=== PATIENT | female | born 1950 | race Caucasian/White ===

== ENCOUNTER 2017-03-08 10:23 | Emergency (ER) | payer MEDICARE ==
[2017-03-08] MEDS ORDERED: OXYMETAZOLINE 0.05% NASL SPRAY 15 ML ONE (11:29)
--- NOTE | 2017-03-08 11:39 | ED ---
ENT HPI - General Chief complaint: ENT Stated complaint: Epistaxis Time Seen by Provider: 03/08/17 11:10 Source: patient, RN notes reviewed Mode of arrival: wheelchair Limitations: no limitations - History of Present Illness Initial comments: This is a 58-year-old female with a history of multiple medical problems who states she had a scab but he is out of her nose several days ago and she removed it. Since that time she's had intermittent episodes of bleeding from the right naris. She has been to the other hospital in [facility] twice and was given Afrin and a nasal clamp no other procedures were done at the time. The patient is back today because she's had more bleeding intermittently she states she had a large clot that she had to evacuate earlier today. She denies any dizziness blurry vision and headache fevers chills sweats or other symptoms. MD complaint: epistaxis - Related Data Home Medications Medication Instructions Recorded Confirmed Cyanocobalamin [Vitamin B-12] 2,000 mcg PO DAILY 01/26/15 01/31/16 L.acid/L.casei/B.bif/B.parisa/Fos 1 cap PO DAILY 01/26/15 01/31/16 [Probiotic Blend Capsule] LORazepam [Ativan] 2 mg PO HS 01/26/15 01/31/16 Fluticasone Propionate [Flovent 2 puff INHALATION RT-QID PRN 04/12/15 01/31/16 Hfa 44 mcg] Cetirizine HCl [Zyrtec] 20 mg PO DAILY 08/09/15 01/31/16 Levalbuterol Nebulized [Xopenex 1.25 mg INHALATION RT-TID PRN 08/09/15 01/31/16 Nebulized] Ranitidine HCl 150 mg PO BID 08/09/15 01/31/16 Cyanocobalamin [Vitamin B-12 1,000 mcg SQ QMONTH PRN 01/10/16 01/31/16 Injection] Hydrochlorothiazide [Hydrodiuril] 6.25 mg PO HS 01/10/16 01/31/16 Ketorolac [Toradol] 60 mg IM WEEKLY PRN 01/10/16 01/31/16 Olmesartan Medoxomil [Benicar] 20 mg PO HS 01/10/16 01/31/16 amLODIPine [Norvasc] 10 mg PO HS 01/10/16 01/31/16 Previous Rx's Medication Instructions Recorded Levothyroxine Sodium [Synthroid] 125 mcg PO DAILY@0630 #30 tab 02/01/15 Allergies Allergy/AdvReac Type Severity Reaction Status Date / Time Sulfa (Sulfonamide Allergy Severe Unknown Verified 03/08/17 10:38 Antibiotics) NANCY Inhibitors Allergy Anaphylaxis Verified 03/08/17 10:38 adhesive Allergy Rash/Hives Verified 03/08/17 10:38 hylan G-F 20 [From Synvisc] Allergy Unknown Verified 03/08/17 10:38 Iodine and Iodide Containing Allergy Rash/Hives Verified 03/08/17 10:38 Produc Latex, Natural Rubber Allergy Rash/Hives Verified 03/08/17 10:38 meperidine HCl [From Demerol] Allergy Rash/Hives Verified 03/08/17 10:38 morphine Allergy Rash/Hives Verified 03/08/17 10:38 tetanus toxoid, adsorbed Allergy Unknown Verified 03/08/17 10:38 aspartame AdvReac Intermediate Diarrhea Verified 03/08/17 10:38 codeine AdvReac Nausea & Verified 03/08/17 10:38 Vomiting doxycycline AdvReac Nausea & Verified 03/08/17 10:38 Vomiting Penicillins AdvReac Nausea & Verified 03/08/17 10:38 Vomiting mushroom Allergy Diarrhea Uncoded 03/08/17 10:38 narcotics Allergy Rash/Hives Uncoded 03/08/17 10:38 Review of Systems ROS Statement: Those systems with pertinent positive or pertinent negative responses have been documented in the HPI. ROS Other: All systems not noted in ROS Statement are negative. Past Medical History Past Medical History: Atrial Flutter, Asthma, Fibromyalgia, GERD/Reflux, GI Bleed, Hyperlipidemia, Hypertension, Musculoskeletal Disorder, Neurologic Disorder, Osteoarthritis (OA), Sleep Apnea/CPAP/BIPAP, Thyroid Disorder, Vascular Disorder Additional Past Medical History / Comment(s): hx as follows: bronchitis, thoracic spondylosis, lupus, rls,migraines, blood clots, hiatal hernia, ibs, gerd, uti had sepsis 2004, kidney stone , stress incont, tmj.PERIPHERAL NEUROPATHY, endometriosis,adenomyosis, mixed connective tissue disorder, hypothyroidism, peptic ulcer disease, osteoarthritis, osteoporosis, GERD, scoliosis, esophagitis, PE, DVT, hypertension. History of Any Multi-Drug Resistant Organisms: MRSA Date of last positivie culture/infection: 02/03/2015 MDRO Source:: Nose Past Surgical History: Adenoidectomy, Bariatric Surgery, Cardiac Ablation, Cholecystectomy, Heart Catheterization, Hysterectomy, Joint Replacement, Orthopedic Surgery, Tonsillectomy, Tubal Ligation Additional Past Surgical History / Comment(s): cardiac ablation, L knee and R hip replacement. Lap band surgery. tummy tuck. CATARACTS,SINUS SX, SKIN , LAPROSCOPY, HEMORRHOIDECTOMY, CARPAL TUNNEL ADELAIDA,PAST STEROID INJ TO NECK, UVULECTOMY, LUMPSREMOVED ADELAIDA BREAST (CELLS PRECANCEROUS),BX RT TEMPORAL ARTERY- NEG), HAD NERVES IN BACK BURNED, BENIGN GROWTH REMOVED FROM BEHIND RT EAR, bilateral arthroscopic knee surgery, right total hiparthroplasty, bilateral arthroscopic hip surgery, bilateral ankle arthroscopic surgery, bilateral shoulder arthroscopic surgery. Past Anesthesia/Blood Transfusion Reactions: Motion Sickness, Postoperative Nausea & Vomiting (PONV) Past Psychological History: No Psychological Hx Reported Smoking Status: Never smoker Past Alcohol Use History: None Reported Past Drug Use History: None Reported - Past Family History Father Family Medical History: Neurologic Disorder, Pneumonia Additional Family Medical History / Comment(s): ALS- FROM PNE Mother Family Medical History: AFIB, Cancer, Chest Pain / Angina, Congestive Heart Failure (CHF), Diabetes Mellitus, Hyperlipidemia, Hypertension, Myocardial Infarction ([place]) Additional Family Medical History / Comment(s): OBESITY, COLON CA Brother(s) Family Medical History: Coronary Artery Disease (CAD) Sister(s) Family Medical History: Coronary Artery Disease (CAD) Daughter(s) Family Medical History: No Reported History General Exam - General Exam Comments Initial Comments: This is a well-developed well-nourished awake alert oriented 3 female Limitations: no limitations General appearance: alert, in no apparent distress Head exam: Present: atraumatic, normocephalic, normal inspection Eye exam: Present: normal appearance, PERRL, EOMI. Absent: scleral icterus, conjunctival injection, periorbital swelling ENT exam: Present: normal oropharynx, other (Dried blood in both nares especially on the right there is evidence of a clot toward the medial aspect of the naris no active bleeding at this time there does appear to be a area however is consistent with a recent bleed. The mucosa is boggy and swollen.) Neck exam: Present: normal inspection. Absent: tenderness, meningismus, lymphadenopathy Respiratory exam: Present: normal lung sounds bilaterally. Absent: respiratory distress, wheezes, rales, rhonchi, stridor Cardiovascular Exam: Present: regular rate, normal rhythm, normal heart sounds. Absent: systolic murmur, diastolic murmur, rubs, gallop, clicks Extremities exam: Present: normal inspection, full ROM, normal capillary refill. Absent: tenderness, pedal edema, joint swelling, calf tenderness Back exam: Present: normal inspection Neurological exam: Present: alert, oriented X3, CN II-XII intact Psychiatric exam: Present: normal affect, normal mood Skin exam: Present: warm, dry, intact, normal color. Absent: rash Course Vital Signs 03/08/17 03/08/17 10:35 12:28 Temperature 97.5 F L 97.0 F L Pulse Rate 73 65 Respiratory 20 16 Rate Blood Pressure 193/79 208/85 O2 Sat by Pulse 98 99 Oximetry Procedures - Procedures Initial comment: The patient did blow her nose and remove a large clot there was an area of excoriation and recent bleed noted to the medial aspect anteriorly of the right naris. The naris was anesthetized using 1% Xylocaine on a cotton pledget. I then used a silver nitrate sec to cauterize the area. Patient was observed for a long period time 20 minutes without any evidence a rebleed. Medical Decision Making - Medical Decision Making The patient will be discharged was cautioned about nose blowing I did recommend also saline drops or spray to keep the nose moist also I did caution about taking any scabs. Patient will be discharged. Disposition Clinical Impression: Epistaxis, recurrent Disposition: HOME SELF-CARE Condition: Good Instructions: Nosebleed (ED) Referrals: Grey Loaiza DO [Primary Care Provider] - 1-2 days
[2017-03-08] MEDS ORDERED: OXYMETAZOLINE 0.05% NASL SPRAY 15 ML NASAL STA (12:14)
[2017-03-08 12:30] VITALS: PULSE 65; RESP 16
[2017-03-08 13:35] VITALS: BP 184/78; TEMP 98
== END 2017-03-08 13:30 | disposition home or self-care (01) ==
LOC: EC 10:23
DX: R04.0 Epistaxis (principal); K21.9 Gastro-esophageal reflux disease without esophagitis; I10 Essential (primary) hypertension; Z88.2 Allergy status to sulfonamides; Z88.8 Allergy status to other drugs, medicaments and biological substances; Z91.048 Other nonmedicinal substance allergy status; Z91.040 Latex allergy status; Z88.5 Allergy status to narcotic agent; Z88.7 Allergy status to serum and vaccine; Z88.0 Allergy status to penicillin; Z91.018 Allergy to other foods; Z79.899 Other long term (current) drug therapy
CPT/HCPCS: 30901; 99283

== ENCOUNTER → 2017-10-21 | Outpatient (CLI) | payer MEDICARE ==
--- NOTE | 2017-10-21 17:53 | XR ---
EXAMINATION TYPE: XR chest 2V DATE OF EXAM: 10/21/2017 COMPARISON: 01/09/2016 HISTORY: Short of breath TECHNIQUE: Frontal and lateral views of the chest are obtained. FINDINGS: There is no heart failure nor confluent pneumonic infiltrate. Costophrenic angles are deborah r. Thoracic aorta is atheromatous. There is mild thoracic kyphotic curvature. There is slight anterio r wedging of mid thoracic vertebra. IMPRESSION: No active cardiopulmonary disease. No change.
--- NOTE | 2017-10-22 07:53 | ECHOF ---
Referral Reason:R53.83 Fatigue I10 Hypertension MEASUREMENTS -------- HEIGHT: 170.2 cm WEIGHT: 155.1 kg BP: IVSd: 1.2 cm (0.6 - 1.1) LVIDd: 3.3 cm (3.9 - 5.3) LVPWd: 1.3 cm (0.6 - 1.1) IVSs: 1.3 cm LVIDs: 1.9 cm LVPWs: 1.6 cm LAESV Index (A-L): 19.02 ml/m Ao Diam: 3.1 cm (2.0 - 3.7) AV Cusp: 1.6 cm (1.5 - 2.6) LA Diam: 3.3 cm (2.7 - 3.8) MV E Jose: 0.73 m/s MV DecT: 281 ms MV A Jose: 1.03 m/s MV E/A Ratio: 0.71 RAP: 5.00 mmHg RVSP: 24.44 mmHg FINDINGS -------- Sinus rhythm. This was a technically adequate study. The left ventricular size is normal. There is mild concentric left ventricular hypertrophy. Overa ll left ventricular systolic function is normal with, an EF between 55 - 60 %. The right ventricle is normal in size and function. Normal LA size by volume 22+/-6 ml/m2. The right atrium is normal in size. Aortic valve is trileaflet and is mildly thickened. There is no evidence of aortic regurgitation. There is no evidence of aortic stenosis. The mitral valve leaflets are mildly thickened. There is trace to mild mitral regurgitation. Trace tricuspid regurgitation present. Right ventricular systolic pressure is normal at < 35 mmHg. There is no evidence of pulmonary hypertension. Trace/mild (physiologic) pulmonic regurgitation. The aortic root size is normal. IVC Not well visulized. The pericardium is normal. There is no pericardial effusion. CONCLUSIONS -------- 1. Sinus rhythm. 2. This was a technically adequate study. 3. The left ventricular size is normal. 4. There is mild concentric left ventricular hypertrophy. 5. Overall left ventricular systolic function is normal with, an EF between 55 - 60 %. 6. Normal LA size by volume 22+/-6 ml/m2. 7. Aortic valve is trileaflet and is mildly thickened. 8. The mitral valve leaflets are mildly thickened. 9. There is trace to mild mitral regurgitation. 10. Trace tricuspid regurgitation present. 11. Right ventricular systolic pressure is normal at < 35 mmHg. 12. There is no evidence of pulmonary hypertension. 13. Trace/mild (physiologic) pulmonic regurgitation. 14. The aortic root size is normal. 15. IVC Not well visulized. 16. There is no pericardial effusion. CUTTER FIRST: Domingo Valdez RDCS
== END | disposition home or self-care (01) ==
LOC: RADECHMAIN 16:16
PROVIDERS: ATTEND Family Medicine
DX: I08.0 Rheumatic disorders of both mitral and aortic valves (principal); I10 Essential (primary) hypertension; R53.83 Other fatigue
CPT/HCPCS: 71046; 93306

== ENCOUNTER 2017-12-01 15:04 | Inpatient (IN) | payer MEDICARE ==
[2017-12-01] MEDS ORDERED: SODIUM CHLORIDE 0.9% 1,000 ML IV STA (15:30)
[2017-12-01] MEDS ORDERED: NITROGLYCERIN OINT 1 INCH/GM PACKET TOPICAL STA (15:30)
[2017-12-01 15:48] LABS: Basophils # (A) 0.1 k/uL (0-0.2); Basophils % (A) 0 %; Eosinophils # (A) 0.1 k/uL (0-0.7); Eosinophils % (A) 0 %; HCT 42.5 % (34.0-46.0); HGB 13.2 gm/dL (11.4-16.0); Lymphocytes % (A) 5 %; MCH 26.1 pg (25.0-35.0); MCHC 30.9 g/dL (31.0-37.0); MCV 84.5 fL (80.0-100.0); Mean Platelet Volume 6.2; Monocytes # (A) 1.1 k/uL (0-1.0); Monocytes % (A) 6 %; Neutrophils # (A) 16.3 k/uL (1.3-7.7); Neutrophils % (A) 87 %; Platelet Count 336 k/uL (150-450); RBC 5.04 m/uL (3.80-5.40); RDW 14.8 % (11.5-15.5); WBC 18.8 k/uL (3.8-10.6)
[2017-12-01 16:04] LABS: Albumin 3.6 g/dL (3.5-5.0); Calcium 9.4 mg/dL (8.4-10.2); Magnesium 1.8 mg/dL (1.6-2.3); Potassium 3.8 mmol/L (3.5-5.1); Total Bilirubin 0.4 mg/dL (0.2-1.3); Total Protein 6.7 g/dL (6.3-8.2)
--- NOTE | 2017-12-01 16:04 | XR ---
EXAMINATION TYPE: XR chest 2V DATE OF EXAM: 12/01/2017 COMPARISON: Prior chest x-ray 10/21/2017 HISTORY: Chest pain TECHNIQUE: Frontal and lateral views of the chest are obtained. FINDINGS: There is no focal air space opacity, pleural effusion, or pneumothorax seen. The cardiac silhouette size is stable. There are overlying cardiac leads. There is persistent elevation of the ri ght hemidiaphragm. The osseous structures are intact. IMPRESSION: No acute cardiopulmonary process. Stable exam.
[2017-12-01 16:15] LABS: Creatine Kinase 47 U/L (30-135)
--- NOTE | 2017-12-01 16:18 | ED ---
Chest Pain HPI - General Chief Complaint: Chest Pain Stated Complaint: chest pain Time Seen by Provider: 12/01/17 15:15 Source: patient Mode of arrival: wheelchair Limitations: no limitations - History of Present Illness Initial Comments: 67 years old mom lady presented with the chest pain since Friday he gets worse with exertion she denies any abdominal pain today but she had abdominal pain couple days ago she seen her family doctor she denies any history of for coronary artery disease she said she had a cardiac cath done she takes last cardiac cath was in 2010. He denies any headache no neck neck stiffness she does have a chest pain and shortness of breath and chest pain gets worse with the deep breaths no abdominal pain right now no frequency urgency dysuria no symptoms of TIA or CVA - Related Data Home Medications Medication Instructions Recorded Confirmed Cyanocobalamin [Vitamin B-12] 2,000 mcg PO DAILY 01/26/15 12/01/17 L.acid/L.casei/B.bif/B.parisa/Fos 1 cap PO DAILY 01/26/15 12/01/17 [Probiotic Blend Capsule] LORazepam [Ativan] 2 mg PO HS 01/26/15 12/01/17 Cetirizine HCl [Zyrtec] 20 mg PO DAILY 08/09/15 12/01/17 Levalbuterol Nebulized [Xopenex 1.25 mg INHALATION RT-TID PRN 08/09/15 12/01/17 Nebulized] Ranitidine HCl 150 mg PO BID 08/09/15 12/01/17 Acetaminophen Tab [Tylenol Tab] 325 mg PO Q4H PRN 12/01/17 12/01/17 Fludrocortisone [Florinef] 0.05 mg PO DAILY 12/01/17 12/01/17 Hydrocortisone [Cortef] 5 mg PO BID 12/01/17 12/01/17 Hydrocortisone [Cortef] 15 mg PO QAM 12/01/17 12/01/17 Levothyroxine Sodium [Synthroid] 150 mcg PO DAILY 12/01/17 12/01/17 Metoprolol Tartrate [Lopressor] 50 mg PO BID 12/01/17 12/01/17 Allergies Allergy/AdvReac Type Severity Reaction Status Date / Time Sulfa (Sulfonamide Allergy Severe Unknown Verified 12/01/17 15:26 Antibiotics) NANCY Inhibitors Allergy Anaphylaxis Verified 12/01/17 15:26 adhesive Allergy Rash/Hives Verified 12/01/17 15:26 albuterol Allergy Rash/Hives Verified 12/01/17 15:26 aspirin [From Soma Compound] Allergy Unknown Verified 12/01/17 15:26 baclofen Allergy Unknown Verified 12/01/17 15:26 carisoprodol Allergy Unknown Verified 12/01/17 15:26 [From Soma Compound] ciprofloxacin [From Cipro] Allergy Unknown Verified 12/01/17 15:26 gabapentin Allergy Unknown Verified 12/01/17 15:26 hylan G-F 20 [From Synvisc] Allergy Unknown Verified 12/01/17 15:26 Iodine and Iodide Containing Allergy Rash/Hives Verified 12/01/17 15:26 Produc Latex, Natural Rubber Allergy Rash/Hives Verified 12/01/17 15:26 levofloxacin [From Levaquin] Allergy Unknown Verified 12/01/17 15:26 lisinopril Allergy Unknown Verified 12/01/17 15:26 meperidine HCl [From Demerol] Allergy Rash/Hives Verified 12/01/17 15:26 morphine Allergy Rash/Hives Verified 12/01/17 15:26 tetanus toxoid, adsorbed Allergy Unknown Verified 12/01/17 15:26 tizanidine Allergy Rash/Hives Verified 12/01/17 15:26 aspartame AdvReac Intermediate Diarrhea Verified 12/01/17 15:26 codeine AdvReac Nausea & Verified 12/01/17 15:26 Vomiting doxycycline AdvReac Nausea & Verified 12/01/17 15:26 Vomiting Penicillins AdvReac Nausea & Verified 12/01/17 15:26 Vomiting prednisone AdvReac Hallucinati Verified 12/01/17 15:26 ons mushroom Allergy Diarrhea Uncoded 12/01/17 15:18 narcotics Allergy Rash/Hives Uncoded 12/01/17 15:18 Review of Systems ROS Statement: Those systems with pertinent positive or pertinent negative responses have been documented in the HPI. ROS Other: All systems not noted in ROS Statement are negative. EKG Findings - EKG Comments: EKG Findings:: EKG is unusual P axis and short GA interval I did compare that she even with the previous EKG GA interval definitely looks short her today also noticed some T-wave inversion in lead 3 and notice a T-wave inversion and ST depression in V5 and V6 Past Medical History Past Medical History: Atrial Flutter, Asthma, Fibromyalgia, GERD/Reflux, GI Bleed, Hyperlipidemia, Hypertension, Musculoskeletal Disorder, Neurologic Disorder, Osteoarthritis (OA), Sleep Apnea/CPAP/BIPAP, Thyroid Disorder, Vascular Disorder Additional Past Medical History / Comment(s): hx as follows: bronchitis, thoracic spondylosis, lupus, rls,migraines, blood clots, hiatal hernia, ibs, gerd, uti had sepsis 2004, kidney stone , stress incont, tmj.PERIPHERAL NEUROPATHY, endometriosis,adenomyosis, mixed connective tissue disorder, hypothyroidism, peptic ulcer disease, osteoarthritis, osteoporosis, GERD, scoliosis, esophagitis, PE, DVT, hypertension. History of Any Multi-Drug Resistant Organisms: MRSA Date of last positivie culture/infection: 02/03/2015 MDRO Source:: Nose Past Surgical History: Adenoidectomy, Bariatric Surgery, Cardiac Ablation, Cholecystectomy, Heart Catheterization, Hysterectomy, Joint Replacement, Orthopedic Surgery, Tonsillectomy, Tubal Ligation Additional Past Surgical History / Comment(s): cardiac ablation, L knee and R hip replacement. Lap band surgery. tummy tuck. CATARACTS,SINUS SX, SKIN , LAPROSCOPY, HEMORRHOIDECTOMY, CARPAL TUNNEL ADELAIDA,PAST STEROID INJ TO NECK, UVULECTOMY, LUMPSREMOVED ADELAIDA BREAST (CELLS PRECANCEROUS),BX RT TEMPORAL ARTERY- NEG), HAD NERVES IN BACK BURNED, BENIGN GROWTH REMOVED FROM BEHIND RT EAR, bilateral arthroscopic knee surgery, right total hiparthroplasty, bilateral arthroscopic hip surgery, bilateral ankle arthroscopic surgery, bilateral shoulder arthroscopic surgery. Past Anesthesia/Blood Transfusion Reactions: Motion Sickness, Postoperative Nausea & Vomiting (PONV) Past Psychological History: No Psychological Hx Reported Smoking Status: Never smoker Past Alcohol Use History: None Reported Past Drug Use History: None Reported - Past Family History Father Family Medical History: Neurologic Disorder, Pneumonia Additional Family Medical History / Comment(s): ALS- FROM PNE Mother Family Medical History: AFIB, Cancer, Chest Pain / Angina, Congestive Heart Failure (CHF), Diabetes Mellitus, Hyperlipidemia, Hypertension, Myocardial Infarction ([place]) Additional Family Medical History / Comment(s): OBESITY, COLON CA Brother(s) Family Medical History: Coronary Artery Disease (CAD) Sister(s) Family Medical History: Coronary Artery Disease (CAD) Daughter(s) Family Medical History: No Reported History General Exam - General Exam Comments Initial Comments: General: The patient is awake and alert, in no distress, and does not appear acutely ill. Skin: Skin is warm and dry and no rashes or lesions are noted. Eye: Pupils are equal, round and reactive to light, extra-ocular movements are intact; there is normal conjunctiva bilaterally. Ears, nose, mouth and throat: There are moist mucous membranes and no oral lesions. Neck: The neck is supple, there is no tenderness Cardiovascular: There is a regular rate and rhythm. No murmur, rub or gallop is appreciated. Respiratory: To auscultation bilateral, crease breath sounds bilateral Gastrointestinal: Soft, non-distended, non-tender abdomen without masses or organomegaly noted. There is no rebound or guarding present. Bowel sounds are unremarkable. Back: There is no tenderness to palpation in the midline. There is no obvious deformity. Musculoskeletal: Normal ROM, no tenderness, There is no pedal edema. There is no calf tenderness or swelling. No cords were appreciated. Neurological: CN II-XII intact, Cranial nerves III through XII are intact. There are no obvious motor or sensory deficits. Coordination appears grossly intact. Speech is normal. Psychiatric: Cooperative, appropriate mood & affect, normal judgment. Limitations: no limitations Course Vital Signs 12/01/17 12/01/17 12/01/17 15:06 15:37 15:46 Temperature 97.4 F L Pulse Rate 87 78 Pulse Rate [ 78 Baker Second ] Respiratory 18 18 Rate Blood Pressure 142/74 162/57 O2 Sat by Pulse 95 97 Oximetry Critical Care Time Total Critical Care Time: 30 Critical Care Time: With the chest pain chest pain gets worse when she moves and when she takes a deep breath at rest chest pain goes down to 1 or 2 she denies any trauma to the back she does have a quite a bit cold comorbidities and EKG showed some new changes consistent with the TV of T-wave inversion in lead 3 and then V5 and V6 these changes are new compared to her old EKG considering that and we'll heparinize her she be admitted to Dr. Guerra's service cardiology be consulted then noticed the white count is quite elevated though chest x-ray is normal I don't have any urine studies back yet empirically she be treated with the antibiotics we can modify the treatment once the cultures come back right Is quite elevated is a 19 with a left shift Disposition Clinical Impression: Chest pain, Unstable angina, Leukocytosis Disposition: ADMITTED IP TO THIS HOSP Condition: Good Referrals: Grey Loaiza DO [Primary Care Provider] - 1-2 days
[2017-12-01 16:26] LABS: D-Dimer 0.37 mg/L FEU (<0.60); Partial Thromboplastin Time 22.2 sec (22.0-30.0); Prothrombin Time 10.1 sec (9.0-12.0)
[2017-12-01 16:28] LABS: Creatine Kinase MB 0.6 ng/mL (0.0-2.4); Troponin I <0.012 ng/mL (0.000-0.034)
[2017-12-01] MEDS ORDERED: HEPARIN SOD,PORK IN 0.45% NACL 25,000 UNIT in 0.45% NACL 1 500ML.BAG IV SCH (17:00)
[2017-12-01] MEDS ORDERED: HEPARIN SODIUM,PORCINE 5,000 UNIT/ML 1 ML VIAL IV ONE (17:00)
[2017-12-01] MEDS ORDERED: NITROGLYCERIN SL TABS 0.4 MG TAB SUBLINGUAL PRN (17:00)
[2017-12-01] MEDS ORDERED: ACETAMINOPHEN TAB 325 MG TAB PO PRN (17:09)
[2017-12-01] MEDS ORDERED: LEVALBUTEROL INHALATION PRN (17:09)
[2017-12-01 17:16] LABS: Appearance,Urine Cloudy (Clear); Bilirubin,Urine Negative (Negative); Blood,Urine Trace (Negative); Color,Urine Yellow; Glucose,Urine (UA) Negative (Negative); Hyaline Casts,Urine 4 /lpf (0-2); Ketones,Urine Trace (Negative); Leukocyte Esterase,Urine Moderate (Negative); Mucus,Urine Many /hpf; Nitrite,Urine Negative (Negative); Protein,Urine 1+ (Negative); RBC,Urine 3 /hpf (0-5); Specific Gravity,Urine 1.024 (1.001-1.035); Squamous Epithelial Cell,Urine <1 /hpf (0-4); WBC,Urine 35 /hpf (0-5)
--- NOTE | 2017-12-01 18:43 | P.HPIM ---
History of Present Illness H&P Date: 12/01/17 Chief Complaint: chest pain 67 years old female patient of Dr. Middleton with past medical history of atrial flutter status post ablation, asthma, hypertension, hyperlipidemia, fibromyalgia, history of GI bleed from ulcers, history of obstructive sleep apnea status post surgery, history of adrenal insufficiency presents in with increased chest tightness associated with chest pain involving the right side of the chest radiating to the back. Patient also endorses wheezing associated with mild cough. She also endorses shortness of breath on exertion, endorses increased weakness and lethargy for some time that has worsened in the past few months. Patient has shortness of breath going on for the past 6 months which was attributed to COPD. Patient has a last cardiac cath in 2010 which was normal. She denies any previous history of chest pain and shortness of breath. She does document multiple lung infections and history of pleurisy in the past. EKG done in the ER was suggestive of some T- wave inversions in lead [address] depression in V5 and V6. Patient is started on heparin and cardiology were consulted for evaluation. Echo ordered. CBC is positive for leukocytosis 18.8, creatinine baseline at 1.2. Troponin 1 negative. Review of Systems Constitutional: Reports chronic pain, Reports fatigue, Reports lethargy, Reports poor appetite, Reports weight gain, Denies fever Eyes: denies blurred vision, denies decreased vision, denies discharge Ears, nose, mouth and throat: Denies ant. neck pain, Denies dysphagia, Denies epistaxis, Denies headache, Denies hoarseness, Denies nasal discharge, Denies odynophagia, Denies post-nasal drip Cardiovascular: Reports chest pain, Reports decreased exercise tolerance, Reports dyspnea on exertion, Reports edema, Reports high blood pressure, Reports irregular heart beat, Reports shortness of breath, Denies lightheadedness, Denies orthopnea Respiratory: Reports cough, Reports dyspnea, Reports home oxygen, Reports sleep apnea, Reports wheezing, Denies cough with sputum Gastrointestinal: Denies abdominal pain, Denies belching, Denies bloating, Denies BRBPR, Denies change in bowel habits, Denies heartburn, Denies hematemesis, Denies hematochezia Genitourinary: Denies hematuria, Denies urgency, Denies urinary frequency Musculoskeletal: Reports leg numbness/tingling, Reports limitation of motion, Denies arm numbness/tingling, Denies morning stiffness, Denies muscle cramps Musculoskeletal: absent: ankle pain, ankle stiffness, elbow pain, elbow stiffness Integumentary: Denies change in hair/nails, Denies rash, Denies striae, Denies unusual bruising Neurological: Reports gait dysfunction, Reports numbness, Denies loss of vision , Denies memory loss, Denies motor disturbance, Denies seizures, Denies syncope , Denies tingling Psychiatric: Denies anxiety Past Medical History Past Medical History: Atrial Flutter, Asthma, Fibromyalgia, GERD/Reflux, GI Bleed, Hyperlipidemia, Hypertension, Musculoskeletal Disorder, Neurologic Disorder, Osteoarthritis (OA), Sleep Apnea/CPAP/BIPAP, Thyroid Disorder, Vascular Disorder Additional Past Medical History / Comment(s): hx as follows: bronchitis, thoracic spondylosis, lupus, rls,migraines, blood clots, hiatal hernia, ibs, gerd, uti had sepsis 2004, kidney stone , stress incont, tmj.PERIPHERAL NEUROPATHY, endometriosis,adenomyosis, mixed connective tissue disorder, hypothyroidism, peptic ulcer disease, osteoarthritis, osteoporosis, GERD, scoliosis, esophagitis, PE, DVT, hypertension. History of Any Multi-Drug Resistant Organisms: MRSA Date of last positivie culture/infection: 02/03/2015 MDRO Source:: Nose Past Surgical History: Adenoidectomy, Bariatric Surgery, Cardiac Ablation, Cholecystectomy, Heart Catheterization, Hysterectomy, Joint Replacement, Orthopedic Surgery, Tonsillectomy, Tubal Ligation Additional Past Surgical History / Comment(s): cardiac ablation, L knee and R hip replacement. Lap band surgery. tummy tuck. CATARACTS,SINUS SX, SKIN , LAPROSCOPY, HEMORRHOIDECTOMY, CARPAL TUNNEL ADELAIDA,PAST STEROID INJ TO NECK, UVULECTOMY, LUMPSREMOVED ADELAIDA BREAST (CELLS PRECANCEROUS),BX RT TEMPORAL ARTERY- NEG), HAD NERVES IN BACK BURNED, BENIGN GROWTH REMOVED FROM BEHIND RT EAR, bilateral arthroscopic knee surgery, right total hiparthroplasty, bilateral arthroscopic hip surgery, bilateral ankle arthroscopic surgery, bilateral shoulder arthroscopic surgery. Past Anesthesia/Blood Transfusion Reactions: Motion Sickness, Postoperative Nausea & Vomiting (PONV) Past Psychological History: No Psychological Hx Reported Smoking Status: Never smoker Past Alcohol Use History: None Reported Past Drug Use History: None Reported - Past Family History Father Family Medical History: Neurologic Disorder, Pneumonia Additional Family Medical History / Comment(s): ALS- FROM PNE Mother Family Medical History: AFIB, Cancer, Chest Pain / Angina, Congestive Heart Failure (CHF), Diabetes Mellitus, Hyperlipidemia, Hypertension, Myocardial Infarction ([place]) Additional Family Medical History / Comment(s): OBESITY, COLON CA Brother(s) Family Medical History: Coronary Artery Disease (CAD) Sister(s) Family Medical History: Coronary Artery Disease (CAD) Daughter(s) Family Medical History: No Reported History Medications and Allergies Home Medications Medication Instructions Recorded Confirmed Type Cyanocobalamin [Vitamin B-12] 2,000 mcg PO DAILY 01/26/15 12/01/17 History L.acid/L.casei/B.bif/B.parisa/Fos 1 cap PO DAILY 01/26/15 12/01/17 History [Probiotic Blend Capsule] LORazepam [Ativan] 2 mg PO HS 01/26/15 12/01/17 History Cetirizine HCl [Zyrtec] 20 mg PO DAILY 08/09/15 12/01/17 History Levalbuterol Nebulized [Xopenex 1.25 mg INHALATION RT-TID PRN 08/09/15 12/01/17 History Nebulized] Ranitidine HCl 150 mg PO BID 08/09/15 12/01/17 History Acetaminophen Tab [Tylenol Tab] 325 mg PO Q4H PRN 12/01/17 12/01/17 History Fludrocortisone [Florinef] 0.05 mg PO DAILY 12/01/17 12/01/17 History Hydrocortisone [Cortef] 5 mg PO BID 12/01/17 12/01/17 History Hydrocortisone [Cortef] 15 mg PO QAM 12/01/17 12/01/17 History Levothyroxine Sodium [Synthroid] 150 mcg PO DAILY 12/01/17 12/01/17 History Metoprolol Tartrate [Lopressor] 50 mg PO BID 12/01/17 12/01/17 History Allergies Allergy/AdvReac Type Severity Reaction Status Date / Time Sulfa (Sulfonamide Allergy Severe Unknown Verified 12/01/17 15:26 Antibiotics) NANCY Inhibitors Allergy Anaphylaxis Verified 12/01/17 15:26 adhesive Allergy Rash/Hives Verified 12/01/17 15:26 albuterol Allergy Rash/Hives Verified 12/01/17 15:26 aspirin [From Soma Compound] Allergy Unknown Verified 12/01/17 15:26 baclofen Allergy Unknown Verified 12/01/17 15:26 carisoprodol Allergy Unknown Verified 12/01/17 15:26 [From Soma Compound] ciprofloxacin [From Cipro] Allergy Unknown Verified 12/01/17 15:26 gabapentin Allergy Unknown Verified 12/01/17 15:26 hylan G-F 20 [From Synvisc] Allergy Unknown Verified 12/01/17 15:26 Iodine and Iodide Containing Allergy Rash/Hives Verified 12/01/17 15:26 Produc Latex, Natural Rubber Allergy Rash/Hives Verified 12/01/17 15:26 levofloxacin [From Levaquin] Allergy Unknown Verified 12/01/17 15:26 lisinopril Allergy Unknown Verified 12/01/17 15:26 meperidine HCl [From Demerol] Allergy Rash/Hives Verified 12/01/17 15:26 morphine Allergy Rash/Hives Verified 12/01/17 15:26 tetanus toxoid, adsorbed Allergy Unknown Verified 12/01/17 15:26 tizanidine Allergy Rash/Hives Verified 12/01/17 15:26 aspartame AdvReac Intermediate Diarrhea Verified 12/01/17 15:26 codeine AdvReac Nausea & Verified 12/01/17 15:26 Vomiting doxycycline AdvReac Nausea & Verified 12/01/17 15:26 Vomiting Penicillins AdvReac Nausea & Verified 12/01/17 15:26 Vomiting prednisone AdvReac Hallucinati Verified 12/01/17 15:26 ons mushroom Allergy Diarrhea Uncoded 12/01/17 15:18 narcotics Allergy Rash/Hives Uncoded 12/01/17 15:18 Physical Exam Vitals: Vital Signs Temp Pulse Pulse Resp BP Pulse Ox 12/01/17 18:10 97 F L 72 18 154/74 95 12/01/17 17:10 97.3 F L 78 18 160/81 96 12/01/17 15:46 78 18 162/57 97 12/01/17 15:37 78 12/01/17 15:06 97.4 F L 87 18 142/74 95 Intake and Output 12/01/17 12/01/17 12/01/17 06:59 14:59 22:59 Other: Weight 154.221 kg Patient Weight 02/27/18 06:59 Weight 154.221 kg - Constitutional General appearance: average body habitus, mild distress - EENT Eyes: EOMI, PERRLA, no photophobia, no ptosis Ears: bilateral: normal - Neck Neck: no lymphadenopathy, normal ROM Carotids: bilateral: upstroke normal - Respiratory Respiratory: bilateral: CTA, negative: diminished, dullness, rales, rhonchi, wheezing - Cardiovascular Rhythm: regular Heart sounds: normal: S1, S2 Abnormal Heart Sounds: no systolic murmur, no diastolic murmur, no S3 Gallop, no S4 Gallop, no click ankle Peripheral Edema: absent: None dorsalis pedis Peripheral Pulses: bilateral: Normal - Gastrointestinal General gastrointestinal: no distended, normal bowel sounds, soft - Integumentary Integumentary: no calor, no cyanotic - Neurologic Neurologic: CNII-XII intact - Musculoskeletal Musculoskeletal: generalized weakness, strength equal bilaterally - Psychiatric Psychiatric: A&O x's 3, appropriate affect Results CBC & Chem 7: 12/01/17 15:24 12/01/17 15:24 Labs: Abnormal Lab Results - Last 24 Hours (Table) 12/01/17 12/01/17 12/01/17 Range/Units 15:24 15:24 17:08 WBC 18.8 H (3.8-10.6) k/uL MCHC 30.9 L (31.0-37.0) g/dL Neutrophils # 16.3 H (1.3-7.7) k/uL Monocytes # 1.1 H (0-1.0) k/uL BUN 25 H (7-17) mg/dL Creatinine 1.20 H (0.52-1.04) mg/dL Glucose 145 H (74-99) mg/dL Urine Appearance Cloudy H (Clear) Urine Protein 1+ H (Negative) Urine Ketones Trace H (Negative) Urine Blood Trace H (Negative) Ur Leukocyte Esterase Moderate H (Negative) Urine WBC 35 H (0-5) /hpf Hyaline Casts 4 H (0-2) /lpf Urine Mucus Many H (None) /hpf Thrombosis Risk Factor Assmnt - DVT/VTE Prophylaxis DVT/VTE Prophylaxis: Pharmacologic Prophylaxis ordered Assessment and Plan Plan: 1 atypical chest pain: troponin 3 be done consult cardiology and repeat EKG if change in troponin patient will go for heart cath if not stress test and echocardiogram. Continue heparin drip and it cleared by cardiology 2 worsening dyspnea and shortness of breath: We'll continue patient on Xopenex and Symbicort along with O2. 3 a flutter status post atrial fibrillation: Patient is not on any anticoagulation currently, pulse rate is under control. 4 hypertension: Patient is on metoprolol 50 twice a day Will continue the same 5 hypothyroidism: Patient is on Synthroid 125 g daily continue medication. 6 GERD: Patient will be on Pepcid 20 mg twice a day. 7. Renal insufficiency continue Florinef and Cortef at the current dose DVT prophylaxis: Continue heparin drip CODE STATUS: Full code. Expectation from this admission: Patient be in the hospital for 1-2 nights.
[2017-12-01] MEDS ORDERED: cefTRIAXone IN SWFI 1,000 MG/10 ML SYRINGE IVP STA (20:37)
[2017-12-01] MEDS ORDERED: ACETAMINOPHEN TAB 500 MG TAB PO STA (20:38)
[2017-12-01] MEDS ORDERED: LORazepam 1 MG TAB PO SCH (21:00)
[2017-12-01 21:45] VITALS: BMI 53.2
[2017-12-01] MEDS: HYDROCORTISONE 10 MG TAB PO SCH (21:46)
[2017-12-01] MEDS: FAMOTIDINE 20 MG TAB PO SCH (21:50)
[2017-12-01] MEDS: METOPROLOL TARTRATE 50 MG TAB PO SCH (21:50)
[2017-12-01 22:30] LABS: Creatine Kinase 46 U/L (30-135)
[2017-12-01 22:37] LABS: Creatine Kinase MB 0.9 ng/mL (0.0-2.4); Troponin I <0.012 ng/mL (0.000-0.034)
[2017-12-02 03:24] LABS: Basophils # (A) 0.1 k/uL (0-0.2); Basophils % (A) 1 %; Eosinophils # (A) 0.1 k/uL (0-0.7); Eosinophils % (A) 1 %; HCT 42.3 % (34.0-46.0); HGB 12.7 gm/dL (11.4-16.0); Hypochromasia Moderate; Lymphocytes # (A) 1.5 k/uL (1.0-4.8); Lymphocytes % (A) 10 %; MCH 25.9 pg (25.0-35.0); MCHC 29.9 g/dL (31.0-37.0); MCV 86.6 fL (80.0-100.0); Mean Platelet Volume 6.6; Monocytes # (A) 0.9 k/uL (0-1.0); Monocytes % (A) 6 %; Neutrophils # (A) 12.2 k/uL (1.3-7.7); Neutrophils % (A) 81 %; Platelet Count 305 k/uL (150-450); RBC 4.88 m/uL (3.80-5.40); RDW 14.5 % (11.5-15.5); WBC 15.1 k/uL (3.8-10.6)
[2017-12-02 03:28] LABS: Albumin 3.4 g/dL (3.5-5.0); Calcium 9.3 mg/dL (8.4-10.2); Potassium 4.1 mmol/L (3.5-5.1); Total Bilirubin 0.4 mg/dL (0.2-1.3); Total Protein 6.2 g/dL (6.3-8.2)
[2017-12-02 04:05] LABS: Creatine Kinase 37 U/L (30-135)
[2017-12-02 04:18] LABS: Creatine Kinase MB 0.6 ng/mL (0.0-2.4); Troponin I <0.012 ng/mL (0.000-0.034)
[2017-12-02] MEDS ORDERED: LEVOTHYROXINE 75 MCG TAB PO SCH (06:30)
[2017-12-02] MEDS ORDERED: HYDROCORTISONE 10 MG TAB PO SCH (07:30)
[2017-12-02] MEDS: METOPROLOL TARTRATE 50 MG TAB PO SCH (08:07)
[2017-12-02] MEDS: FAMOTIDINE 20 MG TAB PO SCH (08:07)
--- NOTE | 2017-12-02 08:13 | P.CRDCN ---
History of Present Illness Consult date: 12/02/17 Requesting physician: Carlito Macias Consult reason: chest pain Chief complaint: Chest pain History of present illness: This is a 67-year-old female who follows with Dr. Gabino Noland in the office. She has a history of hypertension, hyperlipidemia, asthma, sleep apnea , adrenal insufficiency, atrial flutter with prior ablation, prior PE, hypothyroidism. She presents to the hospital with symptoms of chest discomfort. According to the patient, she has been having chills at home, she' s also been having some discomfort in her upper abdominal region, she states that she's been having discomfort In her scapula area, that comes and goes, she also states that when she exerts herself physically she gets a sharp stabbing chest pain. Patient does have a nonproductive cough, no wheezing. Patient has had a cardiac catheterization in the past, 2010, normal coronary arteries at that time. In January 2016 she underwent a Lexiscan stress test which was negative for any reversible ischemia. EKG on arrival here showed a normal sinus rhythm with nonspecific ST-T wave changes, similar to prior EKGs. Chest x -ray did not reveal any acute cardiopulmonary process. Blood pressure 136/80 with a heart rate in the 60s. Afebrile. White blood cell count 18.8 on admission, 15.1 this morning. Hemoglobin 12.7, platelet count 305. D-dimer is 0.37. Sodium 142, potassium 4.1, BUN 31, creatinine 1.2. Troponins have been negative 3. BNP level 449. Positive UTI. Influenza negative. At the time of my examination this morning, patient is currently chest pain-free, denies any pain at present interscapular area. Past Medical History Past Medical History: Atrial Flutter, Asthma, Fibromyalgia, GERD/Reflux, GI Bleed, Hyperlipidemia, Hypertension, Musculoskeletal Disorder, Neurologic Disorder, Osteoarthritis (OA), Pulmonary Embolus (PE), Sleep Apnea/CPAP/BIPAP, Thyroid Disorder, Vascular Disorder Additional Past Medical History / Comment(s): hx as follows: bronchitis, thoracic spondylosis, lupus, rls,migraines, blood clots, hiatal hernia, ibs, gerd, uti had sepsis 2004, kidney stone , stress incont, tmj.PERIPHERAL NEUROPATHY, endometriosis,adenomyosis, mixed connective tissue disorder, hypothyroidism, peptic ulcer disease, osteoarthritis, osteoporosis, GERD, scoliosis, esophagitis, PE, DVT, hypertension. History of Any Multi-Drug Resistant Organisms: MRSA Date of last positivie culture/infection: 02/03/2015 MDRO Source:: Nose Past Surgical History: Adenoidectomy, Bariatric Surgery, Cardiac Ablation, Cholecystectomy, Heart Catheterization, Hysterectomy, Joint Replacement, Orthopedic Surgery, Tonsillectomy, Tubal Ligation Additional Past Surgical History / Comment(s): cardiac ablation, L knee and R hip replacement. Lap band surgery. tummy tuck. CATARACTS,SINUS SX, SKIN , LAPROSCOPY, HEMORRHOIDECTOMY, CARPAL TUNNEL ADELAIDA,PAST STEROID INJ TO NECK, UVULECTOMY, LUMPS REMOVED ADELAIDA BREAST (CELLS PRECANCEROUS),BX RT TEMPORAL ARTERY- NEG), HAD NERVES IN BACK BURNED, BENIGN GROWTH REMOVED FROM BEHIND RT EAR, bilateral arthroscopic knee surgery, right total hiparthroplasty, bilateral arthroscopic hip surgery, bilateral ankle arthroscopic surgery, bilateral shoulder arthroscopic surgery. Past Anesthesia/Blood Transfusion Reactions: Motion Sickness, Postoperative Nausea & Vomiting (PONV) Past Psychological History: No Psychological Hx Reported Smoking Status: Never smoker Past Alcohol Use History: None Reported Past Drug Use History: None Reported - Past Family History Father Family Medical History: Neurologic Disorder, Pneumonia Additional Family Medical History / Comment(s): ALS, FROM PNEUMONIA Mother Family Medical History: AFIB, Cancer, Chest Pain / Angina, Congestive Heart Failure (CHF), Diabetes Mellitus, Hyperlipidemia, Hypertension, Myocardial Infarction ([place]) Additional Family Medical History / Comment(s): OBESITY, COLON CA Brother(s) Family Medical History: Coronary Artery Disease (CAD) Sister(s) Family Medical History: Coronary Artery Disease (CAD), Deep Vein Thrombosis (DVT ) Daughter(s) Family Medical History: No Reported History Medications and Allergies Home Medications Medication Instructions Recorded Confirmed Type Cyanocobalamin [Vitamin B-12] 2,000 mcg PO DAILY 01/26/15 12/01/17 History L.acid/L.casei/B.bif/B.parisa/Fos 1 cap PO DAILY 01/26/15 12/01/17 History [Probiotic Blend Capsule] LORazepam [Ativan] 2 mg PO HS 01/26/15 12/01/17 History Cetirizine HCl [Zyrtec] 20 mg PO DAILY 08/09/15 12/01/17 History Levalbuterol Nebulized [Xopenex 1.25 mg INHALATION RT-TID PRN 08/09/15 12/01/17 History Nebulized] Ranitidine HCl 150 mg PO BID 08/09/15 12/01/17 History Acetaminophen Tab [Tylenol Tab] 325 mg PO Q4H PRN 12/01/17 12/01/17 History Fludrocortisone [Florinef] 0.05 mg PO DAILY 12/01/17 12/01/17 History Hydrocortisone [Cortef] 5 mg PO BID 12/01/17 12/01/17 History Hydrocortisone [Cortef] 15 mg PO QAM 12/01/17 12/01/17 History Levothyroxine Sodium [Synthroid] 150 mcg PO DAILY 12/01/17 12/01/17 History Metoprolol Tartrate [Lopressor] 50 mg PO BID 12/01/17 12/01/17 History Allergies Allergy/AdvReac Type Severity Reaction Status Date / Time Sulfa (Sulfonamide Allergy Severe Unknown Verified 12/01/17 15:26 Antibiotics) NANCY Inhibitors Allergy Anaphylaxis Verified 12/01/17 15:26 adhesive Allergy Rash/Hives Verified 12/01/17 15:26 albuterol Allergy Rash/Hives Verified 12/01/17 15:26 aspirin [From Soma Compound] Allergy Unknown Verified 12/01/17 15:26 baclofen Allergy Unknown Verified 12/01/17 15:26 carisoprodol Allergy Unknown Verified 12/01/17 15:26 [From Soma Compound] ciprofloxacin [From Cipro] Allergy Unknown Verified 12/01/17 15:26 gabapentin Allergy Unknown Verified 12/01/17 15:26 hylan G-F 20 [From Synvisc] Allergy Unknown Verified 12/01/17 15:26 Iodine and Iodide Containing Allergy Rash/Hives Verified 12/01/17 15:26 Produc Latex, Natural Rubber Allergy Rash/Hives Verified 12/01/17 15:26 levofloxacin [From Levaquin] Allergy Unknown Verified 12/01/17 15:26 lisinopril Allergy Unknown Verified 12/01/17 15:26 meperidine HCl [From Demerol] Allergy Rash/Hives Verified 12/01/17 15:26 morphine Allergy Rash/Hives Verified 12/01/17 15:26 tetanus toxoid, adsorbed Allergy Unknown Verified 12/01/17 15:26 tizanidine Allergy Rash/Hives Verified 12/01/17 15:26 aspartame AdvReac Intermediate Diarrhea Verified 12/01/17 15:26 codeine AdvReac Nausea & Verified 12/01/17 15:26 Vomiting doxycycline AdvReac Nausea & Verified 12/01/17 15:26 Vomiting Penicillins AdvReac Nausea & Verified 12/01/17 15:26 Vomiting prednisone AdvReac Hallucinati Verified 12/01/17 15:26 ons mushroom Allergy Diarrhea Uncoded 12/01/17 15:18 narcotics Allergy Rash/Hives Uncoded 12/01/17 15:18 Physical Exam Vitals: Vital Signs Temp Pulse Pulse Pulse Resp BP BP 12/02/17 04:00 98.1 F 65 18 137/81 12/02/17 00:00 98 F 84 18 136/85 12/01/17 21:15 97.8 F 80 18 138/80 12/01/17 20:30 97.0 F L 80 18 162/83 12/01/17 18:10 97 F L 72 18 154/74 12/01/17 17:10 97.3 F L 78 18 160/81 12/01/17 15:46 78 18 162/57 12/01/17 15:37 78 12/01/17 15:06 97.4 F L 87 18 142/74 Pulse Ox 12/02/17 04:00 95 12/02/17 00:00 95 12/01/17 21:15 96 12/01/17 20:30 97 12/01/17 18:10 95 12/01/17 17:10 96 12/01/17 15:46 97 12/01/17 15:37 12/01/17 15:06 95 Intake and Output 12/01/17 12/02/17 12/02/17 22:59 06:59 14:59 Intake Total 639.333 191.035 Balance 639.333 191.035 Intake: Intake, IV Titration 639.333 191.035 Amount Heparin Sod,Pork in 0.45% 139.333 191.035 NaCl 25,000 unit In 0.45 % NaCl 1 500ml.bag @ 6.5 UNITS/KG/HR 20.04 mls/hr IV .Q24H [facility] Rx#: [id number] Sodium Chloride 0.9% 1, 500 000 ml @ 100 mls/hr IV . Q10H [facility] Rx#:[id number] Other: Voiding Method Toilet # Voids 1 2 Weight 154.221 kg 153.3 kg PHYSICAL EXAMINATION: HEENT: Head is atraumatic, normocephalic. Pupils equal, round. Neck is supple. There is no elevated jugular venous pressure. HEART EXAMINATION: Heart S1, S2 normal. No murmur or gallop heard. CHEST EXAMINATION: Lungs are clear to auscultation and precussion. No chest wall tenderness is noted on palpation or with deep breathing. ABDOMEN: Soft, obese, nontender. Bowel sounds are heard. No organomegaly noted. EXTREMITIES: 2+ peripheral pulses with trace evidence of peripheral edema and no calf tenderness noted. NEUROLOGIC patient is awake, alert and oriented -3. . Results 12/02/17 02:55 12/02/17 02:55 Cardiac Enzymes 12/01/17 12/01/17 12/01/17 Range/Units 15:24 15:24 21:27 AST 16 (14-36) U/L CK-MB (CK-2) 0.6 0.9 (0.0-2.4) ng/mL Troponin I <0.012 <0.012 (0.000-0.034) ng/mL 12/02/17 12/02/17 Range/Units 02:55 02:55 AST 13 L (14-36) U/L CK-MB (CK-2) 0.6 (0.0-2.4) ng/mL Troponin I <0.012 (0.000-0.034) ng/mL Coagulation 12/01/17 12/01/17 12/02/17 Range/Units 15:24 23:59 06:25 PT 10.1 (9.0-12.0) sec APTT 22.2 29.4 36.2 H (22.0-30.0) sec Lipids 12/02/17 Range/Units 02:55 Triglycerides 83 (<150) mg/dL Cholesterol 193 (<200) mg/dL HDL Cholesterol 63 H (40-60) mg/dL CBC 12/01/17 12/02/17 Range/Units 15:24 02:55 WBC 18.8 H 15.1 H (3.8-10.6) k/uL RBC 5.04 4.88 (3.80-5.40) m/uL Hgb 13.2 12.7 (11.4-16.0) gm/dL Hct 42.5 42.3 (34.0-46.0) % Plt Count 336 305 (150-450) k/uL Comprehensive Metabolic Panel 12/01/17 12/02/17 Range/Units 15:24 02:55 Sodium 143 142 (137-145) mmol/L Potassium 3.8 4.1 (3.5-5.1) mmol/L Chloride 103 102 (98-107) mmol/L Carbon Dioxide 29 33 H (22-30) mmol/L BUN 25 H 31 H (7-17) mg/dL Creatinine 1.20 H 1.20 H (0.52-1.04) mg/dL Glucose 145 H 121 H (74-99) mg/dL Calcium 9.4 9.3 (8.4-10.2) mg/dL AST 16 13 L (14-36) U/L ALT 19 18 (9-52) U/L Alkaline Phosphatase 82 76 (38-126) U/L Total Protein 6.7 6.2 L (6.3-8.2) g/dL Albumin 3.6 3.4 L (3.5-5.0) g/dL Current Medications Generic Name Dose Route Start Last Admin Trade Name Freq PRN Reason Stop Dose Admin Acetaminophen 325 mg 12/01/17 17:09 Tylenol Tab PO Q4H PRN Pain Aspirin 325 mg 12/02/17 09:00 Aspirin PO DAILY [facility] Cyanocobalamin 2,000 mcg 12/02/17 12:00 Vitamin B-12 PO 1200 [facility] Famotidine 20 mg 12/01/17 21:00 12/01/17 21:50 Pepcid PO 20 mg BID [facility] Administration Fludrocortisone Acetate 0.05 mg 12/02/17 09:00 Florinef PO DAILY [facility] Hydrocortisone 5 mg 12/01/17 18:00 12/01/17 21:46 Cortef PO Not Given BID@1200,1800 [facility] Hydrocortisone 15 mg 12/02/17 07:30 12/02/17 06:09 Cortef PO 15 mg W/[id number] [facility] Administration Heparin Sodium/Sodium Chloride 500 mls @ 20.04 mls/hr 12/01/17 17:00 07:42 25,000 unit/ Sodium Chloride IV 12.4 units/kg/hr .Q24H [facility] 38.24 mls/hr Protocol Titration 6.5 UNITS/KG/HR Lactobacillus Acidoph/Bulgaricus 1 each 12/02/17 12:00 Lactinex PO 1200 [facility] Levothyroxine Sodium 150 mcg 12/02/17 06:30 12/02/17 06:09 Synthroid PO 150 mcg 0630 [facility] Administration Loratadine 10 mg 12/02/17 09:00 Claritin PO DAILY [facility] Lorazepam 2 mg 12/01/17 21:00 12/01/17 21:50 Ativan PO 2 mg HS [facility] Administration Metoprolol Tartrate 50 mg 12/01/17 21:00 12/01/17 21:50 Lopressor PO 50 mg BID [facility] Administration Nitroglycerin 0.4 mg 12/01/17 17:00 Nitrostat SUBLINGUAL Q5M PRN Chest Pain Patient's Own ( 1.25 mg 12/01/17 17:09 Levalbuterol INHALATION Nebulized 1.25 Mg) RT-TID PRN Shortness Of Breath Intake and Output 12/01/17 12/02/17 12/02/17 22:59 06:59 14:59 Intake Total 639.333 191.035 Balance 639.333 191.035 Intake: Intake, IV Titration 639.333 191.035 Amount Heparin Sod,Pork in 0.45% 139.333 191.035 NaCl 25,000 unit In 0.45 % NaCl 1 500ml.bag @ 6.5 UNITS/KG/HR 20.04 mls/hr IV .Q24H [facility] Rx#: [id number] Sodium Chloride 0.9% 1, 500 000 ml @ 100 mls/hr IV . Q10H [facility] Rx#:[id number] Other: Voiding Method Toilet # Voids 1 2 Weight 154.221 kg 153.3 kg 12/02/17 02:55 12/02/17 02:55 EKG Interpretations (text) EKG shows a normal sinus rhythm with nonspecific ST-T wave changes Assessment and Plan Plan: Assessment and plan #1 atypical chest discomfort, troponins negative 3, EKG shows normal sinus rhythm with no acute changes. #2 history of atrial flutter with prior ablation #3 hypertension #4 hypothyroidism #5 adrenal insufficiency #6 GERD #7 sleep apnea #8 prior PE #9 asthma Plan We will obtain an echocardiogram with Doppler study. Patient did have an echocardiogram with Doppler study performed in January 2016 which revealed a normal left ventricular systolic function. We will discontinue the IV heparin. Decrease aspirin to 81 mg daily. Further recommendations to follow. DNP note has been reviewed, I agree with a documented findings and plan of care. Patient was seen and examined.
[2017-12-02 08:28] VITALS: RESP 20
[2017-12-02] MEDS ORDERED: LORATADINE 10 MG TAB PO SCH (09:00)
[2017-12-02] MEDS ORDERED: ASPIRIN 325 MG TAB PO SCH (09:00)
[2017-12-02] MEDS ORDERED: FLUDROCORTISONE 0.1 MG TAB PO SCH (09:00)
[2017-12-02] MEDS ORDERED: ASPIRIN 81 MG PO SCH (09:00)
[2017-12-02] MEDS: HYDROCORTISONE 10 MG TAB PO SCH (11:03)
[2017-12-02] MEDS ORDERED: amLODIPine 10 MG TAB PO SCH (11:30)
[2017-12-02] MEDS ORDERED: LACTOBACILLUS ACIDOPH & BULGAR 1 EACH PACKET PO SCH (12:00)
[2017-12-02] MEDS ORDERED: CYANOCOBALAMIN 500 MCG TAB PO SCH (12:00)
--- NOTE | 2017-12-02 12:02 | ECHOF ---
Referral Reason:chest pain MEASUREMENTS -------- HEIGHT: 170.2 cm WEIGHT: 152.9 kg BP: 137/81 RVIDd: 4.7 cm (< 3.3) IVSd: 1.1 cm (0.6 - 1.1) LVIDd: 4.1 cm (3.9 - 5.3) LVPWd: 1.3 cm (0.6 - 1.1) IVSs: 1.6 cm LVIDs: 2.5 cm LVPWs: 1.8 cm LAESV Index (A-L): 16.11 ml/m Ao Diam: 3.0 cm (2.0 - 3.7) AV Cusp: 1.6 cm (1.5 - 2.6) LA Diam: 3.6 cm (2.7 - 3.8) MV EXCURSION: 9.371 mm (> 18.000) MV EF SLOPE: 35 mm/s (70 - 150) EPSS: 1.1 cm MV E Jose: 0.72 m/s MV DecT: 264 ms MV A Jose: 0.97 m/s MV E/A Ratio: 0.74 RAP: 5.00 mmHg RVSP: 17.25 mmHg FINDINGS -------- Sinus rhythm. This was a technically difficult study with suboptimal views. The left ventricular size is normal. There is borderline concentric left ventricular hypertrophy. Overall left ventricular systolic function is normal with, an EF between 55 - 60 %. The right ventricle is moderately enlarged. The left atrium is normal in size. RA appears enlarged. Aortic valve is trileaflet and is mildly thickened. The mitral valve leaflets are mildly thickened. Mild mitral annular calcification present. Mild m itral regurgitation is present. Mild tricuspid regurgitation present. The right ventricular systolic pressure, as measured by Doppl er, is 17.25mmHg. Pulmonic valve appears structurally normal. The aortic root size is normal. The pericardium is normal. CONCLUSIONS -------- 1. Sinus rhythm. 2. This was a technically difficult study with suboptimal views. 3. The left ventricular size is normal. 4. There is borderline concentric left ventricular hypertrophy. 5. Overall left ventricular systolic function is normal with, an EF between 55 - 60 %. 6. The right ventricle is moderately enlarged. 7. The left atrium is normal in size. 8. RA appears enlarged. 9. Lumason used 10. Aortic valve is trileaflet and is mildly thickened. 11. The mitral valve leaflets are mildly thickened. 12. Mild mitral annular calcification present. 13. Mild mitral regurgitation is present. 14. Mild tricuspid regurgitation present. 15. The right ventricular systolic pressure, as measured by Doppler, is 17.25mmHg. 16. Pulmonic valve appears structurally normal. 17. The aortic root size is normal. 18. The pericardium is normal. ZIGZAG APPLIQUER: Lindsay Beltran RDCS
[2017-12-02 17:22] VITALS: BP 137/84; PULSE 78; TEMP 97.9
[2017-12-03] MEDS ORDERED: FAMOTIDINE 20 MG TAB PO SCH (09:00)
--- NOTE | 2017-12-03 13:10 | P.DS ---
Providers Date of admission: 12/01/17 17:00 Expected date of discharge: 12/02/17 Attending physician: Carlito Macias MD Consults: 12/01/17 17:00 Consult Physician Urgent Consulting Provider: Hero Martinez Consult Reason/Comments: Chest pain Do you want consulting provider notified?: Yes Primary care physician: [facility] Course: 67 years old female patient of Dr. Middleton with past medical history of atrial flutter status post ablation, asthma, hypertension, hyperlipidemia, fibromyalgia, history of GI bleed from ulcers, history of obstructive sleep apnea status post surgery, history of adrenal insufficiency presents in with increased chest tightness associated with chest pain involving the right side of the chest radiating to the back. Patient also endorses wheezing associated with mild cough. She also endorses shortness of breath on exertion, endorses increased weakness and lethargy for some time that has worsened in the past few months. Patient has shortness of breath going on for the past 6 months which was attributed to COPD. Patient has a last cardiac cath in 2010 which was normal. She denies any previous history of chest pain and shortness of breath. She does document multiple lung infections and history of pleurisy in the past. EKG done in the ER was suggestive of some T- wave inversions in lead [address] depression in V5 and V6. Patient is started on heparin and cardiology were consulted for evaluation. Echo ordered. CBC is positive for leukocytosis 18.8, creatinine baseline at 1.2. Troponin 1 negative. 12/02: Patient has been seen by cardiology. Echocardiogram reveals 55-60% with mild mitral regurgitation, mild tricuspid regurgitation. Patient has been cleared for discharge by cardiology. White count is down to 15.1. BUN 31 and creatinine 1.2. Urine and blood culture in process. She will be given Flagyl for UTI. Urine culture is still pending. Patient is complaining of pain that she has had under her ribs and follows with Dr. Lyons 14 [id number] compression fracture and was recently had ablation done on the lumbar spine. She denies any wheezing. She has occasional cough without any sputum production. Patient will be discharged home today in stable condition. Discharge Diagnoses: 1 atypical chest pain 2 worsening dyspnea and shortness of breath secondary to mild persistent asthma 3 a flutter status post atrial ablation 4 hypertension 5 hypothyroidism 6 GERD 7. Adrenal insufficiency Discharge plan: Home with [facility] Impression and plan of care have been directed as dictated by the signing physician. Marilin Kelly nurse practitioner acting as scribe for signing physician. Patient Condition at Discharge: Good Plan - Discharge Summary Discharge Rx Participant: No New Discharge Prescriptions: New Aspirin 81 mg PO DAILY chew Lidocaine 5% Patch [Lidoderm 5% Patch] 1 patch TOPICAL DAILY #30 patch metroNIDAZOLE [Flagyl] 500 mg PO Q8HR #21 tab Nystatin 100,000Unit/gm Cream [Mycostatin Cream] 1 applic TOPICAL BID #60 gm Omeprazole [PriLOSEC] 40 mg PO DAILY #30 capsule.dr Continue LORazepam [Ativan] 2 mg PO HS L.acid/L.casei/B.bif/B.parisa/Fos [Probiotic Blend Capsule] 1 cap PO DAILY Cyanocobalamin [Vitamin B-12] 2,000 mcg PO DAILY Cetirizine HCl [Zyrtec] 20 mg PO DAILY Levalbuterol Nebulized [Xopenex Nebulized] 1.25 mg INHALATION RT-TID PRN PRN Reason: Shortness Of Breath Fludrocortisone [Florinef] 0.05 mg PO DAILY Metoprolol Tartrate [Lopressor] 50 mg PO DAILY Hydrocortisone [Cortef] 5 mg PO DAILY Hydrocortisone [Cortef] 15 mg PO QAM Levothyroxine Sodium [Synthroid] 150 mcg PO DAILY Acetaminophen Tab [Tylenol] 325 mg PO Q4H PRN PRN Reason: Pain amLODIPine [Norvasc] 10 mg PO DAILY Hydrocortisone [Cortef] 10 mg PO DAILY Cholecalciferol (Vitamin D3) [Vitamin D3] 5,000 unit PO DAILY Discontinued Ranitidine HCl 150 mg PO BID Discharge Medication List Cyanocobalamin [Vitamin B-12] 2,000 mcg PO DAILY 01/26/15 [History] L.acid/L.casei/B.bif/B.parisa/Fos [Probiotic Blend Capsule] 1 cap PO DAILY [History] LORazepam [Ativan] 2 mg PO HS 01/26/15 [History] Cetirizine HCl [Zyrtec] 20 mg PO DAILY 08/09/15 [History] Levalbuterol Nebulized [Xopenex Nebulized] 1.25 mg INHALATION RT-TID PRN [History] Acetaminophen Tab [Tylenol] 325 mg PO Q4H PRN 12/01/17 [History] Fludrocortisone [Florinef] 0.05 mg PO DAILY 12/01/17 [History] Hydrocortisone [Cortef] 5 mg PO DAILY 12/01/17 [History] Hydrocortisone [Cortef] 15 mg PO QAM 12/01/17 [History] Levothyroxine Sodium [Synthroid] 150 mcg PO DAILY 12/01/17 [History] Metoprolol Tartrate [Lopressor] 50 mg PO DAILY 12/01/17 [History] Aspirin 81 mg PO DAILY chew 12/02/17 [Rx] Cholecalciferol (Vitamin D3) [Vitamin D3] 5,000 unit PO DAILY 12/02/17 [History] Hydrocortisone [Cortef] 10 mg PO DAILY 12/02/17 [History] Lidocaine 5% Patch [Lidoderm 5% Patch] 1 patch TOPICAL DAILY #30 patch 12/02/17 [Rx] Nystatin 100,000Unit/gm Cream [Mycostatin Cream] 1 applic TOPICAL BID #60 gm [Rx] Omeprazole [PriLOSEC] 40 mg PO DAILY #30 capsule. 12/02/17 [Rx] amLODIPine [Norvasc] 10 mg PO DAILY 12/02/17 [History] metroNIDAZOLE [Flagyl] 500 mg PO Q8HR #21 tab 12/02/17 [Rx] Follow up Appointment(s)/Referral(s): [facility], [NON-STAFF] - Grey Loaiza DO [Primary Care Provider] - 12/09/17 3:00 pm Patient Instructions/Handouts: Angina (DC), Chest Pain (DC), COPD (Chronic Obstructive Pulmonary Disease) (DC) Discharge Disposition: HOME SELF-CARE
== END 2017-12-02 17:34 | disposition home health service (06) | DRG 313 ==
LOC: EC 15:04 → 6SEL 17:00
PROVIDERS: ADMIT Internal Medicine; ATTEND Internal Medicine
DX: R07.89 Other chest pain (principal); E27.40 Unspecified adrenocortical insufficiency; J44.9 Chronic obstructive pulmonary disease, unspecified; I08.1 Rheumatic disorders of both mitral and tricuspid valves; G62.9 Polyneuropathy, unspecified; M41.9 Scoliosis, unspecified; N39.0 Urinary tract infection, site not specified; E03.9 Hypothyroidism, unspecified; I10 Essential (primary) hypertension; J45.30 Mild persistent asthma, uncomplicated; K21.9 Gastro-esophageal reflux disease without esophagitis; E78.5 Hyperlipidemia, unspecified; G25.81 Restless legs syndrome; G43.909 Migraine, unspecified, not intractable, without status migrainosus; M19.91 Primary osteoarthritis, unspecified site; K44.9 Diaphragmatic hernia without obstruction or gangrene; M79.7 Fibromyalgia; M47.814 Spondylosis without myelopathy or radiculopathy, thoracic region; G47.33 Obstructive sleep apnea (adult) (pediatric); K58.9 Irritable bowel syndrome, unspecified; M81.0 Age-related osteoporosis without current pathological fracture; N28.9 Disorder of kidney and ureter, unspecified; N39.3 Stress incontinence (female) (male); Z79.899 Other long term (current) drug therapy; Z86.79 Personal history of other diseases of the circulatory system; Z87.442 Personal history of urinary calculi; Z86.711 Personal history of pulmonary embolism; Z86.14 Personal history of Methicillin resistant Staphylococcus aureus infection; Z98.84 Bariatric surgery status; Z96.652 Presence of left artificial knee joint; Z96.641 Presence of right artificial hip joint; Z98.42 Cataract extraction status, left eye; Z98.41 Cataract extraction status, right eye; Z90.710 Acquired absence of both cervix and uterus; Z88.6 Allergy status to analgesic agent; Z88.1 Allergy status to other antibiotic agents; Z91.040 Latex allergy status; Z88.5 Allergy status to narcotic agent; Z88.0 Allergy status to penicillin; Z88.2 Allergy status to sulfonamides; Z88.7 Allergy status to serum and vaccine; Z88.8 Allergy status to other drugs, medicaments and biological substances; Z91.018 Allergy to other foods; Z91.048 Other nonmedicinal substance allergy status; Z87.11 Personal history of peptic ulcer disease; Z82.49 Family history of ischemic heart disease and other diseases of the circulatory system
CPT/HCPCS: 36415; 71046; 80053; 80061; 81001; 82550; 82553; 83735; 83880; 84484; 85025; 85379; 85610; 85730; 87040; 87086; 87502; 93005; 93306; 96361; 96365; 96366; 96376; 99291

== ENCOUNTER 2018-05-08 17:04 | Emergency (ER) | payer MEDICARE ==
[2018-05-08 17:40] VITALS: BP 112/69; PULSE 97; RESP 18; TEMP 96.3
--- NOTE | 2018-05-08 17:59 | ED ---
Skin/Abscess/FB HPI - General Chief complaint: Skin/Abscess/Foreign Body Stated complaint: poss tick bite on head Time Seen by Provider: 05/08/18 17:45 Source: patient, RN notes reviewed Mode of arrival: wheelchair Limitations: no limitations - History of Present Illness Initial comments: This is a 67-year-old female presents to the emergency department with chief complaint of scalp lesion. Patient states that on Friday night she was scratching her head. She states that when she woke up she felt a lesion on the back of the head. She states that she had her look at it and he told her it was a blister. She denies any pain or drainage. She states that she became concerned that it might be a tick that had embedded in her scalp. Patient states that she was going to be evaluated yesterday but became ill so presents today for evaluation. Patient denies any recent fevers or chills, chest pain, abdominal pain, nausea or vomiting, headaches or dizziness. - Related Data Home Medications Medication Instructions Recorded Confirmed Cyanocobalamin [Vitamin B-12] 2,000 mcg PO DAILY 01/26/15 12/01/17 L.acid/L.casei/B.bif/B.parisa/Fos 1 cap PO DAILY 01/26/15 12/01/17 [Probiotic Blend Capsule] LORazepam [Ativan] 2 mg PO HS 01/26/15 12/01/17 Cetirizine HCl [Zyrtec] 20 mg PO DAILY 08/09/15 12/01/17 Levalbuterol Nebulized [Xopenex 1.25 mg INHALATION RT-TID PRN 08/09/15 12/01/17 Nebulized] Acetaminophen Tab [Tylenol] 325 mg PO Q4H PRN 12/01/17 12/01/17 Fludrocortisone [Florinef] 0.05 mg PO DAILY 12/01/17 12/01/17 Hydrocortisone [Cortef] 5 mg PO DAILY 12/01/17 12/02/17 Hydrocortisone [Cortef] 15 mg PO QAM 12/01/17 12/01/17 Levothyroxine Sodium [Synthroid] 150 mcg PO DAILY 12/01/17 12/01/17 Metoprolol Tartrate [Lopressor] 50 mg PO DAILY 12/01/17 12/02/17 Cholecalciferol (Vitamin D3) 5,000 unit PO DAILY 12/02/17 12/02/17 [Vitamin D3] Hydrocortisone [Cortef] 10 mg PO DAILY 12/02/17 12/02/17 amLODIPine [Norvasc] 10 mg PO DAILY 12/02/17 12/02/17 Previous Rx's Medication Instructions Recorded Aspirin 81 mg PO DAILY chew 12/02/17 Lidocaine 5% Patch [Lidoderm 5% 1 patch TOPICAL DAILY #30 patch 12/02/17 Patch] Nystatin 100,000Unit/gm Cream 1 applic TOPICAL BID #60 gm 12/02/17 [Mycostatin Cream] Omeprazole [PriLOSEC] 40 mg PO DAILY #30 capsule. 12/02/17 metroNIDAZOLE [Flagyl] 500 mg PO Q8HR #21 tab 12/02/17 Allergies Allergy/AdvReac Type Severity Reaction Status Date / Time Sulfa (Sulfonamide Allergy Severe Unknown Verified 05/08/18 17:34 Antibiotics) NANCY Inhibitors Allergy Anaphylaxis Verified 05/08/18 17:34 adhesive Allergy Rash/Hives Verified 05/08/18 17:34 albuterol Allergy Rash/Hives Verified 05/08/18 17:34 aspirin [From Soma Compound] Allergy Unknown Verified 05/08/18 17:34 baclofen Allergy Unknown Verified 05/08/18 17:34 carisoprodol Allergy Unknown Verified 05/08/18 17:34 [From Soma Compound] ciprofloxacin [From Cipro] Allergy Unknown Verified 05/08/18 17:34 gabapentin Allergy Unknown Verified 05/08/18 17:34 hylan G-F 20 [From Synvisc] Allergy Unknown Verified 05/08/18 17:34 Iodine and Iodide Containing Allergy Rash/Hives Verified 05/08/18 17:34 Produc Latex, Natural Rubber Allergy Rash/Hives Verified 05/08/18 17:34 levofloxacin [From Levaquin] Allergy Unknown Verified 05/08/18 17:34 lisinopril Allergy Unknown Verified 05/08/18 17:34 meperidine HCl [From Demerol] Allergy Rash/Hives Verified 05/08/18 17:34 morphine Allergy Rash/Hives Verified 05/08/18 17:34 nitrofurantoin Allergy Rash/Hives Verified 05/08/18 17:35 [From Macrobid] tetanus toxoid, adsorbed Allergy Unknown Verified 05/08/18 17:34 tizanidine Allergy Rash/Hives Verified 05/08/18 17:34 aspartame AdvReac Intermediate Diarrhea Verified 05/08/18 17:34 codeine AdvReac Nausea & Verified 05/08/18 17:34 Vomiting doxycycline AdvReac Nausea & Verified 05/08/18 17:34 Vomiting Penicillins AdvReac Nausea & Verified 05/08/18 17:34 Vomiting prednisone AdvReac Hallucinati Verified 05/08/18 17:34 ons mushroom Allergy Diarrhea Uncoded 05/08/18 17:34 narcotics Allergy Rash/Hives Uncoded 05/08/18 17:34 Review of Systems ROS Statement: Those systems with pertinent positive or pertinent negative responses have been documented in the HPI. ROS Other: All systems not noted in ROS Statement are negative. Past Medical History Past Medical History: Atrial Flutter, Asthma, Fibromyalgia, GERD/Reflux, GI Bleed, Hyperlipidemia, Hypertension, Musculoskeletal Disorder, Neurologic Disorder, Osteoarthritis (OA), Pulmonary Embolus (PE), Sleep Apnea/CPAP/BIPAP, Thyroid Disorder, Vascular Disorder Additional Past Medical History / Comment(s): hx as follows: bronchitis, thoracic spondylosis, lupus, rls,migraines, blood clots, hiatal hernia, ibs, gerd, uti had sepsis 2004, kidney stone , stress incont, tmj.PERIPHERAL NEUROPATHY, endometriosis,adenomyosis, mixed connective tissue disorder, hypothyroidism, peptic ulcer disease, osteoarthritis, osteoporosis, GERD, scoliosis, esophagitis, PE, DVT, hypertension. History of Any Multi-Drug Resistant Organisms: MRSA Date of last positivie culture/infection: 02/03/2015 MDRO Source:: Nose Past Surgical History: Adenoidectomy, Bariatric Surgery, Cardiac Ablation, Cholecystectomy, Heart Catheterization, Hysterectomy, Joint Replacement, Orthopedic Surgery, Tonsillectomy, Tubal Ligation Additional Past Surgical History / Comment(s): cardiac ablation, L knee and R hip replacement. Lap band surgery. tummy tuck. CATARACTS,SINUS SX, SKIN , LAPROSCOPY, HEMORRHOIDECTOMY, CARPAL TUNNEL ADELAIDA,PAST STEROID INJ TO NECK, UVULECTOMY, LUMPS REMOVED ADELAIDA BREAST (CELLS PRECANCEROUS),BX RT TEMPORAL ARTERY- NEG), HAD NERVES IN BACK BURNED, BENIGN GROWTH REMOVED FROM BEHIND RT EAR, bilateral arthroscopic knee surgery, right total hiparthroplasty, bilateral arthroscopic hip surgery, bilateral ankle arthroscopic surgery, bilateral shoulder arthroscopic surgery. Past Anesthesia/Blood Transfusion Reactions: Motion Sickness, Postoperative Nausea & Vomiting (PONV) Past Psychological History: No Psychological Hx Reported Smoking Status: Never smoker Past Alcohol Use History: None Reported Past Drug Use History: None Reported - Past Family History Father Family Medical History: Neurologic Disorder, Pneumonia Additional Family Medical History / Comment(s): ALS, FROM PNEUMONIA Mother Family Medical History: AFIB, Cancer, Chest Pain / Angina, Congestive Heart Failure (CHF), Diabetes Mellitus, Hyperlipidemia, Hypertension, Myocardial Infarction (NC) Additional Family Medical History / Comment(s): OBESITY, COLON CA Brother(s) Family Medical History: Coronary Artery Disease (CAD) Sister(s) Family Medical History: Coronary Artery Disease (CAD), Deep Vein Thrombosis (DVT ) Daughter(s) Family Medical History: No Reported History General Exam - General Exam Comments Initial Comments: General: Awake and alert, well-developed; in no apparent distress. Pleasant, elderly female sitting comfortably in wheelchair. HEENT: Head atraumatic, normocephalic. There is a small, approximately 0.5 cm in diameter blood blister right parietal scalp. Just inferior to this is a bald area with overlying excoriation. Patient states this has been present since childhood. Pupils are equal, round and reactive to light. Extraocular movements intact. Oropharynx moist without erythema or exudate. Neck: Supple. Normal ROM. Cardiovascular: Regular rate and rhythm. No murmurs, rubs or gallops. Chest symmetrical. Respiratory: Lungs clear to auscultation bilaterally. No wheezes, rales or rhonchi. Normal respiratory effort with no use of accessory muscles. Musculoskeletal: Normal ROM, no tenderness bilateral upper and lower extremities. Skin: [place], warm and dry without rashes. Neurological: Alert and oriented x3. CN II-XII grossly intact. Speech is fluent and answers are appropriate. No focal neuro deficits. Psychiatric: Normal mood and affect. No overt signs of depression or anxiety noted. Limitations: no limitations Course Vital Signs 05/08/18 17:35 Temperature 96.3 F L Pulse Rate 97 Respiratory 18 Rate Blood Pressure 112/69 O2 Sat by Pulse 95 Oximetry Medical Decision Making - Medical Decision Making This is a 67-year-old female who presents to the emergency department with chief complaint of scalp lesion. Patient reports a lesion to the back of her scalp that she noticed on Friday. She was told that her that it was a blister but wanted to have it evaluated. On physical examination, there is what appears to be a small blood blister to the right parietal scalp with a bald area just inferior to this that patient states has been present since childhood. Recommended allowing blister to heal on its own and applying bacitracin if it should break open. Case was discussed with attending physician , Dr. Colby who also evaluated the patient. Recommended following up with dermatology. Patient will be provided with contact information. Patient is in agreement with plan. Patient's vital signs are stable and she is in no acute distress. She will be discharged home at this time. All questions answered. Disposition Clinical Impression: Blood blister, Scalp lesion Disposition: HOME SELF-CARE Condition: Good Instructions: Blister (ED) Additional Instructions: Please apply bacitracin if blister opens. Please follow up with Dr. Harrison, dermatology for further evaluation. Please follow up with primary care provider within 1-2 days. Return to emergency department if symptoms should worsen or any concerns arise. Is patient prescribed a controlled substance at d/c from ED?: No Referrals: Grey Loaiza DO [Primary Care Provider] - 1-2 days Sera Harrison MD [STAFF PHYSICIAN] - 1-2 days Rosio Harrison MD [STAFF PHYSICIAN] - 1-2 days Time of Disposition: 18:17
== END 2018-05-08 18:30 | disposition home or self-care (01) ==
LOC: EC 17:04
DX: S00.02XA Blister (nonthermal) of scalp, initial encounter (principal); I48.92 Unspecified atrial flutter; J45.909 Unspecified asthma, uncomplicated; I10 Essential (primary) hypertension; G47.30 Sleep apnea, unspecified; Z99.89 Dependence on other enabling machines and devices; E03.9 Hypothyroidism, unspecified; Z86.14 Personal history of Methicillin resistant Staphylococcus aureus infection; Z95.818 Presence of other cardiac implants and grafts; Z96.652 Presence of left artificial knee joint; Z96.641 Presence of right artificial hip joint; Z79.52 Long term (current) use of systemic steroids; Z79.899 Other long term (current) drug therapy; Z88.2 Allergy status to sulfonamides; Z88.8 Allergy status to other drugs, medicaments and biological substances; Z91.048 Other nonmedicinal substance allergy status; Z88.6 Allergy status to analgesic agent; Z88.1 Allergy status to other antibiotic agents; Z91.040 Latex allergy status; Z88.5 Allergy status to narcotic agent; Z88.7 Allergy status to serum and vaccine; Z88.0 Allergy status to penicillin; Z91.018 Allergy to other foods; X58.XXXA Exposure to other specified factors, initial encounter
CPT/HCPCS: 99282

== ENCOUNTER → 2018-06-30 | Outpatient (CLI) | payer MEDICARE ==
--- NOTE | 2018-06-30 23:28 | CT ---
EXAMINATION TYPE: CT abdomen pelvis wo/w con DATE OF EXAM: 06/30/2018 COMPARISON: 08/09/2015 HISTORY: 67-year-old female with generalized abdominal and pelvic pain with history of diverticulitis . TECHNIQUE: Contiguous axial scanning of the abdomen and pelvis before and following administration of 100 ml Isovue 300 IV contrast. Delayed images through the kidneys and coronal/sagittal reconstructi ons performed. CT DLP: 3737.2 mGycm Automated exposure control for dose reduction was used. FINDINGS: Heart normal size without pericardial effusion. Any areas of atelectasis or scarring at the lung bases without pleural effusion. No focal liver lesion or biliary ductal dilatation. Portal venous system pain. Some surgical material at the GE junction with removal of the patient's lap band. There may be a tiny residual hiatal hernia. Bilateral renal cortical thinning suggests underlying chronic kidney disease. Subcentimeter hypodensi ty medial upper pole right kidney too small for accurate CT characterization, likely cyst. Adrenal glands, spleen, pancreas appear within normal limits. Moderate vascular calcifications within the abdominal aorta and iliac arteries. No dilated small bowel, free fluid, or free air. No mesenteric or retroperitoneal lymphadenopathy. Mild scattered diverticular changes in the colon. No significant stool burden. Extensive artifact from patient's right hip total arthroplasty limits visualization of the pelvis. Th ere is mid to distal sigmoid diverticulosis. Allowing for the extensive artifact, no definite pericol onic inflammatory stranding is seen. Bladder not distended. Bones: Extensive metal hardware artifact related to the patient's right hip replacement. Left L5 caterina sacralization and a mild dextroconvex curvature. Degenerative changes lower lumbar spine. IMPRESSION: 1. MID TO DISTAL SIGMOID DIVERTICULOSIS. THERE IS EXCESSIVE METAL HARDWARE ARTIFACT RELATING TO THE P ATIENT'S RIGHT HIP REPLACEMENT OBSCURING MOST OF THE PELVIS. FURTHER CLINICAL CORRELATION WILL BE NEE DED TO THE POSSIBILITY OF MILD ACUTE DIVERTICULITIS GIVEN THE PATIENT'S SYMPTOMS. 2. INTERVAL REMOVAL OF LAP BAND DEVICE. SURGICAL CLIPS AT THE GE JUNCTION. POSSIBLE TINY RESIDUAL HIA YARY HERNIA.
== END | disposition home or self-care (01) ==
LOC: RADCTMAIN 15:48
PROVIDERS: ATTEND Family Medicine
DX: K57.30 Diverticulosis of large intestine without perforation or abscess without bleeding (principal); Z96.641 Presence of right artificial hip joint
CPT/HCPCS: 82565; 84520; 74178; 36415; Q9967

== ENCOUNTER 2019-07-14 22:24 | Observation (INO) | payer MEDICARE ==
[2019-07-14] MEDS ORDERED: ASPIRIN 81 MG PO STA (22:41)
[2019-07-14] MEDS ORDERED: NITROGLYCERIN OINT 1 INCH/GM PACKET TOPICAL STA (22:41)
--- NOTE | 2019-07-14 22:45 | ED ---
General Adult HPI - General Chief complaint: Chest Pain Stated complaint: chest pain Time Seen by Provider: 07/14/19 22:35 Source: patient, RN notes reviewed Mode of arrival: EMS Limitations: no limitations - History of Present Illness Initial comments: Patient is a pleasant 68-year-old female presenting to the emergency Department with complaints of chest discomfort. Onset of symptoms was less than an hour ago. Patient felt pressure in her chest. There was some radiation to the back and the abdomen as well. Patient felt nauseated. Symptoms have essentially resolved with aspirin and nitroglycerin. Patient did have similar symptoms previously associated with atrial fibrillation. No associated dyspnea or nausea or diaphoresis. - Related Data Home Medications Medication Instructions Recorded Confirmed L.acid/L.casei/B.bif/B.parisa/Fos 1 cap PO HS 01/26/15 07/14/19 [Probiotic Blend Capsule] LORazepam [Ativan] 2 mg PO TID PRN 01/26/15 07/14/19 Cetirizine HCl [Zyrtec] 20 mg PO HS 08/09/15 07/14/19 Acetaminophen Tab [Tylenol] 325 mg PO Q4H PRN 12/01/17 07/14/19 Fludrocortisone [Florinef] 0.1 mg PO DAILY 12/01/17 07/14/19 Hydrocortisone [Cortef] 10 mg PO AC-SUPPER 12/01/17 07/14/19 Hydrocortisone [Cortef] 15 mg PO AC-BRKFST 12/01/17 07/14/19 Levothyroxine Sodium [Synthroid] 150 mcg PO DAILY 12/01/17 07/14/19 Cholecalciferol (Vitamin D3) 5,000 unit PO DAILY 12/02/17 07/14/19 [Vitamin D3] amLODIPine [Norvasc] 10 mg PO DAILY 12/02/17 07/14/19 Atenolol [Tenormin] 50 mg PO BID 07/14/19 07/14/19 Calcium Carbonate [Calcium] 600 mg PO DAILY 07/14/19 07/14/19 Cyanocobalamin (Vitamin B-12) 2,500 mcg PO DAILY 07/14/19 07/14/19 [Vitamin B-12] Fluticasone/Vilanterol [Breo 1 puff INHALATION RT-DAILY 07/14/19 07/14/19 Ellipta 100-25 Mcg Inhaler] Potassium Chloride ER [K-Dur 20] 20 meq PO BID 07/14/19 07/14/19 Ranitidine HCl [Zantac] 150 mg PO BID 07/14/19 07/14/19 Allergies Allergy/AdvReac Type Severity Reaction Status Date / Time Sulfa (Sulfonamide Allergy Severe Unknown Verified 07/14/19 23:13 Antibiotics) NANCY Inhibitors Allergy Anaphylaxis Verified 07/14/19 23:13 adhesive Allergy Rash/Hives Verified 07/14/19 23:13 albuterol Allergy Rash/Hives Verified 07/14/19 23:13 aspirin [From Soma Compound] Allergy Unknown Verified 07/14/19 23:13 baclofen Allergy Unknown Verified 07/14/19 23:13 carisoprodol Allergy Unknown Verified 07/14/19 23:13 [From Soma Compound] ciprofloxacin [From Cipro] Allergy Unknown Verified 07/14/19 23:13 gabapentin Allergy Unknown Verified 07/14/19 23:13 hylan G-F 20 [From Synvisc] Allergy Unknown Verified 07/14/19 23:13 Iodine and Iodide Containing Allergy Rash/Hives Verified 07/14/19 23:13 Produc Latex, Natural Rubber Allergy Rash/Hives Verified 07/14/19 23:13 levofloxacin [From Levaquin] Allergy Unknown Verified 07/14/19 23:13 lisinopril Allergy Unknown Verified 07/14/19 23:13 meperidine HCl [From Demerol] Allergy Rash/Hives Verified 07/14/19 23:13 morphine Allergy Rash/Hives Verified 07/14/19 23:13 nitrofurantoin Allergy Rash/Hives Verified 07/14/19 23:13 [From Macrobid] tetanus toxoid, adsorbed Allergy Unknown Verified 07/14/19 23:13 tizanidine Allergy Rash/Hives Verified 07/14/19 23:13 aspartame AdvReac Intermediate Diarrhea Verified 07/14/19 23:13 codeine AdvReac Nausea & Verified 07/14/19 23:13 Vomiting doxycycline AdvReac Nausea & Verified 07/14/19 23:13 Vomiting Penicillins AdvReac Nausea & Verified 07/14/19 23:13 Vomiting prednisone AdvReac Hallucinati Verified 07/14/19 23:13 ons mushroom Allergy Diarrhea Uncoded 05/08/18 17:34 narcotics Allergy Rash/Hives Uncoded 05/08/18 17:34 Review of Systems ROS Statement: Those systems with pertinent positive or pertinent negative responses have been documented in the HPI. ROS Other: All systems not noted in ROS Statement are negative. Constitutional: Denies: fever Eyes: Denies: eye pain ENT: Denies: ear pain Respiratory: Denies: cough Cardiovascular: Reports: chest pain Endocrine: Denies: fatigue Gastrointestinal: Denies: abdominal pain Genitourinary: Denies: dysuria Musculoskeletal: Reports: as per HPI Skin: Denies: rash Neurological: Denies: weakness Past Medical History Past Medical History: Atrial Flutter, Asthma, Fibromyalgia, GERD/Reflux, GI Bleed, Hyperlipidemia, Hypertension, Musculoskeletal Disorder, Neurologic Disorder, Osteoarthritis (OA), Pulmonary Embolus (PE), Sleep Apnea/CPAP/BIPAP, Thyroid Disorder, Vascular Disorder Additional Past Medical History / Comment(s): hx as follows: bronchitis, thoracic spondylosis, lupus, rls,migraines, blood clots, hiatal hernia, ibs, gerd, uti had sepsis 2004, kidney stone , stress incont, tmj.PERIPHERAL NEUROPATHY, endometriosis,adenomyosis, mixed connective tissue disorder, hypothyroidism, peptic ulcer disease, osteoarthritis, osteoporosis, GERD, scoliosis, esophagitis, PE, DVT, hypertension. History of Any Multi-Drug Resistant Organisms: MRSA Date of last positivie culture/infection: 02/03/2015 MDRO Source:: Nose Past Surgical History: Adenoidectomy, Bariatric Surgery, Cardiac Ablation, Cholecystectomy, Heart Catheterization, Hysterectomy, Joint Replacement, Orthopedic Surgery, Tonsillectomy, Tubal Ligation Additional Past Surgical History / Comment(s): cardiac ablation, L knee and R hip replacement. Lap band surgery. tummy tuck. CATARACTS,SINUS SX, SKIN , LAPROSCOPY, HEMORRHOIDECTOMY, CARPAL TUNNEL ADELAIDA,PAST STEROID INJ TO NECK, UVULECTOMY, LUMPS REMOVED ADELAIDA BREAST (CELLS PRECANCEROUS),BX RT TEMPORAL ARTERY- NEG), HAD NERVES IN BACK BURNED, BENIGN GROWTH REMOVED FROM BEHIND RT EAR, bilateral arthroscopic knee surgery, right total hiparthroplasty, bilateral arthroscopic hip surgery, bilateral ankle arthroscopic surgery, bilateral shoulder arthroscopic surgery. Past Anesthesia/Blood Transfusion Reactions: Motion Sickness, Postoperative Nausea & Vomiting (PONV) Past Psychological History: No Psychological Hx Reported Smoking Status: Never smoker Past Alcohol Use History: None Reported Past Drug Use History: None Reported - Past Family History Father Family Medical History: Neurologic Disorder, Pneumonia Additional Family Medical History / Comment(s): ALS, FROM PNEUMONIA Mother Family Medical History: AFIB, Cancer, Chest Pain / Angina, Congestive Heart Failure (CHF), Diabetes Mellitus, Hyperlipidemia, Hypertension, Myocardial Infarction ([place]) Additional Family Medical History / Comment(s): OBESITY, COLON CA Brother(s) Family Medical History: Coronary Artery Disease (CAD) Sister(s) Family Medical History: Coronary Artery Disease (CAD), Deep Vein Thrombosis (DVT) Daughter(s) Family Medical History: No Reported History General Exam Limitations: no limitations General appearance: alert, in no apparent distress, obese Head exam: Present: normocephalic Eye exam: Present: normal appearance, PERRL ENT exam: Present: normal oropharynx Neck exam: Present: normal inspection Respiratory exam: Present: normal lung sounds bilaterally. Absent: chest wall tenderness Cardiovascular Exam: Present: normal rhythm, irregular rhythm Expanded Peripheral pulses: 2+: Radial (R), Radial (L), Posterior Tibialis (R), Posterior Tibialis (L), Dorsalis Pedis (R), Dorsalis Pedis (L) GI/Abdominal exam: Present: soft. Absent: distended, tenderness Extremities exam: Present: normal inspection. Absent: pedal edema, calf ten derness Neurological exam: Present: alert Psychiatric exam: Present: normal affect, normal mood Skin exam: Present: normal color Course Vital Signs 07/14/19 22:27 Temperature 98.1 F Pulse Rate 78 Respiratory 20 Rate Blood Pressure 138/85 O2 Sat by Pulse 99 Oximetry EKG Findings - EKG Comments: EKG Findings:: A. fib with rate of 66. QRS 78. QT 396. QTc 4:15. Normal axis. Normal QRS. Nonspecific T waves. Medical Decision Making - Medical Decision Making Patient reevaluated and resting comfortably in bed. Patient and family updated on results and plan. Case was discussed in detail with Dr. Del Real, who will admit covering for Dr. Rojas. - Lab Data Result diagrams: 07/14/19 22:37 07/14/19 22:37 Lab Results 07/14/19 07/14/19 07/14/19 Range/Units 22:37 22:37 22:37 WBC 17.6 H (3.8-10.6) k/uL RBC 4.93 (3.80-5.40) m/uL Hgb 14.6 (11.4-16.0) gm/dL Hct 45.4 (34.0-46.0) % MCV 92.2 (80.0-100.0) fL MCH 29.5 (25.0-35.0) pg MCHC 32.0 (31.0-37.0) g/dL RDW 14.9 (11.5-15.5) % Plt Count 322 (150-450) k/uL Neutrophils % 90 % Lymphocytes % 5 % Monocytes % 3 % Eosinophils % 0 % Basophils % 0 % Neutrophils # 15.8 H (1.3-7.7) k/uL Lymphocytes # 0.9 L (1.0-4.8) k/uL Monocytes # 0.6 (0-1.0) k/uL Eosinophils # 0.0 (0-0.7) k/uL Basophils # 0.1 (0-0.2) k/uL PT 11.3 (9.0-12.0) sec INR 1.1 (<1.2) APTT 28.9 (22.0-30.0) sec D-Dimer 0.22 (<0.60) mg/L FEU Sodium 140 (137-145) mmol/L Potassium 4.7 (3.5-5.1) mmol/L Chloride 103 (98-107) mmol/L Carbon Dioxide 29 (22-30) mmol/L Anion Gap 8 mmol/L BUN 30 H (7-17) mg/dL Creatinine 1.14 H (0.52-1.04) mg/dL Est GFR (CKD-EPI)AfAm 57 (>60 ml/min/1.73 sqM) Est GFR (CKD-EPI)NonAf 49 (>60 ml/min/1.73 sqM) Glucose 170 H (74-99) mg/dL Calcium 9.7 (8.4-10.2) mg/dL Magnesium 1.8 (1.6-2.3) mg/dL Total Bilirubin 0.4 (0.2-1.3) mg/dL AST 26 (14-36) U/L ALT 26 (9-52) U/L Alkaline Phosphatase 77 (38-126) U/L Creatine Kinase 46 (30-135) U/L Troponin I (0.000-0.034) ng/mL Total Protein 7.0 (6.3-8.2) g/dL Albumin 3.9 (3.5-5.0) g/dL Amylase 53 (30-110) U/L Lipase 166 (23-300) U/L 07/14/19 Range/Units 22:37 WBC (3.8-10.6) k/uL RBC (3.80-5.40) m/uL Hgb (11.4-16.0) gm/dL Hct (34.0-46.0) % MCV (80.0-100.0) fL MCH (25.0-35.0) pg MCHC (31.0-37.0) g/dL RDW (11.5-15.5) % Plt Count (150-450) k/uL Neutrophils % % Lymphocytes % % Monocytes % % Eosinophils % % Basophils % % Neutrophils # (1.3-7.7) k/uL Lymphocytes # (1.0-4.8) k/uL Monocytes # (0-1.0) k/uL Eosinophils # (0-0.7) k/uL Basophils # (0-0.2) k/uL PT (9.0-12.0) sec INR (<1.2) APTT (22.0-30.0) sec D-Dimer (<0.60) mg/L FEU Sodium (137-145) mmol/L Potassium (3.5-5.1) mmol/L Chloride (98-107) mmol/L Carbon Dioxide (22-30) mmol/L Anion Gap mmol/L BUN (7-17) mg/dL Creatinine (0.52-1.04) mg/dL Est GFR (CKD-EPI)AfAm (>60 ml/min/1.73 sqM) Est GFR (CKD-EPI)NonAf (>60 ml/min/1.73 sqM) Glucose (74-99) mg/dL Calcium (8.4-10.2) mg/dL Magnesium (1.6-2.3) mg/dL Total Bilirubin (0.2-1.3) mg/dL AST (14-36) U/L ALT (9-52) U/L Alkaline Phosphatase (38-126) U/L Creatine Kinase (30-135) U/L Troponin I <0.012 (0.000-0.034) ng/mL Total Protein (6.3-8.2) g/dL Albumin (3.5-5.0) g/dL Amylase (30-110) U/L Lipase (23-300) U/L - Radiology Data Radiology results: image reviewed (Chest x-ray shows no acute process) Disposition Clinical Impression: Chest pain Disposition: ADMITTED IP TO THIS HOSP Is patient prescribed a controlled substance at d/c from ED?: No Referrals: Grey Loaiza DO [Primary Care Provider] - 1-2 days Decision Time: 23:56
[2019-07-14 23:01] LABS: Basophils # (A) 0.1 k/uL (0-0.2); Basophils % (A) 0 %; Eosinophils % (A) 0 %; HCT 45.4 % (34.0-46.0); HGB 14.6 gm/dL (11.4-16.0); Lymphocytes # (A) 0.9 k/uL (1.0-4.8); Lymphocytes % (A) 5 %; MCH 29.5 pg (25.0-35.0); MCV 92.2 fL (80.0-100.0); Mean Platelet Volume 5.8; Monocytes # (A) 0.6 k/uL (0-1.0); Monocytes % (A) 3 %; Neutrophils # (A) 15.8 k/uL (1.3-7.7); Neutrophils % (A) 90 %; Platelet Count 322 k/uL (150-450); RBC 4.93 m/uL (3.80-5.40); RDW 14.9 % (11.5-15.5); WBC 17.6 k/uL (3.8-10.6)
[2019-07-14 23:10] LABS: Albumin 3.9 g/dL (3.5-5.0); Calcium 9.7 mg/dL (8.4-10.2); Magnesium 1.8 mg/dL (1.6-2.3); Potassium 4.7 mmol/L (3.5-5.1); Total Bilirubin 0.4 mg/dL (0.2-1.3)
[2019-07-14 23:15] LABS: D-Dimer 0.22 mg/L FEU (<0.60); INR 1.1 (<1.2); Partial Thromboplastin Time 28.9 sec (22.0-30.0); Prothrombin Time 11.3 sec (9.0-12.0)
--- NOTE | 2019-07-14 23:31 | XR ---
EXAMINATION TYPE: XR chest 2V DATE OF EXAM: 07/14/2019 COMPARISON: 12/01/2017 HISTORY: Chest pain TECHNIQUE: Frontal and lateral views of the chest are obtained. FINDINGS: There is no heart failure nor confluent pneumonic infiltrate. Costophrenic angles are deborah r. There are no hilar masses. Bony thorax is intact. IMPRESSION: No active cardiopulmonary disease. Normal heart. No change.
[2019-07-14] MEDS ORDERED: NITROGLYCERIN SL TABS 0.4 MG TAB SUBLINGUAL PRN (23:56)
[2019-07-14] MEDS ORDERED: LORazepam 0.5 MG TAB PO PRN (23:58)
[2019-07-14] MEDS ORDERED: ACETAMINOPHEN TAB 325 MG TAB PO PRN (23:58)
[2019-07-15] MEDS: NITROGLYCERIN OINT 1 INCH/GM PACKET TOPICAL SCH ×2 (01:24→05:04)
[2019-07-15 04:54] VITALS: RESP 18
[2019-07-15 06:23] LABS: Basophils # (A) 0.1 k/uL (0-0.2); Basophils % (A) 0 %; Eosinophils % (A) 0 %; HCT 45.7 % (34.0-46.0); Hypochromasia Slight; Lymphocytes % (A) 7 %; MCH 28.7 pg (25.0-35.0); MCHC 30.6 g/dL (31.0-37.0); MCV 93.9 fL (80.0-100.0); Mean Platelet Volume 6.3; Monocytes # (A) 0.6 k/uL (0-1.0); Monocytes % (A) 4 %; Neutrophils # (A) 12.6 k/uL (1.3-7.7); Neutrophils % (A) 86 %; Platelet Count 269 k/uL (150-450); RBC 4.87 m/uL (3.80-5.40); RDW 15.3 % (11.5-15.5); WBC 14.6 k/uL (3.8-10.6)
[2019-07-15 06:28] LABS: Cholesterol 207 mg/dL (<200); HDL Cholesterol 63 mg/dL (40-60); LDL Cholesterol,Calculated 129 mg/dL (0-99); Triglycerides 76 mg/dL (<150)
[2019-07-15] MEDS ORDERED: LEVOTHYROXINE 50 MCG TAB PO SCH (06:30)
[2019-07-15] MEDS ORDERED: HYDROCORTISONE 10 MG TAB PO SCH ×2 (07:30→17:30)
[2019-07-15 07:35] VITALS: TEMP 97.4
[2019-07-15] MEDS ORDERED: SYMBICORT 80-4.5 MCG INHALER INHALATION SCH (08:00)
[2019-07-15] MEDS ORDERED: ASPIRIN 325 MG TAB PO SCH (09:00)
[2019-07-15] MEDS ORDERED: amLODIPine 10 MG TAB PO SCH (09:00)
[2019-07-15] MEDS ORDERED: CYANOCOBALAMIN 500 MCG TAB PO SCH (09:00)
[2019-07-15] MEDS ORDERED: FLUDROCORTISONE 0.1 MG TAB PO SCH (09:00)
[2019-07-15] MEDS ORDERED: POTASSIUM CHLORIDE ER 20 MEQ TAB.ER PO SCH (09:00)
[2019-07-15] MEDS ORDERED: CHOLECALCIFEROL 1,000 UNIT TAB PO SCH (09:00)
[2019-07-15] MEDS ORDERED: ATENOLOL 50 MG TAB PO SCH (09:00)
[2019-07-15] MEDS ORDERED: FAMOTIDINE 20 MG TAB PO SCH (09:00)
[2019-07-15] MEDS ORDERED: CALCIUM CARBONATE 500 MG CHEWABLE PO SCH (09:00)
--- NOTE | 2019-07-15 09:29 | P.HPIM ---
History of Present Illness H&P Date: 07/15/19 Chief Complaint: Chest pain, shortness of breath, A. fib with RVR, adrenal i nsufficiency 68-year-old female one of Dr. Loaiza patient was seen previously few times was known to have multiple medical problem with A. fib with RVR, COPD O2 dependent, debility, hypertension, hyperlipidemia and chronic lower back pain who developed to have a chest pain after laying in bed in the evening yesterday ended up calling cardiology went instructed to call 911 and come to the emergency room by EMS. Patient found to be in A. fib with pulse rate is well- controlled, troponin was negative, no other abnormality was found at the time except mildly elevated white blood cell which sound like the trend from before most likely from the hydrocortisone she is on for her adrenal gland. Patient was hospitalized will be seen cardiology and possibly be going for stress test. Review of Systems CONSTITUTIONAL: Well-developed no acute respiratory distress. BP obese EYES: No icterus sclerae, no conjunctivitis. EARS, NOSE, MOUTH, THROAT, and FACE: No sore throat, lymphadenopathy, carotid bruits or deformity. RESPIRATORY: Positive shortness of breath and no cough or wheezes CARDIOVASCULAR: No CP, Palpitation, PND, Orthopnea, positive angina. GASTROINTESTINAL: No Abd pain, Nausea or vomiting, no Diarrhea or constipation, No GI Bleed, no distention or masses. GENITOURINARY: Negative for Hematuria or UTI, no kidney stones. INTEGUMENT/BREAST: Negative for any muscular injury with mild osteoarthritis.. HEMATOLOGIC/LYMPHATIC: Negative for bleed or purpura. MUSCULOSKELTAL: Multiple joint and muscle pain NEURLOGICAL: No LOC, Sz or syncope, blurred vision dizziness or abnormality.. BEHAVIORAL/PSYCH: Negative. ENDOCRINE: Negative. Past Medical History Past Medical History: Atrial Fibrillation, Atrial Flutter, Asthma, Fibromyalgia, GERD/Reflux, GI Bleed, Hyperlipidemia, Hypertension, Musculoskeletal Disorder, Neurologic Disorder, Osteoarthritis (OA), Pulmonary Embolus (PE), Sleep Apnea/CPAP/BIPAP, Thyroid Disorder, Vascular Disorder Additional Past Medical History / Comment(s): hx as follows: bronchitis, thoracic spondylosis, lupus, rls,migraines, blood clots, hiatal hernia, ibs, gerd, uti had sepsis 2004, kidney stone , stress incont, tmj.PERIPHERAL NEUROPATHY, endometriosis,adenomyosis, mixed connective tissue disorder, hypothyroidism, peptic ulcer disease, osteoarthritis, osteoporosis, GERD, scoliosis, esophagitis, PE, DVT, hypertension. History of Any Multi-Drug Resistant Organisms: MRSA Date of last positivie culture/infection: 02/03/2015 MDRO Source:: Nose Past Surgical History: Adenoidectomy, Bariatric Surgery, Cardiac Ablation, Cholecystectomy, Heart Catheterization, Hysterectomy, Joint Replacement, Orthopedic Surgery, Tonsillectomy, Tubal Ligation Additional Past Surgical History / Comment(s): cardiac ablation, L knee and R hip replacement. Lap band surgery. tummy tuck. CATARACTS,SINUS SX, SKIN , LAPROSCOPY, HEMORRHOIDECTOMY, CARPAL TUNNEL ADELAIDA,PAST STEROID INJ TO NECK, UVULECTOMY, LUMPS REMOVED ADELAIDA BREAST (CELLS PRECANCEROUS),BX RT TEMPORAL ARTERY- NEG), HAD NERVES IN BACK BURNED, BENIGN GROWTH REMOVED FROM BEHIND RT EAR, bilateral arthroscopic knee surgery, right total hiparthroplasty, bilateral arthroscopic hip surgery, bilateral ankle arthroscopic surgery, bilateral shoulder arthroscopic surgery. Past Anesthesia/Blood Transfusion Reactions: Motion Sickness, Postoperative Nausea & Vomiting (PONV) Past Psychological History: No Psychological Hx Reported Smoking Status: Never smoker Past Alcohol Use History: None Reported Past Drug Use History: None Reported - Past Family History Father Family Medical History: Neurologic Disorder, Pneumonia Additional Family Medical History / Comment(s): ALS, FROM PNEUMONIA Mother Family Medical History: AFIB, Cancer, Chest Pain / Angina, Congestive Heart Failure (CHF), Diabetes Mellitus, Hyperlipidemia, Hypertension, Myocardial Infarction ([place]) Additional Family Medical History / Comment(s): OBESITY, COLON CA Brother(s) Family Medical History: Coronary Artery Disease (CAD) Sister(s) Family Medical History: Coronary Artery Disease (CAD), Deep Vein Thrombosis (DVT) Daughter(s) Family Medical History: No Reported History Medications and Allergies Home Medications Medication Instructions Recorded Confirmed Type L.acid/L.casei/B.bif/B.parisa/Fos 1 cap PO HS 01/26/15 07/14/19 History [Probiotic Blend Capsule] LORazepam [Ativan] 2 mg PO TID PRN 01/26/15 07/14/19 History Cetirizine HCl [Zyrtec] 20 mg PO HS 08/09/15 07/14/19 History Acetaminophen Tab [Tylenol] 325 mg PO Q4H PRN 12/01/17 07/14/19 History Fludrocortisone [Florinef] 0.1 mg PO DAILY 12/01/17 07/14/19 History Hydrocortisone [Cortef] 10 mg PO AC-SUPPER 12/01/17 07/14/19 History Hydrocortisone [Cortef] 15 mg PO AC-BRKFST 12/01/17 07/14/19 History Levothyroxine Sodium [Synthroid] 150 mcg PO DAILY 12/01/17 07/14/19 History Cholecalciferol (Vitamin D3) 5,000 unit PO DAILY 12/02/17 07/14/19 History [Vitamin D3] amLODIPine [Norvasc] 10 mg PO DAILY 12/02/17 07/14/19 History Atenolol [Tenormin] 50 mg PO BID 07/14/19 07/14/19 History Calcium Carbonate [Calcium] 600 mg PO DAILY 07/14/19 07/14/19 History Cyanocobalamin (Vitamin B-12) 2,500 mcg PO DAILY 07/14/19 07/14/19 History [Vitamin B-12] Fluticasone/Vilanterol [Breo 1 puff INHALATION RT-DAILY 07/14/19 07/14/19 History Ellipta 100-25 Mcg Inhaler] Potassium Chloride ER [K-Dur 20] 20 meq PO BID 07/14/19 07/14/19 History Ranitidine HCl [Zantac] 150 mg PO BID 07/14/19 07/14/19 History Allergies Allergy/AdvReac Type Severity Reaction Status Date / Time Sulfa (Sulfonamide Allergy Severe Unknown Verified 07/14/19 23:13 Antibiotics) NANCY Inhibitors Allergy Anaphylaxis Verified 07/14/19 23:13 adhesive Allergy Rash/Hives Verified 07/14/19 23:13 albuterol Allergy Rash/Hives Verified 07/14/19 23:13 aspirin [From Soma Compound] Allergy Unknown Verified 07/14/19 23:13 baclofen Allergy Unknown Verified 07/14/19 23:13 carisoprodol Allergy Unknown Verified 07/14/19 23:13 [From Soma Compound] ciprofloxacin [From Cipro] Allergy Unknown Verified 07/14/19 23:13 gabapentin Allergy Unknown Verified 07/14/19 23:13 hylan G-F 20 [From Synvisc] Allergy Unknown Verified 07/14/19 23:13 Iodine and Iodide Containing Allergy Rash/Hives Verified 07/14/19 23:13 Produc Latex, Natural Rubber Allergy Rash/Hives Verified 07/14/19 23:13 levofloxacin [From Levaquin] Allergy Unknown Verified 07/14/19 23:13 lisinopril Allergy Unknown Verified 07/14/19 23:13 meperidine HCl [From Demerol] Allergy Rash/Hives Verified 07/14/19 23:13 morphine Allergy Rash/Hives Verified 07/14/19 23:13 nitrofurantoin Allergy Rash/Hives Verified 07/14/19 23:13 [From Macrobid] tetanus toxoid, adsorbed Allergy Unknown Verified 07/14/19 23:13 tizanidine Allergy Rash/Hives Verified 07/14/19 23:13 aspartame AdvReac Intermediate Diarrhea Verified 07/14/19 23:13 codeine AdvReac Nausea & Verified 07/14/19 23:13 Vomiting doxycycline AdvReac Nausea & Verified 07/14/19 23:13 Vomiting Penicillins AdvReac Nausea & Verified 07/14/19 23:13 Vomiting prednisone AdvReac Hallucinati Verified 07/14/19 23:13 ons mushroom Allergy Diarrhea Uncoded 05/08/18 17:34 narcotics Allergy Rash/Hives Uncoded 05/08/18 17:34 Physical Exam Vitals: Vital Signs Temp Pulse Pulse Resp BP BP Pulse Ox 07/15/19 04:00 97.6 F 59 L 18 126/74 95 07/15/19 01:08 97.4 F L 57 L 20 174/97 97 07/15/19 01:00 57 L 20 07/15/19 00:50 97.5 F L 65 16 145/94 97 07/14/19 22:41 22 07/14/19 22:27 98.1 F 78 20 138/85 99 Intake and Output 07/14/19 07/14/19 07/15/19 14:59 22:59 06:59 Intake Total 20 Balance 20 Intake: Amount of Fluid Infused ( 20 ml) Other: Weight 164.654 kg General Appearance: Alert, cooperative, no distress, appears stated age. Neck HEENT: Supple, no lymphadenopathy, no thyroid enlargement, no carotid bruits. Lungs: Decreased breath sound bilaterally without crackles no rhonchi, no deformity. Positive fine wheezes in the bases. Chest Wall: Decrease expansion with deep inspiration no tenderness and no deformity was found on exam, no costochondral pain or discomfort. Heart: Irregular rate and rhythm, S1, S2 positive S3, positive ejection murmur, no rub or gallop. Back: Symmetric, no curvature, ROM normal, no CVA tenderness. Abdomen: Soft, non-tender, bowel sounds active all four quadrants, no masses, no organomegaly. Extremities: 1+ edema, multiple joint surgery with scar tissue with no cellulitis or any major abnormality. Pulses: 1+ and symmetric. Skin: Skin color, texture, tugor normal, no rashes or lesions. Neurologic: Alert oriented x3 cranial nerves II through XII intact, no motor deficit, no abnormal balance or gait. Results CBC & Chem 7: 07/15/19 06:00 07/14/19 22:37 Labs: Abnormal Lab Results - Last 24 Hours (Table) 07/14/19 07/14/19 Range/Units 22:37 22:37 WBC 17.6 H (3.8-10.6) k/uL Neutrophils # 15.8 H (1.3-7.7) k/uL Lymphocytes # 0.9 L (1.0-4.8) k/uL BUN 30 H (7-17) mg/dL Creatinine 1.14 H (0.52-1.04) mg/dL Glucose 170 H (74-99) mg/dL Thrombosis Risk Factor Assmnt - DVT/VTE Prophylaxis DVT/VTE Prophylaxis: Mechanical Prophylaxis ordered - Choose All That Apply Any of the Below Risk Factors Present?: Yes Each Factor Represents 1 point: Acute [place], Obesity (BMI >25) Other Risk Factors: Yes Each Risk Factor Represents 2 Points: Age 61-74 years Each Risk Factor Represents 3 Points: History of DVT/PE Other congenital or acquired thrombophilia - If yes, enter type in comment: No Thrombosis Risk Factor Assessment Total Risk Factor Score: 7 Thrombosis Risk Factor Assessment Level: High Risk Assessment and Plan Plan: 1 chest pain: Atypical with multiple risk factor and previous history, patient seen Dr. CLAIRE stark she was hospitalized with see cardiology plan for stress test and possible echocardiogram continue to watch the trend of her troponin over the next 24 hours if any elevation might require further intervention if not will be going for wrap chemical stress test. 2 atherosclerotic heart disease: Patient was on medical management depend on the finding with echo and stress test this time will continue further management. 3 adrenal insufficiency: More likely Odell disease, patient remain on Cortef and Florinef continue both medication if she is hospitalized for extended time will increase her Cortef 10 mg total. 4 A. fib with RVR: Patient had ablation therapy in the past her pulse rates under control today remain on Tenormin with no anticoagulation. 5 COPD/asthma: On O2 continue updraft treatment if needed. 6 hypothyroidism: Continue patient on levothyroxine 150 g daily. 7 hypertension: Remain on atenolol 50 mg twice a day. 8 hyperlipidemia: Patient supposed to be on statin. 9 GERD/GI prophylaxis: Start patient on Pepcid and DC Zantac at this point. 10 renal insufficiency with stage II chronic kidney disease: Slightly elevated troponin continue hydration repeat BUN/creatinine next 24 hours. 11 mild leukocytosis: Most likely from hydrocortisone will let him run UA there is no sign of infection otherwise. CODE STATUS: Full code. Admit patient to observation for 1-2 nights.
[2019-07-15 10:54] LABS: Appearance,Urine Clear (Clear); Bilirubin,Urine Negative (Negative); Blood,Urine Small (Negative); Color,Urine Yellow; Glucose,Urine (UA) Negative (Negative); Ketones,Urine Negative (Negative); Leukocyte Esterase,Urine Moderate (Negative); Mucus,Urine Rare /hpf; Nitrite,Urine Negative (Negative); PH, Urine 5.5 (5.0-8.0); Protein,Urine Trace (Negative); RBC,Urine 2 /hpf (0-5); Specific Gravity,Urine 1.026 (1.001-1.035); Squamous Epithelial Cell,Urine 2 /hpf (0-4); Urobilinogen,Urine <2.0 mg/dL (<2.0); WBC,Urine 22 /hpf (0-5)
[2019-07-15] MEDS ORDERED: DOBUTamine DRIP for NUC MED 500 MG in DEXTROSE/WATER 1 250ML.BAG IV ONE (11:40)
--- NOTE | 2019-07-15 11:44 | P.CRDCN ---
History of Present Illness History of present illness: This is a pleasant 68-year-old female past medical history significant for atrial flutter s/p ablation with Dr. Walters 2007, chronic persistent atrial fibrillation on fci anti-coagulation, hypertension, dyslipidemia, adrenal insufficiency, obstructive sleep apnea, asthma, history of PE in the past, connective tissue disease and morbid obesity. She follows in the office with Dr. Noland. We have been asked to see her in consultation for chest pain. She states yesterday while laying in bed she started feeling a pressure in the left precordial region that radiated through to her back and was associated with shortness of breath, nausea and diarrhea. Per the patient she could not specifically feel palpitations but her was feeling her pulse and told her her heart was racing fast and irregular. She took 2 SL nitro without much change in her symptoms. Upon EMS arrival she was still having discomfort and was in a-fib with controlled rate. Heart rates have been controlled since arrival. She denies any further symptoms of chest pain, shortness of breath, nausea or diarrhea. She is seen and examined laying flat in bed in no acute distress. EKG reveals atrial fibrillation heart rate of 66. Chest x-ray is negative for an acute cardiopulmonary process. Laboratory data reviewed, WBC 17.6 on admission repeat today 14.6, hemoglobin 14, platelets 269, d-dimer 0.22, sodium 140, potassium 4.7, creatinine 1.14 with a GFR 49, magnesium 1.8, cardiac enzymes negative 3, LDL 129. Current daily cardiac medications include atenolol 50 mg twice a day, Xarelto 20 mg daily, Florinef 0.1 mg daily and amlodipine 10 mg daily. Most recent echocardiogram obtained in the office November 2018 revealed preserved LV systolic function. At the time of my exam: CONSTITUTIONAL: Denies fever. Denies chills. EYES: Denies blurred vision. Denies vision changes. Denies eye pain. EARS, NOSE, MOUTH & THROAT: Denies headache. Denies sore throat. Denies ear pain. CARDIOVASCULAR: Denies chest pain. Denies shortness of breath. Denies orthopnea. Denies PND. Denies palpitations. RESPIRATORY: Denies cough. GASTROINTESTINAL: Denies abdominal pain. Denies diarrhea. Denies constipation. Denies nausea. Denies vomiting. MUSCULOSKELETAL: Denies myalgias. INTEGUMENTARY: Denies pruitis. Denies rash. NEUROLOGIC: Denies numbness. Denies tingling. Denies weakness. PSYCHIATRIC: Denies anxiety. Denies depression. ENDOCRINE: Denies fatigue. Denies weight change. Denies polydipsia. Denies po lyurina. GENITOURINARY: Denies burning, hematuria or urgency with micturation. HEMATOLOGIC: Denies history of anemia. Denies bleeding. Blood pressure 116/70 heart rate 52 afebrile maintaining oxygen saturation on nasal cannula GENERAL: This is a 68-year-old female in no apparent distress at the time of my examination. Morbidly obese. HEENT: Head is atraumatic, normocephalic. Pupils are equal, round. Sclerae anicteric. Conjunctivae are clear. Mucous membranes of the mouth are moist. Neck is supple. There is no jugular venous distention. No carotid bruit is heard. LUNGS: Clear to auscultation no wheezes, rales or rhonchi. No chest wall tenderness is noted on palpation or with deep breathing. Diminished bilaterally secondary to body habitus. HEART: Regular rate and rhythm without murmurs, rubs or gallops. S1 and S2 heard. ABDOMEN: Soft, nontender. Bowel sounds are heard. No organomegaly noted. EXTREMITIES: No evidence of peripheral edema and no calf tenderness noted. VASCULAR: Radial and dorsalis pedis pulses palpated, no evidence of clubbing. NEUROLOGIC: Patient is awake, alert and oriented x3. ASSESSMENT Chest pain, atypical for angina. An acute coronary event has been ruled out. Possibly related to rapid heart rates. Chronic persistent atrial fibrillation on rodent exterminator anti-coagulation History of atrial flutter s/p ablation Hypertension Dyslipidemia Adrenal insufficiency Obstructive sleep apnea Morbid obesity Dyslipidemia PLAN An acute event has been ruled out. Heart rates have been controlled with no evidence of RVR with EMS or on admission. Perform dobutamine stress echo to assess for stress induced ishchemia. Discussed initiation of atorvastatin and she is quite adament that she will not take a statin medication. Lifestyle modifications recommended. Thank you kindly for this consultation. Nurse Practitioner note has been reviewed, I agree with a documented findings and plan of care. Patient was seen and examined. Past Medical History Past Medical History: Atrial Fibrillation, Atrial Flutter, Asthma, Fibromyalgia, GERD/Reflux, GI Bleed, Hyperlipidemia, Hypertension, Musculoskeletal Disorder, Neurologic Disorder, Osteoarthritis (OA), Pulmonary Embolus (PE), Sleep Apnea/CPAP/BIPAP, Thyroid Disorder, Vascular Disorder Additional Past Medical History / Comment(s): hx as follows: bronchitis, thoracic spondylosis, lupus, rls,migraines, blood clots, hiatal hernia, ibs, gerd, uti had sepsis 2004, kidney stone , stress incont, tmj.PERIPHERAL NEUROPATHY, endometriosis,adenomyosis, mixed connective tissue disorder, hypothyroidism, peptic ulcer disease, osteoarthritis, osteoporosis, GERD, scoliosis, esophagitis, PE, DVT, hypertension. History of Any Multi-Drug Resistant Organisms: MRSA Date of last positivie culture/infection: 02/03/2015 MDRO Source:: Nose Past Surgical History: Adenoidectomy, Bariatric Surgery, Cardiac Ablation, Cholecystectomy, Heart Catheterization, Hysterectomy, Joint Replacement, Orthopedic Surgery, Tonsillectomy, Tubal Ligation Additional Past Surgical History / Comment(s): cardiac ablation, L knee and R hip replacement. Lap band surgery. tummy tuck. CATARACTS,SINUS SX, SKIN , LAPROSCOPY, HEMORRHOIDECTOMY, CARPAL TUNNEL ADELAIDA,PAST STEROID INJ TO NECK, UVULECTOMY, LUMPS REMOVED ADELAIDA BREAST (CELLS PRECANCEROUS),BX RT TEMPORAL ARTERY- NEG), HAD NERVES IN BACK BURNED, BENIGN GROWTH REMOVED FROM BEHIND RT EAR, bi lateral arthroscopic knee surgery, right total hiparthroplasty, bilateral arthroscopic hip surgery, bilateral ankle arthroscopic surgery, bilateral shoulder arthroscopic surgery. Past Anesthesia/Blood Transfusion Reactions: Motion Sickness, Postoperative Nausea & Vomiting (PONV) Past Psychological History: No Psychological Hx Reported Smoking Status: Never smoker Past Alcohol Use History: None Reported Past Drug Use History: None Reported - Past Family History Father Family Medical History: Neurologic Disorder, Pneumonia Additional Family Medical History / Comment(s): ALS, FROM PNEUMONIA Mother Family Medical History: AFIB, Cancer, Chest Pain / Angina, Congestive Heart Failure (CHF), Diabetes Mellitus, Hyperlipidemia, Hypertension, Myocardial Infar ction (ME) Additional Family Medical History / Comment(s): OBESITY, COLON CA Brother(s) Family Medical History: Coronary Artery Disease (CAD) Sister(s) Family Medical History: Coronary Artery Disease (CAD), Deep Vein Thrombosis (DVT) Daughter(s) Family Medical History: No Reported History Medications and Allergies Home Medications Medication Instructions Recorded Confirmed Type L.acid/L.casei/B.bif/B.parisa/Fos 1 cap PO HS 01/26/15 07/14/19 History [Probiotic Blend Capsule] LORazepam [Ativan] 2 mg PO TID PRN 01/26/15 07/14/19 History Cetirizine HCl [Zyrtec] 20 mg PO HS 08/09/15 07/14/19 History Acetaminophen Tab [Tylenol] 325 mg PO Q4H PRN 12/01/17 07/14/19 History Fludrocortisone [Florinef] 0.1 mg PO DAILY 12/01/17 07/14/19 History Hydrocortisone [Cortef] 10 mg PO AC-SUPPER 12/01/17 07/14/19 History Hydrocortisone [Cortef] 15 mg PO AC-BRKFST 12/01/17 07/14/19 History Levothyroxine Sodium [Synthroid] 150 mcg PO DAILY 12/01/17 07/14/19 History Cholecalciferol (Vitamin D3) 5,000 unit PO DAILY 12/02/17 07/14/19 History [Vitamin D3] amLODIPine [Norvasc] 10 mg PO DAILY 12/02/17 07/14/19 History Atenolol [Tenormin] 50 mg PO BID 07/14/19 07/14/19 History Calcium Carbonate [Calcium] 600 mg PO DAILY 07/14/19 07/14/19 History Cyanocobalamin (Vitamin B-12) 2,500 mcg PO DAILY 07/14/19 07/14/19 History [Vitamin B-12] Fluticasone/Vilanterol [Breo 1 puff INHALATION RT-DAILY 07/14/19 07/14/19 History Ellipta 100-25 Mcg Inhaler] Potassium Chloride ER [K-Dur 20] 20 meq PO BID 07/14/19 07/14/19 History Ranitidine HCl [Zantac] 150 mg PO BID 07/14/19 07/14/19 History Allergies Allergy/AdvReac Type Severity Reaction Status Date / Time Sulfa (Sulfonamide Allergy Severe Unknown Verified 07/14/19 23:13 Antibiotics) NANCY Inhibitors Allergy Anaphylaxis Verified 07/14/19 23:13 adhesive Allergy Rash/Hives Verified 07/14/19 23:13 albuterol Allergy Rash/Hives Verified 07/14/19 23:13 aspirin [From Soma Compound] Allergy Unknown Verified 07/14/19 23:13 baclofen Allergy Unknown Verified 07/14/19 23:13 carisoprodol Allergy Unknown Verified 07/14/19 23:13 [From Soma Compound] ciprofloxacin [From Cipro] Allergy Unknown Verified 07/14/19 23:13 gabapentin Allergy Unknown Verified 07/14/19 23:13 hylan G-F 20 [From Synvisc] Allergy Unknown Verified 07/14/19 23:13 Iodine and Iodide Containing Allergy Rash/Hives Verified 07/14/19 23:13 Produc Latex, Natural Rubber Allergy Rash/Hives Verified 07/14/19 23:13 levofloxacin [From Levaquin] Allergy Unknown Verified 07/14/19 23:13 lisinopril Allergy Unknown Verified 07/14/19 23:13 meperidine HCl [From Demerol] Allergy Rash/Hives Verified 07/14/19 23:13 morphine Allergy Rash/Hives Verified 07/14/19 23:13 nitrofurantoin Allergy Rash/Hives Verified 07/14/19 23:13 [From Macrobid] tetanus toxoid, adsorbed Allergy Unknown Verified 07/14/19 23:13 tizanidine Allergy Rash/Hives Verified 07/14/19 23:13 aspartame AdvReac Intermediate Diarrhea Verified 07/14/19 23:13 codeine AdvReac Nausea & Verified 07/14/19 23:13 Vomiting doxycycline AdvReac Nausea & Verified 07/14/19 23:13 Vomiting Penicillins AdvReac Nausea & Verified 07/14/19 23:13 Vomiting prednisone AdvReac Hallucinati Verified 07/14/19 23:13 ons mushroom Allergy Diarrhea Uncoded 05/08/18 17:34 narcotics Allergy Rash/Hives Uncoded 05/08/18 17:34 Physical Exam Vitals: Vital Signs Temp Pulse Pulse Resp BP BP Pulse Ox 07/15/19 07:10 97.4 F L 52 L 18 116/70 99 07/15/19 04:00 97.6 F 59 L 18 126/74 95 07/15/19 01:08 97.4 F L 57 L 20 174/97 97 07/15/19 01:00 57 L 20 07/15/19 00:50 97.5 F L 65 16 145/94 97 07/14/19 22:41 22 07/14/19 22:27 98.1 F 78 20 138/85 99 Intake and Output 07/14/19 07/15/19 07/15/19 22:59 06:59 14:59 Intake Total 20 Balance 20 Intake: Amount of Fluid Infused ( 20 ml) Other: Weight 164.654 kg Results 07/15/19 06:00 07/14/19 22:37 Cardiac Enzymes 07/14/19 07/14/19 07/15/19 Range/Units 22:37 22:37 05:47 AST 26 (14-36) U/L Troponin I <0.012 <0.012 (0.000-0.034) ng/mL Coagulation 07/14/19 Range/Units 22:37 PT 11.3 (9.0-12.0) sec APTT 28.9 (22.0-30.0) sec Lipids 07/15/19 Range/Units 05:47 Triglycerides 76 (<150) mg/dL Cholesterol 207 H (<200) mg/dL HDL Cholesterol 63 H (40-60) mg/dL CBC 07/14/19 07/15/19 Range/Units 22:37 06:00 WBC 17.6 H 14.6 H (3.8-10.6) k/uL RBC 4.93 4.87 (3.80-5.40) m/uL Hgb 14.6 14.0 (11.4-16.0) gm/dL Hct 45.4 45.7 (34.0-46.0) % Plt Count 322 269 (150-450) k/uL Comprehensive Metabolic Panel 07/14/19 Range/Units 22:37 Sodium 140 (137-145) mmol/L Potassium 4.7 (3.5-5.1) mmol/L Chloride 103 (98-107) mmol/L Carbon Dioxide 29 (22-30) mmol/L BUN 30 H (7-17) mg/dL Creatinine 1.14 H (0.52-1.04) mg/dL Glucose 170 H (74-99) mg/dL Calcium 9.7 (8.4-10.2) mg/dL AST 26 (14-36) U/L ALT 26 (9-52) U/L Alkaline Phosphatase 77 (38-126) U/L Total Protein 7.0 (6.3-8.2) g/dL Albumin 3.9 (3.5-5.0) g/dL Current Medications Generic Name Dose Route Start Last Admin Trade Name Freq PRN Reason Stop Dose Admin Acetaminophen 325 mg 07/14/19 23:58 Tylenol Tab PO Q4H PRN Pain Amlodipine Besylate 10 mg 07/15/19 09:00 Norvasc PO DAILY [facility] Atenolol 50 mg 07/15/19 09:00 Tenormin PO BID [facility] Budesonide/Formoterol Fumarate 2 puff 07/15/19 08:00 07/15/19 08:25 Symbicort 80-4.5 Mcg Inhaler INHALATION 2 puff RT-BID [facility] Administration Calcium Carbonate/Glycine 500 mg 07/15/19 09:00 Tums PO DAILY [facility] Cholecalciferol 5,000 unit 07/15/19 09:00 Vitamin D3 (25 Mcg = 1000 Iu) PO DAILY [facility] Cyanocobalamin 2,500 mcg 07/15/19 09:00 Vitamin B-12 PO DAILY [facility] Famotidine 20 mg 07/15/19 09:00 Pepcid PO DAILY [facility] Fludrocortisone Acetate 0.1 mg 07/15/19 09:00 Florinef PO DAILY [facility] Hydrocortisone 10 mg 07/15/19 17:30 Cortef PO AC-SUPPER [facility] Hydrocortisone 15 mg 07/15/19 07:30 Cortef PO AC-BRKFST [facility] Levothyroxine Sodium 150 mcg 07/15/19 06:30 07/15/19 06:24 Synthroid PO 150 mcg DAILY@0630 [facility] Administration Loratadine 10 mg 07/15/19 21:00 Claritin PO HS [facility] Lorazepam 0.5 mg 07/14/19 23:58 Ativan PO TID PRN Anxiety Nitroglycerin 0.4 mg 07/14/19 23:56 Nitrostat SUBLINGUAL Q5M PRN Chest Pain Potassium Chloride 20 meq 07/15/19 09:00 K-Dur 20 PO BID [facility] Rivaroxaban 20 mg 07/15/19 17:30 Xarelto PO W/SUPPER [facility] Intake and Output 07/14/19 07/15/19 07/15/19 22:59 06:59 14:59 Intake Total 20 Balance 20 Intake: Amount of Fluid Infused ( 20 ml) Other: Weight 164.654 kg 07/15/19 06:00 07/14/19 22:37
[2019-07-15 11:52] VITALS: BP 146/77; PULSE 57
--- NOTE | 2019-07-15 14:02 | ECHOS ---
STRESS ECHOCARDIOGRAM INDICATIONS: Chest pain/shortness of breath BASELINE HEART RATE: 61 BASELINE BLOOD PRESSURE: 167/97 MAXIMUM HEART RATE: 131 MAXIMUM BLOOD PRESSURE: 174/67 85% MPHR: 128 100% MPHR: 150 MAXIMUM STAGE REACHED: 4 TOTAL EXERCISE TIME: 10:16 CLINICAL INFORMATION: Patient was given dobutamine infusion according to the standard protocol. Peak heart rate of 131 was achieved. Maximum blood pressure of 174/67 mmHg was noted. Patient did not complain of any chest pain during the test. Resting EKG shows evidence of atrial fibrillation with a controlled rate at the peak dose of dobutamine infusion, nonspecific ST changes are noted. The baseline echocardiographic images reveals normal left ventricular chamber size with normal left ventricular systolic function. At the peak dose of dobutamine infusion, normal increase in the wall thickness and contractility is noted. FINAL IMPRESSION: This dobutamine echocardiographic study is negative for stress-induced ischemia. EKG portion of the stress test is not suggestive of ischemia. MMODL / IJN: [id number] /
[2019-07-15] MEDS ORDERED: RIVAROXABAN 20 MG TAB PO SCH (17:30)
[2019-07-15] MEDS ORDERED: FOS PO SCH (21:00)
[2019-07-15] MEDS ORDERED: CASEI PO SCH (21:00)
[2019-07-15] MEDS ORDERED: B BIF PO SCH (21:00)
[2019-07-15] MEDS ORDERED: B LON PO SCH (21:00)
[2019-07-15] MEDS ORDERED: ACID PO SCH (21:00)
[2019-07-15] MEDS ORDERED: LORATADINE 10 MG TAB PO SCH (21:00)
== END 2019-07-15 15:59 | disposition home or self-care (01) ==
LOC: EC 22:24 → 1SOBS 23:56
PROVIDERS: ADMIT Internal Medicine Geriatric Medicine; ATTEND Internal Medicine Geriatric Medicine
DX: R07.89 Other chest pain (principal); I48.19 Other persistent atrial fibrillation; I25.10 Atherosclerotic heart disease of native coronary artery without angina pectoris; I12.9 Hypertensive chronic kidney disease with stage 1 through stage 4 chronic kidney disease, or unspecified chronic kidney disease; N18.2 Chronic kidney disease, stage 2 (mild); E27.40 Unspecified adrenocortical insufficiency; M79.7 Fibromyalgia; K21.9 Gastro-esophageal reflux disease without esophagitis; E78.5 Hyperlipidemia, unspecified; I48.92 Unspecified atrial flutter; J44.9 Chronic obstructive pulmonary disease, unspecified; Z99.81 Dependence on supplemental oxygen; E03.9 Hypothyroidism, unspecified; D72.829 Elevated white blood cell count, unspecified; G47.33 Obstructive sleep apnea (adult) (pediatric); E66.01 Morbid (severe) obesity due to excess calories; Z68.43 Body mass index [BMI] 50.0-59.9, adult; K58.9 Irritable bowel syndrome, unspecified; G25.81 Restless legs syndrome; M47.814 Spondylosis without myelopathy or radiculopathy, thoracic region; G43.909 Migraine, unspecified, not intractable, without status migrainosus; M26.609 Unspecified temporomandibular joint disorder, unspecified side; N39.3 Stress incontinence (female) (male); G62.9 Polyneuropathy, unspecified; M32.9 Systemic lupus erythematosus, unspecified; M81.0 Age-related osteoporosis without current pathological fracture; M41.9 Scoliosis, unspecified; K21.0 Gastro-esophageal reflux disease with esophagitis; Z79.890 Hormone replacement therapy; Z79.899 Other long term (current) drug therapy; Z79.51 Long term (current) use of inhaled steroids; Z79.52 Long term (current) use of systemic steroids; Z88.6 Allergy status to analgesic agent; Z88.1 Allergy status to other antibiotic agents; Z91.041 Radiographic dye allergy status; Z91.040 Latex allergy status; Z88.5 Allergy status to narcotic agent; Z88.0 Allergy status to penicillin; Z88.2 Allergy status to sulfonamides; Z88.7 Allergy status to serum and vaccine; Z88.8 Allergy status to other drugs, medicaments and biological substances; Z91.018 Allergy to other foods; Z91.048 Other nonmedicinal substance allergy status; Z91.02 Food additives allergy status; Z86.711 Personal history of pulmonary embolism; Z86.14 Personal history of Methicillin resistant Staphylococcus aureus infection; Z79.01 Long term (current) use of anticoagulants; Z87.442 Personal history of urinary calculi; Z87.19 Personal history of other diseases of the digestive system; Z87.440 Personal history of urinary (tract) infections; Z86.19 Personal history of other infectious and parasitic diseases; Z86.718 Personal history of other venous thrombosis and embolism; Z87.11 Personal history of peptic ulcer disease; Z98.84 Bariatric surgery status; Z90.710 Acquired absence of both cervix and uterus; Z96.652 Presence of left artificial knee joint; Z96.641 Presence of right artificial hip joint; Z83.3 Family history of diabetes mellitus; Z82.49 Family history of ischemic heart disease and other diseases of the circulatory system; Z80.0 Family history of malignant neoplasm of digestive organs; Z83.49 Family history of other endocrine, nutritional and metabolic diseases; Z83.2 Family history of diseases of the blood and blood-forming organs and certain disorders involving the immune mechanism; Z82.0 Family history of epilepsy and other diseases of the nervous system
CPT/HCPCS: 93005 ×2; 99285; 36415; 94640; 85379; 80061; 80053; 82150; 82550; 83690; 83735; 84484 ×2; 85025 ×2; 85610; 85730; 81001; 87086; 71046; G0378; C8930; J1250; 93351

== ENCOUNTER → 2020-02-24 | Outpatient (CLI) | payer MEDICARE | END | disposition home or self-care (01) | LOC: LABWHC1 10:00 | PROVIDERS: ATTEND Family Medicine | DX: R05 Cough (principal); R06.02 Shortness of breath | CPT/HCPCS: 87635 ==

== ENCOUNTER → 2021-03-16 | Outpatient (CLI) | payer MEDICARE ==
--- NOTE | 2021-03-16 13:10 | CT ---
EXAMINATION TYPE: CT neck chest without con DATE OF EXAM: 03/16/2021 COMPARISON: None HISTORY: Neck pain, SOB CT DLP: 1424.7 mGycm CONTRAST: Patient injected with 0 mL of Isovue 300. TECHNIQUE: Axial images at 3 mm thick sections. Reconstructed images in the coronal plane and sagitt al plane are reviewed. FINDINGS: Limited CT sections are obtained the lung apices. The lung apices appear clear. CT neck: The torus tubarius and fossa of Rosenmuller are normal. Mold Filler And Drainer spaces are normal. Muco rachel thickening is through the right mid and posterior ethmoid air cells and the right maxillary sinus . Parotid glands appear normal and symmetrical. Submandibular glands, are normal. Parapharyngeal spac es are normal. No suspicious adenopathy is evident. Vocal cord level appear symmetrical. Thyroid appears small. Osseous structures are normal. IMPRESSIONS: 1. Mucosal thickening within the mid and posterior right ethmoid air cells and right maxillary sinus. EXAMINATION TYPE: CT neck chest without con DATE OF EXAM: 03/16/2021 COMPARISON: 01/29/2015 HISTORY: Neck pain, SOB CT DLP: 1424.7 mGycm, Automated exposure control for dose reduction was used. CONTRAST: Performed injected with 0 mL of Isovue 300. TECHNIQUE: Axial images were obtained at 5 mm thick sections. Reconstructed images are reviewed on [employer] computer in the coronal plane. FINDINGS: Thyroid is poorly visualized No suspicious lung nodules or focal infiltrates are present. No enlarged mediastinal or hilar adenopathy is evident. The ascending aorta diameter at the level o f the main pulmonary artery is 3.7 cm. The main pulmonary artery diameter at the bifurcation is 3.[address] sections are obtained through the upper abdomen. Abdomen is essentially unremarkable. IMPRESSIONS: 1. No acute changes CT chest
== END | disposition home or self-care (01) ==
LOC: RADCTMAIN 12:01
PROVIDERS: ATTEND Family Medicine
DX: M54.2 Cervicalgia (principal); R06.02 Shortness of breath; J34.89 Other specified disorders of nose and nasal sinuses
CPT/HCPCS: 70490; 71250

== ENCOUNTER 2021-03-24 08:01 | Emergency (ER) | payer MEDICARE ==
[2021-03-24 08:06] VITALS: RESP 20; TEMP 97.5
[2021-03-24] MEDS ORDERED: OXYMETAZOLINE 0.05% NASL SPRAY 1 SPRAY BOTTLE NASAL STA (08:17)
[2021-03-24] MEDS ORDERED: LIDOCAINE/EPINEPHR/TETRACAINE 5 ML BOTTLE TOPICAL STA (08:19)
--- NOTE | 2021-03-24 08:19 | ED ---
General Adult HPI - General Chief complaint: ENT Stated complaint: Bloody nose Time Seen by Provider: 03/24/21 08:10 Source: patient Mode of arrival: wheelchair Limitations: no limitations - History of Present Illness Initial comments: 70-year-old female presents to the emergency room for a chief complaint of bloody nose. Patient reports that she had a bloody nose starting about an hour ago. Patient does take Xarelto for a fib. She reports she chronically has clots and bleeding from her nose. She reports that today however she could not get it to stop. She reports has been ongoing for 4 years. She has not seen ENT.Patient has no other complaints at this time including shortness of breath, chest pain, abdominal pain, nausea or vomiting, headache, or visual changes. - Related Data Home Medications Medication Instructions Recorded Confirmed L.acid/L.casei/B.bif/B.parisa/Fos 1 cap PO HS 01/26/15 07/14/19 [Probiotic Blend Capsule] LORazepam [Ativan] 2 mg PO TID PRN 01/26/15 07/14/19 Cetirizine HCl [Zyrtec] 20 mg PO HS 08/09/15 07/14/19 Acetaminophen Tab [Tylenol] 325 mg PO Q4H PRN 12/01/17 07/14/19 Fludrocortisone [Florinef] 0.1 mg PO DAILY 12/01/17 07/14/19 Hydrocortisone [Cortef] 10 mg PO AC-SUPPER 12/01/17 07/14/19 Hydrocortisone [Cortef] 15 mg PO AC-BRKFST 12/01/17 07/14/19 Levothyroxine Sodium [Synthroid] 150 mcg PO DAILY 12/01/17 07/14/19 Cholecalciferol (Vitamin D3) 5,000 unit PO DAILY 12/02/17 07/14/19 [Vitamin D3] amLODIPine [Norvasc] 10 mg PO DAILY 12/02/17 07/14/19 Calcium Carbonate [Calcium] 600 mg PO DAILY 07/14/19 07/14/19 Cyanocobalamin (Vitamin B-12) 2,500 mcg PO DAILY 07/14/19 07/14/19 [Vitamin B-12] Fluticasone/Vilanterol [Breo 1 puff INHALATION RT-DAILY 07/14/19 07/14/19 Ellipta 100-25 Mcg Inhaler] Potassium Chloride ER [K-Dur 20] 20 meq PO BID 07/14/19 07/14/19 atenoloL [Tenormin] 50 mg PO BID 07/14/19 07/14/19 Previous Rx's Medication Instructions Recorded Famotidine [Pepcid] 20 mg PO DAILY tab 07/15/19 Nitroglycerin Sl Tabs [Nitrostat] 0.4 mg SUBLINGUAL Q5M PRN tab 07/15/19 Rivaroxaban [Xarelto] 20 mg PO W/SUPPER tab 07/15/19 Allergies Allergy/AdvReac Type Severity Reaction Status Date / Time Sulfa (Sulfonamide Allergy Severe Unknown Verified 03/24/21 08:06 Antibiotics) NANCY Inhibitors Allergy Anaphylaxis Verified 03/24/21 08:06 adhesive Allergy Rash/Hives Verified 03/24/21 08:06 albuterol Allergy Rash/Hives Verified 03/24/21 08:06 aspirin [From Soma Compound] Allergy Unknown Verified 03/24/21 08:06 baclofen Allergy Unknown Verified 03/24/21 08:06 carisoprodol Allergy Unknown Verified 03/24/21 08:06 [From Soma Compound] ciprofloxacin [From Cipro] Allergy Unknown Verified 03/24/21 08:06 gabapentin Allergy Unknown Verified 03/24/21 08:06 hylan G-F 20 [From Synvisc] Allergy Unknown Verified 03/24/21 08:06 Iodine and Iodide Containing Allergy Rash/Hives Verified 03/24/21 08:06 Produc Latex, Natural Rubber Allergy Rash/Hives Verified 03/24/21 08:06 levofloxacin [From Levaquin] Allergy Unknown Verified 03/24/21 08:06 lisinopril Allergy Unknown Verified 03/24/21 08:06 meperidine HCl [From Demerol] Allergy Rash/Hives Verified 03/24/21 08:06 morphine Allergy Rash/Hives Verified 03/24/21 08:06 nitrofurantoin Allergy Rash/Hives Verified 03/24/21 08:06 [From Macrobid] tetanus toxoid, adsorbed Allergy Unknown Verified 03/24/21 08:06 tizanidine Allergy Rash/Hives Verified 03/24/21 08:06 aspartame AdvReac Intermediate Diarrhea Verified 03/24/21 08:06 codeine AdvReac Nausea & Verified 03/24/21 08:06 Vomiting doxycycline AdvReac Nausea & Verified 03/24/21 08:06 Vomiting Penicillins AdvReac Nausea & Verified 03/24/21 08:06 Vomiting prednisone AdvReac Hallucinati Verified 03/24/21 08:06 ons mushroom Allergy Diarrhea Uncoded 03/24/21 08:06 narcotics Allergy Rash/Hives Uncoded 03/24/21 08:06 Review of Systems ROS Statement: Those systems with pertinent positive or pertinent negative responses have been documented in the HPI. ROS Other: All systems not noted in ROS Statement are negative. Past Medical History Past Medical History: Atrial Fibrillation, Atrial Flutter, Asthma, Fibromyalgia, GERD/Reflux, GI Bleed, Hyperlipidemia, Hypertension, Musculoskeletal Disorder, Neurologic Disorder, Osteoarthritis (OA), Pulmonary Embolus (PE), Sleep Apnea/CPAP/BIPAP, Thyroid Disorder, Vascular Disorder Additional Past Medical History / Comment(s): hx as follows: bronchitis, t horacic spondylosis, lupus, rls,migraines, blood clots, hiatal hernia, ibs, gerd, uti had sepsis 2004, kidney stone , stress incont, tmj.PERIPHERAL NEUROPATHY, endometriosis,adenomyosis, mixed connective tissue disorder, hypothyroidism, peptic ulcer disease, osteoarthritis, osteoporosis, GERD, scoliosis, esophagitis, PE, DVT, hypertension. History of Any Multi-Drug Resistant Organisms: MRSA Date of last positivie culture/infection: 02/03/2015 MDRO Source:: Nose Past Surgical History: Adenoidectomy, Bariatric Surgery, Cardiac Ablation, Cholecystectomy, Heart Catheterization, Hysterectomy, Joint Replacement, Orthopedic Surgery, Tonsillectomy, Tubal Ligation Additional Past Surgical History / Comment(s): cardiac ablation, L knee and R hip replacement. Lap band surgery. tummy tuck. CATARACTS,SINUS SX, SKIN , LAPROSCOPY, HEMORRHOIDECTOMY, CARPAL TUNNEL ADELAIDA,PAST STEROID INJ TO NECK, UVULECTOMY, LUMPS REMOVED ADELAIDA BREAST (CELLS PRECANCEROUS),BX RT TEMPORAL ARTERY- NEG), HAD NERVES IN BACK BURNED, BENIGN GROWTH REMOVED FROM BEHIND RT EAR, bilateral arthroscopic knee surgery, right total hiparthroplasty, bilateral arthroscopic hip surgery, bilateral ankle arthroscopic surgery, bilateral shoulder arthroscopic surgery. Past Anesthesia/Blood Transfusion Reactions: Motion Sickness, Postoperative Nausea & Vomiting (PONV) Past Psychological History: No Psychological Hx Reported Smoking Status: Never smoker Past Alcohol Use History: None Reported Past Drug Use History: None Reported - Past Family History Father Family Medical History: Neurologic Disorder, Pneumonia Additional Family Medical History / Comment(s): ALS, FROM PNEUMONIA Mother Family Medical History: AFIB, Cancer, Chest Pain / Angina, Congestive Heart Failure (CHF), Diabetes Mellitus, Hyperlipidemia, Hypertension, Myocardial Infarction ([place]) Additional Family Medical History / Comment(s): OBESITY, COLON CA Brother(s) Family Medical History: Coronary Artery Disease (CAD) Sister(s) Family Medical History: Coronary Artery Disease (CAD), Deep Vein Thrombosis (DVT) Daughter(s) Family Medical History: No Reported History General Exam Limitations: no limitations General appearance: alert, in no apparent distress Head exam: Present: atraumatic, normocephalic, normal inspection Eye exam: Present: normal appearance, PERRL, EOMI. Absent: scleral icterus, conjunctival injection, periorbital swelling ENT exam: Present: normal exam, normal oropharynx, mucous membranes moist, other (No active bleeding at this time from the right nare) Neck exam: Present: normal inspection, full ROM. Absent: tenderness, meningismus, lymphadenopathy Respiratory exam: Present: normal lung sounds bilaterally. Absent: respiratory distress, wheezes, rales, rhonchi, stridor Cardiovascular Exam: Present: regular rate, normal rhythm, normal heart sounds. Absent: systolic murmur, diastolic murmur, rubs, gallop, clicks GI/Abdominal exam: Present: soft, normal bowel sounds. Absent: distended, tenderness, guarding, rebound, rigid Course Vital Signs 03/24/21 08:02 Temperature 97.5 F L Pulse Rate 76 Respiratory 20 Rate Blood Pressure 149/82 O2 Sat by Pulse 95 Oximetry Procedures - Procedures Initial comment: Nasal packng: murocel applied to right nares. epistasis achieved. Medical Decision Making - Medical Decision Making Did attempt Afrin spray and nasal clamp. Patient's nosebleed had initially subsided however did start again. Therefore she was packed with Murocel. Patient will follow up with ENT. She'll return for any worsening symptoms. Disposition Clinical Impression: Epistaxis Disposition: HOME SELF-CARE Condition: Good Instructions (If sedation given, give patient instructions): Nosebleed (ED) Additional Instructions: Please follow-up with ENT (Dr Pichardo) on Friday to have packing removed. Return to the emergency room for any worsening symptoms. Is patient prescribed a controlled substance at d/c from ED?: No Referrals: Grey Loaiza DO [Primary Care Provider] - 1-2 days Prateek Pichardo MD [STAFF PHYSICIAN] - 1-2 days Time of Disposition: 09:35
[2021-03-24 09:54] VITALS: BP 124/64; PULSE 75
== END 2021-03-24 09:53 | disposition home or self-care (01) ==
LOC: EC 08:01
DX: R04.0 Epistaxis (principal); E78.5 Hyperlipidemia, unspecified; E03.9 Hypothyroidism, unspecified; I10 Essential (primary) hypertension; I48.91 Unspecified atrial fibrillation; J45.909 Unspecified asthma, uncomplicated; K21.9 Gastro-esophageal reflux disease without esophagitis; K58.9 Irritable bowel syndrome, unspecified; M19.90 Unspecified osteoarthritis, unspecified site; M79.7 Fibromyalgia; G47.30 Sleep apnea, unspecified; G43.909 Migraine, unspecified, not intractable, without status migrainosus; M81.0 Age-related osteoporosis without current pathological fracture; Z86.711 Personal history of pulmonary embolism; Z86.718 Personal history of other venous thrombosis and embolism; Z87.11 Personal history of peptic ulcer disease; Z87.440 Personal history of urinary (tract) infections; Z87.442 Personal history of urinary calculi; Z79.51 Long term (current) use of inhaled steroids; Z79.890 Hormone replacement therapy; Z79.899 Other long term (current) drug therapy; Z88.0 Allergy status to penicillin; Z88.1 Allergy status to other antibiotic agents; Z88.2 Allergy status to sulfonamides; Z88.5 Allergy status to narcotic agent; Z88.6 Allergy status to analgesic agent; Z88.8 Allergy status to other drugs, medicaments and biological substances; Z91.040 Latex allergy status; Z96.641 Presence of right artificial hip joint
CPT/HCPCS: 30901; 99283

== ENCOUNTER → 2021-07-28 | Outpatient (CLI) | payer MEDICARE ==
--- NOTE | 2021-07-29 11:41 | CT ---
EXAMINATION TYPE: CT sinus wo con DATE OF EXAM: 07/28/2021 COMPARISON: None HISTORY: Chronic sinusits CT DLP: 606.[address] of the paranasal sinuses was performed in the axial and coronal planes. Bone and soft tissue settings are submitted. The paranasal sinuses demonstrate normal aeration and development. There appears to be in ectopic too th that the base of the right maxillary sinus. Mild mucosal thickening right maxillary sinus and obst ruction right ostiomeatal unit. Moderate opacification of the right-sided ethmoid air cells. Opacific ation right-sided frontal sinuses. Sphenoid sinuses well aerated. Left maxillary sinus is within norm al limits. The nasal septum is midline. No bony destructive changes are seen within the field of view. IMPRESSION: Changes of chronic sinusitis noted. Obstruction right ostiomeatal unit.
== END | disposition home or self-care (01) ==
LOC: RADCTMAIN 13:49
PROVIDERS: ATTEND Otolaryngology
DX: J32.0 Chronic maxillary sinusitis (principal)
CPT/HCPCS: 70486

== ENCOUNTER 2022-05-21 21:32 | Emergency (ER) | payer MEDICARE ==
[2022-05-21 21:38] VITALS: TEMP 98.1
[2022-05-22] MEDS ORDERED: SODIUM CHLORIDE 0.9% 1,000 ML IV STA (00:51)
--- NOTE | 2022-05-22 01:16 | ED ---
Abdominal Pain HPI - General Chief Complaint: Abdominal Pain Stated Complaint: Abd Pain Time Seen by Provider: 05/22/22 00:50 Source: patient, RN notes reviewed Mode of arrival: wheelchair - History of Present Illness Initial Comments: This is a pleasant 71-year-old female with a history of multiple medical issues as listed in the chart. Patient presents stating that she hasn't had a normal bowel movement about 3 weeks. Patient states she started having diarrhea about 3 weeks ago then for the last 6 days or so has had constipation. Patient states she is getting generalized abdominal discomfort as well. No vomiting. No known fever. No headache, no fever or chills, no changes in vision or hearing, no sore throat or difficulty with speech, no neck pain, no chest pain or shortness of breath, ABDOMINAL pain, CONSTIPATION, no changes in urination or bowel movements, no numbness or tingling, no extremity pain, no skin rashes or lesions. Past medical, surgical, social, and family history reviewed. Patient has been trying hwkb-esy-xwuaoei Pepto-Bismol with no relief and also tried an wovi-qzy-fmosybk enema on her own. MD Complaint: abdominal pain - Related Data Home Medications Medication Instructions Recorded Confirmed L.acid/L.casei/B.bif/B.parisa/Fos 1 cap PO HS 01/26/15 07/14/19 [Probiotic Blend Capsule] LORazepam [Ativan] 2 mg PO TID PRN 01/26/15 07/14/19 Cetirizine HCl [Zyrtec] 20 mg PO HS 08/09/15 07/14/19 Acetaminophen Tab [Tylenol] 325 mg PO Q4H PRN 12/01/17 07/14/19 Fludrocortisone [Florinef] 0.1 mg PO DAILY 12/01/17 07/14/19 Hydrocortisone [Cortef] 10 mg PO AC-SUPPER 12/01/17 07/14/19 Hydrocortisone [Cortef] 15 mg PO AC-BRKFST 12/01/17 07/14/19 Levothyroxine Sodium [Synthroid] 150 mcg PO DAILY 12/01/17 07/14/19 Cholecalciferol (Vitamin D3) 5,000 unit PO DAILY 12/02/17 07/14/19 [Vitamin D3] amLODIPine [Norvasc] 10 mg PO DAILY 12/02/17 07/14/19 Calcium Carbonate [Calcium] 600 mg PO DAILY 07/14/19 07/14/19 Cyanocobalamin (Vitamin B-12) 2,500 mcg PO DAILY 07/14/19 07/14/19 [Vitamin B-12] Fluticasone/Vilanterol [Breo 1 puff INHALATION RT-DAILY 07/14/19 07/14/19 Ellipta 100-25 Mcg Inhaler] Potassium Chloride ER [K-Dur 20] 20 meq PO BID 07/14/19 07/14/19 atenoloL [Tenormin] 50 mg PO BID 07/14/19 07/14/19 Previous Rx's Medication Instructions Recorded Famotidine [Pepcid] 20 mg PO DAILY tab 07/15/19 Nitroglycerin Sl Tabs [Nitrostat] 0.4 mg SUBLINGUAL Q5M PRN tab 07/15/19 Rivaroxaban [Xarelto] 20 mg PO W/SUPPER tab 07/15/19 Amoxic-Pot Clav 875-125Mg 1 tab PO Q8H 1 Days #21 tab 05/22/22 [Augmentin 875-125] Ondansetron Odt [Zofran Odt] 4 mg PO Q6HR PRN #20 tab 05/22/22 Allergies Allergy/AdvReac Type Severity Reaction Status Date / Time Sulfa (Sulfonamide Allergy Severe Unknown Verified 05/21/22 21:39 Antibiotics) NANCY Inhibitors Allergy Anaphylaxis Verified 05/21/22 21:39 adhesive Allergy Rash/Hives Verified 05/21/22 21:39 albuterol Allergy Rash/Hives Verified 05/21/22 21:39 aspirin [From Soma Compound] Allergy Unknown Verified 05/21/22 21:39 baclofen Allergy Unknown Verified 05/21/22 21:39 carisoprodol Allergy Unknown Verified 05/21/22 21:39 [From Soma Compound] ciprofloxacin [From Cipro] Allergy Unknown Verified 05/21/22 21:39 gabapentin Allergy Unknown Verified 05/21/22 21:39 hylan G-F 20 [From Synvisc] Allergy Unknown Verified 05/21/22 21:39 Iodine and Iodide Containing Allergy Rash/Hives Verified 05/21/22 21:39 Produc Latex, Natural Rubber Allergy Rash/Hives Verified 05/21/22 21:39 levofloxacin [From Levaquin] Allergy Unknown Verified 05/21/22 21:39 lidocaine Allergy Rash/Hives Verified 05/21/22 21:39 lisinopril Allergy Unknown Verified 05/21/22 21:39 meperidine HCl [From Demerol] Allergy Rash/Hives Verified 05/21/22 21:39 morphine Allergy Rash/Hives Verified 05/21/22 21:39 nitrofurantoin Allergy Rash/Hives Verified 05/21/22 21:39 [From Macrobid] tetanus toxoid, adsorbed Allergy Unknown Verified 05/21/22 21:39 tizanidine Allergy Rash/Hives Verified 05/21/22 21:39 aspartame AdvReac Intermediate Diarrhea Verified 05/21/22 21:39 codeine AdvReac Nausea & Verified 05/21/22 21:39 Vomiting doxycycline AdvReac Nausea & Verified 05/21/22 21:39 Vomiting Penicillins AdvReac Nausea & Verified 05/21/22 21:39 Vomiting prednisone AdvReac Hallucinati Verified 05/21/22 21:39 ons mushroom Allergy Diarrhea Uncoded 03/24/21 08:06 narcotics Allergy Rash/Hives Uncoded 03/24/21 08:06 Review of Systems ROS Statement: Those systems with pertinent positive or pertinent negative responses have been documented in the HPI. ROS Other: All systems not noted in ROS Statement are negative. Past Medical History Past Medical History: Atrial Fibrillation, Atrial Flutter, Asthma, Fibromyalgia, GERD/Reflux, GI Bleed, Hyperlipidemia, Hypertension, Musculoskeletal Disorder, Neurologic Disorder, Osteoarthritis (OA), Pulmonary Embolus (PE), Sleep Apnea/CPAP/BIPAP, Thyroid Disorder, Vascular Disorder Additional Past Medical History / Comment(s): hx as follows: bronchitis, thoracic spondylosis, lupus, rls,migraines, blood clots, hiatal hernia, ibs, gerd, uti had sepsis 2004, kidney stone , stress incont, tmj.PERIPHERAL NEUROPATHY, endometriosis,adenomyosis, mixed connective tissue disorder, hypothyroidism, peptic ulcer disease, osteoarthritis, osteoporosis, GERD, scoliosis, esophagitis, PE, DVT, hypertension. History of Any Multi-Drug Resistant Organisms: MRSA Date of last positivie culture/infection: 02/03/2015 MDRO Source:: Nose Past Surgical History: Adenoidectomy, Bariatric Surgery, Cardiac Ablation, Cholecystectomy, Heart Catheterization, Hysterectomy, Joint Replacement, Orthopedic Surgery, Tonsillectomy, Tubal Ligation Additional Past Surgical History / Comment(s): cardiac ablation, L knee and R hip replacement. Lap band surgery. tummy tuck. CATARACTS,SINUS SX, SKIN , LAPROSCOPY, HEMORRHOIDECTOMY, CARPAL TUNNEL ADELAIDA,PAST STEROID INJ TO NECK, UVULECTOMY, LUMPS REMOVED ADELAIDA BREAST (CELLS PRECANCEROUS),BX RT TEMPORAL ARTERY- NEG), HAD NERVES IN BACK BURNED, BENIGN GROWTH REMOVED FROM BEHIND RT EAR, bilateral arthroscopic knee surgery, right total hiparthroplasty, bilateral arthroscopic hip surgery, bilateral ankle arthroscopic surgery, bilateral shoulder arthroscopic surgery. Past Anesthesia/Blood Transfusion Reactions: Motion Sickness, Postoperative Nausea & Vomiting (PONV) Past Psychological History: No Psychological Hx Reported Smoking Status: Never smoker Past Alcohol Use History: None Reported Past Drug Use History: None Reported - Past Family History Father Family Medical History: Neurologic Disorder, Pneumonia Additional Family Medical History / Comment(s): ALS, FROM PNEUMONIA Mother Family Medical History: AFIB, Cancer, Chest Pain / Angina, Congestive Heart Failure (CHF), Diabetes Mellitus, Hyperlipidemia, Hypertension, Myocardial Infarction ([place]) Additional Family Medical History / Comment(s): OBESITY, COLON CA Brother(s) Family Medical History: Coronary Artery Disease (CAD) Sister(s) Family Medical History: Coronary Artery Disease (CAD), Deep Vein Thrombosis (DVT) Daughter(s) Family Medical History: No Reported History General Exam - General Exam Comments Initial Comments: Vital signs reviewed, patient minimally hypertensive. Does not appear to be ill or toxic. Appears very adequately perfused. General appearance: alert, obese Head exam: Present: atraumatic, normocephalic, normal inspection Eye exam: Present: normal appearance, PERRL, EOMI. Absent: scleral icterus, con junctival injection, periorbital swelling ENT exam: Present: normal exam, normal oropharynx, mucous membranes moist, TM's normal bilaterally, normal external ear exam. Absent: mucous membranes dry Neck exam: Present: normal inspection, full ROM. Absent: tenderness, meningismus, lymphadenopathy Respiratory exam: Present: normal lung sounds bilaterally. Absent: respiratory distress, wheezes, rales, rhonchi, stridor, chest wall tenderness, accessory muscle use Cardiovascular Exam: Present: regular rate, normal rhythm, normal heart sounds. Absent: systolic murmur, diastolic murmur, rubs, gallop, clicks GI/Abdominal exam: Present: soft, tenderness (Generalized tenderness to palpation.), normal bowel sounds. Absent: distended, guarding, rebound, rigid Rectal exam: Present: normal inspection, normal rectal tone, other (No gross blood). Absent: black stool, bloody stool, fecal impaction, hemorrhoids, mass, tenderness Extremities exam: Present: normal inspection, full ROM, normal capillary refill. Absent: tenderness, pedal edema, joint swelling, calf tenderness Back exam: Present: normal inspection Neurological exam: Present: alert, oriented X3, CN II-XII intact Psychiatric exam: Present: normal affect, normal mood Skin exam: Present: warm, dry, intact, normal color. Absent: rash Course Vital Signs 05/21/22 21:35 Temperature 98.1 F Pulse Rate 94 Respiratory 18 Rate Blood Pressure 161/93 O2 Sat by Pulse 95 Oximetry - Reevaluation(s) Reevaluation #1: 05/22/22 04:20 No headache, no fever or chills, no changes in vision or hearing, no sore throat or difficulty with speech, no neck pain, no chest pain or shortness of breath, no abdominal pain, no nausea or vomiting, no changes in urination or bowel movements, no numbness or tingling, no extremity pain, no skin rashes or lesions. Past medical, surgical, social, and family history reviewed. Medical Decision Making - Medical Decision Making Patient has uncomplicated sigmoid diverticulitis. Patient able to hold down fluids. No nausea or vomiting. No fever. No distress. There was no evidence of bowel obstruction. No evidence of fecal impaction on rectal examination. Patient did have mild elevations her hepatic enzymes which may need to be monit ored by the regular physician. We'll have her follow-up with Dr. Loaiza on Friday. I did tell the patient to take the Zofran 15 or 20 minutes prior to the Augmentin. She is also eating bland diet with plenty of fluids. Patient was told to return to the ER for any signs or symptoms worsen. Told to return immediately if any other problems arise. All questions answered. Treatment plan discussed. Patient in agreement Every effort has been made to ensure accuracy of this dictation. However, due to the limitations of electronic medical records and dictation devices, errors i n charting still occur. The case was discussed in detail with ED attending physician. Presentation, findings, treatment plan discussed in detail. Stuffer Dr. Steiner - Lab Data Result diagrams: 05/22/22 02:35 05/22/22 02:35 Lab Results 05/22/22 05/22/22 05/22/22 Range/Units 02:35 02:35 02:35 WBC 15.5 H (3.8-10.6) k/uL RBC 4.68 (3.80-5.40) m/uL Hgb 14.3 (11.4-16.0) gm/dL Hct 46.1 H (34.0-46.0) % MCV 98.5 (80.0-100.0) fL MCH 30.5 (25.0-35.0) pg MCHC 31.0 (31.0-37.0) g/dL RDW 13.5 (11.5-15.5) % Plt Count 270 (150-450) k/uL MPV 7.4 Neutrophils % 82 % Lymphocytes % 9 % Monocytes % 6 % Eosinophils % 1 % Basophils % 0 % Neutrophils # 12.7 H (1.3-7.7) k/uL Lymphocytes # 1.4 (1.0-4.8) k/uL Monocytes # 0.9 (0-1.0) k/uL Eosinophils # 0.1 (0-0.7) k/uL Basophils # 0.1 (0-0.2) k/uL Sodium 139 (137-145) mmol/L Potassium 3.9 (3.5-5.1) mmol/L Chloride 98 (98-107) mmol/L Carbon Dioxide 29 (22-30) mmol/L Anion Gap 12 mmol/L BUN 17 (7-17) mg/dL Creatinine 1.06 H (0.52-1.04) mg/dL Est GFR (CKD-EPI)AfAm 60 (>60 ml/min/1.73 sqM) Est GFR (CKD-EPI)NonAf 52 (>60 ml/min/1.73 sqM) Glucose 140 H (74-99) mg/dL Calcium 9.1 (8.4-10.2) mg/dL Total Bilirubin 0.8 (0.2-1.3) mg/dL AST 78 H (14-36) U/L ALT 60 H (4-34) U/L Alkaline Phosphatase 159 H (38-126) U/L Total Protein 6.8 (6.3-8.2) g/dL Albumin 3.7 (3.5-5.0) g/dL Lipase 81 (23-300) U/L Disposition Clinical Impression: Sigmoid diverticulitis Narrative: Uncomplicated sigmoid diverticulitis Disposition: HOME SELF-CARE Condition: Stable Instructions (If sedation given, give patient instructions): Diverticulitis (ED) Additional Instructions: Take antibiotics as directed. Follow-up with your regular physician as directed. Return to the ER immediately if any symptoms worsen, new symptoms arise, or any other problems develop. Is patient prescribed a controlled substance at d/c from ED?: No Referrals: Grey Loaiza DO [Primary Care Provider] - 05/24/22 Time of Disposition: 04:42
[2022-05-22 03:08] LABS: Basophils # (A) 0.1 k/uL (0-0.2); Basophils % (A) 0 %; Eosinophils # (A) 0.1 k/uL (0-0.7); Eosinophils % (A) 1 %; HCT 46.1 % (34.0-46.0); HGB 14.3 gm/dL (11.4-16.0); Lymphocytes # (A) 1.4 k/uL (1.0-4.8); Lymphocytes % (A) 9 %; MCH 30.5 pg (25.0-35.0); MCV 98.5 fL (80.0-100.0); Mean Platelet Volume 7.4; Monocytes # (A) 0.9 k/uL (0-1.0); Monocytes % (A) 6 %; Neutrophils # (A) 12.7 k/uL (1.3-7.7); Neutrophils % (A) 82 %; Platelet Count 270 k/uL (150-450); RBC 4.68 m/uL (3.80-5.40); RDW 13.5 % (11.5-15.5); WBC 15.5 k/uL (3.8-10.6)
[2022-05-22 04:16] LABS: Albumin 3.7 g/dL (3.5-5.0); Calcium 9.1 mg/dL (8.4-10.2); Potassium 3.9 mmol/L (3.5-5.1); Total Bilirubin 0.8 mg/dL (0.2-1.3); Total Protein 6.8 g/dL (6.3-8.2)
--- NOTE | 2022-05-22 04:18 | CT ---
EXAMINATION TYPE: CT abdomen pelvis wo con DATE OF EXAM: 05/22/2022 COMPARISON: 06/30/2018 HISTORY: abd pain CT DLP: 2064.8 mGycm Automated exposure control for dose reduction was used. Images obtained from the diaphragm to the floor the pelvis with no contrast. There is mild subsegmental atelectasis at the lung bases. Heart appears borderline enlarged. No pleur al effusion. No pericardial effusion. Liver and spleen are intact. Stomach is intact. There is no pancreatic mass. The bile ducts are not d ilated. There are clips from cholecystectomy. There is no adrenal mass. Kidneys show no hydronephrosis. No evidence of a renal mass. No retroperito rajeev adenopathy. Ureters are not dilated. The bladder distends smoothly. There is metal artifact from right hip prosthesis. No inguinal hernia. No free fluid in the pelvis. There is some fat stranding around the mid sigmoid colon. There are multiple sigmoid diverticula. Alexx endix not clearly seen. No sign thickened appendix. There is no ascites or free air. No bowel obstruc tion. The lumbar vertebrae have normal alignment. No compression fracture. There is narrowing at L4-5 disc. There is spurring of the endplates. Abdominal aorta is atheromatous. IMPRESSION: There is sigmoid diverticulitis which is a change compared to old exam. There is sigmoid diverticulos is. Mild subsegmental atelectasis at the lung bases. This appears increased compared to old exam
[2022-05-22] MEDS ORDERED: AMOXIC-POT CLAV 875-125MG 1 EACH TAB PO STA (04:27)
[2022-05-22] MEDS ORDERED: ONDANSETRON ODT 4 MG TAB PO STA (04:29)
[2022-05-22 06:28] VITALS: BP 167/82; PULSE 72; RESP 20
== END 2022-05-22 05:55 | disposition home or self-care (01) ==
LOC: EC 21:32
DX: K57.92 Diverticulitis of intestine, part unspecified, without perforation or abscess without bleeding (principal); I48.91 Unspecified atrial fibrillation; J45.909 Unspecified asthma, uncomplicated; K21.9 Gastro-esophageal reflux disease without esophagitis; E78.5 Hyperlipidemia, unspecified; I10 Essential (primary) hypertension; M19.90 Unspecified osteoarthritis, unspecified site; Z88.2 Allergy status to sulfonamides; Z88.8 Allergy status to other drugs, medicaments and biological substances; Z88.6 Allergy status to analgesic agent; Z91.041 Radiographic dye allergy status; Z88.0 Allergy status to penicillin; Z91.018 Allergy to other foods; Z88.5 Allergy status to narcotic agent; Z79.51 Long term (current) use of inhaled steroids; Z79.899 Other long term (current) drug therapy
CPT/HCPCS: 36415; 74176; 80053; 82272; 83690; 85025; 99284

== ENCOUNTER 2022-08-11 08:52 | Inpatient (IN) | payer MEDICARE ==
[2022-08-11] MEDS ORDERED: ONDANSETRON 4 MG/2 ML VIAL IVP STA (09:16)
[2022-08-11] MEDS ORDERED: SODIUM CHLORIDE 0.9% 500 ML 500 ML IV ONE (09:18)
[2022-08-11 09:48] LABS: HCT 38.9 % (34.0-46.0); HGB 13.1 gm/dL (11.4-16.0); MCH 31.4 pg (25.0-35.0); MCHC 33.6 g/dL (31.0-37.0); MCV 93.3 fL (80.0-100.0); Mean Platelet Volume 7.9; Platelet Count 249 k/uL (150-450); RBC 4.17 m/uL (3.80-5.40); RDW 13.5 % (11.5-15.5); WBC 19.6 k/uL (3.8-10.6)
[2022-08-11 09:59] LABS: Albumin 3.4 g/dL (3.5-5.0); Calcium 8.1 mg/dL (8.4-10.2); Potassium 3.5 mmol/L (3.5-5.1); Total Protein 6.1 g/dL (6.3-8.2)
[2022-08-11 10:01] LABS: Lymphocytes # (M) 1.37 k/uL (1.0-4.8); Monocytes # (M) 2.16 k/uL (0-1.0); Neutrophils # (M) 16.07 k/uL (1.3-7.7); Neutrophils % (M) 82 %; Nucleated Red Blood Cells 0 /100 WBC (0-0); Polychromasia Present; Total Cells Counted 100
--- NOTE | 2022-08-11 10:26 | ED ---
General Adult HPI - General Chief complaint: Nausea/Vomiting/Diarrhea Stated complaint: Nausea vomiting Time Seen by Provider: 08/11/22 08:58 Source: patient, EMS, RN notes reviewed Mode of arrival: EMS Limitations: no limitations - History of Present Illness Initial comments: patient is a 72 year old female presenting to the ER via EMS with a chief comp laint of nausea/diarrhea/vomiting. She reports she presented to the ER in May 2022 with similar symptoms and was diagnosed with diverticulitis. She was discharged on Augmentin. Today she states she has not been able to keep anything down since Friday. She tried eating jello yesterday but states she threw it up. Denies bright red blood or coffee ground emesis. She states she has started to wear Depends due to the diarrhea. Denies blood or black tarry stool. Her PCP put her on Augmentin last week to help with her symptoms but she has not been able to keep anything down so she has not been taking it. Pt admits to diffuse abdominal pain and nausea. She also reports gettingher right hand stuck in her hospital bed at home on . She states it has been tender to touch and movement since. She has been wearing a brace to help support her wrist for comfort. Denies parasthesias in right hand. - Related Data Home Medications Medication Instructions Recorded Confirmed L.acid/L.casei/B.bif/B.parisa/Fos 1 cap PO HS 01/26/15 07/14/19 [Probiotic Blend Capsule] LORazepam [Ativan] 2 mg PO TID PRN 01/26/15 07/14/19 Cetirizine HCl [Zyrtec] 20 mg PO HS 08/09/15 07/14/19 Acetaminophen Tab [Tylenol] 325 mg PO Q4H PRN 12/01/17 07/14/19 Fludrocortisone [Florinef] 0.1 mg PO DAILY 12/01/17 07/14/19 Hydrocortisone [Cortef] 10 mg PO AC-SUPPER 12/01/17 07/14/19 Hydrocortisone [Cortef] 15 mg PO AC-BRKFST 12/01/17 07/14/19 Levothyroxine Sodium [Synthroid] 150 mcg PO DAILY 12/01/17 07/14/19 Cholecalciferol (Vitamin D3) 5,000 unit PO DAILY 12/02/17 07/14/19 [Vitamin D3] amLODIPine [Norvasc] 10 mg PO DAILY 12/02/17 07/14/19 Calcium Carbonate [Calcium] 600 mg PO DAILY 07/14/19 07/14/19 Cyanocobalamin (Vitamin B-12) 2,500 mcg PO DAILY 07/14/19 07/14/19 [Vitamin B-12] Fluticasone/Vilanterol [Breo 1 puff INHALATION RT-DAILY 07/14/19 07/14/19 Ellipta 100-25 Mcg Inhaler] Potassium Chloride ER [K-Dur 20] 20 meq PO BID 07/14/19 07/14/19 atenoloL [Tenormin] 50 mg PO BID 07/14/19 07/14/19 Previous Rx's Medication Instructions Recorded Famotidine [Pepcid] 20 mg PO DAILY tab 07/15/19 Nitroglycerin Sl Tabs [Nitrostat] 0.4 mg SUBLINGUAL Q5M PRN tab 07/15/19 Rivaroxaban [Xarelto] 20 mg PO W/SUPPER tab 07/15/19 Amoxic-Pot Clav 875-125Mg 1 tab PO Q8H 1 Days #21 tab 05/22/22 [Augmentin 875-125] Ondansetron Odt [Zofran Odt] 4 mg PO Q6HR PRN #20 tab 05/22/22 Allergies Allergy/AdvReac Type Severity Reaction Status Date / Time Sulfa (Sulfonamide Allergy Severe Unknown Verified 05/21/22 21:39 Antibiotics) NANCY Inhibitors Allergy Anaphylaxis Verified 05/21/22 21:39 adhesive Allergy Rash/Hives Verified 05/21/22 21:39 albuterol Allergy Rash/Hives Verified 05/21/22 21:39 aspirin [From Soma Compound] Allergy Unknown Verified 05/21/22 21:39 baclofen Allergy Unknown Verified 05/21/22 21:39 carisoprodol Allergy Unknown Verified 05/21/22 21:39 [From Soma Compound] ciprofloxacin [From Cipro] Allergy Unknown Verified 05/21/22 21:39 gabapentin Allergy Unknown Verified 05/21/22 21:39 hylan G-F 20 [From Synvisc] Allergy Unknown Verified 05/21/22 21:39 Iodine and Iodide Containing Allergy Rash/Hives Verified 05/21/22 21:39 Produc Latex, Natural Rubber Allergy Rash/Hives Verified 05/21/22 21:39 levofloxacin [From Levaquin] Allergy Unknown Verified 05/21/22 21:39 lidocaine Allergy Rash/Hives Verified 05/21/22 21:39 lisinopril Allergy Unknown Verified 05/21/22 21:39 meperidine HCl [From Demerol] Allergy Rash/Hives Verified 05/21/22 21:39 morphine Allergy Rash/Hives Verified 05/21/22 21:39 nitrofurantoin Allergy Rash/Hives Verified 05/21/22 21:39 [From Macrobid] tetanus toxoid, adsorbed Allergy Unknown Verified 05/21/22 21:39 tizanidine Allergy Rash/Hives Verified 05/21/22 21:39 aspartame AdvReac Intermediate Diarrhea Verified 05/21/22 21:39 codeine AdvReac Nausea & Verified 05/21/22 21:39 Vomiting doxycycline AdvReac Nausea & Verified 05/21/22 21:39 Vomiting Penicillins AdvReac Nausea & Verified 05/21/22 21:39 Vomiting prednisone AdvReac Hallucinati Verified 05/21/22 21:39 ons mushroom Allergy Diarrhea Uncoded 03/24/21 08:06 narcotics Allergy Rash/Hives Uncoded 03/24/21 08:06 Review of Systems ROS Statement: Those systems with pertinent positive or pertinent negative responses have been documented in the HPI. ROS Other: All systems not noted in ROS Statement are negative. Past Medical History Past Medical History: Atrial Fibrillation, Atrial Flutter, Asthma, Fibromyalgia, GERD/Reflux, GI Bleed, Hyperlipidemia, Hypertension, Musculoskeletal Disorder, Neurologic Disorder, Osteoarthritis (OA), Pulmonary Embolus (PE), Sleep Apnea/CPAP/BIPAP, Thyroid Disorder, Vascular Disorder Additional Past Medical History / Comment(s): hx as follows: bronchitis, thoracic spondylosis, lupus, rls,migraines, blood clots, hiatal hernia, ibs, gerd, uti had sepsis 2004, kidney stone , stress incont, tmj.PERIPHERAL NEUROPATHY, endometriosis,adenomyosis, mixed connective tissue disorder, hypothyroidism, peptic ulcer disease, osteoarthritis, osteoporosis, GERD, scolio sis, esophagitis, PE, DVT, hypertension. History of Any Multi-Drug Resistant Organisms: MRSA Date of last positivie culture/infection: 02/03/2015 MDRO Source:: Nose Past Surgical History: Adenoidectomy, Bariatric Surgery, Cardiac Ablation, Cholecystectomy, Heart Catheterization, Hysterectomy, Joint Replacement, Orthopedic Surgery, Tonsillectomy, Tubal Ligation Additional Past Surgical History / Comment(s): cardiac ablation, L knee and R hip replacement. Lap band surgery. tummy tuck. CATARACTS,SINUS SX, SKIN , LAPROSCOPY, HEMORRHOIDECTOMY, CARPAL TUNNEL ADELAIDA,PAST STEROID INJ TO NECK, UVULECTOMY, LUMPS REMOVED ADELAIDA BREAST (CELLS PRECANCEROUS),BX RT TEMPORAL ARTERY- NEG), HAD NERVES IN BACK BURNED, BENIGN GROWTH REMOVED FROM BEHIND RT EAR, bilateral arthroscopic knee surgery, right total hiparthroplasty, bilateral arthroscopic hip surgery, bilateral ankle arthroscopic surgery, bilateral shoulder arthroscopic surgery. Past Anesthesia/Blood Transfusion Reactions: Motion Sickness, Postoperative Nausea & Vomiting (PONV) Past Psychological History: No Psychological Hx Reported Smoking Status: Never smoker Past Alcohol Use History: None Reported Past Drug Use History: None Reported - Past Family History Father Family Medical History: Neurologic Disorder, Pneumonia Additional Family Medical History / Comment(s): ALS, FROM PNEUMONIA Mother Family Medical History: AFIB, Cancer, Chest Pain / Angina, Congestive Heart Failure (CHF), Diabetes Mellitus, Hyperlipidemia, Hypertension, Myocardial Infarction (MT) Additional Family Medical History / Comment(s): OBESITY, COLON CA Brother(s) Family Medical History: Coronary Artery Disease (CAD) Sister(s) Family Medical History: Coronary Artery Disease (CAD), Deep Vein Thrombosis (DVT) Daughter(s) Family Medical History: No Reported History General Exam Limitations: no limitations General appearance: alert, in no apparent distress Head exam: Present: atraumatic, normocephalic, normal inspection Eye exam: Present: normal appearance, PERRL, EOMI. Absent: scleral icterus, conjunctival injection, periorbital swelling ENT exam: Present: normal exam, mucous membranes moist Neck exam: Present: normal inspection. Absent: tenderness, meningismus, lymphadenopathy Respiratory exam: Present: normal lung sounds bilaterally. Absent: respiratory distress, wheezes, rales, rhonchi, stridor Cardiovascular Exam: Present: regular rate, normal rhythm, irregular rhythm, normal heart sounds. Absent: systolic murmur, diastolic murmur, rubs, gallop, clicks GI/Abdominal exam: Present: soft, tenderness (diffuse ), normal bowel sounds Extremities exam: Present: full ROM (pain with motion right hand ), tenderness (right hand ), joint swelling Neurological exam: Present: alert, oriented X3, CN II-XII intact Psychiatric exam: Present: normal affect, normal mood Skin exam: Present: warm, dry, intact, normal color. Absent: rash Course Vital Signs 08/11/22 08/11/22 08:54 10:10 Temperature 98.6 F Pulse Rate 91 95 Respiratory 20 20 Rate Blood Pressure 129/65 140/75 O2 Sat by Pulse 98 100 Oximetry Medical Decision Making - Medical Decision Making 72-year-old presented for abdominal pain, nausea vomiting patient has concerning symptoms for diverticulitis current treatment. CT did not reveal any specific f indings [place] patient continues to have abdominal pain, leukocytosis and vomiting patient be admitted for IV hydration, antiemetics, antibiotics - Lab Data Result diagrams: 08/11/22 09:25 08/11/22 09:25 Lab Results 08/11/22 08/11/22 08/11/22 Range/Units 09:25 09:25 09:25 WBC 19.6 H (3.8-10.6) k/uL RBC 4.17 (3.80-5.40) m/uL Hgb 13.1 (11.4-16.0) gm/dL Hct 38.9 (34.0-46.0) % MCV 93.3 (80.0-100.0) fL MCH 31.4 (25.0-35.0) pg MCHC 33.6 (31.0-37.0) g/dL RDW 13.5 (11.5-15.5) % Plt Count 249 (150-450) k/uL MPV 7.9 Neutrophils % (Manual) 82 % Lymphocytes % (Manual) 7 % Monocytes % (Manual) 11 % Neutrophils # (Manual) 16.07 H (1.3-7.7) k/uL Lymphocytes # (Manual) 1.37 (1.0-4.8) k/uL Monocytes # (Manual) 2.16 H (0-1.0) k/uL Nucleated RBCs 0 (0-0) /100 WBC Polychromasia Present Sodium 132 L (137-145) mmol/L Potassium 3.5 (3.5-5.1) mmol/L Chloride 99 (98-107) mmol/L Carbon Dioxide 23 (22-30) mmol/L Anion Gap 10 mmol/L BUN 11 (7-17) mg/dL Creatinine 0.84 (0.52-1.04) mg/dL Est GFR (CKD-EPI)AfAm 79 (>60 ml/min/1.73 sqM) Est GFR (CKD-EPI)NonAf 69 (>60 ml/min/1.73 sqM) Glucose 136 H (74-99) mg/dL Plasma Lactic Acid Mickey 1.4 (0.7-2.0) mmol/L Calcium 8.1 L (8.4-10.2) mg/dL Total Bilirubin 2.0 H (0.2-1.3) mg/dL AST 84 H (14-36) U/L ALT 44 H (4-34) U/L Alkaline Phosphatase 124 (38-126) U/L Total Protein 6.1 L (6.3-8.2) g/dL Albumin 3.4 L (3.5-5.0) g/dL Lipase 31 (23-300) U/L Disposition Clinical Impression: Diverticulitis, Dehydration, Nausea & vomiting Disposition: ADMITTED IP TO THIS [facility] Condition: Good Referrals: Grey Loaiza DO [Primary Care Provider] - 1-2 days Time of Disposition: 10:55
--- NOTE | 2022-08-11 10:44 | CT ---
EXAMINATION TYPE: CT abdomen pelvis wo con CT DLP: 2030.9 mGycm, Automated exposure control for dose reduction was used. DATE OF EXAM: 08/11/2022 9:58 AM COMPARISON: CT abdomen pelvis most recent from 05/22/2022. CLINICAL INDICATION:Female, 72 years old with history of abd pain; Abdominal pain, nausea and vomitin g TECHNIQUE: Axial CT of the abdomen and pelvis. Sagittal and coronal reformats were created on a [employer] workstation. Contrast used: None Oral contrast used: without Oral Contrast FINDINGS: LOWER CHEST: The heart is mildly enlarged for size. ABDOMEN LIVER: Unremarkable GALLBLADDER AND BILE DUCTS: The gallbladder is surgically absent. PANCREAS: Unremarkable. SPLEEN: Unremarkable. ADRENAL GLANDS: Unremarkable. KIDNEYS AND URETERS: No evidence of hydronephrosis or renal calculus. The ureters are unremarkable. PELVIS BLADDER: Unremarkable REPRODUCTIVE: Unremarkable. ABDOMEN & PELVIS STOMACH AND BOWEL: No evidence of bowel obstruction. Moderate hiatal hernia. Scattered clonic diverti cula present. Appendix is normal. PERITONEUM: No evidence of pneumoperitoneum or free fluid. VASCULATURE: No evidence of aortic aneurysm. Atherosclerosis of the arterial vasculature MUSCULOSKELETAL: No acute osseous abnormalities, multilevel disc degeneration changes right hip arthr oplasty. Arthroplasty appears in appropriate position and intact.1 grade 1 anterolisthesis of L3 on L 4. Multilevel disc bulging throughout the lumbar spine. LYMPH NODES: No gross evidence for lymphadenopathy. SOFT TISSUE/ABDOMINAL WALL: Left posterior subcutaneous calcified lesions likely sequela prior trauma . IMPRESSION: 1. Motion limited exam without evidence for acute abdominal process. 2. Moderate hiatal hernia
--- NOTE | 2022-08-11 10:50 | XR ---
EXAMINATION TYPE: XR wrist complete RT DATE OF EXAM: 08/11/2022 10:33 AM INDICATION: Patient age:Female; 72 years old; Reason for study: pain; COMPARISON: None TECHNIQUE: 4 views of the right wrist. Frontal, navicular, lateral, and oblique. FINDINGS: No acute osseous pathology, joint dislocation, or joint effusion. No evidence of any soft tissue swelling is seen. Osseous demineralization. IMPRESSION: No acute osseous pathology.
[2022-08-11] MEDS ORDERED: HYDROcodone/APAP 5-325MG 1 EACH TAB PO PRN (11:16)
[2022-08-11] MEDS ORDERED: ONDANSETRON 4 MG/2 ML VIAL IVP PRN (11:16)
[2022-08-11] MEDS ORDERED: HYDROmorphone 0.5 MG/0.5 ML SYRINGE IVP PRN (11:16)
[2022-08-11] MEDS ORDERED: NALOXONE 0.4 MG/ML 1 ML VIAL IV PRN (11:16)
[2022-08-11 11:58] LABS: Appearance,Urine Clear (Clear); Bilirubin,Urine 1+ (Negative); Blood,Urine Trace (Negative); Color,Urine Yellow; Glucose,Urine (UA) Negative (Negative); Hyaline Casts,Urine 3 /lpf (0-2); Ketones,Urine 2+ (Negative); Leukocyte Esterase,Urine Negative (Negative); Mucus,Urine Occasional /hpf; Nitrite,Urine Negative (Negative); PH, Urine 5.5 (5.0-8.0); Protein,Urine 1+ (Negative); RBC,Urine 3 /hpf (0-5); Specific Gravity,Urine 1.023 (1.001-1.035); WBC,Urine 1 /hpf (0-5)
[2022-08-11] MEDS ORDERED: PIPERACILLIN-TAZOBACTAM 3.375 GM in SODIUM CHLORIDE 0.9% 100 ML IVPB SCH (12:00)
[2022-08-11] MEDS: SODIUM CHLORIDE 0.9% 1,000 ML IV SCH (13:42)
[2022-08-11] MEDS ORDERED: FLUDROCORTISONE 0.1 MG TAB PO ONE (15:15)
--- NOTE | 2022-08-11 18:02 | XR ---
EXAMINATION TYPE: XR chest 1V portable DATE OF EXAM: 08/11/2022 COMPARISON: 07/14/2019 HISTORY: CHF TECHNIQUE: Single frontal view of the chest is obtained. FINDINGS: There is no focal air space opacity, pleural effusion, or pneumothorax seen. The cardiac silhouette size is within normal limits. The osseous structures are intact. IMPRESSION: No acute process.
[2022-08-11] MEDS: PANTOPRAZOLE 40 MG/10 ML VIAL IV SCH (22:05)
[2022-08-11] MEDS: LORATADINE 10 MG TAB PO SCH (22:06)
[2022-08-11] MEDS: atenoloL 50 MG TAB PO SCH (22:06)
--- NOTE | 2022-08-12 01:02 | HP ---
HISTORY AND PHYSICAL CHIEF COMPLAINT: Nausea, vomiting, diarrhea, abdominal discomfort. HISTORY OF PRESENT ILLNESS: This 72-year-old woman with a past medical history of multiple medical problems including atrial flutter fibrillation, GERD, hypertension, hyperlipidemia, being followed by Dr. Loaiza in the outpatient setting, previous episode of diverticulitis, patient in the hospital. Currently, the patient also has abdominal pain, patient is on outpatient antibiotics. Currently, the patient is complaining of nausea, vomiting, diarrhea. Patient came to [facility]. CT scan showed acute diverticulitis, patient came for evaluation and treatment. There is no history of any fever, rigors, or chills. PAST MEDICAL HISTORY: Reviewed, include asthma, atrial flutter fibrillation, the rest of the history and chart also reviewed. HOME MEDICATIONS: Again reviewed include atenolol doses and rest of medications reviewed. ALLERGIES: Multiple allergies reviewed include gabapentin, rest of the allergies reviewed. FAMILY HISTORY: History of pneumonia. SOCIAL HISTORY: No history of smoking or alcohol. REVIEW OF SYSTEMS: A 14-point review is negative except as mentioned earlier. PHYSICAL EXAMINATION: VITAL SIGNS: Pulse 90, blood pressure 130/60, and respirations 20. HEENT: Conjunctivae normal. NECK: No jugular venous distention. CARDIOVASCULAR: S1, S2 muffled. RESPIRATIONS: Clear to auscultation. ABDOMEN: Soft, obese, minimal diffuse discomfort on palpation. No guarding, no rigidity. Bowel sounds diminished. LEGS: No edema. NERVOUS SYSTEM: Diffusely weak. SKIN: No ulcer. JOINTS: The right wrist is swollen after being caught in the hospital bed. X-rays are normal with movements are painful, tender, swelling present. Skin as mentioned earlier, joints as mentioned earlier. LABS: Reviewed include WBC 19.6, rest of the labs noted. ASSESSMENT: 1. Abdominal pain, nausea, vomiting, diarrhea, rule out acute C. difficile colitis. 2. Rule out acute COVID-19. 3. History of diverticulitis. 4. Right wrist swelling and pain, rule out fracture. 5. History of atrial fibrillation. 6. Fibromyalgia. 7. Hypertension. 8. Hyperlipidemia. 9. Obesity. 10.Bariatric surgery. 11.Multiple medical issues. RECOMMENDATIONS: This 72-year-old woman presented with multiple complex medical issues, we will monitor the patient closely. Will initiate pain management. Otherwise, the patient is alert, slightly elevated, we will monitor CMP closely and check C difficile, infectious disease evaluation. Prognosis guarded because of multiple complex medical issues. Further recommendations to follow. Add Questran to the current regimen. The C diff is negative, Imodium may be used and I would also recommend COVID-19 testing also. SUSAN / PIERREN: [id number] /
[2022-08-12] MEDS: LEVOTHYROXINE 125 MCG TAB PO SCH (06:32)
[2022-08-12 08:46] LABS: HCT 37.7 % (37.2-46.3); HGB 12.1 g/dL (12.0-15.0); MCH 30.2 pg (27.0-32.0); MCHC 32.1 g/dL (32.0-37.0); Mean Platelet Volume 10.1 fL (9.5-12.2); NRBC Per 100 WBC 0 /100 WBCS (0.0-0.0); Platelet Count 276 X 10*3/uL (140-440); RBC 4.01 X 10*6/uL (4.10-5.20); RDW 13.2 % (11.5-14.5); WBC 16.18 X 10*3/uL (4.50-10.00)
[2022-08-12] MEDS ORDERED: PANTOPRAZOLE 40 MG/10 ML VIAL IV SCH (09:00)
[2022-08-12 09:03] LABS: Albumin 3.3 g/dL (3.8-4.9); Albumin/Globulin Ratio 1.38 (1.60-3.17); Anion Gap 12.4 mmol/L (10.00-18.00); BUN/Creat Ratio 10.44 Ratio (12.00-20.00); Blood Urea Nitrogen 9.4 mg/dL (9.0-27.0); Calcium 8.4 mg/dL (8.7-10.3); Carbon Dioxide 22.6 mmol/L (20.0-27.5); Globulin 2.4 g/dL (1.6-3.3); Potassium 3.5 mmol/L (3.5-5.5); Total Bilirubin 1.3 mg/dL (0.30-1.20); Total Protein 5.7 g/dL (6.2-8.2)
[2022-08-12] MEDS: PANTOPRAZOLE 40 MG/10 ML VIAL IV SCH ×3 (09:11→22:37)
[2022-08-12] MEDS: FUROSEMIDE 20 MG TAB PO SCH (09:45)
[2022-08-12] MEDS: allopurinoL 100 MG TAB PO SCH (09:45)
[2022-08-12] MEDS: predniSONE 5 MG TAB PO SCH (09:45)
[2022-08-12] MEDS: atenoloL 50 MG TAB PO SCH ×2 (09:45→20:32)
[2022-08-12] MEDS: CALCIUM CARB-VIT D 500 MG-5 MCG TAB PO SCH (09:47)
[2022-08-12] MEDS: CYANOCOBALAMIN 500 MCG TAB PO SCH (09:47)
[2022-08-12] MEDS: CHOLECALCIFEROL 125 MCG (5000 IU) TABLET PO SCH (09:47)
[2022-08-12 09:57] LABS: Basophils # (A) 0.05 X 10*3/uL (0.00-0.10); Basophils % (A) 0.3 %; Eosinophils # (A) 0.09 X 10*3/uL (0.04-0.35); Eosinophils % (A) 0.6 %; Immature Grans, Automated 0.6 %; Lymphocytes # (A) 1.08 X 10*3/uL (0.90-5.00); Lymphocytes % (A) 6.7 %; Monocytes # (A) 1.78 X 10*3/uL (0.20-1.00); Neutrophils # (A) 13.09 X 10*3/uL (1.80-7.70); Neutrophils % (A) 80.8 %; RBC Morphology NORMAL
--- NOTE | 2022-08-12 10:18 | P.CNOR ---
History of Present Illness - HPI Consult date: 08/12/22 Consult reason: other (Right hand swelling and erythema) History of present illness: patient is a pleasant 72-year-old female who was admitted yesterday in regards to muscle medical issues including diverticulitis atrial fibrillation and atrial flutter, hypertension and hyperlipidemia and abdominal pain. She also was having nausea vomiting and diarrhea. She is admitted regards to acute diverticulitis and she noted pain at her right hand as well. She says that her hand got caught between her mattress and the bed frame and she has been having swelling and redness at her right hand over the past 2 days. She denies any other specific trauma. She denies any falls. Denies any problems the right hand in the past. She's been having significant swelling at the area. She denies any fevers or chills. She denies a pain at her elbow and she has pain when she tries to mobilize her fingers and wrist. Review of Systems as per HPI. She is currently admitted regards to her diverticulitis and nausea vomiting and abdominal pain. She denies any chest pain or shortness of breath. She has a history of morbid obesity but denies any problems with her right wrist and hand in the past. Past Medical History Past Medical History: Atrial Fibrillation, Atrial Flutter, Asthma, Fibromyalgia, GERD/Reflux, GI Bleed, Hyperlipidemia, Hypertension, Musculoskeletal Disorder, Neurologic Disorder, Osteoarthritis (OA), Pulmonary Embolus (PE), Sleep Ap sophie/CPAP/BIPAP, Thyroid Disorder, Vascular Disorder Additional Past Medical History / Comment(s): hx as follows: bronchitis, thoracic spondylosis, lupus, rls,migraines, blood clots, hiatal hernia, ibs, gerd, uti had sepsis 2004, kidney stone , stress incont, tmj.PERIPHERAL NEUROPATHY, endometriosis,adenomyosis, mixed connective tissue disorder, hypothyroidism, peptic ulcer disease, osteoarthritis, osteoporosis, GERD, scoliosis, esophagitis, PE, DVT, hypertension. History of Any Multi-Drug Resistant Organisms: MRSA Year Discovered:: 02/03/2015 MDRO Source:: Nose Past Surgical History: Adenoidectomy, Bariatric Surgery, Cardiac Ablation, Cholecystectomy, Heart Catheterization, Hysterectomy, Joint Replacement, Orthopedic Surgery, Tonsillectomy, Tubal Ligation Additional Past Surgical History / Comment(s): cardiac ablation, L knee and R h ip replacement. Lap band surgery. tummy tuck. CATARACTS,SINUS SX, SKIN , LAPROSCOPY, HEMORRHOIDECTOMY, CARPAL TUNNEL ADELAIDA,PAST STEROID INJ TO NECK, UVULECTOMY, LUMPS REMOVED ADELAIDA BREAST (CELLS PRECANCEROUS),BX RT TEMPORAL ARTERY- NEG), HAD NERVES IN BACK BURNED, BENIGN GROWTH REMOVED FROM BEHIND RT EAR, bilateral arthroscopic knee surgery, right total hiparthroplasty, bilateral arthroscopic hip surgery, bilateral ankle arthroscopic surgery, bilateral shoulder arthroscopic surgery.renal cell carcinoma. 4 lesions on pancreas Past Anesthesia/Blood Transfusion Reactions: Motion Sickness, Postoperative Nausea & Vomiting (PONV) Past Psychological History: No Psychological Hx Reported Smoking Status: Never smoker Past Alcohol Use History: None Reported Past Drug Use History: None Reported - Past Family History Father Family Medical History: Neurologic Disorder, Pneumonia Additional Family Medical History / Comment(s): ALS, FROM PNEUMONIA,lupus Mother Family Medical History: AFIB, Cancer, Chest Pain / Angina, Congestive Heart Failure (CHF), Diabetes Mellitus, Hyperlipidemia, Hypertension, Myocardial Infarction ([place]) Additional Family Medical History / Comment(s): OBESITY, COLON CA Brother(s) Family Medical History: Coronary Artery Disease (CAD) Sister(s) Family Medical History: Coronary Artery Disease (CAD), Deep Vein Thrombosis (DVT) Daughter(s) Family Medical History: No Reported History Medications and Allergies Home Medications Medication Instructions Recorded Confirmed Type LORazepam [Ativan] 2 mg PO BID PRN 01/26/15 08/11/22 History Cetirizine HCl [Zyrtec] 10 mg PO HS 08/09/15 08/11/22 History Acetaminophen Tab [Tylenol] 325 mg PO Q4H PRN 12/01/17 08/11/22 History Fludrocortisone [Florinef] 0.1 mg PO Q48H 12/01/17 08/11/22 History Calcium Carbonate [Calcium] 600 mg PO DAILY 07/14/19 08/11/22 History Cyanocobalamin (Vitamin B-12) 2,500 mcg PO DAILY 07/14/19 08/11/22 History [Vitamin B-12] atenoloL [Tenormin] 50 mg PO BID 07/14/19 08/11/22 History Rivaroxaban [Xarelto] 20 mg PO W/SUPPER tab 07/15/19 08/11/22 Rx Cholecalciferol [Vitamin D3 (125 125 mcg PO DAILY 08/11/22 08/11/22 History Mcg = 5000 Iu)] Furosemide [Lasix] 20 mg PO DAILY 08/11/22 08/11/22 History Levothyroxine Sodium [Synthroid] 125 mcg PO DAILY 08/11/22 08/11/22 History Potassium Chloride ER [K-Dur 20] 20 meq PO DAILY 08/11/22 08/11/22 History allopurinoL 100 mg PO DAILY 08/11/22 08/11/22 History predniSONE 5 mg PO DAILY 08/11/22 08/11/22 History Allergies Allergy/AdvReac Type Severity Reaction Status Date / Time Sulfa (Sulfonamide Allergy Severe Unknown Verified 08/11/22 11:58 Antibiotics) NANCY Inhibitors Allergy Anaphylaxis Verified 08/11/22 11:58 adhesive Allergy Rash/Hives Verified 08/11/22 11:58 albuterol Allergy Rash/Hives Verified 08/11/22 11:58 aspirin [From Soma Compound] Allergy Unknown Verified 08/11/22 11:58 baclofen Allergy Unknown Verified 08/11/22 11:58 carisoprodol Allergy Unknown Verified 08/11/22 11:58 [From Soma Compound] ciprofloxacin [From Cipro] Allergy Unknown Verified 08/11/22 11:58 gabapentin Allergy Unknown Verified 08/11/22 11:58 hylan G-F 20 [From Synvisc] Allergy Unknown Verified 08/11/22 11:58 Iodine and Iodide Containing Allergy Rash/Hives Verified 08/11/22 11:58 Produc Latex, Natural Rubber Allergy Rash/Hives Verified 08/11/22 11:58 levofloxacin [From Levaquin] Allergy Unknown Verified 08/11/22 11:58 lidocaine Allergy Rash/Hives Verified 08/11/22 11:58 lisinopril Allergy Unknown Verified 08/11/22 11:58 meperidine HCl [From Demerol] Allergy Rash/Hives Verified 08/11/22 11:58 morphine Allergy Rash/Hives Verified 08/11/22 11:58 nitrofurantoin Allergy Rash/Hives Verified 08/11/22 11:58 [From Macrobid] tetanus toxoid, adsorbed Allergy Unknown Verified 08/11/22 11:58 tizanidine Allergy Rash/Hives Verified 08/11/22 11:58 aspartame AdvReac Intermediate Diarrhea Verified 08/11/22 11:58 codeine AdvReac Nausea & Verified 08/11/22 11:58 Vomiting doxycycline AdvReac Nausea & Verified 08/11/22 11:58 Vomiting Penicillins AdvReac Nausea & Verified 08/11/22 11:58 Vomiting prednisone AdvReac Hallucinati Verified 08/11/22 11:58 ons mushroom Allergy Diarrhea Uncoded 08/11/22 11:58 narcotics Allergy Rash/Hives Uncoded 08/11/22 11:58 Physical Examination Osteopathic Statement: *. No significant issues noted on an osteopathic structural exam other than those noted in the History and Physical/Consult. - Wrist & Hand right Location of pain: dorsal hand (at her right hand there are some diffuse erythema around the dorsum and volar aspects of her hand from her thumb to her ring finger. It is somewhat light. His diffuse swelling over her wrist and hand grossly. There is no streaking and there is no evidence of specific fluid collection or abscess. ), volar hand (no evidence of any specific injury. She has some motion in her fingers at her MCP PIP and DIP joints but she is unable to make a fist. She has diffuse tenderness globally around her hand. She is nontender over her forearm or elbow. There is no streaking. There is no specific tenderness over her) Wrist pain modifiers: other (no specific tenderness over her tendon sheath. Components are soft throughout. There is good capillary refill.) Results - Labs Labs: Abnormal Lab Results - Last 24 Hours (Table) 08/11/22 08/11/22 08/11/22 Range/Units 09:25 18:57 18:57 WBC (4.50-10.00) X 10*3/uL RBC (4.10-5.20) X 10*6/uL Immature Gran # (0.00-0.04) X 10*3/uL Neutrophils # (1.80-7.70) X 10*3/uL Monocytes # (0.20-1.00) X 10*3/uL ESR (0-30) mm/Hr Sodium (135-145) mmol/L BUN/Creatinine Ratio (12.00-20.00) Ratio Calcium (8.7-10.3) mg/dL Total Bilirubin (0.30-1.20) mg/dL AST (13-35) U/L C-Reactive Protein 17.50 H (0.00-0.80) mg/dL Total Protein (6.2-8.2) g/dL Albumin (3.8-4.9) g/dL Albumin/Globulin Ratio (1.60-3.17) g/dL Procalcitonin 0.18 H (0.02-0.09) ng/mL Urine Protein 1+ H (Negative) Urine Ketones 2+ H (Negative) Urine Blood Trace H (Negative) Urine Bilirubin 1+ H (Negative) Hyaline Casts 3 H (0-2) /lpf Urine Mucus Occasional H (None) /hpf 08/11/22 08/12/22 08/12/22 Range/Units 18:57 04:28 04:28 WBC 16.18 H (4.50-10.00) X 10*3/uL RBC 4.01 L (4.10-5.20) X 10*6/uL Immature Gran # 0.09 H (0.00-0.04) X 10*3/uL Neutrophils # 13.09 H (1.80-7.70) X 10*3/uL Monocytes # 1.78 H (0.20-1.00) X 10*3/uL ESR 82 H (0-30) mm/Hr Sodium 133 L (135-145) mmol/L BUN/Creatinine Ratio 10.44 L (12.00-20.00) Ratio Calcium 8.4 L (8.7-10.3) mg/dL Total Bilirubin 1.30 H (0.30-1.20) mg/dL AST 55 H (13-35) U/L C-Reactive Protein (0.00-0.80) mg/dL Total Protein 5.7 L (6.2-8.2) g/dL Albumin 3.3 L (3.8-4.9) g/dL Albumin/Globulin Ratio 1.38 L (1.60-3.17) g/dL Procalcitonin (0.02-0.09) ng/mL Urine Protein (Negative) Urine Ketones (Negative) Urine Blood (Negative) Urine Bilirubin (Negative) Hyaline Casts (0-2) /lpf Urine Mucus (None) /hpf Microbiology - Last 24 Hours (Table) 08/11/22 18:00 Stool Culture - Preliminary Stool H & H 08/11/22 08/12/22 Range/Units 09:25 04:28 Hgb 13.1 12.1 (11.4-16.0) gm/dL Hct 38.9 37.7 (34.0-46.0) % Result Diagrams: 08/12/22 04:28 08/12/22 04:28 - Diagnostic results Wrist/Hand x-ray: report reviewed, image reviewed (x-rays at her right wrist and hand do not show any obvious fracture or dislocation. There is no obvious bony pathology.) Assessment and Plan Assessment: right wrist and hand cellulitis Right wrist swelling Right hand pain Recent right hand trauma without evidence of fracture or dislocation or instability Multiple medical issues with current admission due to diverticulitis Plan: right wrist and hand cellulitis Right wrist swelling Right hand pain Recent right hand trauma without evidence of fracture or dislocation or instability Multiple medical issues with current admission due to diverticulitis in regards to the patient's right hand there is some diffuse swelling and erythema but there does not appear to be any specific fluid collection or abscess. There is no obvious bony pathology or instability. She has tenderness diffusely over her hand and could have some benefit using her wrist brace which she has at bedside. She may wear this somewhat loosely to give some support but should have it somewhat loose to prevent swelling distally. I think that she has some cellulitis over her right hand and may have some benefit with using a warm compress regularly through the day. We do not have any plans for surgical intervention or further imaging at her right hand or wrist at this point. I think she can have good benefit with continued inserted management for her r ight wrist and hand the patient is continuing her medical management terms of her diverticulitis and multiple medical issues. I'm in agreement with this.
[2022-08-12] MEDS ORDERED: POTASSIUM CHLORIDE ER 20 MEQ TAB.ER PO STA (11:44)
[2022-08-12] MEDS ORDERED: ONDANSETRON 4 MG/2 ML VIAL IVP PRN (11:45)
--- NOTE | 2022-08-12 11:46 | P.GSCN ---
History of Present Illness Consult date: 08/12/22 History of present illness: CHIEF COMPLAINT: Nausea, vomiting and diarrhea HISTORY OF PRESENT ILLNESS: This is a 72-year-old female who presented to the hospital with complaints of nausea, vomiting and diarrhea that started on Friday. Patient also reports left-sided mid abdominal pain. She also felt feverish at home. Initially there were concerns of possible diverticulitis. Patient has had prior history of diverticulitis with similar symptoms. She was started on antibiotics by her PCP with no improvement. Patient had a computed tomography scan abdomen and pelvis without contrast showing a moderate hiatal hernia. Motion limited exam without evidence for acute abdominal process. There is evidence of scattered colonic diverticula. Patient reports her last colonoscopy was about 7-10 years ago revealing diverticulosis. Last EGD was in 2014, showing esophagitis. Patient reports around then she had her lap band port removed. Other surgical history includes hysterectomy, cholecystectomy and panniculectomy. Patient has history of renal cell carcinoma status post cryoablation to the kidney lesion last year. Patient also reports history of pancreatic lesions that are just being monitored. Patient reports she did have a small amount of emesis this morning after eating a Popsicle. She reports that her diarrhea is slowing down. PAST MEDICAL HISTORY: see below. History of atrial fibrillation anticoagulated with Xarelto, hiatal hernia, diverticulitis PAST SURGICAL HISTORY: See below MEDICATIONS: See below ALLERGIES: See below SOCIAL HISTORY: No illicit drug use. REVIEW OF SYSTEMS: CONSTITUTIONAL: Denies fever or chills. HEENT: Denies blurred vision, vision changes, or eye pain. Denies hemoptysis CARDIOVASCULAR: Denies chest pain or pressure. RESPIRATORY: No shortness of breath. GASTROINTESTINAL: See HPI for pertinent findings HEMATOLOGIC: Denies bleeding disorders. GENITOURINARY: Denies any blood in urine or increased urinary frequency. SKIN: Denies pruitis. Denies rash. PHYSICAL EXAM: VITAL SIGNS: Reviewed GENERAL: Well-developed in no acute distress. HEENT: No sclera icterus. Extraocular movements grossly intact. Moist buccal mucosa. Head is atraumatic, normocephalic. No nasal drainage. ABDOMEN: Soft. Nondistended. Tenderness to palpation of the left mid abdomen NEUROLOGIC: Alert and oriented. Cranial nerves II through XII grossly intact. LABORATORY DATA: WBC 19.6 down to 16.18 Hgb 12.1 platelets 276 Sodium is 133 potassium is 3.5 creatinine 0.9 Lactic acid 1.4 Total bilirubin 2.0 down to 1.3 AST 84 down to 55 ALT 44 down to 38 Elevated sed rate and CRP levels Urinalysis negative for infection COVID-19 detected IMAGING: Computed tomography scan moderate hiatal hernia. Motion limited exam without evidence of acute abdominal process ASSESSMENT: 1. Nausea, vomiting and diarrhea 2. History of multiple abdominal surgeries 3. Leukocytosis 4. Hypokalemia 5. Moderate hiatal hernia PLAN: -Further recommendations forthcoming per surgeon -Continue supportive care -Continue clear liquid diet -Continue IV fluids -Replace potassium Physician Safety Attendant note has been reviewed by physician. Signing provider agrees with the documented findings, assessment, and plan of care. I have personally seen and examined the patient, reviewed the [employer] /PAs history, exam and MDM and agree with the assessment and plan as written. Based on total visit time, I have performed more than 50% of the visit. As above: New consult for left-sided abdominal pain. Patient with history of diverticulitis. Patient states she has had this left lower to mid abdominal discomfort for the last few years. The degree of discomfort fluctuates. Patient also has had diarrhea for the last 20 years and is the reason she went on disability in the early 1999. The patient's CAT scan shows no significant in flammatory change although scan is somewhat limited because of motion. Her exam is fairly benign. We'll follow Past Medical History Past Medical History: Atrial Fibrillation, Atrial Flutter, Asthma, Fibromyalgia, GERD/Reflux, GI Bleed, Hyperlipidemia, Hypertension, Musculoskeletal Disorder, Neurologic Disorder, Osteoarthritis (OA), Pulmonary Embolus (PE), Sleep Apnea/CPAP/BIPAP, Thyroid Disorder, Vascular Disorder Additional Past Medical History / Comment(s): hx as follows: bronchitis, thoracic spondylosis, lupus, rls,migraines, blood clots, hiatal hernia, ibs, gerd, uti had sepsis 2004, kidney stone , stress incont, tmj.PERIPHERAL NEUROPATHY, endometriosis,adenomyosis, mixed connective tissue disorder, hypothyroidism, peptic ulcer disease, osteoarthritis, osteoporosis, GERD, scoliosis, esophagitis, PE, DVT, hypertension. History of Any Multi-Drug Resistant Organisms: MRSA Year Discovered:: 02/03/2015 MDRO Source:: Nose Past Surgical History: Adenoidectomy, Bariatric Surgery, Cardiac Ablation, Cholecystectomy, Heart Catheterization, Hysterectomy, Joint Replacement, Orthopedic Surgery, Tonsillectomy, Tubal Ligation Additional Past Surgical History / Comment(s): cardiac ablation, L knee and R hip replacement. Lap band surgery. tummy tuck. CATARACTS,SINUS SX, SKIN , LAPROSCOPY, HEMORRHOIDECTOMY, CARPAL TUNNEL ADELAIDA,PAST STEROID INJ TO NECK, UVULECTOMY, LUMPS REMOVED ADELAIDA BREAST (CELLS PRECANCEROUS),BX RT TEMPORAL ARTERY- NEG), HAD NERVES IN BACK BURNED, BENIGN GROWTH REMOVED FROM BEHIND RT EAR, bilateral arthroscopic knee surgery, right total hiparthroplasty, bilateral arthroscopic hip surgery, bilateral ankle arthroscopic surgery, bilateral shoulder arthroscopic surgery.renal cell carcinoma. 4 lesions on pancreas Past Anesthesia/Blood Transfusion Reactions: Motion Sickness, Postoperative Nausea & Vomiting (PONV) Past Psychological History: No Psychological Hx Reported Smoking Status: Never smoker Past Alcohol Use History: None Reported Past Drug Use History: None Reported - Past Family History Father Family Medical History: Neurologic Disorder, Pneumonia Additional Family Medical History / Comment(s): ALS, FROM PNEUMONIA,lupus Mother Family Medical History: AFIB, Cancer, Chest Pain / Angina, Congestive Heart Failure (CHF), Diabetes Mellitus, Hyperlipidemia, Hypertension, Myocardial Infarction (HI) Additional Family Medical History / Comment(s): OBESITY, COLON CA Brother(s) Family Medical History: Coronary Artery Disease (CAD) Sister(s) Family Medical History: Coronary Artery Disease (CAD), Deep Vein Thrombosis (DVT) Daughter(s) Family Medical History: No Reported History Medications and Allergies Home Medications Medication Instructions Recorded Confirmed Type LORazepam [Ativan] 2 mg PO BID PRN 01/26/15 08/11/22 History Cetirizine HCl [Zyrtec] 10 mg PO HS 08/09/15 08/11/22 History Acetaminophen Tab [Tylenol] 325 mg PO Q4H PRN 12/01/17 08/11/22 History Fludrocortisone [Florinef] 0.1 mg PO Q48H 12/01/17 08/11/22 History Calcium Carbonate [Calcium] 600 mg PO DAILY 07/14/19 08/11/22 History Cyanocobalamin (Vitamin B-12) 2,500 mcg PO DAILY 07/14/19 08/11/22 History [Vitamin B-12] atenoloL [Tenormin] 50 mg PO BID 07/14/19 08/11/22 History Rivaroxaban [Xarelto] 20 mg PO W/SUPPER tab 07/15/19 08/11/22 Rx Cholecalciferol [Vitamin D3 (125 125 mcg PO DAILY 08/11/22 08/11/22 History Mcg = 5000 Iu)] Furosemide [Lasix] 20 mg PO DAILY 08/11/22 08/11/22 History Levothyroxine Sodium [Synthroid] 125 mcg PO DAILY 08/11/22 08/11/22 History Potassium Chloride ER [K-Dur 20] 20 meq PO DAILY 08/11/22 08/11/22 History allopurinoL 100 mg PO DAILY 08/11/22 08/11/22 History predniSONE 5 mg PO DAILY 08/11/22 08/11/22 History Allergies Allergy/AdvReac Type Severity Reaction Status Date / Time Sulfa (Sulfonamide Allergy Severe Unknown Verified 08/11/22 11:58 Antibiotics) NANCY Inhibitors Allergy Anaphylaxis Verified 08/11/22 11:58 adhesive Allergy Rash/Hives Verified 08/11/22 11:58 albuterol Allergy Rash/Hives Verified 08/11/22 11:58 aspirin [From Soma Compound] Allergy Unknown Verified 08/11/22 11:58 baclofen Allergy Unknown Verified 08/11/22 11:58 carisoprodol Allergy Unknown Verified 08/11/22 11:58 [From Soma Compound] ciprofloxacin [From Cipro] Allergy Unknown Verified 08/11/22 11:58 gabapentin Allergy Unknown Verified 08/11/22 11:58 hylan G-F 20 [From Synvisc] Allergy Unknown Verified 08/11/22 11:58 Iodine and Iodide Containing Allergy Rash/Hives Verified 08/11/22 11:58 Produc Latex, Natural Rubber Allergy Rash/Hives Verified 08/11/22 11:58 levofloxacin [From Levaquin] Allergy Unknown Verified 08/11/22 11:58 lidocaine Allergy Rash/Hives Verified 08/11/22 11:58 lisinopril Allergy Unknown Verified 08/11/22 11:58 meperidine HCl [From Demerol] Allergy Rash/Hives Verified 08/11/22 11:58 morphine Allergy Rash/Hives Verified 08/11/22 11:58 nitrofurantoin Allergy Rash/Hives Verified 08/11/22 11:58 [From Macrobid] tetanus toxoid, adsorbed Allergy Unknown Verified 08/11/22 11:58 tizanidine Allergy Rash/Hives Verified 08/11/22 11:58 aspartame AdvReac Intermediate Diarrhea Verified 08/11/22 11:58 codeine AdvReac Nausea & Verified 08/11/22 11:58 Vomiting doxycycline AdvReac Nausea & Verified 08/11/22 11:58 Vomiting Penicillins AdvReac Nausea & Verified 08/11/22 11:58 Vomiting prednisone AdvReac Hallucinati Verified 08/11/22 11:58 ons mushroom Allergy Diarrhea Uncoded 08/11/22 11:58 narcotics Allergy Rash/Hives Uncoded 08/11/22 11:58 Surgical - Exam Vital Signs Temp Pulse Resp BP Pulse Ox 98.6 F 91 20 129/65 98 08/11/22 08:54 08/11/22 08:54 08/11/22 08:54 08/11/22 08:54 08/11/22 08:54 Results - Labs 08/12/22 04:28 08/12/22 04:28 Abnormal Lab Results - Last 24 Hours (Table) 08/11/22 08/11/22 08/11/22 Range/Units 09:25 09:25 09:25 WBC 19.6 H (3.8-10.6) k/uL RBC (4.10-5.20) X 10*6/uL Neutrophils # (Manual) 16.07 H (1.3-7.7) k/uL Monocytes # (Manual) 2.16 H (0-1.0) k/uL ESR (0-30) mm/Hr Sodium 132 L (137-145) mmol/L BUN/Creatinine Ratio (12.00-20.00) Ratio Glucose 136 H (74-99) mg/dL Calcium 8.1 L (8.4-10.2) mg/dL Total Bilirubin 2.0 H (0.2-1.3) mg/dL AST 84 H (14-36) U/L ALT 44 H (4-34) U/L C-Reactive Protein (0.00-0.80) mg/dL Total Protein 6.1 L (6.3-8.2) g/dL Albumin 3.4 L (3.5-5.0) g/dL Albumin/Globulin Ratio (1.60-3.17) g/dL Procalcitonin (0.02-0.09) ng/mL Urine Protein 1+ H (Negative) Urine Ketones 2+ H (Negative) Urine Blood Trace H (Negative) Urine Bilirubin 1+ H (Negative) Hyaline Casts 3 H (0-2) /lpf Urine Mucus Occasional H (None) /hpf 08/11/22 08/11/22 08/11/22 Range/Units 18:57 18:57 18:57 WBC (3.8-10.6) k/uL RBC (4.10-5.20) X 10*6/uL Neutrophils # (Manual) (1.3-7.7) k/uL Monocytes # (Manual) (0-1.0) k/uL ESR 82 H (0-30) mm/Hr Sodium (137-145) mmol/L BUN/Creatinine Ratio (12.00-20.00) Ratio Glucose (74-99) mg/dL Calcium (8.4-10.2) mg/dL Total Bilirubin (0.2-1.3) mg/dL AST (14-36) U/L ALT (4-34) U/L C-Reactive Protein 17.50 H (0.00-0.80) mg/dL Total Protein (6.3-8.2) g/dL Albumin (3.5-5.0) g/dL Albumin/Globulin Ratio (1.60-3.17) g/dL Procalcitonin 0.18 H (0.02-0.09) ng/mL Urine Protein (Negative) Urine Ketones (Negative) Urine Blood (Negative) Urine Bilirubin (Negative) Hyaline Casts (0-2) /lpf Urine Mucus (None) /hpf 08/12/22 08/12/22 Range/Units 04:28 04:28 WBC 16.18 H (3.8-10.6) k/uL RBC 4.01 L (4.10-5.20) X 10*6/uL Neutrophils # (Manual) (1.3-7.7) k/uL Monocytes # (Manual) (0-1.0) k/uL ESR (0-30) mm/Hr Sodium 133 L (137-145) mmol/L BUN/Creatinine Ratio 10.44 L (12.00-20.00) Ratio Glucose (74-99) mg/dL Calcium 8.4 L (8.4-10.2) mg/dL Total Bilirubin 1.30 H (0.2-1.3) mg/dL AST 55 H (14-36) U/L ALT (4-34) U/L C-Reactive Protein (0.00-0.80) mg/dL Total Protein 5.7 L (6.3-8.2) g/dL Albumin 3.3 L (3.5-5.0) g/dL Albumin/Globulin Ratio 1.38 L (1.60-3.17) g/dL Procalcitonin (0.02-0.09) ng/mL Urine Protein (Negative) Urine Ketones (Negative) Urine Blood (Negative) Urine Bilirubin (Negative) Hyaline Casts (0-2) /lpf Urine Mucus (None) /hpf Microbiology - Last 24 Hours (Table) 08/11/22 18:00 Stool Culture - Preliminary Stool Diabetes panel 08/11/22 08/12/22 Range/Units 09:25 04:28 Sodium 132 L 133 L (137-145) mmol/L Potassium 3.5 3.5 (3.5-5.1) mmol/L Chloride 99 98 (98-107) mmol/L Carbon Dioxide 23 22.6 (22-30) mmol/L BUN 11 9.4 (7-17) mg/dL Creatinine 0.84 0.9 (0.52-1.04) mg/dL Glucose 136 H 110 (74-99) mg/dL Calcium 8.1 L 8.4 L (8.4-10.2) mg/dL AST 84 H 55 H (14-36) U/L ALT 44 H 38 (4-34) U/L Alkaline Phosphatase 124 120 (38-126) U/L Total Protein 6.1 L 5.7 L (6.3-8.2) g/dL Albumin 3.4 L 3.3 L (3.5-5.0) g/dL Calcium panel 08/11/22 08/12/22 Range/Units 09:25 04:28 Calcium 8.1 L 8.4 L (8.4-10.2) mg/dL Albumin 3.4 L 3.3 L (3.5-5.0) g/dL Pituitary panel 08/11/22 08/12/22 Range/Units 09:25 04:28 Sodium 132 L 133 L (137-145) mmol/L Potassium 3.5 3.5 (3.5-5.1) mmol/L Chloride 99 98 (98-107) mmol/L Carbon Dioxide 23 22.6 (22-30) mmol/L BUN 11 9.4 (7-17) mg/dL Creatinine 0.84 0.9 (0.52-1.04) mg/dL Glucose 136 H 110 (74-99) mg/dL Calcium 8.1 L 8.4 L (8.4-10.2) mg/dL Adrenal panel 08/11/22 08/12/22 Range/Units 09:25 04:28 Sodium 132 L 133 L (137-145) mmol/L Potassium 3.5 3.5 (3.5-5.1) mmol/L Chloride 99 98 (98-107) mmol/L Carbon Dioxide 23 22.6 (22-30) mmol/L BUN 11 9.4 (7-17) mg/dL Creatinine 0.84 0.9 (0.52-1.04) mg/dL Glucose 136 H 110 (74-99) mg/dL Calcium 8.1 L 8.4 L (8.4-10.2) mg/dL Total Bilirubin 2.0 H 1.30 H (0.2-1.3) mg/dL AST 84 H 55 H (14-36) U/L ALT 44 H 38 (4-34) U/L Alkaline Phosphatase 124 120 (38-126) U/L Total Protein 6.1 L 5.7 L (6.3-8.2) g/dL Albumin 3.4 L 3.3 L (3.5-5.0) g/dL
--- NOTE | 2022-08-12 13:22 | PN ---
PROGRESS NOTE DATE OF SERVICE: 08/12/2022 SUBJECTIVE: This 72-year-old woman was admitted with nausea, vomiting, diarrhea. Still has some nausea. The patient has abdominal discomfort also. The patient was also seen by Infectious Disease, thought there is significant cellulitis process going on the right upper hand with some swelling and severe pain, tenderness, and limitation of activities. Surgery has also seen the patient. Orthopedic Surgery has evaluated as well. No fracture visualized at this time. PAST MEDICAL HISTORY: Reviewed. REVIEW OF SYSTEMS: A 14-point review is negative except as mentioned earlier. CURRENT MEDICATIONS: Reviewed include Moneta and rest of medications also reviewed. Doses are reviewed. Chart reviewed. PHYSICAL EXAMINATION: VITAL SIGNS: Pulse is 81, blood pressure 143/80, respirations 14. HEENT: Conjunctivae normal. NECK: No jugular venous distention. CARDIOVASCULAR: S1, S2 muffled RESPIRATIONS: ntd ABDOMEN: Soft, obese, mild diffuse tenderness present. No guarding, no rigidity. LEGS: Left had painful tender swelling present. LABS: WBC 16.18, otherwise the sedimentation rate is 82. CT scan reviewed. The cultures are pending. ASSESSMENT: 1. Abdominal pain, nausea, vomiting, diarrhea, possible colitis, rule out acute C. difficile colitis. 2. History of diverticulitis. 3. Number right hand cellulitis with failure of outpatient treatment. 4. History of atrial fibrillation. 5. Fibromyalgia. 6. Hypertension. 8. Obesity. 9. Bariatric surgery. 10.Multiple medical issues. RECOMMENDATIONS: This is a 72-year-old woman who presented with multiple complex medical issues. I would also recommend broad-spectrum IV antibiotics for hand cellulitis, however, the patient is also evaluated for C diff colitis also. I would recommend an infectious disease evaluation and continue to follow. The patient continues to be symptomatic and I will not be able to discharge the patient today. This patient definitely will need inpatient hospitalization including further monitoring and evaluation of the multitude of symptoms as described earlier. The patient also failed and right hand is extremely swollen as well. ESR is also elevated at 82 and CRP is elevated to 17.50. Acute infection is a consideration. Please call me with any questions regarding the admission status. MMODL / IJN: [id number] / MTDD
[2022-08-12] MEDS: RIVAROXABAN 20 MG TAB PO SCH (17:15)
[2022-08-12] MEDS: SODIUM CHLORIDE 0.9% 1,000 ML IV SCH (17:16)
[2022-08-12 18:35] LABS: Hepatitis A Antibody IgM Nonreactive (Nonreactive); Hepatitis B Core IgM Nonreactive (Nonreactive); Hepatitis B Surface Antigen Nonreactive (Nonreactive); Hepatitis C IgG Antibody Nonreactive (Nonreactive)
[2022-08-12] MEDS: LORATADINE 10 MG TAB PO SCH (20:32)
[2022-08-12] MEDS: ACETAMINOPHEN TAB 325 MG TAB PO PRN (22:38)
--- NOTE | 2022-08-12 22:55 | P.CONS ---
History of Present Illness - Reason for Consult Consult date: 08/12/22 - History of Present Illness Patient is a 72-year female recently evaluated in the ER with abdominal pain has been diagnosed with a diverticulitis for the patient was treated with oral Augmentin patient mention she did have some improvement in her symptoms has been subsequently evaluated by her primary care physician and was given another course of oral Augmentin patient now presenting to the ER yesterday morning for evaluation of nausea vomiting and diarrhea in this patient complaining of not able to keep anything down since Friday also complaining of diarrhea with multiple loose stools denies any blood or mucus in the stools or abdominal pain still has slightly improved patient is also developed right hand dorsum swelling and redness mentioned her hand got stuck in her hospital bed patient did have a significant swelling and redness to the dorsum aspect of the right hand with the pain describing to be throbbing 6-7 out of 10 no radiation patient currently do not have any open wound or any drainage on arrival to the ER the patient was afebrile subsequently did have low-grade fever of 99.6 F patient did have white of 19.6 with a left shift kidney function was normal he did have elevated liver enzymes urine has been negative patient did have a negative COVID testing hepatitis panel was negative patient did have a CT of abdominal pelvis motion limited exam no evidence of diverticulitis gal lbladder surgically absent infectious he was consulted because of her elevated white count patient also have a wrist x-ray no acute bony abnormality chest x- ray was negative for any acute infiltrate Past Medical History Past Medical History: Atrial Fibrillation, Atrial Flutter, Asthma, Fibromyalgia, GERD/Reflux, GI Bleed, Hyperlipidemia, Hypertension, Musculoskeletal Disorder, Neurologic Disorder, Osteoarthritis (OA), Pulmonary Embolus (PE), Sleep Apnea/C PAP/BIPAP, Thyroid Disorder, Vascular Disorder Additional Past Medical History / Comment(s): hx as follows: bronchitis, thoracic spondylosis, lupus, rls,migraines, blood clots, hiatal hernia, ibs, gerd, uti had sepsis 2004, kidney stone , stress incont, tmj.PERIPHERAL NEUROPATHY, endometriosis,adenomyosis, mixed connective tissue disorder, hypothyroidism, peptic ulcer disease, osteoarthritis, osteoporosis, GERD, scoliosis, esophagitis, PE, DVT, hypertension. History of Any Multi-Drug Resistant Organisms: MRSA Year Discovered:: 02/03/2015 MDRO Source:: Nose Past Surgical History: Adenoidectomy, Bariatric Surgery, Cardiac Ablation, Cholecystectomy, Heart Catheterization, Hysterectomy, Joint Replacement, Orthopedic Surgery, Tonsillectomy, Tubal Ligation Additional Past Surgical History / Comment(s): cardiac ablation, L knee and R hip replacement. Lap band surgery. tummy tuck. CATARACTS,SINUS SX, SKIN , LAPROSCOPY, HEMORRHOIDECTOMY, CARPAL TUNNEL ADELAIDA,PAST STEROID INJ TO NECK, UVULECTOMY, LUMPS REMOVED ADELAIDA BREAST (CELLS PRECANCEROUS),BX RT TEMPORAL ARTERY- NEG), HAD NERVES IN BACK BURNED, BENIGN GROWTH REMOVED FROM BEHIND RT EAR, adelaida ateral arthroscopic knee surgery, right total hiparthroplasty, bilateral arthroscopic hip surgery, bilateral ankle arthroscopic surgery, bilateral shoulder arthroscopic surgery.renal cell carcinoma. 4 lesions on pancreas Past Anesthesia/Blood Transfusion Reactions: Motion Sickness, Postoperative Nausea & Vomiting (PONV) Past Psychological History: No Psychological Hx Reported Smoking Status: Never smoker Past Alcohol Use History: None Reported Past Drug Use History: None Reported - Past Family History Father Family Medical History: Neurologic Disorder, Pneumonia Additional Family Medical History / Comment(s): ALS, FROM PNEUMONIA,lupus Mother Family Medical History: AFIB, Cancer, Chest Pain / Angina, Congestive Heart Failure (CHF), Diabetes Mellitus, Hyperlipidemia, Hypertension, Myocardial Infarction (IN) Additional Family Medical History / Comment(s): OBESITY, COLON CA Brother(s) Family Medical History: Coronary Artery Disease (CAD) Sister(s) Family Medical History: Coronary Artery Disease (CAD), Deep Vein Thrombosis (DVT) Daughter(s) Family Medical History: No Reported History Medications and Allergies Home Medications Medication Instructions Recorded Confirmed Type LORazepam [Ativan] 2 mg PO BID PRN 01/26/15 08/11/22 History Cetirizine HCl [Zyrtec] 10 mg PO HS 08/09/15 08/11/22 History Acetaminophen Tab [Tylenol] 325 mg PO Q4H PRN 12/01/17 08/11/22 History Fludrocortisone [Florinef] 0.1 mg PO Q48H 12/01/17 08/11/22 History Calcium Carbonate [Calcium] 600 mg PO DAILY 07/14/19 08/11/22 History Cyanocobalamin (Vitamin B-12) 2,500 mcg PO DAILY 07/14/19 08/11/22 History [Vitamin B-12] atenoloL [Tenormin] 50 mg PO BID 07/14/19 08/11/22 History Rivaroxaban [Xarelto] 20 mg PO W/SUPPER tab 07/15/19 08/11/22 Rx Cholecalciferol [Vitamin D3 (125 125 mcg PO DAILY 08/11/22 08/11/22 History Mcg = 5000 Iu)] Furosemide [Lasix] 20 mg PO DAILY 08/11/22 08/11/22 History Levothyroxine Sodium [Synthroid] 125 mcg PO DAILY 08/11/22 08/11/22 History Potassium Chloride ER [K-Dur 20] 20 meq PO DAILY 08/11/22 08/11/22 History allopurinoL 100 mg PO DAILY 08/11/22 08/11/22 History predniSONE 5 mg PO DAILY 08/11/22 08/11/22 History Allergies Allergy/AdvReac Type Severity Reaction Status Date / Time Sulfa (Sulfonamide Allergy Severe Unknown Verified 08/11/22 11:58 Antibiotics) NANCY Inhibitors Allergy Anaphylaxis Verified 08/11/22 11:58 adhesive Allergy Rash/Hives Verified 08/11/22 11:58 albuterol Allergy Rash/Hives Verified 08/11/22 11:58 aspirin [From Soma Compound] Allergy Unknown Verified 08/11/22 11:58 baclofen Allergy Unknown Verified 08/11/22 11:58 carisoprodol Allergy Unknown Verified 08/11/22 11:58 [From Soma Compound] ciprofloxacin [From Cipro] Allergy Unknown Verified 08/11/22 11:58 gabapentin Allergy Unknown Verified 08/11/22 11:58 hylan G-F 20 [From Synvisc] Allergy Unknown Verified 08/11/22 11:58 Iodine and Iodide Containing Allergy Rash/Hives Verified 08/11/22 11:58 Produc Latex, Natural Rubber Allergy Rash/Hives Verified 08/11/22 11:58 levofloxacin [From Levaquin] Allergy Unknown Verified 08/11/22 11:58 lidocaine Allergy Rash/Hives Verified 08/11/22 11:58 lisinopril Allergy Unknown Verified 08/11/22 11:58 meperidine HCl [From Demerol] Allergy Rash/Hives Verified 08/11/22 11:58 morphine Allergy Rash/Hives Verified 08/11/22 11:58 nitrofurantoin Allergy Rash/Hives Verified 08/11/22 11:58 [From Macrobid] tetanus toxoid, adsorbed Allergy Unknown Verified 08/11/22 11:58 tizanidine Allergy Rash/Hives Verified 08/11/22 11:58 aspartame AdvReac Intermediate Diarrhea Verified 08/11/22 11:58 codeine AdvReac Nausea & Verified 08/11/22 11:58 Vomiting doxycycline AdvReac Nausea & Verified 08/11/22 11:58 Vomiting Penicillins AdvReac Nausea & Verified 08/11/22 11:58 Vomiting prednisone AdvReac Hallucinati Verified 08/11/22 11:58 ons mushroom Allergy Diarrhea Uncoded 08/11/22 11:58 narcotics Allergy Rash/Hives Uncoded 08/11/22 11:58 Physical Exam Vitals: Vital Signs Temp Pulse Pulse Resp BP BP Pulse Ox 08/12/22 08:00 97.8 F 81 14 143/83 96 08/12/22 02:00 98.9 F 78 18 137/74 94 L 08/11/22 20:00 98.7 F 67 17 130/80 92 L 08/11/22 13:34 99.6 F 90 20 130/62 97 08/11/22 12:50 65 16 148/89 98 Intake and Output 08/11/22 08/12/22 08/12/22 22:59 06:59 14:59 Intake Total 160 Balance 160 Intake: IV 160 Sodium Chloride 0.9% 1, 160 000 ml @ 40 mls/hr IV . Q24H [facility] Rx#:[id number] Other: # Voids 3 # Bowel Movements 3 1 Weight 155 kg Results CBC & Chem 7: 08/12/22 04:28 08/12/22 04:28 Labs: Abnormal Lab Results - Last 24 Hours (Table) 08/11/22 08/11/22 08/11/22 Range/Units 09:25 18:57 18:57 WBC (4.50-10.00) X 10*3/uL RBC (4.10-5.20) X 10*6/uL Immature Gran # (0.00-0.04) X 10*3/uL Neutrophils # (1.80-7.70) X 10*3/uL Monocytes # (0.20-1.00) X 10*3/uL ESR (0-30) mm/Hr Sodium (135-145) mmol/L BUN/Creatinine Ratio (12.00-20.00) Ratio Calcium (8.7-10.3) mg/dL Total Bilirubin (0.30-1.20) mg/dL AST (13-35) U/L C-Reactive Protein 17.50 H (0.00-0.80) mg/dL Total Protein (6.2-8.2) g/dL Albumin (3.8-4.9) g/dL Albumin/Globulin Ratio (1.60-3.17) g/dL Procalcitonin 0.18 H (0.02-0.09) ng/mL Urine Protein 1+ H (Negative) Urine Ketones 2+ H (Negative) Urine Blood Trace H (Negative) Urine Bilirubin 1+ H (Negative) Hyaline Casts 3 H (0-2) /lpf Urine Mucus Occasional H (None) /hpf 08/11/22 08/12/22 08/12/22 Range/Units 18:57 04:28 04:28 WBC 16.18 H (4.50-10.00) X 10*3/uL RBC 4.01 L (4.10-5.20) X 10*6/uL Immature Gran # 0.09 H (0.00-0.04) X 10*3/uL Neutrophils # 13.09 H (1.80-7.70) X 10*3/uL Monocytes # 1.78 H (0.20-1.00) X 10*3/uL ESR 82 H (0-30) mm/Hr Sodium 133 L (135-145) mmol/L BUN/Creatinine Ratio 10.44 L (12.00-20.00) Ratio Calcium 8.4 L (8.7-10.3) mg/dL Total Bilirubin 1.30 H (0.30-1.20) mg/dL AST 55 H (13-35) U/L C-Reactive Protein (0.00-0.80) mg/dL Total Protein 5.7 L (6.2-8.2) g/dL Albumin 3.3 L (3.8-4.9) g/dL Albumin/Globulin Ratio 1.38 L (1.60-3.17) g/dL Procalcitonin (0.02-0.09) ng/mL Urine Protein (Negative) Urine Ketones (Negative) Urine Blood (Negative) Urine Bilirubin (Negative) Hyaline Casts (0-2) /lpf Urine Mucus (None) /hpf Microbiology - Last 24 Hours (Table) 08/11/22 18:00 Stool Culture - Preliminary Stool Assessment and Plan Plan: 1patient with elevated white count source is multifactorial in this patient to the hospital with acute nausea vomiting and diarrhea CT abdominal pelvis did not show acute abnormality she has been exposed to antibiotics with the C. difficile to be on the top of the list however the patient also have significant swelling or redness to the dorsum aspect of the right hand concerning for possible cellulitis. 2patient with multiple antibiotic allergies that would limit the number of antibiotics safe to use. 3we will check stool for C. difficile and treat if positive. 4Marked area of the redness on the right hand wrist area. 5we will empirically add cefazolin 2 g every 8 hour to cover for the celluliti s. We will follow on clinical condition and cultures to further adjust medication if needed Thank you for this consultation will follow this patient along with you Time with Patient: Greater than 30
[2022-08-13] MEDS: SODIUM CHLORIDE 0.9% 1,000 ML IV SCH (05:43)
[2022-08-13] MEDS: LEVOTHYROXINE 125 MCG TAB PO SCH (05:43)
[2022-08-13] MEDS: ACETAMINOPHEN TAB 325 MG TAB PO PRN ×2 (05:51→09:49)
[2022-08-13] MEDS ORDERED: FLUDROCORTISONE 0.1 MG TAB PO SCH (09:00)
--- NOTE | 2022-08-13 09:10 | P.PN ---
Progress Note - Text Progress Note Date: 08/13/22 Orthopedics: History of present illness: Patient is a very pleasant 72-year-old female who is seen and examined for follow evaluation in regards to her right upper extremity. She initially got her hand stuck in her hospital bed home last , 08/08/2022. Since being seen examined him yesterday, she continues to have erythema, warmth, swelling over her right wrist, hand, and fingers. She does have better range of motion of the fingers of her right hand today. She has been utilizing warm compresses. She also has a brace at the bedside. X-ray imaging of the right wrist did not show evidence of fracture or dislocation. She is currently on antibiotic medication per infectious disease. Currently her WBC is 16.18. Patient is not experiencing fever or chills. Patient is currently being treated and evaluated for multiple other medical diagnoses including diverticulitis, atrial fibrillation, atrial flutter, hypertension, hyperlipidemia, and abdominal pain. Patient is known to have multiple antibiotic ALLERGIES. Physical Exam: Patient is awake, alert, and oriented 3 Vital signs stable Adequate chest excursion with deep inspiration and expiration Patient does continue to have swelling most significant at the right wrist, hand, and fingers of the right hand Erythema and warmth with palpation over the right wrist, hand, and fingers of the right hand over the volar and dorsal aspects Patient is able to wiggle her fingers of the right hand better today as compared to yesterday Patient is better able to make a fist today as compared to yesterday Continued pain with palpation most significant over the dorsum of the right hand and proximal fingers No palpable fluid collection at the right hand, wrist, or fingers No evidence of streaking No obvious injury to the right hand, wrist, or fingers Patient is able to perform some active range of motion with the DIP and PIP joints and MCP joints of all fingers of her right hand Assessment: Right upper extremity cellulitis most significant at the hand and fingers Right upper extremity hand, wrist, and finger swelling Right hand and finger pain Reason right hand trauma without evidence of fracture or dislocation Diverticulitis Atrial fibrillation Atrial flutter Hypertension Hyperlipidemia Abdominal pain Plan: 1. We will currently plan continue conservative treatment regards to her right wrist, hand, and fingers of the right hand. We do not see any specific fluid collection or abscess. She has had some slight improvement as compared to yesterday. She is currently on Kefzol per infectious disease. We discussed we would continue with warm compresses regularly throughout the day. She may also continue to utilize the brace at her right hand and wrist which she has at the bedside. We are currently planning for any surgical intervention as we do not feel there are good indication which surgical intervention would provide any significant improvement of her symptoms. We do feel she could continue to improve with continued conservative treatment. 2. Patient will continue to be seen and examined by multiple other medical providers including medicine and infectious disease.
[2022-08-13] MEDS: atenoloL 50 MG TAB PO SCH ×2 (09:53→21:10)
[2022-08-13] MEDS: CALCIUM CARB-VIT D 500 MG-5 MCG TAB PO SCH (09:53)
[2022-08-13] MEDS: allopurinoL 100 MG TAB PO SCH (09:53)
[2022-08-13] MEDS: predniSONE 5 MG TAB PO SCH (09:54)
[2022-08-13] MEDS: PANTOPRAZOLE 40 MG/10 ML VIAL IV SCH ×2 (09:55→21:10)
[2022-08-13] MEDS: CHOLECALCIFEROL 125 MCG (5000 IU) TABLET PO SCH (10:25)
[2022-08-13] MEDS: FUROSEMIDE 20 MG TAB PO SCH (10:26)
[2022-08-13] MEDS: CYANOCOBALAMIN 500 MCG TAB PO SCH (10:27)
[2022-08-13 11:47] LABS: Albumin 3.2 g/dL (3.8-4.9); Albumin/Globulin Ratio 1.14 (1.60-3.17); Anion Gap 16.3 mmol/L (10.00-18.00); BUN/Creat Ratio 10.78 Ratio (12.00-20.00); Blood Urea Nitrogen 9.7 mg/dL (9.0-27.0); Calcium 8.4 mg/dL (8.7-10.3); Carbon Dioxide 20.7 mmol/L (20.0-27.5); Globulin 2.8 g/dL (1.6-3.3); Potassium 3.7 mmol/L (3.5-5.5); Total Bilirubin 0.9 mg/dL (0.30-1.20)
[2022-08-13 13:00] LABS: Basophils # (A) 0.05 X 10*3/uL (0.00-0.10); Basophils % (A) 0.4 %; Eosinophils # (A) 0.25 X 10*3/uL (0.04-0.35); Eosinophils % (A) 1.9 %; HCT 39.1 % (37.2-46.3); HGB 12.5 g/dL (12.0-15.0); Immature Grans, Automated 0.5 %; Lymphocytes # (A) 0.87 X 10*3/uL (0.90-5.00); Lymphocytes % (A) 6.7 %; MCH 29.9 pg (27.0-32.0); MCV 93.5 fL (80.0-97.0); Mean Platelet Volume 10.5 fL (9.5-12.2); Monocytes # (A) 1.26 X 10*3/uL (0.20-1.00); Monocytes % (A) 9.8 %; NRBC Per 100 WBC 0 /100 WBCS (0.0-0.0); Neutrophils # (A) 10.43 X 10*3/uL (1.80-7.70); Neutrophils % (A) 80.7 %; Platelet Count 244 X 10*3/uL (140-440); RBC 4.18 X 10*6/uL (4.10-5.20); RDW 13.2 % (11.5-14.5); WBC 12.92 X 10*3/uL (4.50-10.00)
[2022-08-13] MEDS ORDERED: DEXTROSE 50% SYRINGE 50 ML IVP PRN ×2 (13:14)
--- NOTE | 2022-08-13 14:22 | P.PN ---
Subjective Progress Note Date: 08/13/22 CHIEF COMPLAINT: Nausea, vomiting and diarrhea HISTORY OF PRESENT ILLNESS: Patient reports no nausea or vomiting. She tolerated the clear liquids. She did have one episode diarrhea this morning. She continues to have her left-sided abdominal pain that has been chronic after eating. She denies any pain currently. Afebrile. WBC is down from 16.1 12.92 hemoglobin is 12.5 platelets 244 sodium is 133 potassium 3.7 creatinine 0.9 stool for C. diff not collected PHYSICAL EXAM: VITAL SIGNS: Reviewed. GENERAL: Well-developed in no acute distress. HEENT: No sclera icterus. Extraocular movements grossly intact. Moist buccal mucosa. Head is atraumatic, normocephalic. ABDOMEN: Soft. obese. Nondistended. Nontender. NEUROLOGIC: Alert and oriented. Cranial nerves II through XII grossly intact. ASSESSMENT: 1. Nausea, vomiting and diarrhea 2. History of multiple abdominal surgeries 3. Leukocytosis 4. Hypokalemia resolved 5. Moderate hiatal hernia 6. History of diverticulitis 7. History of chronic abdominal pain and diarrhea PLAN: -No surgical intervention planned -Continue supportive care -Continue clear liquids Physician Yard Goods Salesperson note has been reviewed by physician. Signing provider agrees with the documented findings, assessment, and plan of care. I have personally seen and examined the patient, reviewed the HOUSING OFFICER /PAs history, exam and MDM and agree with the assessment and plan as written. Based on total visit time, I have performed more than 50% of the visit. As above: Patient doing better today. Says her pain resolved after a large episode of voiding. She is tolerating her diet. Some loose stools which is chronic. Will sign off. Recommend outpatient GI evaluation. Objective - Vital Signs Vital signs: Vital Signs Temp 98.0 F 08/13/22 08:00 Pulse 85 08/13/22 08:00 Resp 17 08/13/22 08:00 BP 150/85 08/13/22 08:00 Pulse Ox 96 08/13/22 08:00 FiO2 Intake & Output 08/12/22 08/13/22 08/13/22 18:59 06:59 18:59 Weight 157 kg Other: Voiding Method Diaper Incontinent # Voids 1 1 # Bowel Movements 1 - Labs CBC & Chem 7: 08/13/22 07:19 08/13/22 07:19 Labs: Abnormal Lab Results - Last 24 Hours (Table) 08/13/22 08/13/22 Range/Units 07:19 07:19 WBC 12.92 H (4.50-10.00) X 10*3/uL Immature Gran # 0.06 H (0.00-0.04) X 10*3/uL Neutrophils # 10.43 H (1.80-7.70) X 10*3/uL Lymphocytes # 0.87 L (0.90-5.00) X 10*3/uL Monocytes # 1.26 H (0.20-1.00) X 10*3/uL Sodium 133 L (135-145) mmol/L BUN/Creatinine Ratio 10.78 L (12.00-20.00) Ratio Calcium 8.4 L (8.7-10.3) mg/dL Total Protein 6.0 L (6.2-8.2) g/dL Albumin 3.2 L (3.8-4.9) g/dL Albumin/Globulin Ratio 1.14 L (1.60-3.17) g/dL Microbiology - Last 24 Hours (Table) 08/12/22 16:06 Urine Culture - Preliminary Urine,Clean Catch 08/11/22 19:00 Blood Culture - Preliminary Blood No Growth after 24 hours
[2022-08-13] MEDS: methylPREDNISolone SOD SUCCI 40 MG/ML 1 ML VIAL IV SCH ×3 (14:29→23:16)
[2022-08-13 17:48] LABS: Glucose,Whole Blood 176 mg/dL (70-110)
[2022-08-13] MEDS: INSULIN ASPART (NovoLOG) 100 UNIT/ML VIAL SQ SCH ×2 (17:55→20:59)
[2022-08-13] MEDS: RIVAROXABAN 20 MG TAB PO SCH (18:31)
[2022-08-13 20:23] LABS: Glucose,Whole Blood 176 mg/dL (70-110)
[2022-08-13] MEDS: LORATADINE 10 MG TAB PO SCH (21:10)
--- NOTE | 2022-08-13 23:36 | P.PN ---
Subjective Progress Note Date: 08/13/22 Principal diagnosis: Right wrist and hand cellulitis Patient is a 72-year-old female with multiple comorbidities presenting to the hospital with nausea vomiting diarrhea in this patient recently treated for diverticulitis with Augmentin. Abdominal as well as this admission did not show any diverticulitis patient also have a right hand and wrist area cellulitis with elevated white count. On today's evaluation that is 08/13/2022, the patient denies having any fever or any chills. Denies further nausea or vomiting and diarrhea has slowed on patient right hand dorsum swelling redness slightly decreased and no chest pain shortness of breath or cough Objective - Vital Signs Vital signs: Vital Signs Temp 98.0 F 08/13/22 08:00 Pulse 85 08/13/22 08:00 Resp 17 08/13/22 08:00 BP 150/85 08/13/22 08:00 Pulse Ox 96 08/13/22 08:00 FiO2 Intake & Output 08/12/22 08/13/22 08/13/22 18:59 06:59 18:59 Weight 157 kg Other: Voiding Method Diaper Incontinent # Voids 1 1 # Bowel Movements 1 - Exam GENERAL DESCRIPTION: An elderly female lying in bed in no distress RESPIRATORY SYSTEM: Unlabored breathing , decreased breath sounds at bases HEART: S1 S2 regular rate and rhythm , ABDOMEN: Soft , no tenderness EXTREMITIES: Right wrist and dorsum area swelling redness slightly decreased - Labs CBC & Chem 7: 08/13/22 07:19 08/13/22 07:19 Labs: Microbiology - Last 24 Hours (Table) 08/12/22 16:06 Urine Culture - Preliminary Urine,Clean Catch 08/11/22 19:00 Blood Culture - Preliminary Blood No Growth after 24 hours Assessment and Plan (1) Cellulitis of right hand Current Visit: Yes Status: Acute Code(s): L03.113 - CELLULITIS OF RIGHT UPPER LIMB SNOMED Code(s): 12370107 (2) Leukocytosis Current Visit: No Status: Acute Code(s): D72.829 - ELEVATED WHITE BLOOD CELL COUNT, UNSPECIFIED SNOMED Code(s): 355937097 Plan: 1patient with elevated white count source is multifactorial in this patient to the hospital with acute nausea vomiting and diarrhea CT abdominal pelvis did not show acute abnormality she has been exposed to antibiotics with the C. difficile to be on the top of the list however the patient also have significant swelling or redness to the dorsum aspect of the right hand concerning for possible cellulitis. 2patient with multiple antibiotic allergies that would limit the number of antibiotics safe to use. 3 stool for C. difficile came back negative. 4patient seemed to showing some clinical improvement and will continue cefazolin 2 g every 8 hour Time with Patient: Less than 30
--- NOTE | 2022-08-14 05:11 | PN ---
PROGRESS NOTE DATE OF SERVICE: 08/13/2022 SUBJECTIVE: This 72-year-old woman was admitted with multiple medical issues including abdominal symptoms of diarrhea, abdominal pain, nausea. The patient had significant cellulitis of right hand also. The patient also had history of gout also. No fever. No cough. PAST MEDICAL HISTORY: Reviewed. REVIEW OF SYSTEMS: A 14-point review of systems is negative except as mentioned earlier. MEDICATIONS: Home medications and current medications also reviewed, Tenormin, dose and rest of medications noted. PHYSICAL EXAMINATION: VITAL SIGNS: Pulse is 85, blood pressure 120/80, respirations 17. HEENT: Conjunctivae normal. NECK: No JVD. CARDIOVASCULAR: S1, S2 muffled. RESPIRATIONS: Breath sounds diminished at the bases. A few scattered rhonchi and crackles. ABDOMEN: Soft, obese. Mild diffuse discomfort. LEGS: No edema. NERVOUS SYSTEM: No focal deficits. LABS: WBC 12.92. Other labs are noted. Cultures are negative so far. The rest of the labs are reviewed. ASSESSMENT: 1. Abdominal pain, nausea, vomiting, diarrhea, possible colitis, rule out C. difficile colitis. 2. History of diverticulitis. 3. Right hand cellulitis with failure of outpatient treatment, possibly acute gouty attack. 4. History of atrial fibrillation. 5. Fibromyalgia. 6. Hypertension. 7. Obesity. 8. History of bariatric surgery. 9. Multiple medical issues. DISCUSSION AND RECOMMENDATIONS: In this 72-year-old woman presented with multiple complex medical issues. At this time, I recommend short course of IV steroids as a trial. Continue the empiric antibiotics initiated by Dr. Nicole. The possibility of gout is also considered, but however, the patient may not be a candidate for colchicine because of the GI symptoms including diarrhea at this time. Once again, the prognosis is extremely guarded because of multiple complex medical issues as mentioned earlier. The patient continues to be sick, requiring hospitalization and inpatient hospitalization. See orders for further details. MMODL / IJN: [id number] /
[2022-08-14] MEDS: SODIUM CHLORIDE 0.9% 1,000 ML IV SCH (05:14)
[2022-08-14 06:16] LABS: Glucose,Whole Blood 191 mg/dL (70-110)
[2022-08-14] MEDS: INSULIN ASPART (NovoLOG) 100 UNIT/ML VIAL SQ SCH ×4 (06:26→21:01)
[2022-08-14] MEDS: LEVOTHYROXINE 125 MCG TAB PO SCH (06:26)
[2022-08-14] MEDS: methylPREDNISolone SOD SUCCI 40 MG/ML 1 ML VIAL IV SCH ×2 (06:27→18:14)
[2022-08-14] MEDS: PANTOPRAZOLE 40 MG/10 ML VIAL IV SCH ×2 (08:48→20:57)
[2022-08-14] MEDS: LORazepam 1 MG TAB PO PRN (08:50)
[2022-08-14] MEDS: allopurinoL 100 MG TAB PO SCH (08:50)
[2022-08-14] MEDS: predniSONE 5 MG TAB PO SCH (08:50)
[2022-08-14] MEDS: FUROSEMIDE 20 MG TAB PO SCH (08:51)
[2022-08-14] MEDS: atenoloL 50 MG TAB PO SCH ×2 (08:51→20:55)
[2022-08-14 11:31] LABS: Albumin 3.3 g/dL (3.8-4.9); Albumin/Globulin Ratio 1.22 (1.60-3.17); Anion Gap 15.7 mmol/L (10.00-18.00); BUN/Creat Ratio 12.89 Ratio (12.00-20.00); Basophils # (A) 0.02 X 10*3/uL (0.00-0.10); Basophils % (A) 0.2 %; Blood Urea Nitrogen 11.6 mg/dL (9.0-27.0); Calcium 8.4 mg/dL (8.7-10.3); Carbon Dioxide 20.3 mmol/L (20.0-27.5); Eosinophils # (A) 0 X 10*3/uL (0.04-0.35); Eosinophils % (A) 0 %; Globulin 2.7 g/dL (1.6-3.3); HCT 40.1 % (37.2-46.3); HGB 13.2 g/dL (12.0-15.0); Immature Grans, Automated 0.5 %; Lymphocytes # (A) 0.41 X 10*3/uL (0.90-5.00); Lymphocytes % (A) 4.2 %; MCH 30.1 pg (27.0-32.0); MCHC 32.9 g/dL (32.0-37.0); MCV 91.3 fL (80.0-97.0); Mean Platelet Volume 10.5 fL (9.5-12.2); Monocytes # (A) 0.15 X 10*3/uL (0.20-1.00); Monocytes % (A) 1.5 %; NRBC Per 100 WBC 0 /100 WBCS (0.0-0.0); Neutrophils # (A) 9.09 X 10*3/uL (1.80-7.70); Neutrophils % (A) 93.6 %; Platelet Count 310 X 10*3/uL (140-440); Potassium 3.9 mmol/L (3.5-5.5); RBC 4.39 X 10*6/uL (4.10-5.20); Total Bilirubin 0.4 mg/dL (0.30-1.20); WBC 9.72 X 10*3/uL (4.50-10.00)
--- NOTE | 2022-08-14 12:01 | XR ---
EXAMINATION TYPE: XR chest 1V portable DATE OF EXAM: 08/14/2022 HISTORY: Shortness of breath. COMPARISON: 08/11/22 TECHNIQUE: Single view of the chest is submitted. FINDINGS: Demonstrated are scattered senescent parenchymal change. There is no evidence for focal infiltrate. The heart is stable. Hilar and mediastinal structures are within normal limits. Degenerative changes are seen of the dorsal spine. IMPRESSION: 1. Chronic changes without evidence for acute pulmonary disease.
--- NOTE | 2022-08-14 12:10 | P.PN ---
Progress Note - Text Progress Note Date: 08/14/22 Orthopedics: History of present illness: Patient is a very pleasant 72-year-old female who is seen and examined for follow evaluation in regards to her right upper extremity. She initially got her hand stuck in her hospital bed home last , 08/08/2022. Since being seen examined him yesterday, the erythema, warmth, swelling over her right wrist, hand, and fingers significantly improved. She does have better range of motion of the fingers of her right hand today. She is not having significant pain with palpation over the right hand or the fingers of the right hand. She states the swelling was even less earlier this morning but has had a little bit more swelling with a warm compress. Her pain is better controlled. She also has a brace at the bedside. X-ray imaging of the right wrist did not show evidence of fracture or dislocation. She is currently on antibiotic medication per infectious disease. Patient is not experiencing fever or chills. Patient is currently being treated and evaluated for multiple other medical diagnoses including diverticulitis, atrial fibrillation, atrial flutter, hypertension, hyperlipidemia, and abdominal pain. Patient is known to have multiple antibiotic ALLERGIES. Physical Exam: Patient is awake, alert, and oriented 3 Vital signs stable Adequate chest excursion with deep inspiration and expiration Patient does continue to have swelling most significant at the right wrist, hand, and fingers of the right hand Significant improvement of the erythema and warmth with palpation over the right wrist, hand, and fingers of the right hand over the volar and dorsal aspects Patient has better range of motion of her fingers of the right hand better today as compared to yesterday Patient is better able to make a fist today as compared to yesterday Less pain with palpation most significant over the dorsum of the right hand and proximal fingers No palpable fluid collection at the right hand, wrist, or fingers No evidence of streaking No obvious injury to the right hand, wrist, or fingers Patient is able to perform some active range of motion with the DIP and PIP joints and MCP joints of all fingers of her right hand Assessment: Right upper extremity cellulitis most significant at the hand and fingers Right upper extremity hand, wrist, and finger swelling Right hand and finger pain Reason right hand trauma without evidence of fracture or dislocation Diverticulitis Atrial fibrillation Atrial flutter Hypertension Hyperlipidemia Abdominal pain Plan: 1. Patient has had significant improvement of her symptoms as compared to yesterday. There is significantly less erythema, swelling, and warmth to palpation over the right wrist, hand, and fingers of the right hand. We will currently plan continue conservative treatment regards to her right wrist, hand, and fingers of the right hand. We do not see any specific fluid collection or abscess. She is currently on Kefzol per infectious disease. We discussed he could continue with warm compresses regularly throughout the day but is not required. She may also continue to utilize the brace at her right hand and wrist which she has at the bedside. We are currently planning for any surgical intervention as we do not feel there are good indication which surgical intervention would provide any significant improvement of her symptoms. We do feel she could continue to improve with continued conservative treatment. Given her significant improvement, patient is clear for discharge from an orthopedic standpoint. We'll plan to have her follow-up in the outpatient setting on an as-needed basis. If she has exacerbation of her symptoms she may follow-up with Noé Salazar PA-C or Dr. Jamar Reid at [facility] following discharge. She may perform regular activities of daily living with the right upper extremity to her tolerance. 2. Patient will continue to be seen and examined by multiple other medical providers including medicine and infectious disease.
[2022-08-14 12:21] LABS: Glucose,Whole Blood 208 mg/dL (70-110)
[2022-08-14] MEDS ORDERED: IPRATROPIUM-ALBUTEROL 3 ML NEB INHALATION PRN (13:37)
--- NOTE | 2022-08-14 13:37 | P.PN ---
Subjective Progress Note Date: 08/14/22 This is a 72-year-old female who was recently admitted with multiple medical issues including abdominal pain with associated nausea and diarrhea with multiple medical consultations following. General surgery has followed the patient recommending no surgical interventions at this time and will follow as needed. Patient also being followed by infectious disease along with orthopedics. Patient is maintained on IV steroids and will decrease the dose as patient reports she has been having some hallucinations. Patient was also continued on Solu-Cortef along with oral prednisone and those will be on hold for now. Patient with some right hand swelling and significant cellulitis with anxiety following patient is maintained on cefazolin to continue for now. Patient with history of gout and will obtain uric acid sample which is pending. Patient is afebrile denies chest pain or palpitations. Patient asking for advance in diet with no reports of nausea or vomiting. Will advance diet and monitor for tolerance. Chest x-ray ordered as patient is somewhat dyspneic on exam and recommend continue DuoNeb treatments. PT/OT following. Review of systems: Constitutional: No reports of fatigue, fever, or chills, patient reports some hallucinations Cardiovascular: No reports of chest pain or palpitations Respiratory: reports of mild shortness of breath GI: No reports of nausea, no reports of of vomiting, no diarrhea : No reports of dysuria or retention Neurovascular: reports of generalized weakness All medications have been reviewed Active Medications Acetaminophen (Acetaminophen Tab 325 Mg Tab) 650 mg PO Q4HR PRN PRN Reason: Fever and/ or MILD Pain Last Admin: 08/13/22 09:49 Dose: 650 mg Hydrocodone Bitart/Acetaminophen (Hydrocodone/Apap 5-325mg 1 Each Tab) 1 each PO Q4HR PRN PRN Reason: Moderate Pain (Scale 4 to 6) Allopurinol (Allopurinol 100 Mg Tab) 100 mg PO DAILY [facility] Last Admin: 08/14/22 08:50 Dose: 100 mg Atenolol (Atenolol 50 Mg Tab) 50 mg PO BID [facility] Last Admin: 08/14/22 08:51 Dose: 50 mg Calcium Carbonate (Calcium Carb-Vit D 500 Mg-5 Mcg Tab) 1 each PO DAILY@1600 [facility] Cholecalciferol (Cholecalciferol 125 Mcg (5000 Iu) Tablet) 125 mcg PO DAILY@1600 [facility] Cyanocobalamin (Cyanocobalamin 500 Mcg Tab) 2,500 mcg PO DAILY@1600 [facility] Dextrose/Water (Dextrose 50% Syringe 50 Ml) 25 ml IVP PER PROTOCOL PRN; Protocol PRN Reason: Hypoglycemia Dextrose/Water (Dextrose 50% Syringe 50 Ml) 50 ml IVP PER PROTOCOL PRN; Protocol PRN Reason: Hypoglycemia Furosemide (Furosemide 20 Mg Tab) 20 mg PO DAILY [facility] Last Admin: 08/14/22 08:51 Dose: 20 mg Hydromorphone HCl (Hydromorphone 0.5 Mg/0.5 Ml Syringe) 0.5 mg IVP Q3HR PRN PRN Reason: Moderate Pain (Scale 4 to 6) Sodium Chloride (Saline 0.9%) 1,000 mls @ 40 mls/hr IV .Q24H [facility] Last Admin: 08/14/22 05:14 Dose: 40 mls/hr Cefazolin Sodium 2 gm/ Sodium (Chloride) 50 mls @ 100 mls/hr IVPB Q8HR [facility]; Protocol Last Admin: 08/14/22 08:50 Dose: 100 mls/hr Insulin Aspart (Insulin Aspart (Novolog) 100 Unit/Ml Vial) 0 unit SQ ACHS [facility]; Protocol Last Admin: 08/14/22 13:06 Dose: Not Given Levothyroxine Sodium (Levothyroxine 125 Mcg Tab) 125 mcg PO 0630 [facility] Last Admin: 08/14/22 06:26 Dose: 125 mcg Loratadine (Loratadine 10 Mg Tab) 10 mg PO HS [facility] Last Admin: 08/13/22 21:10 Dose: 10 mg Lorazepam (Lorazepam 1 Mg Tab) 2 mg PO BID PRN PRN Reason: Anxiety Last Admin: 08/14/22 08:50 Dose: 2 mg Methylprednisolone Sodium Succinate (Methylprednisolone Sod Succi 40 Mg/Ml 1 Ml Vial) 40 mg IV Q12H [facility] Naloxone HCl (Naloxone 0.4 Mg/Ml 1 Ml Vial) 0.2 mg IV Q2M PRN PRN Reason: Opioid Reversal Ondansetron HCl (Ondansetron 4 Mg/2 Ml Vial) 4 mg IVP Q6HR PRN PRN Reason: Nausea And Vomiting Last Admin: 08/12/22 12:04 Dose: 4 mg Pantoprazole Sodium (Pantoprazole 40 Mg/10 Ml Vial) 40 mg IV BID [facility] Last Admin: 08/14/22 08:48 Dose: 40 mg Rivaroxaban (Rivaroxaban 20 Mg Tab) 20 mg PO W/SUPPER NAVEEN; Protocol Last Admin: 08/13/22 18:31 Dose: 20 mg PHYSICAL EXAMINATION: GENERAL: The patient is alert and oriented x4, Well developed, well nourished. Morbidly obese HEENT: Pupils are round and equally reacting to light. EOMI. no scleral icterus. No conjunctival pallor. Normocephalic, atraumatic. No pharyngeal erythema. No thyromegaly. CARDIOVASCULAR: S1 and S2 muffled PULMONARY: diminished breath sounds bilaterally with some mild expiratory wheezing and some scattered rhonchi noted. ABDOMEN: soft. Nontender on exam. obese. non-distended, normoactive bowel sounds. No palpable organomegaly. MUSCULOSKELETAL: No joint swelling or deformity. EXTREMITIES: No cyanosis, clubbing, or generalized edema of bilateral extremities noted. NEUROLOGICAL: Gross neurological examination did not reveal any focal deficits. Diffuse weakness SKIN: No rashes. Assessment: Abdominal pain, nausea, vomiting, diarrhea, possible colitis, ruled out C. diff colitis History of diverticulitis Right hand cellulitis with failure of outpatient treatment, possibly acute gout attack History of atrial fibrillation fibromyalgia Hypertension Morbid obesity with body mass index of 53.3 previous history of bariatric surgery History of pulmonary embolism Sleep apnea GI prophylaxis DVT prophylaxis Full code Plan: Recommend to continue with current medications and management of multiple medical consultations following. She is maintained on IV cefazolin and continues with some right hand swelling although improved from yesterday patient tolerating IV steroids although will hold oral Solu-Cortef and oral prednisone as patient was also having some hallucinations. Patient is continued on IV cefazolin with anxiety following and will also obtain a uric acid sample as patient does have history of gout. Patient working with physical therapy daily continues with weakness and will follow-up with social work/case management about possible ECF versus home and Homecare. Patient denies any further nausea or vomiting and diarrhea asking for an advance in diet. Surgery was following with no plans for surgical intervention recommending to follow as needed. Patient will need outpatient GI follow-up. Will advance diet and monitor for tolerance and encouraged increased activity as tolerated. Will also obtain chest x-ray as patient was dyspneic with some rhonchi and wheezing noted on exam. Recommend DuoNeb treatments and will add. Recommend repeat labs and follow-up on chest x-ray once available. Due to multiple complex medical issues, prognosis is guarded. The impression and plan of care has been dictated by Stephania Hernandez, nurse practitioner as directed. Dr. Jesus MD I have performed a history and examination and MDM of this patient, discussed the same with the dictator, and agree with the dictator's assessment and plan as written ,documented as a scribe. Based on total visit time, I have performed more than 50% of the visit. Any additional findings or plans will be noted. Objective - Vital Signs Vital signs: Vital Signs Temp 98.0 F 08/14/22 07:23 Pulse 79 08/14/22 07:23 Resp 17 08/14/22 07:23 BP 143/83 08/14/22 07:23 Pulse Ox 95 08/14/22 07:23 FiO2 Intake & Output 08/13/22 08/14/22 08/14/22 18:59 06:59 18:59 Intake Total 1080 Balance 1080 Weight 154.5 kg Intake: Oral 1080 Other: Voiding Method Diaper Diaper Diaper Incontinent Incontinent Incontinent # Voids 3 1 # Bowel Movements 3 1 - Labs CBC & Chem 7: 08/14/22 05:46 08/14/22 05:46 Labs: Abnormal Lab Results - Last 24 Hours (Table) 08/11/22 08/13/22 08/13/22 Range/Units 16:29 07:19 07:19 WBC 12.92 H (4.50-10.00) X 10*3/uL Immature Gran # 0.06 H (0.00-0.04) X 10*3/uL Neutrophils # 10.43 H (1.80-7.70) X 10*3/uL Lymphocytes # 0.87 L (0.90-5.00) X 10*3/uL Monocytes # 1.26 H (0.20-1.00) X 10*3/uL Sodium 133 L (135-145) mmol/L BUN/Creatinine Ratio 10.78 L (12.00-20.00) Ratio POC Glucose (mg/dL) (70-110) mg/dL Hemoglobin A1c (0.0-6.0) % Calcium 8.4 L (8.7-10.3) mg/dL Total Protein 6.0 L (6.2-8.2) g/dL Albumin 3.2 L (3.8-4.9) g/dL Albumin/Globulin Ratio 1.14 L (1.60-3.17) g/dL Stool Lactoferrin POSITIVE A (NEGATIVE) 08/13/22 08/13/22 08/13/22 Range/Units 07:19 17:46 20:20 WBC (4.50-10.00) X 10*3/uL Immature Gran # (0.00-0.04) X 10*3/uL Neutrophils # (1.80-7.70) X 10*3/uL Lymphocytes # (0.90-5.00) X 10*3/uL Monocytes # (0.20-1.00) X 10*3/uL Sodium (135-145) mmol/L BUN/Creatinine Ratio (12.00-20.00) Ratio POC Glucose (mg/dL) 176 H 176 H (70-110) mg/dL Hemoglobin A1c 6.4 H (0.0-6.0) % Calcium (8.7-10.3) mg/dL Total Protein (6.2-8.2) g/dL Albumin (3.8-4.9) g/dL Albumin/Globulin Ratio (1.60-3.17) g/dL Stool Lactoferrin (NEGATIVE) 08/14/22 Range/Units 06:08 WBC (4.50-10.00) X 10*3/uL Immature Gran # (0.00-0.04) X 10*3/uL Neutrophils # (1.80-7.70) X 10*3/uL Lymphocytes # (0.90-5.00) X 10*3/uL Monocytes # (0.20-1.00) X 10*3/uL Sodium (135-145) mmol/L BUN/Creatinine Ratio (12.00-20.00) Ratio POC Glucose (mg/dL) 191 H (70-110) mg/dL Hemoglobin A1c (0.0-6.0) % Calcium (8.7-10.3) mg/dL Total Protein (6.2-8.2) g/dL Albumin (3.8-4.9) g/dL Albumin/Globulin Ratio (1.60-3.17) g/dL Stool Lactoferrin (NEGATIVE) Microbiology - Last 24 Hours (Table) 08/11/22 18:00 Stool Culture - Preliminary Stool 08/11/22 19:00 Blood Culture - Preliminary Blood No Growth after 48 hours 08/12/22 12:43 Blood Culture - Preliminary Blood No Growth after 24 hours
[2022-08-14] MEDS: CYANOCOBALAMIN 500 MCG TAB PO SCH (16:04)
[2022-08-14] MEDS: CALCIUM CARB-VIT D 500 MG-5 MCG TAB PO SCH (16:05)
[2022-08-14] MEDS: CHOLECALCIFEROL 125 MCG (5000 IU) TABLET PO SCH (16:05)
[2022-08-14] MEDS: RIVAROXABAN 20 MG TAB PO SCH (16:12)
[2022-08-14 16:36] LABS: Glucose,Whole Blood 180 mg/dL (70-110)
--- NOTE | 2022-08-14 18:54 | CA ---
Transthoracic Echo Report Name: Gail Pérez Age: 72 Gender: F : 1950 Exam Date: 08/13/2022 14:10 Exam Location: [facility] Ht (in): 67 Wt (lb): 346 Ordering Physician: Shree Lee MD Attending/Referring Phys: Gyroscopic Instrument Tester Alecia Burton RDCS Procedure CPT: Indications: check for no vegetations Cardiac Hx: Technical Quality: Technically difficult study Contrast 1: Lumason Total Dose (mL): 4 Contrast 2: Total Dose (mL): MEASUREMENTS (Male / Female) Normal Values 2D ECHO LV Diastolic Diameter PLAX 4.3 cm 4.2 - 5.9 / 3.9 - 5.3 cm LV Systolic Diameter PLAX 2.8 cm IVS Diastolic Thickness 1.2 cm 0.6 - 1.0 / 0.6 - 0.9 cm LVPW Diastolic Thickness 1.0 cm 0.6 - 1.0 / 0.6 - 0.9 cm LV Relative Wall Thickness 0.5 RV Internal Dim ED PLAX 4.3 cm LA Volume 105.8 cm??? 18 - 58 / 22 - 52 cm??? M-MODE Aortic Root Diameter MM 2.6 cm LA Systolic Diameter MM 6.2 cm LA Ao Ratio MM 2.4 AV Cusp Separation MM 1.9 cm DOPPLER AV Peak Velocity 161.2 cm/s AV Peak Gradient 10.4 mmHg AV Mean Velocity 108.0 cm/s AV Mean Gradient 5.3 mmHg AV Velocity Time Integral 28.8 cm LVOT Peak Velocity 103.0 cm/s LVOT Peak Gradient 4.2 mmHg LVOT Velocity Time Integral 20.6 cm MV Peak Velocity 153.5 cm/s MV Peak Gradient 9.4 mmHg MV Mean Velocity 83.3 cm/s MV Mean Gradient 3.4 mmHg MV Velocity Time Integral 33.0 cm MV E' Velocity 5.1 cm/s TR Peak Velocity 253.5 cm/s TR Peak Gradient 25.7 mmHg Right Ventricular Systolic Press 29.3 mmHg FINDINGS Left Ventricle Mildly increased left ventricular wall thickness. Normal left ventricular systolic function with no obvious regional wall motion abnormalities. Left ventricular ejection fraction is estimated at 55-60 %. Right Ventricle Severe right ventricular dilatation. Right ventricular systolic pressure within normal limits. Right Atrium Normal right atrial size. Left Atrium Severely increased left atrial volume. Mitral Valve Mitral valve not well visualized. No mitral stenosis. [id number] mitral regurgitation. Aortic Valve Aortic valve not well visualized. No aortic stenosis. No aortic regurgitation. Tricuspid Valve Tricuspid valve not well visualized. No tricuspid stenosis. Mild tricuspid regurgitation. Pulmonic Valve Trace pulmonic regurgitation. Pericardium No pericardial effusion. Aorta Normal size aortic root and proximal ascending aorta. CONCLUSIONS Technically difficult study for interpretation Normal left ventricular dimension and systolic function Dilated right ventricle with a normal function Previewed by: Dr. Wojciech Ernst MD (Electronically Signed) Final Date: 14 August 2022 18:53
[2022-08-14] MEDS: IPRATROPIUM-ALBUTEROL 3 ML NEB INHALATION SCH (20:20)
[2022-08-14] MEDS: LORATADINE 10 MG TAB PO SCH (20:55)
[2022-08-14 21:02] LABS: Glucose,Whole Blood 202 mg/dL (70-110)
[2022-08-15] MEDS: ACETAMINOPHEN TAB 325 MG TAB PO PRN (00:09)
[2022-08-15] MEDS: LORazepam 1 MG TAB PO PRN ×2 (00:09→23:16)
[2022-08-15] MEDS: methylPREDNISolone SOD SUCCI 40 MG/ML 1 ML VIAL IV SCH ×2 (05:52→16:59)
[2022-08-15] MEDS: LEVOTHYROXINE 125 MCG TAB PO SCH (05:52)
[2022-08-15] MEDS: SODIUM CHLORIDE 0.9% 1,000 ML IV SCH (05:57)
[2022-08-15 06:15] LABS: Glucose,Whole Blood 163 mg/dL (70-110)
[2022-08-15] MEDS: INSULIN ASPART (NovoLOG) 100 UNIT/ML VIAL SQ SCH ×4 (06:20→21:20)
[2022-08-15] MEDS: IPRATROPIUM-ALBUTEROL 3 ML NEB INHALATION SCH ×3 (07:12→20:35)
[2022-08-15] MEDS: PANTOPRAZOLE 40 MG/10 ML VIAL IV SCH ×2 (10:33→20:20)
[2022-08-15] MEDS: FUROSEMIDE 20 MG TAB PO SCH (10:34)
[2022-08-15] MEDS: atenoloL 50 MG TAB PO SCH ×2 (10:34→20:20)
[2022-08-15] MEDS: allopurinoL 100 MG TAB PO SCH (10:35)
[2022-08-15 11:39] LABS: Glucose,Whole Blood 193 mg/dL (70-110)
--- NOTE | 2022-08-15 14:35 | P.PN ---
Subjective Progress Note Date: 08/15/22 This is a 72-year-old female who was recently admitted with multiple medical issues including abdominal pain with associated nausea and diarrhea with multiple medical consultations following. General surgery has followed the patient recommending no surgical interventions at this time and will follow as needed. Patient also being followed by infectious disease along with orthopedics. Patient is maintained on IV steroids and will decrease the dose as patient reports she has been having some hallucinations. Patient was also continued on Solu-Cortef along with oral prednisone and those will be on hold for now. Patient with some right hand swelling and significant cellulitis with anxiety following patient is maintained on cefazolin to continue for now. Patient with history of gout and will obtain uric acid sample which is pending. Patient is afebrile denies chest pain or palpitations. Patient asking for advance in diet with no reports of nausea or vomiting. Will advance diet and monitor for tolerance. Chest x-ray ordered as patient is somewhat dyspneic on exam. PT/OT following. 08/15/2022 Patient is seen and evaluated in follow-up this morning currently sitting up in the bed reporting feeling somewhat improved. Right hand swelling is significantly improved and will continue cefazolin with anxiety following and also continue with IV steroids that have been titrated down. Patient is maintained on allopurinol and will continue and have added colchicine daily to monitor for improvement. PT OT following and plan is to return home once stabilized and discharged. Discharge planning in process and working on possible discharge in 24 hours. Patient will need outpatient GI follow-up for possible colonoscopy. Patient is afebrile denies chest pain or worsening shortness of breath. Patient tolerating diet with no reports of nausea or vomiting noted. Review of systems: Constitutional: No reports of fatigue, fever, or chills Cardiovascular: No reports of chest pain or palpitations Respiratory: reports of mild shortness of breath GI: No reports of nausea, no reports of of vomiting, no diarrhea : No reports of dysuria or retention Neurovascular: reports of generalized weakness All medications have been reviewed PHYSICAL EXAMINATION: GENERAL: The patient is alert and oriented x4, Well developed, well nourished. Morbidly obese HEENT: Pupils are round and equally reacting to light. EOMI. no scleral icterus. No conjunctival pallor. Normocephalic, atraumatic. No pharyngeal erythema. No thyromegaly. CARDIOVASCULAR: S1 and S2 muffled PULMONARY: diminished breath sounds bilaterally with some mild expiratory wheezing and some scattered rhonchi noted. ABDOMEN: soft. Nontender on exam. obese. non-distended, normoactive bowel sounds. No palpable organomegaly. MUSCULOSKELETAL: No joint swelling or deformity. EXTREMITIES: No cyanosis, clubbing, or generalized edema of bilateral extremities noted. Right hand swelling is significantly improved NEUROLOGICAL: Gross neurological examination did not reveal any focal deficits. Diffuse weakness SKIN: No rashes. Assessment: Abdominal pain, nausea, vomiting, diarrhea, possible colitis, ruled out C. diff colitis History of diverticulitis Right hand cellulitis with failure of outpatient treatment, possibly acute gout attack History of atrial fibrillation fibromyalgia Hypertension Morbid obesity with body mass index of 53.3 previous history of bariatric surgery History of pulmonary embolism Sleep apnea GI prophylaxis DVT prophylaxis Full code Plan: Recommend to continue with current medications and management of multiple medical consultations following. She is maintained on IV cefazolin and continues with some right hand swelling although significantly improved from yesterday and will discuss with ID about discharge planning and if requiring continued antibiotics. Patient to continue on IV steroids for now and will resume home medications on discharge. uric acid was elevated and patient was started on colchicine daily and will continue. Patient working with physical therapy daily continues with weakness and will be going home on discharge with family. Patient denies any further nausea or vomiting and is tolerating diet. Patient continues to report stress and anxiety about her chronic diarrhea and patient will need outpatient follow-up with GI for possible colonoscopy. Will advance diet and monitor for tolerance and encouraged increased activity as tolerated. Due to multiple complex medical issues, prognosis is guarded. Possible discharge in 24 hours. The impression and plan of care has been dictated by Stephania Hernandez, nurse practitioner as directed. Dr. Jesus MD I have performed a history and examination and MDM of this patient, discussed the same with the dictator, and agree with the dictator's assessment and plan as written ,documented as a scribe. Based on total visit time, I have performed more than 50% of the visit. Any additional findings or plans will be noted. Objective - Vital Signs Vital signs: Vital Signs Temp 98.0 F 08/15/22 07:44 Pulse 61 08/15/22 07:44 Resp 18 08/15/22 07:44 BP 142/72 08/15/22 07:44 Pulse Ox 99 08/15/22 07:44 FiO2 Intake & Output 08/14/22 08/15/22 08/15/22 18:59 06:59 18:59 Weight 154.5 kg Other: Voiding Method Diaper Diaper Incontinent Incontinent # Voids 2 1 # Bowel Movements 0 - Labs CBC & Chem 7: 08/14/22 05:46 08/14/22 05:46 Labs: Abnormal Lab Results - Last 24 Hours (Table) 08/14/22 08/14/22 08/14/22 Range/Units 05:46 05:46 05:46 Immature Gran # 0.05 H (0.00-0.04) X 10*3/uL Neutrophils # 9.09 H (1.80-7.70) X 10*3/uL Lymphocytes # 0.41 L (0.90-5.00) X 10*3/uL Monocytes # 0.15 L (0.20-1.00) X 10*3/uL Eosinophils # 0 L (0.04-0.35) X 10*3/uL Sodium 133 L (135-145) mmol/L Glucose 207 H (70-110) mg/dL POC Glucose (mg/dL) (70-110) mg/dL Uric Acid 9.1 H (2.9-7.7) mg/dL Calcium 8.4 L (8.7-10.3) mg/dL Total Protein 6.0 L (6.2-8.2) g/dL Albumin 3.3 L (3.8-4.9) g/dL Albumin/Globulin Ratio 1.22 L (1.60-3.17) g/dL 08/14/22 08/14/22 08/14/22 Range/Units 12:20 16:35 21:00 Immature Gran # (0.00-0.04) X 10*3/uL Neutrophils # (1.80-7.70) X 10*3/uL Lymphocytes # (0.90-5.00) X 10*3/uL Monocytes # (0.20-1.00) X 10*3/uL Eosinophils # (0.04-0.35) X 10*3/uL Sodium (135-145) mmol/L Glucose (70-110) mg/dL POC Glucose (mg/dL) 208 H 180 H 202 H (70-110) mg/dL Uric Acid (2.9-7.7) mg/dL Calcium (8.7-10.3) mg/dL Total Protein (6.2-8.2) g/dL Albumin (3.8-4.9) g/dL Albumin/Globulin Ratio (1.60-3.17) g/dL 08/15/22 Range/Units 06:13 Immature Gran # (0.00-0.04) X 10*3/uL Neutrophils # (1.80-7.70) X 10*3/uL Lymphocytes # (0.90-5.00) X 10*3/uL Monocytes # (0.20-1.00) X 10*3/uL Eosinophils # (0.04-0.35) X 10*3/uL Sodium (135-145) mmol/L Glucose (70-110) mg/dL POC Glucose (mg/dL) 163 H (70-110) mg/dL Uric Acid (2.9-7.7) mg/dL Calcium (8.7-10.3) mg/dL Total Protein (6.2-8.2) g/dL Albumin (3.8-4.9) g/dL Albumin/Globulin Ratio (1.60-3.17) g/dL Microbiology - Last 24 Hours (Table) 08/11/22 19:00 Blood Culture - Preliminary Blood No Growth after 72 hours 08/11/22 18:00 Stool Culture - Final Stool 08/12/22 12:43 Blood Culture - Preliminary Blood No Growth after 48 hours 08/12/22 16:06 Urine Culture - Final Urine,Clean Catch
[2022-08-15 16:40] LABS: Glucose,Whole Blood 175 mg/dL (70-110)
[2022-08-15] MEDS: CYANOCOBALAMIN 500 MCG TAB PO SCH (16:56)
[2022-08-15] MEDS: CALCIUM CARB-VIT D 500 MG-5 MCG TAB PO SCH (16:57)
[2022-08-15] MEDS: CHOLECALCIFEROL 125 MCG (5000 IU) TABLET PO SCH (16:57)
[2022-08-15] MEDS: RIVAROXABAN 20 MG TAB PO SCH (16:57)
[2022-08-15] MEDS: COLCHICINE 0.6 MG EACH PO SCH (16:57)
--- NOTE | 2022-08-15 18:02 | P.PN ---
Subjective Progress Note Date: 08/14/22 Principal diagnosis: Right wrist and hand cellulitis Patient is a 72-year-old female with multiple comorbidities presenting to the hospital with nausea vomiting diarrhea in this patient recently treated for diverticulitis with Augmentin. Abdominal as well as this admission did not show any diverticulitis patient also have a right hand and wrist area cellulitis with elevated white count. On today's evaluation that is 08/14/2022, the patient remains to be afebrile, t he patient denies nausea or vomiting and diarrhea has slowed , the patient patient right hand dorsum swelling redness has decreased in intensity, the patient denies chest pain shortness of breath or cough Objective - Vital Signs Vital signs: Vital Signs Temp 96.9 F L 08/14/22 11:58 Pulse 79 08/14/22 11:58 Resp 20 08/14/22 11:58 BP 165/89 08/14/22 11:58 Pulse Ox 99 08/14/22 11:58 FiO2 Intake & Output 08/13/22 08/14/22 08/14/22 18:59 06:59 18:59 Intake Total 1080 Balance 1080 Weight 154.5 kg Intake: Oral 1080 Other: Voiding Method Diaper Diaper Diaper Incontinent Incontinent Incontinent # Voids 3 1 # Bowel Movements 3 1 - Exam GENERAL DESCRIPTION: An elderly female lying in bed in no distress RESPIRATORY SYSTEM: Unlabored breathing , decreased breath sounds at bases HEART: S1 S2 regular rate and rhythm , ABDOMEN: Soft , no tenderness EXTREMITIES: Right wrist and dorsum area swelling redness slightly decreased - Labs CBC & Chem 7: 08/14/22 05:46 08/14/22 05:46 Labs: Abnormal Lab Results - Last 24 Hours (Table) 08/11/22 08/13/22 08/13/22 Range/Units 16:29 07:19 17:46 Immature Gran # (0.00-0.04) X 10*3/uL Neutrophils # (1.80-7.70) X 10*3/uL Lymphocytes # (0.90-5.00) X 10*3/uL Monocytes # (0.20-1.00) X 10*3/uL Eosinophils # (0.04-0.35) X 10*3/uL Sodium (135-145) mmol/L Glucose (70-110) mg/dL POC Glucose (mg/dL) 176 H (70-110) mg/dL Hemoglobin A1c 6.4 H (0.0-6.0) % Calcium (8.7-10.3) mg/dL Total Protein (6.2-8.2) g/dL Albumin (3.8-4.9) g/dL Albumin/Globulin Ratio (1.60-3.17) g/dL Stool Lactoferrin POSITIVE A (NEGATIVE) 08/13/22 08/14/22 08/14/22 Range/Units 20:20 05:46 05:46 Immature Gran # 0.05 H (0.00-0.04) X 10*3/uL Neutrophils # 9.09 H (1.80-7.70) X 10*3/uL Lymphocytes # 0.41 L (0.90-5.00) X 10*3/uL Monocytes # 0.15 L (0.20-1.00) X 10*3/uL Eosinophils # 0 L (0.04-0.35) X 10*3/uL Sodium 133 L (135-145) mmol/L Glucose 207 H (70-110) mg/dL POC Glucose (mg/dL) 176 H (70-110) mg/dL Hemoglobin A1c (0.0-6.0) % Calcium 8.4 L (8.7-10.3) mg/dL Total Protein 6.0 L (6.2-8.2) g/dL Albumin 3.3 L (3.8-4.9) g/dL Albumin/Globulin Ratio 1.22 L (1.60-3.17) g/dL Stool Lactoferrin (NEGATIVE) 08/14/22 08/14/22 Range/Units 06:08 12:20 Immature Gran # (0.00-0.04) X 10*3/uL Neutrophils # (1.80-7.70) X 10*3/uL Lymphocytes # (0.90-5.00) X 10*3/uL Monocytes # (0.20-1.00) X 10*3/uL Eosinophils # (0.04-0.35) X 10*3/uL Sodium (135-145) mmol/L Glucose (70-110) mg/dL POC Glucose (mg/dL) 191 H 208 H (70-110) mg/dL Hemoglobin A1c (0.0-6.0) % Calcium (8.7-10.3) mg/dL Total Protein (6.2-8.2) g/dL Albumin (3.8-4.9) g/dL Albumin/Globulin Ratio (1.60-3.17) g/dL Stool Lactoferrin (NEGATIVE) Microbiology - Last 24 Hours (Table) 08/11/22 18:00 Stool Culture - Preliminary Stool 08/11/22 19:00 Blood Culture - Preliminary Blood No Growth after 48 hours 08/12/22 12:43 Blood Culture - Preliminary Blood No Growth after 24 hours Assessment and Plan (1) Cellulitis of right hand Current Visit: Yes Status: Acute Code(s): L03.113 - CELLULITIS OF RIGHT UPPER LIMB SNOMED Code(s): 65618826 (2) Leukocytosis Current Visit: No Status: Acute Code(s): D72.829 - ELEVATED WHITE BLOOD CELL COUNT, UNSPECIFIED SNOMED Code(s): 220326418 Plan: 1patient with elevated white count source is multifactorial in this patient to the hospital with acute nausea vomiting and diarrhea CT abdominal pelvis did not show acute abnormality she has been exposed to antibiotics with the C. difficile to be on the top of the list however the patient also have significant swelling or redness to the dorsum aspect of the right hand concerning for possible cellulitis. 2patient with multiple antibiotic allergies that would limit the number of antibiotics safe to use. 3 stool for C. difficile came back negative. 4patient has shown clinical improvement and will continue cefazolin 2 g every 8 hour and monitor clinical course closely Time with Patient: Less than 30
--- NOTE | 2022-08-15 18:03 | P.PN ---
Subjective Progress Note Date: 08/15/22 Principal diagnosis: Right wrist and hand cellulitis Patient is a 72-year-old female with multiple comorbidities presenting to the hospital with nausea vomiting diarrhea in this patient recently treated for diverticulitis with Augmentin. Abdominal as well as this admission did not show any diverticulitis patient also have a right hand and wrist area cellulitis with elevated white count. On today's evaluation that is 08/15/2022, the patient continues to be afebrile, the patient denies chest pain shortness of breath or cough no nausea no vomiting no abdominal pain. Patient denies any swelling to the right wrist and hand has decreased intensity Objective - Vital Signs Vital signs: Vital Signs Temp 98.0 F 08/15/22 07:44 Pulse 61 08/15/22 12:13 Resp 18 08/15/22 12:13 BP 142/72 08/15/22 07:44 Pulse Ox 99 08/15/22 07:44 FiO2 Intake & Output 08/14/22 08/15/22 08/15/22 18:59 06:59 18:59 Weight 154.5 kg Other: Voiding Method Diaper Diaper Toilet Incontinent Incontinent # Voids 2 1 # Bowel Movements 0 - Exam GENERAL DESCRIPTION: An elderly female lying in bed in no distress RESPIRATORY SYSTEM: Unlabored breathing , decreased breath sounds at bases HEART: S1 S2 regular rate and rhythm , ABDOMEN: Soft , no tenderness EXTREMITIES: Right wrist and dorsum area swelling redness has significantly decreased in intensity - Labs CBC & Chem 7: 08/14/22 05:46 08/14/22 05:46 Labs: Abnormal Lab Results - Last 24 Hours (Table) 08/14/22 08/14/22 08/14/22 Range/Units 05:46 16:35 21:00 POC Glucose (mg/dL) 180 H 202 H (70-110) mg/dL Uric Acid 9.1 H (2.9-7.7) mg/dL 08/15/22 08/15/22 Range/Units 06:13 11:38 POC Glucose (mg/dL) 163 H 193 H (70-110) mg/dL Uric Acid (2.9-7.7) mg/dL Microbiology - Last 24 Hours (Table) 08/11/22 19:00 Blood Culture - Preliminary Blood No Growth after 72 hours 08/11/22 18:00 Stool Culture - Final Stool 08/12/22 12:43 Blood Culture - Preliminary Blood No Growth after 48 hours 08/12/22 16:06 Urine Culture - Final Urine,Clean Catch Assessment and Plan (1) Cellulitis of right hand Current Visit: Yes Status: Acute Code(s): L03.113 - CELLULITIS OF RIGHT UPPER LIMB SNOMED Code(s): 88190166 (2) Leukocytosis Current Visit: No Status: Acute Code(s): D72.829 - ELEVATED WHITE BLOOD CELL COUNT, UNSPECIFIED SNOMED Code(s): 281660435 Plan: 1patient with elevated white count source is multifactorial in this patient to the hospital with acute nausea vomiting and diarrhea CT abdominal pelvis did not show acute abnormality she has been exposed to antibiotics with the C. difficile to be on the top of the list however the patient also have significant swelling or redness to the dorsum aspect of the right hand concerning for possible cellulitis. 2patient with multiple antibiotic allergies that would limit the number of antibiotics safe to use. 3 stool for C. difficile came back negative. 4patient has shown clinical improvement and will continue cefazolin 2 g every 8 hour with the patient to finish therapy with oral Keflex Time with Patient: Less than 30
[2022-08-15] MEDS ORDERED: HYDROCORTISONE 1% CREAM 30 GM TUBE TOPICAL PRN (18:40)
[2022-08-15] MEDS: TRIAMCINOLONE 0.1% CREAM 80 GM TUBE TOPICAL SCH (20:20)
[2022-08-15] MEDS: LORATADINE 10 MG TAB PO SCH (20:20)
[2022-08-15 20:42] LABS: Glucose,Whole Blood 196 mg/dL (70-110)
[2022-08-15] MEDS ORDERED: diphenhydrAMINE 25 MG CAP PO PRN (21:15)
[2022-08-16 05:57] LABS: Glucose,Whole Blood 183 mg/dL (70-110)
[2022-08-16] MEDS: INSULIN ASPART (NovoLOG) 100 UNIT/ML VIAL SQ SCH ×2 (06:07→11:53)
[2022-08-16] MEDS: methylPREDNISolone SOD SUCCI 40 MG/ML 1 ML VIAL IV SCH (06:35)
[2022-08-16] MEDS: LEVOTHYROXINE 125 MCG TAB PO SCH (06:35)
[2022-08-16 07:51] VITALS: BP 175/99; PULSE 77; RESP 19; TEMP 97.2
[2022-08-16] MEDS: IPRATROPIUM-ALBUTEROL 3 ML NEB INHALATION SCH ×2 (08:32→12:09)
[2022-08-16] MEDS: PANTOPRAZOLE 40 MG/10 ML VIAL IV SCH (09:03)
[2022-08-16] MEDS: allopurinoL 100 MG TAB PO SCH (09:57)
[2022-08-16] MEDS: atenoloL 50 MG TAB PO SCH (09:57)
[2022-08-16] MEDS: FUROSEMIDE 20 MG TAB PO SCH (09:57)
[2022-08-16] MEDS: COLCHICINE 0.6 MG EACH PO SCH (09:58)
[2022-08-16] MEDS: TRIAMCINOLONE 0.1% CREAM 80 GM TUBE TOPICAL SCH (10:05)
[2022-08-16 11:49] LABS: Glucose,Whole Blood 214 mg/dL (70-110)
[2022-08-16 13:26] VITALS: BMI 55.4
--- NOTE | 2022-08-17 09:30 | P.DS ---
Providers Date of admission: 08/11/22 11:32 Expected date of discharge: 08/16/22 Attending physician: Shree Lee Consults: 08/11/22 19:29 Consult Physician Routine Consulting Provider: Apolinar Reid Consult Reason/Comments: right hand/wrist pain and swelling Do you want consulting provider notified?: Yes 08/11/22 19:30 Consult Physician Routine Consulting Provider: Ale Nicole Consult Reason/Comments: elevated WBC,n,v,d Do you want consulting provider notified?: Yes Primary care physician: Grey Loazia [facility] Course: Final diagnosis Abdominal pain, nausea, vomiting, diarrhea, possible colitis, ruled out C. diff colitis History of diverticulitis Right hand cellulitis with failure of outpatient treatment possibly acute gout attack of right hand, uric acid elevated History of atrial fibrillation fibromyalgia Hypertension Morbid obesity with body mass index of 55.4 previous history of bariatric surgery History of pulmonary embolism Sleep apnea GI prophylaxis DVT prophylaxis Full code Discharge disposition Patient is being discharged in a stable condition with guarded prognosis to home with homecare. Patient will follow-up with Dr. Loaiza in the outpatient setting upon discharge. Patient is to follow up with GI and ortho as scheduled. Patient to continue on keflex for the next 5 days to complete the course. Total time taken is greater than 35 minutes. Hospital course This is a 72-year-old female who was recently admitted with diarrhea, weakness, and severe right hand pain and swelling concern for cellulitis, possible gout flare up. Patient was followed by ID on IV cefazolin and will transition to oral keflex for the next 5 days to complete the course. Patient with significant improvement of the right hand and was also seen by ortho recommending outpatient follow up as needed. Uric acid was elevated and given a few days of colchicine. Encouraged to continue with allopurinol. Patient with chronic diarrhea and bowel issues, recommending GI follow up outpatient and recommend colonoscopy. Currently no reports of chest pain, shortness of breath, or palpitations. Patient is afebrile. No reports of nausea or vomiting and patient is tolerating diet. Patient will be discharge home today. Guarded prognosis. Physical exam: Gen: This is a 72 year old female who is awake, alert, and oriented x3 well developed, well nourished, morbidly obese. HEENT: Head is atraumatic, normocephalic. Pupils equal, round. Sclerae is anicteric. NECK: Supple. No JVD. No lymphadenopathy. No thyromegaly. LUNGS: diminished breath sounds bilaterally with no wheezes, but coarse scattered rhonchi noted. No intercostal retractions. HEART: Regular rate and rhythm. No murmur. ABDOMEN: Soft. obese. Bowel sounds are present. No masses. No tenderness. EXTREMITIES: No pedal edema. No calf tenderness. generalized lower extremity edema noted NEUROLOGICAL: Patient is awake, alert and oriented x3. Cranial nerves 2 through 12 are grossly intact. Please refer to medication reconciliation sheet for a list of medications. The impression and plan of care has been dictated by Stephania Hernandez, Nurse Practitioner as directed. Dr. Elisabet MD I have performed a history and examination and MDM of this patient, discussed the same with the dictator, and agree with the dictator's assessment and plan as written ,documented as a scribe. Based on total visit time, I have performed more than 50% of the visit. Patient Condition at Discharge: Good Plan - Discharge Summary Discharge Rx Participant: No New Discharge Prescriptions: New Cephalexin [Keflex] 500 mg PO Q8HR 5 Days #15 cap Colchicine [Colcrys] 0.6 mg PO DAILY 3 Days #3 each Triamcinolone 0.1% Cream [Kenalog 0.1% Cream] 1 applic TOPICAL BID 5 Days #1 each Continue LORazepam [Ativan] 2 mg PO BID PRN PRN Reason: Anxiety Cetirizine HCl [Zyrtec] 10 mg PO HS Fludrocortisone [Florinef] 0.1 mg PO Q48H Acetaminophen Tab [Tylenol] 325 mg PO Q4H PRN PRN Reason: Pain Calcium Carbonate [Calcium] 600 mg PO DAILY atenoloL [Tenormin] 50 mg PO BID Cyanocobalamin (Vitamin B-12) [Vitamin B-12] 2,500 mcg PO DAILY Rivaroxaban [Xarelto] 20 mg PO W/SUPPER tab allopurinoL 100 mg PO DAILY Potassium Chloride ER [K-Dur 20] 20 meq PO DAILY Cholecalciferol [Vitamin D3 (125 Mcg = 5000 Iu)] 125 mcg PO DAILY Furosemide [Lasix] 20 mg PO DAILY Levothyroxine Sodium [Synthroid] 125 mcg PO DAILY predniSONE 5 mg PO DAILY Discharge Medication List LORazepam [Ativan] 2 mg PO BID PRN 01/26/15 [History] Cetirizine HCl [Zyrtec] 10 mg PO HS 08/09/15 [History] Acetaminophen Tab [Tylenol] 325 mg PO Q4H PRN 12/01/17 [History] Fludrocortisone [Florinef] 0.1 mg PO Q48H 12/01/17 [History] Calcium Carbonate [Calcium] 600 mg PO DAILY 07/14/19 [History] Cyanocobalamin (Vitamin B-12) [Vitamin B-12] 2,500 mcg PO DAILY 07/14/19 [History] atenoloL [Tenormin] 50 mg PO BID 07/14/19 [History] Rivaroxaban [Xarelto] 20 mg PO W/SUPPER tab 07/15/19 [Rx] Cholecalciferol [Vitamin D3 (125 Mcg = 5000 Iu)] 125 mcg PO DAILY 08/11/22 [History] Furosemide [Lasix] 20 mg PO DAILY 08/11/22 [History] Levothyroxine Sodium [Synthroid] 125 mcg PO DAILY 08/11/22 [History] Potassium Chloride ER [K-Dur 20] 20 meq PO DAILY 08/11/22 [History] allopurinoL 100 mg PO DAILY 08/11/22 [History] predniSONE 5 mg PO DAILY 08/11/22 [History] Cephalexin [Keflex] 500 mg PO Q8HR 5 Days #15 cap 08/16/22 [Rx] Colchicine [Colcrys] 0.6 mg PO DAILY 3 Days #3 each 08/16/22 [Rx] Triamcinolone 0.1% Cream [Kenalog 0.1% Cream] 1 applic TOPICAL BID 5 Days #1 each 08/16/22 [Rx] Follow up Appointment(s)/Referral(s): [facility], [NON-STAFF] - 1-2 Days Noé Salazar PAC [PHYSICIAN DIRECTOR DECISION SUPPORT] - As Needed Radha Kay MD [STAFF PHYSICIAN] - 09/03/22 3:00 pm Grey Loaiza DO [Primary Care Provider] - 08/21/22 1:15 pm Patient Instructions/Handouts: Diverticulitis (DC), Diverticulitis Diet (DC) Activity/Diet/Wound Care/Special Instructions: 1. Patient may perform regular activities of daily living to her tolerance with her right upper extremity Activity Limited until follow-up Follow-up with primary care provider on discharge Continue taking medications as prescribed Resume your home prednisone and Solu-Cortef Continue taking antibiotics until finished Follow-up with GI outpatient as discussed for possible colonoscopy Discharge Disposition: HOME WITH HOME HEALTH SERVICES
== END 2022-08-16 15:37 | disposition home health service (06) | DRG 602 ==
LOC: EC 08:52 → 4SSUR 11:32
PROVIDERS: ADMIT Hospitalist; ATTEND Hospitalist
DX: L03.113 Cellulitis of right upper limb (principal); G92.8 Other toxic encephalopathy; K57.32 Diverticulitis of large intestine without perforation or abscess without bleeding; I48.92 Unspecified atrial flutter; Z68.43 Body mass index [BMI] 50.0-59.9, adult; R44.3 Hallucinations, unspecified; E66.01 Morbid (severe) obesity due to excess calories; J45.909 Unspecified asthma, uncomplicated; I10 Essential (primary) hypertension; E03.9 Hypothyroidism, unspecified; I08.1 Rheumatic disorders of both mitral and tricuspid valves; K86.89 Other specified diseases of pancreas; E86.0 Dehydration; I48.91 Unspecified atrial fibrillation; K21.00 Gastro-esophageal reflux disease with esophagitis, without bleeding; M25.431 Effusion, right wrist; E78.5 Hyperlipidemia, unspecified; M79.7 Fibromyalgia; K52.9 Noninfective gastroenteritis and colitis, unspecified; G47.30 Sleep apnea, unspecified; M47.814 Spondylosis without myelopathy or radiculopathy, thoracic region; K44.9 Diaphragmatic hernia without obstruction or gangrene; E87.6 Hypokalemia; M10.9 Gout, unspecified; M79.89 Other specified soft tissue disorders; F41.9 Anxiety disorder, unspecified; T38.0X5A Adverse effect of glucocorticoids and synthetic analogues, initial encounter; Z20.822 Contact with and (suspected) exposure to COVID-19; Z79.899 Other long term (current) drug therapy; Z79.890 Hormone replacement therapy; Z79.52 Long term (current) use of systemic steroids; Z79.51 Long term (current) use of inhaled steroids; Z79.01 Long term (current) use of anticoagulants; Z88.2 Allergy status to sulfonamides; Z88.8 Allergy status to other drugs, medicaments and biological substances; Z88.6 Allergy status to analgesic agent; Z88.1 Allergy status to other antibiotic agents; Z91.041 Radiographic dye allergy status; Z91.040 Latex allergy status; Z88.5 Allergy status to narcotic agent; Z88.3 Allergy status to other anti-infective agents; Z91.048 Other nonmedicinal substance allergy status; Z91.018 Allergy to other foods; Z88.7 Allergy status to serum and vaccine; Z86.711 Personal history of pulmonary embolism; Z87.11 Personal history of peptic ulcer disease; Z98.84 Bariatric surgery status
CPT/HCPCS: 36415; 71045; 74176; 80053; 80074; 81001; 83036; 83605; 83630; 83690; 84145; 84550; 85025; 85652; 86140; 87040; 87045; 87046; 87086; 87324; 87635; 93306; 94760; 96365; 96375; 99285

== ENCOUNTER → 2023-05-01 | Outpatient (CLI) | payer MEDICARE ==
--- NOTE | 2023-05-01 19:03 | XR ---
EXAMINATION TYPE: XR abdomen 1V DATE OF EXAM: 05/01/2023 COMPARISON: CT abdomen pelvis 08/11/2022 HISTORY: R10.0 Acute abdomen K57.93 Dvtrcli of intest , constipation. TECHNIQUE: 2 views of the abdomen were obtained. FINDINGS: Small bowel demonstrates no evidence for dilatation or air fluid levels. Circular hyperdensity within the right lower quadrant likely representing soft tissue calcification. Gas and fecal material is seen in non-distended colon. No convincing evidence for pneumoperitoneum. There is an ovoid opacity within the left upper quadrant measuring 2.4 cm which may represent an elver sted pill versus renal calcification. Favor ingested pill due to lack of renal calculus on prior CT. Cholecystectomy clips right upper quadrant. The osseous structures are intact. Dextrocurvature of the thoracolumbar spine. 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 IMPRESSION: 1. Overall nonobstructive bowel gas pattern. 2. Ovoid opacity within the left upper quadrant. Favored to represent an ingested pill versus less li marycruz renal calcification due to lack of prior renal calculus on CT.
== END | disposition home or self-care (01) ==
LOC: RADXRMAIN 14:12
PROVIDERS: ATTEND Family Medicine
DX: K57.93 Diverticulitis of intestine, part unspecified, without perforation or abscess with bleeding (principal); R10.0 Acute abdomen
CPT/HCPCS: 74018

== ENCOUNTER → 2023-12-22 | Outpatient (CLI) | payer MEDICARE ==
[2023-12-22] MEDS: ZOLEDRONIC ACID 5 MG in SODIUM CHLORIDE 0.9% 100 ML IV NR (12:46)
[2023-12-22] MEDS: SODIUM CHLORIDE 0.9% 500 ML 500 ML in EMPTY BAG 1 BAG IV PRN (12:47)
[2023-12-22 12:54] VITALS: BP 175/87; PULSE 60; RESP 18; TEMP 97.5
== END ==
LOC: PROCWHC3 12:18
PROVIDERS: ATTEND Internal Medicine
DX: M81.0 Age-related osteoporosis without current pathological fracture (principal)
CPT/HCPCS: 96365; J3489

== ENCOUNTER → 2024-02-13 | Outpatient (CLI) | payer MEDICARE ==
--- NOTE | 2024-02-13 11:28 | USB ---
Reason for Exam: Clinical finding. Patient History: Menarche at age 13. First Full-Term at age 22. Left ovary removed at age 32. Hysterectomy at age 32. Postmenopausal. Estrogen for 5 years from age 48 until age 52. Maternal cousin had breast cancer, age 30. Risk Values: Kelsie 5 year model risk: 1.4%. NCI Lifetime model risk: 3.1%. Technique: Method: Targeted. Prior Study Comparison: 02/27/2005 Bilateral Screening Mammogram, [facility]. 02/09/2008 Bilateral Screening Mammogram, [facility]. 02/16/2008 Bilateral Diagnostic Mammogram, [facility]. Findings: The upper inner quadrant of the left breast, the axilla of the left breast and the retroareolar of the left breast were scanned. Targeted ultrasound left breast at the 11:00 palpable site, 6 cm from the nipple shows a heterogeneous area measuring 3.4 x 2.3 x 1.3 cm. This is predominantly echogenic with some internal cystic component measuring 2.1 cm. Some peripheral vascularity is noted. Given patient's history of blood thinner use and associated bruising, a hematoma is suspected. No other solid or cystic lesion. Additional scanning of the subareolar region and axilla shows no discrete abnormality. Overall Assessment: Probably benign, BI-RAD 3 Management: Diagnostic Mammogram of the left breast in 3 months. Diagnostic Breast Ultrasound of the left breast in 3 months. A clinical breast exam by your physician is recommended on an annual basis and results should be correlated with mammographic findings. This exam should not preclude additional follow-up of suspicious palpable abnormalities. Results were given to the patient verbally at the time of exam. Electronically signed and approved by: Valencia Ramachandran M.D. Radiologist
--- NOTE | 2024-02-13 13:03 | MM ---
Reason for Exam: Clinical finding. Last mammogram was performed 16 year(s) and 0 month(s) ago. Indicated Problems: Lump or thickening of the left side for 1 Week(s). Patient History: Menarche at age 13. First Full-Term at age 22. Left ovary removed at age 32. Hysterectomy at age 32. Postmenopausal. Estrogen for 5 years from age 48 until age 52. Maternal cousin had breast cancer, age 30. Risk Values: Kelsie 5 year model risk: 1.4%. NCI Lifetime model risk: 3.1%. Prior Study Comparison: 02/27/2005 Bilateral Screening Mammogram, [facility]. 02/09/2008 Bilateral Screening Mammogram, [facility]. 02/16/2008 Bilateral Diagnostic Mammogram, [facility]. 06/27/2009 Left Diagnostic Ultrasound, [facility]. Tissue Density: There are scattered areas of fibroglandular density. Findings: Analyzed By CAD. Benign bilateral oil cyst calcifications. Palpable marker anterior left breast with underlying poorly defined 2.3 cm high density nodularity anterior 11:00 position. The technologist notes associated bruising and the patient takes blood thinners. Hematoma is possible. Otherwise, no significant change. Overall Assessment: Incomplete: need additional imaging evaluation, BI-RAD 0 Management: Diagnostic Breast Ultrasound of the left breast. Electronically signed and approved by: Valencia Ramachandran M.D. Radiologist
== END | disposition home or self-care (01) ==
LOC: RADMAMWWP 09:45
PROVIDERS: ATTEND Family Medicine
DX: R92.323 Mammographic fibroglandular density, bilateral breasts (principal); Z78.0 Asymptomatic menopausal state; Z80.3 Family history of malignant neoplasm of breast
CPT/HCPCS: 77066; 76642; G0279; 77062

== ENCOUNTER 2024-06-26 15:09 | Observation (INO) | payer MEDICARE ==
--- NOTE | 2024-06-26 15:53 | ED ---
General Adult HPI - General Chief complaint: Extremity Injury, Lower Stated complaint: abd pain Time Seen by Provider: 06/26/24 15:12 Source: patient, EMS, RN notes reviewed Mode of arrival: EMS Limitations: no limitations - History of Present Illness Initial comments: This is a 73-year-old female who presents to the emergency department for pain in her legs and abdomen. States that starting 3 months ago she was developing pain in both of her legs that seemed to be spreading up into her groin and is now in her abdomen. She is concerned that her legs occasionally seem swollen and warm and are concerned about them getting infected. She does have problems with chronic pain is unsure if this pain may be related to her chronic issues or something new. States that she had trouble moving and getting off of the toilet today, and due to the increasing pain and problems with mobility, EMS was called to bring her here for further evaluation. Denies any fever/chills or nausea/vomiting. - Related Data Home Medications Medication Instructions Recorded Confirmed Cetirizine HCl [Zyrtec] 10 mg PO HS 08/09/15 06/26/24 Acetaminophen Tab [Tylenol] 325 - 650 mg PO Q4H PRN 12/01/17 06/26/24 Fludrocortisone [Florinef] 0.1 mg PO Q48H 12/01/17 06/26/24 Cyanocobalamin (Vitamin B-12) 2,500 mcg PO W/SUPPER 07/14/19 06/26/24 [Vitamin B-12] atenoloL [Tenormin] 50 mg PO BID 07/14/19 06/26/24 Cholecalciferol [Vitamin D3 (125 125 mcg PO DAILY 08/11/22 06/26/24 Mcg = 5000 Iu)] Furosemide [Lasix] 20 mg PO W/SUPPER 08/11/22 06/26/24 Potassium Chloride ER [K-Dur 20] 20 meq PO DAILY 08/11/22 06/26/24 allopurinoL 100 mg PO DAILY 08/11/22 06/26/24 predniSONE 5 mg PO DAILY 08/11/22 06/26/24 Albuterol Sulfate [Ventolin HFA] 1 puff INHALATION RT-Q6H PRN 06/26/24 06/26/24 Beclomethasone Dipropionate [Qvar 1 puff INHALATION RT-BID 06/26/24 06/26/24 40 mcg Redihaler] Calcium/Magnesium/Zinc/Vitamin3 1 tab PO W/SUPPER 06/26/24 06/26/24 Cyclobenzaprine [Flexeril] 10 mg PO HS PRN 06/26/24 06/26/24 Indomethacin [Indocin] 50 mg PO DAILY 06/26/24 06/26/24 Levothyroxine Sodium [Synthroid] 137 mcg PO AC-BRKFST 06/26/24 06/26/24 Melatonin 10 mg PO HS 06/26/24 06/26/24 Montelukast [Singulair] 10 mg PO W/SUPPER 06/26/24 06/26/24 predniSONE 2 mg PO DAILY PRN 06/26/24 06/26/24 Previous Rx's Medication Instructions Recorded Rivaroxaban [Xarelto] 20 mg PO W/SUPPER tab 07/15/19 Allergies Allergy/AdvReac Type Severity Reaction Status Date / Time Sulfa (Sulfonamide Allergy Severe Anaphylaxis Verified 06/26/24 17:54 Antibiotics) NANCY Inhibitors Allergy Anaphylaxis Verified 06/26/24 17:54 adhesive Allergy Rash/Hives Verified 06/26/24 17:54 albuterol Allergy Rash/Hives Verified 06/26/24 17:54 aspirin [From Soma Compound] Allergy Unknown Verified 06/26/24 17:54 baclofen Allergy Unknown Verified 06/26/24 17:54 carisoprodol Allergy Unknown Verified 06/26/24 17:54 [From Soma Compound] ciprofloxacin [From Cipro] Allergy Unknown Verified 06/26/24 17:54 gabapentin Allergy Unknown Verified 06/26/24 17:54 hylan G-F 20 [From Synvisc] Allergy edema Verified 06/26/24 17:54 redness burning after knee surgery Iodine and Iodide Containing Allergy Rash/Hives Verified 06/26/24 17:54 Produc Latex, Natural Rubber Allergy Rash/Hives Verified 06/26/24 17:54 levofloxacin [From Levaquin] Allergy Unknown Verified 06/26/24 17:54 lidocaine Allergy Rash/Hives Verified 06/26/24 17:54 lisinopril Allergy Unknown Verified 06/26/24 17:54 meperidine HCl [From Demerol] Allergy Rash/Hives Verified 06/26/24 17:54 morphine Allergy Rash/Hives Verified 06/26/24 17:54 nitrofurantoin Allergy Rash/Hives Verified 06/26/24 17:54 [From Macrobid] tetanus toxoid, adsorbed Allergy Unknown Verified 06/26/24 17:54 tizanidine Allergy Rash/Hives Verified 06/26/24 17:54 aspartame AdvReac Intermediate Diarrhea Verified 06/26/24 17:54 codeine AdvReac Nausea & Verified 06/26/24 17:54 Vomiting doxycycline AdvReac Nausea & Verified 06/26/24 17:54 Vomiting Penicillins AdvReac Nausea & Verified 06/26/24 17:54 Vomiting prednisone AdvReac Hallucinati Verified 06/26/24 17:54 ons mushroom Allergy Diarrhea Uncoded 06/26/24 17:54 narcotics Allergy Rash/Hives Uncoded 06/26/24 17:54 Review of Systems ROS Statement: Those systems with pertinent positive or pertinent negative responses have been documented in the HPI. ROS Other: All systems not noted in ROS Statement are negative. Past Medical History Past Medical History: Atrial Fibrillation, Atrial Flutter, Asthma, Fibromyalgia, GERD/Reflux, GI Bleed, Hyperlipidemia, Hypertension, Musculoskeletal Disorder, Neurologic Disorder, Osteoarthritis (OA), Pulmonary Embolus (PE), Sleep Apnea/CPAP/BIPAP, Thyroid Disorder, Vascular Disorder Additional Past Medical History / Comment(s): hx as follows: bronchitis, thora cic spondylosis, lupus, rls,migraines, blood clots, hiatal hernia, ibs, gerd, uti had sepsis 2004, kidney stone , stress incont, tmj.PERIPHERAL NEUROPATHY, endometriosis,adenomyosis, mixed connective tissue disorder, hypothyroidism, peptic ulcer disease, osteoarthritis, osteoporosis, GERD, sco liosis, esophagitis, PE, DVT, hypertension. History of Any Multi-Drug Resistant Organisms: MRSA Date of last positivie culture/infection: 02/03/2015 MDRO Source:: Nose Past Surgical History: Adenoidectomy, Bariatric Surgery, Cardiac Ablation, Cholecystectomy, Heart Catheterization, Hysterectomy, Joint Replacement, Orthopedic Surgery, Tonsillectomy, Tubal Ligation Additional Past Surgical History / Comment(s): cardiac ablation, L knee and R hip replacement. Lap band surgery. tummy tuck. CATARACTS,SINUS SX, SKIN , LAPROSCOPY, HEMORRHOIDECTOMY, CARPAL TUNNEL ADELAIDA,PAST STEROID INJ TO NECK, UVULECTOMY, LUMPS REMOVED ADELAIDA BREAST (CELLS PRECANCEROUS),BX RT TEMPORAL ARTERY-NEG), HAD NERVES IN BACK BURNED, BENIGN GROWTH REMOVED FROM BEHIND RT EAR, bilateral arthroscopic knee surgery, right total hiparthroplasty, bilateral arthroscopic hip surgery, bilateral ankle arthroscopic surgery, bilateral shoulder arthroscopic surgery.renal cell carcinoma. 4 lesions on pancreas Past Anesthesia/Blood Transfusion Reactions: Motion Sickness, Postoperative Nausea & Vomiting (PONV) Past Psychological History: No Psychological Hx Reported Smoking Status: Never smoker - Past Family History Father Family Medical History: Neurologic Disorder, Pneumonia Additional Family Medical History / Comment(s): ALS, FROM PNEUMONIA,lupus Mother Family Medical History: AFIB, Cancer, Chest Pain / Angina, Congestive Heart Failure (CHF), Diabetes Mellitus, Hyperlipidemia, Hypertension, Myocardial Infarction ([place]) Additional Family Medical History / Comment(s): OBESITY, COLON CA Brother(s) Family Medical History: Coronary Artery Disease (CAD) Sister(s) Family Medical History: Coronary Artery Disease (CAD), Deep Vein Thrombosis (DVT) Daughter(s) Family Medical History: No Reported History General Exam Limitations: no limitations General appearance: alert, in no apparent distress Head exam: Present: atraumatic, normocephalic, normal inspection Respiratory exam: Present: normal lung sounds bilaterally. Absent: respiratory distress, wheezes, rales, rhonchi, stridor Cardiovascular Exam: Present: regular rate, normal rhythm, normal heart sounds. Absent: systolic murmur, diastolic murmur, rubs, gallop, clicks GI/Abdominal exam: Present: soft, tenderness (diffuse), normal bowel sounds. Absent: distended Neurological exam: Present: alert, oriented X3, CN II-XII intact Psychiatric exam: Present: normal affect, normal mood Skin exam: Present: warm, dry, intact, normal color. Absent: rash Course Vital Signs 06/26/24 06/26/24 06/26/24 15:12 16:18 18:19 Temperature 98.2 F Pulse Rate 72 67 73 Respiratory 18 20 20 Rate Blood Pressure 156/76 161/59 167/65 O2 Sat by Pulse 98 98 99 Oximetry 06/26/24 19:42 Temperature Pulse Rate 71 Respiratory 18 Rate Blood Pressure 157/66 O2 Sat by Pulse 100 Oximetry Medical Decision Making - Medical Decision Making This is a 73 year old female who presents to the emergency department for abdominal pain and leg pain. Was pt. sent in by a medical professional or institution? @ -No Did you speak to anyone other than the patient for history? @ -No Did you review nursing and triage notes? @ -Yes, and I agree, it is accurate with regards to the patient's symptoms. Were old charts reviewed? @ -No Differential Diagnosis? @ -Differential Abdominal Pain Women: Appendicitis, Cholecystitis, diverticulosis, ischemic bowel, pancreatitis, hepatitis, UTI, gastroenteritis, AAA, incarcerated hernia, bowel obstruction, constipation, inflammatory bowel, hepatitis, peptic ulcer disease, splenic infarction, perforated viscus, vulvitis, ovarian torsion, PID, kidney stone, placenta abruption, this is not meant to be an all-inclusive list EKG interpreted by me (3pts min.)? @ -EKG interpreted by me demonstrating the following: Atrial fibrillation. Ventricular rate 60 bpm, QRS duration 88 ms, QTc 408 ms. X-rays interpreted by me (1pt min.)? @ -Not obtained CT interpreted by me (1pt min.)? @ -CT scan of the abdomen and pelvis obtained. My interpretation identifies possible fat stranding around the sigmoid colon. U/S interpreted by me (1pt. min.)? @ -Not obtained What testing was considered but not performed? (CT, X-rays, U/S, labs)? Why? @ -None What meds were considered but not given? Why? @ -None Did you discuss the management of the patient with other professionals? @ -Yes, Renan Fan with [facility], who accepts the patient for admission Did you reconcile home meds? @ -Yes Was smoking cessation discussed for >3mins.? @ -No Was critical care preformed (if so, how long)? @ -No Were there social determinants of health that impacted care today? How? (Homelessness, low income, unemployed, alcoholism, drug addiction, transportation, low edu. Level, literacy, decrease access to med. care, care home, rehab)? @ -No Was there de-escalation of care discussed even if they declined? (Discuss DNR or withdrawal of care, Hospice)? @ -No What co-morbidities impacted this encounter? (DM, HTN, Smoking, COPD, CAD, Cancer, CVA, Hep., AIDS, mental health diagnosis, sleep apnea, morbid obesity)? @ -Fibromyalgia, morbid obesity Was patient admitted / discharged? @ -Admitted. Lab work demonstrates mild leukocytosis and signs of dehydration. Urinalysis consistent with infection. CT scan of the abdomen and pelvis demonstrates scattered colonic diverticula with possible mild fatty changes in the pelvis. They advised the possibility of diverticulitis. Findings reviewed with the patient. She does not tolerate oral antibiotics well and frequently has adverse reactions. Given that she has 2 infections with the patient's level of weakness and poor mobility, as well as inability to tolerate oral antibiotics, she was admitted to medicine for further management. Urine sent for culture and blood culture obtained as well. She was started on 2 g of Rocephin daily along with Flagyl. Case discussed with ED attending, Dr. Lazo. Undiagnosed new problem with uncertain prognosis? @ -None Drug Therapy requiring intensive monitoring for toxicity (Heparin, Nitro, Insulin, Cardizem)? @ -None Were any procedures done? @ -None Diagnosis/symptom? @ -UTI, diverticulitis, weakness Acute, or Chronic, or Acute on Chronic? @ -Acute Uncomplicated (without systemic symptoms) or Complicated (systemic symptoms)? @ -Complicated Side effects of treatment? @ -None Exacerbation, Progression, or Severe Exacerbation] @ -Not applicable Poses a threat to life or bodily function? @ -Yes, can lead to septic shock - Lab Data Result diagrams: 06/26/24 16:09 06/26/24 16:09 Lab Results 06/26/24 06/26/24 06/26/24 Range/Units 16:09 16:09 16:09 WBC 13.2 H (3.8-10.6) k/uL RBC 4.29 (3.80-5.40) m/uL Hgb 12.4 (11.4-16.0) gm/dL Hct 39.8 (34.0-46.0) % MCV 92.7 (80.0-100.0) fL MCH 29.0 (25.0-35.0) pg MCHC 31.2 (31.0-37.0) g/dL RDW 14.8 (11.5-15.5) % Plt Count 235 (150-450) k/uL MPV 7.1 Neutrophils % 86 % Lymphocytes % 5 % Monocytes % 4 % Eosinophils % 1 % Basophils % 0 % Neutrophils # 11.4 H (1.3-7.7) k/uL Lymphocytes # 0.7 L (1.0-4.8) k/uL Monocytes # 0.6 (0-1.0) k/uL Eosinophils # 0.2 (0-0.7) k/uL Basophils # 0.1 (0-0.2) k/uL Hypochromasia Moderate Sodium 139 (137-145) mmol/L Potassium 4.1 (3.5-5.1) mmol/L Chloride 105 (98-107) mmol/L Carbon Dioxide 30 (22-30) mmol/L Anion Gap 4 mmol/L BUN 22 H (7-17) mg/dL Creatinine 1.10 H (0.52-1.04) mg/dL Est GFR (CKD-EPI)AfAm 57 (>60 ml/min/1.73 sqM) Est GFR (CKD-EPI)NonAf 49 (>60 ml/min/1.73 sqM) Glucose 148 H (74-99) mg/dL Plasma Lactic Acid Mickey 1.1 (0.7-2.0) mmol/L Calcium 8.9 (8.4-10.2) mg/dL Phosphorus 3.5 (2.5-4.5) mg/dL Magnesium 1.8 (1.6-2.3) mg/dL Total Bilirubin 1.1 (0.2-1.3) mg/dL AST 37 H (14-36) U/L ALT 15 (4-34) U/L Alkaline Phosphatase 106 (38-126) U/L Total Protein 6.4 (6.3-8.2) g/dL Albumin 3.5 (3.5-5.0) g/dL Amylase 31 (30-110) U/L Lipase 72 (23-300) U/L Urine Color Urine Appearance (Clear) Urine pH (5.0-8.0) Ur Specific Lyman (1.001-1.035) Urine Protein (Negative) Urine Glucose (UA) (Negative) Urine Ketones (Negative) Urine Blood (Negative) Urine Nitrite (Negative) Urine Bilirubin (Negative) Urine Urobilinogen (<2.0) mg/dL Ur Leukocyte Esterase (Negative) Urine RBC (0-5) /hpf Urine WBC (0-5) /hpf Ur Squamous Epith Cells (0-4) /hpf Urine Bacteria (None) /hpf Hyaline Casts (0-2) /lpf Urine Mucus (None) /hpf 06/26/24 Range/Units 17:04 WBC (3.8-10.6) k/uL RBC (3.80-5.40) m/uL Hgb (11.4-16.0) gm/dL Hct (34.0-46.0) % MCV (80.0-100.0) fL MCH (25.0-35.0) pg MCHC (31.0-37.0) g/dL RDW (11.5-15.5) % Plt Count (150-450) k/uL MPV Neutrophils % % Lymphocytes % % Monocytes % % Eosinophils % % Basophils % % Neutrophils # (1.3-7.7) k/uL Lymphocytes # (1.0-4.8) k/uL Monocytes # (0-1.0) k/uL Eosinophils # (0-0.7) k/uL Basophils # (0-0.2) k/uL Hypochromasia Sodium (137-145) mmol/L Potassium (3.5-5.1) mmol/L Chloride (98-107) mmol/L Carbon Dioxide (22-30) mmol/L Anion Gap mmol/L BUN (7-17) mg/dL Creatinine (0.52-1.04) mg/dL Est GFR (CKD-EPI)AfAm (>60 ml/min/1.73 sqM) Est GFR (CKD-EPI)NonAf (>60 ml/min/1.73 sqM) Glucose (74-99) mg/dL Plasma Lactic Acid Mickey (0.7-2.0) mmol/L Calcium (8.4-10.2) mg/dL Phosphorus (2.5-4.5) mg/dL Magnesium (1.6-2.3) mg/dL Total Bilirubin (0.2-1.3) mg/dL AST (14-36) U/L ALT (4-34) U/L Alkaline Phosphatase (38-126) U/L Total Protein (6.3-8.2) g/dL Albumin (3.5-5.0) g/dL Amylase (30-110) U/L Lipase (23-300) U/L Urine Color Yellow Urine Appearance Cloudy H (Clear) Urine pH 6.5 (5.0-8.0) Ur Specific Lyman 1.029 (1.001-1.035) Urine Protein Trace H (Negative) Urine Glucose (UA) Negative (Negative) Urine Ketones Negative (Negative) Urine Blood Trace H (Negative) Urine Nitrite Positive H (Negative) Urine Bilirubin Negative (Negative) Urine Urobilinogen 3.0 (<2.0) mg/dL Ur Leukocyte Esterase Large H (Negative) Urine RBC 5 (0-5) /hpf Urine WBC 131 H (0-5) /hpf Ur Squamous Epith Cells 3 (0-4) /hpf Urine Bacteria Many H (None) /hpf Hyaline Casts 7 H (0-2) /lpf Urine Mucus Occasional H (None) /hpf - Radiology Data Radiology results: report reviewed, image reviewed Disposition Clinical Impression: UTI (urinary tract infection), Diverticulitis, Weakness Disposition: ADMITTED IP TO THIS HOSP
[2024-06-26] MEDS: HYDROmorphone 0.5 MG/0.5 ML SYRINGE IVP STA (16:21)
[2024-06-26 16:22] LABS: Basophils # (A) 0.1 k/uL (0-0.2); Basophils % (A) 0 %; Eosinophils # (A) 0.2 k/uL (0-0.7); Eosinophils % (A) 1 %; HCT 39.8 % (34.0-46.0); HGB 12.4 gm/dL (11.4-16.0); Hypochromasia Moderate; Lymphocytes # (A) 0.7 k/uL (1.0-4.8); Lymphocytes % (A) 5 %; MCHC 31.2 g/dL (31.0-37.0); MCV 92.7 fL (80.0-100.0); Mean Platelet Volume 7.1; Monocytes # (A) 0.6 k/uL (0-1.0); Monocytes % (A) 4 %; Neutrophils # (A) 11.4 k/uL (1.3-7.7); Neutrophils % (A) 86 %; Platelet Count 235 k/uL (150-450); RBC 4.29 m/uL (3.80-5.40); RDW 14.8 % (11.5-15.5); WBC 13.2 k/uL (3.8-10.6)
[2024-06-26 16:34] LABS: ALT 15 U/L (4-34); African American GFR (CKD) 57 (>60 ml/min/1.73 sqM); Albumin 3.5 g/dL (3.5-5.0); Amylase 31 U/L (30-110); Anion Gap 4 mmol/L; Blood Urea Nitrogen 22 mg/dL (7-17); Calcium 8.9 mg/dL (8.4-10.2); Carbon Dioxide 30 mmol/L (22-30); Chloride 105 mmol/L (98-107); Glucose 148 mg/dL (74-99); Lipase 72 U/L (23-300); Non-African American GFR(CKD) 49 (>60 ml/min/1.73 sqM); Phosphorus 3.5 mg/dL (2.5-4.5); Sodium 139 mmol/L (137-145); Total Bilirubin 1.1 mg/dL (0.2-1.3); Total Protein 6.4 g/dL (6.3-8.2)
[2024-06-26 16:40] LABS: AST 37 U/L (14-36); Alkaline Phosphatase 106 U/L (38-126); Magnesium 1.8 mg/dL (1.6-2.3); Potassium 4.1 mmol/L (3.5-5.1)
[2024-06-26] MEDS: SODIUM CHLORIDE 0.9% 500 ML 500 ML IV STA (16:58)
[2024-06-26] MEDS: KETOROLAC 15 MG/ML 1 ML VIAL IVP STA (17:00)
[2024-06-26 17:20] LABS: Appearance,Urine Cloudy (Clear); Bacteria,Urine Many /hpf; Bilirubin,Urine Negative (Negative); Blood,Urine Trace (Negative); Color,Urine Yellow; Glucose,Urine (UA) Negative (Negative); Hyaline Casts,Urine 7 /lpf (0-2); Ketones,Urine Negative (Negative); Leukocyte Esterase,Urine Large (Negative); Mucus,Urine Occasional /hpf; Nitrite,Urine Positive (Negative); PH, Urine 6.5 (5.0-8.0); Protein,Urine Trace (Negative); RBC,Urine 5 /hpf (0-5); Specific Gravity,Urine 1.029 (1.001-1.035); Squamous Epithelial Cell,Urine 3 /hpf (0-4); WBC,Urine 131 /hpf (0-5)
--- NOTE | 2024-06-26 17:48 | CT ---
EXAMINATION TYPE: CT abdomen pelvis wo con CT DLP: 2313 mGycm, Automated exposure control for dose reduction was used. DATE OF EXAM: 06/26/2024 5:34 PM COMPARISON: 08/11/2022 CLINICAL INDICATION: Female, 73 years old with history of Abdominal pain, acute, nonlocalized; Left s [place] abdomen and groin pain x 3 months. TECHNIQUE: Axial CT abdomen pelvis wo con;Sagittal and coronal reformats were created on a separate workstation. Contrast used: mL of , (none if empty) Oral contrast used: without Oral Contrast (none if empty) FINDINGS: LOWER CHEST: Heart is mildly enlarged for size. Calcifications within the left posterior back and rig ht posterior back compatible with granulomatous change. ABDOMEN LIVER: Unremarkable GALLBLADDER AND BILE DUCTS: The gallbladder surgically absent. PANCREAS: Unremarkable. SPLEEN: Unremarkable. ADRENAL GLANDS: Unremarkable. KIDNEYS AND URETERS: Duplex left collecting system. Nonobstructing right renal calculus measuring 7 m m. No evidence of hydronephrosis or left renal calculus. The ureters are unremarkable. PELVIS Streak artifact from right hip arthroplasty limits evaluation.Streak artifact from right hip arthropl asty limits evaluation. BLADDER: Unremarkable REPRODUCTIVE: Unremarkable. ABDOMEN & PELVIS STOMACH AND BOWEL: No evidence of bowel obstruction. Scattered colonic diverticula. There is maybe mi ld Fat stranding changes around the sigmoid colon. Streak artifact from right hip arthroplasty limits evaluation. PERITONEUM/RETROPERITONEUM: No evidence of pneumoperitoneum or free fluid. VASCULATURE: Moderate atherosclerotic calcifications are present throughout the abdominal aorta and i ts branches. No evidence of aortic aneurysm. MUSCULOSKELETAL: No acute osseous abnormalities LYMPH NODES: No gross evidence for lymphadenopathy. SOFT TISSUE/ABDOMINAL WALL: Unremarkable IMPRESSION: 1. Scattered colonic diverticula possible mild fatty changes in the pelvis. Evaluation limited due t o streak artifact. Correlate for colitis/diverticulitis. 2. Nonobstructing right renal calculus. [facility], , 06/26/2024 5:45 PM
[2024-06-26] MEDS ORDERED: NALOXONE 0.4 MG/ML 1 ML VIAL IV PRN (18:02)
[2024-06-26] MEDS: SODIUM CHLORIDE 0.9% 1,000 ML IV SCH (18:23)
[2024-06-26] MEDS ORDERED: ACETAMINOPHEN TAB 325 MG TAB PO PRN (18:34)
[2024-06-26] MEDS ORDERED: predniSONE 1 MG TAB PO PRN (18:34)
[2024-06-26] MEDS ORDERED: MELATONIN 3 MG TABLET PO PRN (18:37)
[2024-06-26] MEDS: metroNIDAZOLE-NS PMX 500 MG in SALINE 1 100ML.BAG IVPB SCH (19:33)
[2024-06-26] MEDS: FLUDROCORTISONE 0.1 MG TAB PO SCH (19:33)
[2024-06-26] MEDS: FLUTICASONE 110 MCG INHALER INHALATION SCH (21:53)
[2024-06-26] MEDS: MELATONIN 5 MG TABLET PO SCH (23:02)
[2024-06-26] MEDS: LORATADINE 10 MG TAB PO SCH (23:02)
[2024-06-26] MEDS: atenoloL 50 MG TAB PO SCH (23:02)
[2024-06-26] MEDS: KETOROLAC 15 MG/ML 1 ML VIAL IVP PRN (23:11)
[2024-06-27] MEDS: INDOMETHACIN 25 MG CAP PO SCH (08:37)
[2024-06-27] MEDS: POTASSIUM CHLORIDE ER 20 MEQ TAB.ER PO SCH (08:37)
[2024-06-27] MEDS: CHOLECALCIFEROL 125 MCG (5000 IU) TABLET PO SCH (08:38)
[2024-06-27] MEDS: predniSONE 5 MG TAB PO SCH (08:38)
[2024-06-27] MEDS: LEVOTHYROXINE 137 MCG TAB PO SCH (08:39)
[2024-06-27] MEDS: allopurinoL 100 MG TAB PO SCH (08:39)
[2024-06-27] MEDS: PANTOPRAZOLE 40 MG/10 ML VIAL IV SCH (09:30)
[2024-06-27] MEDS: valACYclovir HCL 1,000 MG TABLET PO SCH (14:23)
--- NOTE | 2024-06-27 14:30 | P.HPIM ---
History of Present Illness H&P Date: 06/27/24 History of present illness: This is a 73-year-old female with past medical history significant for atrial fibrillation on Xarelto, history of diverticulitis, fibromyalgia, hypertension, history of bariatric surgery, history of PE, obstructive sleep apnea who presented to ED with a complaint of pain in her legs and abdomen. Patient stated that she has chronic pain in both legs, for the last few days she was having more pain, she also noticed a rash about 2 days ago on the posterior left thigh. Patient was also complaining of left lower quadrant abdominal pain and nausea. Patient was concerned about getting cellulitis. Patient denied any fever but ultimately to have chills. Patient stated that she was getting progressively more weak, was having trouble ambulating, EMS was called and alecia ent was brought to the ER for further evaluation. Patient was afebrile on presentation, heart rate 60,, respiratory rate 16, blood pressure 172/85, saturating 96% on 3 L . WBCs 13.2, hemoglobin 12.4, platelet 235. Sodium 139 potassium 4.1 BUN 22 creatinine 1.10. UA was positive for nitrite, leukocyte esterase, WBCs. CT abdomen showed diverticulosis, fat stranding in the pelvis, limited exam due to streak artifacts. REVIEW OF SYSTEMS: CONSTITUTIONAL: Complains of weakness. Chills. No fever. HEENT: No recent visual problems or hearing problems. Denied any sore throat. CARDIOVASCULAR: No chest pain, orthopnea, PND, no palpitations, no syncope. PULMONARY: No shortness of breath, no cough, no hemoptysis. GASTROINTESTINAL: No diarrhea, no nausea, no vomiting, complains of abdominal p ain. NEUROLOGICAL: No headaches, no weakness, no numbness. HEMATOLOGICAL: Denies any bleeding or petechiae. GENITOURINARY: Denies any burning micturition, frequency, or urgency. MUSCULOSKELETAL/RHEUMATOLOGICAL: Complains of joint aches, muscle aches, rash on left posterior thigh. ENDOCRINE: Denies any polyuria or polydipsia. The rest of the 14-point review of systems is negative. PHYSICAL EXAMINATION: GENERAL: The patient is A&O x3, NAD HEENT: EOMI, Sclerae anicteric, Moist Mucous membranes Neck: Supple, Non tender, No JVD PULMONARY: Equal breath souds B/L, No wheezing, No crackles. CARDIOVASCULAR: S1, S2 present. No murmurs, rubs, or gallops. ABDOMEN: Soft, nontender, nondistended, normoactive bowel sounds. No guarding or rebound tenderness. MUSCULOSKELETAL: No edema, No cyanosis. No clubbing. Normal ROM. Intact peripheral pulses. EXTREMITIES: Nonpitting edema, rash on left posterior thigh. NEUROLOGICAL: CN 2-12 grossly intact. No FND Assessment and plan: Acute diverticulitis: History of chronic diverticulitis: Presented with abdominal pain, CT abdomen showed diverticulosis, fat stranding in the pelvis concerning for acute diverticulitis, limited exam due to streak artifacts Started Rocephin and Flagyl Infectious disease consult UTI: UA positive Urine culture Rocephin Blood culture Shingles: Valtrex Paroxysmal atrial fibrillation: History of PE: Continue home meds Xarelto History of fibromyalgia Obstructive sleep apnea: Generalized weakness: Fall precautions PT/OT consult DVT prophylaxis Anticoagulated with Xarelto Monitor vital signs and labs Labs and medication were reviewed. Continue same treatment. Further recommendations as per clinical course of the patient Dictation was produced using [employer] dictation software. please excuse any gramma tical, word or spelling errors. Past Medical History Past Medical History: Atrial Fibrillation, Atrial Flutter, Asthma, Fibromyalgia, GERD/Reflux, GI Bleed, Hyperlipidemia, Hypertension, Musculoskeletal Disorder, Neurologic Disorder, Osteoarthritis (OA), Pulmonary Embolus (PE), Sleep Apnea/CPAP/BIPAP, Thyroid Disorder, Vascular Disorder Additional Past Medical History / Comment(s): hx as follows: bronchitis, thoracic spondylosis, lupus, rls,migraines, blood clots, hiatal hernia, ibs, gerd, uti had sepsis 2004, kidney stone , stress incont, tmj.PERIPHERAL NEUROPATHY, endometriosis,adenomyosis, mixed connective tissue disorder, hypothyroidism, peptic ulcer disease, osteoarthritis, osteoporosis, GERD, scoliosis, esophagitis, PE, DVT, hypertension, adrenal insufficiency History of Any Multi-Drug Resistant Organisms: MRSA Date of last positivie culture/infection: 02/03/2015 MDRO Source:: Nose Past Surgical History: Adenoidectomy, Bariatric Surgery, Cardiac Ablation, Cholecystectomy, Heart Catheterization, Hysterectomy, Joint Replacement, Orthopedic Surgery, Tonsillectomy, Tubal Ligation Additional Past Surgical History / Comment(s): cardiac ablation, L knee and R hip replacement. Lap band surgery. tummy tuck. CATARACTS,SINUS SX, SKIN , LAPROSCOPY, HEMORRHOIDECTOMY, CARPAL TUNNEL ADELAIDA,PAST STEROID INJ TO NECK, UVULECTOMY, LUMPS REMOVED ADELAIDA BREAST (CELLS PRECANCEROUS),BX RT TEMPORAL ARTERY- NEG), HAD NERVES IN BACK BURNED, BENIGN GROWTH REMOVED FROM BEHIND RT EAR, bilateral arthroscopic knee surgery, right total hiparthroplasty, bilateral arthroscopic hip surgery, bilateral ankle arthroscopic surgery, bilateral shoulder arthroscopic surgery.renal cell carcinoma. 4 lesions on pancreas Past Anesthesia/Blood Transfusion Reactions: Motion Sickness, Postoperative Nausea & Vomiting (PONV) Past Psychological History: No Psychological Hx Reported Smoking Status: Never smoker Past Alcohol Use History: None Reported Past Drug Use History: None Reported - Past Family History Father Family Medical History: Neurologic Disorder, Pneumonia Additional Family Medical History / Comment(s): ALS, FROM PNEUMONIA,lupus Mother Family Medical History: AFIB, Cancer, Chest Pain / Angina, Congestive Heart Failure (CHF), Diabetes Mellitus, Hyperlipidemia, Hypertension, Myocardial Infarction ([place]) Additional Family Medical History / Comment(s): OBESITY, COLON CA Brother(s) Family Medical History: Coronary Artery Disease (CAD) Sister(s) Family Medical History: Coronary Artery Disease (CAD), Deep Vein Thrombosis (DVT) Daughter(s) Family Medical History: No Reported History Medications and Allergies Home Medications Medication Instructions Recorded Confirmed Type Cetirizine HCl [Zyrtec] 10 mg PO HS 08/09/15 06/26/24 History Acetaminophen Tab [Tylenol] 325 - 650 mg PO Q4H PRN 12/01/17 06/26/24 History Fludrocortisone [Florinef] 0.1 mg PO Q48H 12/01/17 06/26/24 History Cyanocobalamin (Vitamin B-12) 2,500 mcg PO W/SUPPER 07/14/19 06/26/24 History [Vitamin B-12] atenoloL [Tenormin] 50 mg PO BID 07/14/19 06/26/24 History Rivaroxaban [Xarelto] 20 mg PO W/SUPPER tab 07/15/19 06/26/24 Rx Cholecalciferol [Vitamin D3 (125 125 mcg PO DAILY 08/11/22 06/26/24 History Mcg = 5000 Iu)] Furosemide [Lasix] 20 mg PO W/SUPPER 08/11/22 06/26/24 History Potassium Chloride ER [K-Dur 20] 20 meq PO DAILY 08/11/22 06/26/24 History allopurinoL 100 mg PO DAILY 08/11/22 06/26/24 History predniSONE 5 mg PO DAILY 08/11/22 06/26/24 History Albuterol Sulfate [Ventolin HFA] 1 puff INHALATION RT-Q6H PRN 06/26/24 06/26/24 History Beclomethasone Dipropionate [Qvar 1 puff INHALATION RT-BID 06/26/24 06/26/24 History 40 mcg Redihaler] Calcium/Magnesium/Zinc/Vitamin3 1 tab PO W/SUPPER 06/26/24 06/26/24 History Cyclobenzaprine [Flexeril] 10 mg PO HS PRN 06/26/24 06/26/24 History Indomethacin [Indocin] 50 mg PO DAILY 06/26/24 06/26/24 History Levothyroxine Sodium [Synthroid] 137 mcg PO AC-BRKFST 06/26/24 06/26/24 History Melatonin 10 mg PO HS 06/26/24 06/26/24 History Montelukast [Singulair] 10 mg PO W/SUPPER 06/26/24 06/26/24 History predniSONE 2 mg PO DAILY PRN 06/26/24 06/26/24 History Allergies Allergy/AdvReac Type Severity Reaction Status Date / Time Sulfa (Sulfonamide Allergy Severe Anaphylaxis Verified 06/26/24 17:54 Antibiotics) NANCY Inhibitors Allergy Anaphylaxis Verified 06/26/24 17:54 adhesive Allergy Rash/Hives Verified 06/26/24 17:54 albuterol Allergy Rash/Hives Verified 06/26/24 17:54 aspirin [From Soma Compound] Allergy Unknown Verified 06/26/24 17:54 baclofen Allergy Unknown Verified 06/26/24 17:54 carisoprodol Allergy Unknown Verified 06/26/24 17:54 [From Soma Compound] ciprofloxacin [From Cipro] Allergy Unknown Verified 06/26/24 17:54 gabapentin Allergy Unknown Verified 06/26/24 17:54 hylan G-F 20 [From Synvisc] Allergy edema Verified 06/26/24 17:54 redness burning after knee surgery Iodine and Iodide Containing Allergy Rash/Hives Verified 06/26/24 17:54 Produc Latex, Natural Rubber Allergy Rash/Hives Verified 06/26/24 17:54 levofloxacin [From Levaquin] Allergy Unknown Verified 06/26/24 17:54 lidocaine Allergy Rash/Hives Verified 06/26/24 17:54 lisinopril Allergy Unknown Verified 06/26/24 17:54 meperidine HCl [From Demerol] Allergy Rash/Hives Verified 06/26/24 17:54 morphine Allergy Rash/Hives Verified 06/26/24 17:54 nitrofurantoin Allergy Rash/Hives Verified 06/26/24 17:54 [From Macrobid] tetanus toxoid, adsorbed Allergy Unknown Verified 06/26/24 17:54 tizanidine Allergy Rash/Hives Verified 06/26/24 17:54 aspartame AdvReac Intermediate Diarrhea Verified 06/26/24 17:54 codeine AdvReac Nausea & Verified 06/26/24 17:54 Vomiting doxycycline AdvReac Nausea & Verified 06/26/24 17:54 Vomiting Penicillins AdvReac Nausea & Verified 06/26/24 17:54 Vomiting prednisone AdvReac Hallucinati Verified 06/26/24 17:54 ons mushroom Allergy Diarrhea Uncoded 06/26/24 17:54 narcotics Allergy Rash/Hives Uncoded 06/26/24 17:54 Physical Exam Vitals: Vital Signs Temp Pulse Pulse Resp BP BP Pulse Ox 06/27/24 12:31 97.5 F L 64 16 172/85 96 06/27/24 07:09 97.5 F L 58 L 16 152/70 98 06/27/24 01:52 98.4 F 67 16 168/84 96 06/26/24 20:00 98.2 F 81 16 134/69 99 06/26/24 19:42 71 18 157/66 100 06/26/24 18:19 73 20 167/65 99 06/26/24 16:18 67 20 161/59 98 06/26/24 15:12 98.2 F 72 18 156/76 98 Intake and Output 06/26/24 06/27/24 06/27/24 22:59 06:59 14:59 Other: Voiding Method Toilet Toilet # Voids 3 1 # Bowel Movements 1 Weight 158.757 kg Results CBC & Chem 7: 06/26/24 16:09 06/26/24 16:09 Labs: Abnormal Lab Results - Last 24 Hours (Table) 06/26/24 06/26/24 06/26/24 Range/Units 16:09 16:09 17:04 WBC 13.2 H (3.8-10.6) k/uL Neutrophils # 11.4 H (1.3-7.7) k/uL Lymphocytes # 0.7 L (1.0-4.8) k/uL BUN 22 H (7-17) mg/dL Creatinine 1.10 H (0.52-1.04) mg/dL Glucose 148 H (74-99) mg/dL AST 37 H (14-36) U/L Urine Appearance Cloudy H (Clear) Urine Protein Trace H (Negative) Urine Blood Trace H (Negative) Urine Nitrite Positive H (Negative) Ur Leukocyte Esterase Large H (Negative) Urine WBC 131 H (0-5) /hpf Urine Bacteria Many H (None) /hpf Hyaline Casts 7 H (0-2) /lpf Urine Mucus Occasional H (None) /hpf Thrombosis Risk Factor Assmnt - Choose All That Apply Any of the Below Risk Factors Present?: Yes Each Factor Represents 1 point: Obesity (BMI >25) Other Risk Factors: Yes Each Risk Factor Represents 3 Points: Age 75 years or older, History of DVT/PE Thrombosis Risk Factor Assessment Total Risk Factor Score: 7 Thrombosis Risk Factor Assessment Level: High Risk
[2024-06-27] MEDS: CYANOCOBALAMIN 500 MCG TAB PO SCH (17:16)
[2024-06-27] MEDS: MONTELUKAST 10 MG TAB PO SCH (17:16)
[2024-06-27] MEDS: RIVAROXABAN 20 MG TAB PO SCH (17:16)
[2024-06-27] MEDS ORDERED: FUROSEMIDE 20 MG TAB PO SCH (17:30)
[2024-06-27] MEDS: CYCLOBENZAPRINE 10 MG TAB PO PRN (22:15)
[2024-06-27] MEDS: ACETAMINOPHEN TAB 325 MG TAB PO PRN (22:16)
--- NOTE | 2024-06-27 23:04 | P.CONS ---
History of Present Illness - Reason for Consult Consult date: 06/27/24 Acute diverticulitis, UTI, shingle Requesting physician: David Reynoso - Chief Complaint Lower abdominal pain not feeling well X days - History of Present Illness Patient is a 73-year-old female with multiple comorbidities including hypertension hyperlipidemia fibromyalgia atrial fibrillation PE patient has been brought into the hospital for multiple symptoms including pain to bilateral lower extremity and difficulty walking into it, patient was also complaining of lower abdominal discomfort describing it to be more of a dull aching moderate intensity without radiation did have some constipation nausea but no vomiting and some suprapubic discomfort but no burning or frequency of urine with the symptoms the patient has been evaluated on presentation to the hospital patient was afebrile and no fever have been recorded subsequently patient was not tach ycardic hypotensive or hypoxic she did have a white count of 13.2 with a left shift BUN/creatinine was evaluated patient did have a positive UA patient also have a CT abdominal pelvis scheduled colonic diverticula and concerning for possible diverticulitis patient was started on Rocephin and Flagyl infectious was consulted for further management of antibiotic therapy patient also noticed to have rash to the left lateral thigh that she has noticed about 3 days ago but has not progressed did have some dull aching pain to right but no drainage Review of Systems Positive point and negatives has been mentioned in the HPI, complete review of systems was performed and all other systems are negative Past Medical History Past Medical History: Atrial Fibrillation, Atrial Flutter, Asthma, Fibromyalgia, GERD/Reflux, GI Bleed, Hyperlipidemia, Hypertension, Musculoskeletal Disorder, Neurologic Disorder, Osteoarthritis (OA), Pulmonary Embolus (PE), Sleep Apnea/CPAP/BIPAP, Thyroid Disorder, Vascular Disorder Additional Past Medical History / Comment(s): hx as follows: bronchitis, thoracic spondylosis, lupus, rls,migraines, blood clots, hiatal hernia, ibs, gerd, uti had sepsis 2004, kidney stone , stress incont, tmj.PERIPHERAL NEUROPATHY, endometriosis,adenomyosis, mixed connective tissue disorder, hypothyroidism, peptic ulcer disease, osteoarthritis, osteoporosis, GERD, scoliosis, esophagitis, PE, DVT, hypertension, adrenal insufficiency History of Any Multi-Drug Resistant Organisms: MRSA Year Discovered:: 02/03/2015 MDRO Source:: Nose Past Surgical History: Adenoidectomy, Bariatric Surgery, Cardiac Ablation, Cholecystectomy, Heart Catheterization, Hysterectomy, Joint Replacement, Orthope dic Surgery, Tonsillectomy, Tubal Ligation Additional Past Surgical History / Comment(s): cardiac ablation, L knee and R hip replacement. Lap band surgery. tummy tuck. CATARACTS,SINUS SX, SKIN , LAPROSCOPY, HEMORRHOIDECTOMY, CARPAL TUNNEL ADELAIDA,PAST STEROID INJ TO NECK, UVULEC DEEPAK, LUMPS REMOVED ADELAIDA BREAST (CELLS PRECANCEROUS),BX RT TEMPORAL ARTERY-NEG), HAD NERVES IN BACK BURNED, BENIGN GROWTH REMOVED FROM BEHIND RT EAR, bilateral arthroscopic knee surgery, right total hiparthroplasty, bilateral arthroscopic hip surgery, bilateral ankle arthroscopic surgery, bilateral shoulder arthroscopic surgery.renal cell carcinoma. 4 lesions on pancreas Past Anesthesia/Blood Transfusion Reactions: Motion Sickness, Postoperative Nausea & Vomiting (PONV) Past Psychological History: No Psychological Hx Reported Smoking Status: Never smoker Past Alcohol Use History: None Reported Past Drug Use History: None Reported - Past Family History Father Family Medical History: Neurologic Disorder, Pneumonia Additional Family Medical History / Comment(s): ALS, FROM PNEUMONIA,lupus Mother Family Medical History: AFIB, Cancer, Chest Pain / Angina, Congestive Heart Failure (CHF), Diabetes Mellitus, Hyperlipidemia, Hypertension, Myocardial Infar ction ([place]) Additional Family Medical History / Comment(s): OBESITY, COLON CA Brother(s) Family Medical History: Coronary Artery Disease (CAD) Sister(s) Family Medical History: Coronary Artery Disease (CAD), Deep Vein Thrombosis (DVT) Daughter(s) Family Medical History: No Reported History Medications and Allergies Home Medications Medication Instructions Recorded Confirmed Type Cetirizine HCl [Zyrtec] 10 mg PO HS 08/09/15 06/26/24 History Acetaminophen Tab [Tylenol] 325 - 650 mg PO Q4H PRN 12/01/17 06/26/24 History Fludrocortisone [Florinef] 0.1 mg PO Q48H 12/01/17 06/26/24 History Cyanocobalamin (Vitamin B-12) 2,500 mcg PO W/SUPPER 07/14/19 06/26/24 History [Vitamin B-12] atenoloL [Tenormin] 50 mg PO BID 07/14/19 06/26/24 History Rivaroxaban [Xarelto] 20 mg PO W/SUPPER tab 07/15/19 06/26/24 Rx Cholecalciferol [Vitamin D3 (125 125 mcg PO DAILY 08/11/22 06/26/24 History Mcg = 5000 Iu)] Furosemide [Lasix] 20 mg PO W/SUPPER 08/11/22 06/26/24 History Potassium Chloride ER [K-Dur 20] 20 meq PO DAILY 08/11/22 06/26/24 History allopurinoL 100 mg PO DAILY 08/11/22 06/26/24 History predniSONE 5 mg PO DAILY 08/11/22 06/26/24 History Albuterol Sulfate [Ventolin HFA] 1 puff INHALATION RT-Q6H PRN 06/26/24 06/26/24 History Beclomethasone Dipropionate [Qvar 1 puff INHALATION RT-BID 06/26/24 06/26/24 History 40 mcg Redihaler] Calcium/Magnesium/Zinc/Vitamin3 1 tab PO W/SUPPER 06/26/24 06/26/24 History Cyclobenzaprine [Flexeril] 10 mg PO HS PRN 06/26/24 06/26/24 History Indomethacin [Indocin] 50 mg PO DAILY 06/26/24 06/26/24 History Levothyroxine Sodium [Synthroid] 137 mcg PO AC-BRKFST 06/26/24 06/26/24 History Melatonin 10 mg PO HS 06/26/24 06/26/24 History Montelukast [Singulair] 10 mg PO W/SUPPER 06/26/24 06/26/24 History predniSONE 2 mg PO DAILY PRN 06/26/24 06/26/24 History Allergies Allergy/AdvReac Type Severity Reaction Status Date / Time Sulfa (Sulfonamide Allergy Severe Anaphylaxis Verified 06/26/24 17:54 Antibiotics) NANCY Inhibitors Allergy Anaphylaxis Verified 06/26/24 17:54 adhesive Allergy Rash/Hives Verified 06/26/24 17:54 albuterol Allergy Rash/Hives Verified 06/26/24 17:54 aspirin [From Soma Compound] Allergy Unknown Verified 06/26/24 17:54 baclofen Allergy Unknown Verified 06/26/24 17:54 carisoprodol Allergy Unknown Verified 06/26/24 17:54 [From Soma Compound] ciprofloxacin [From Cipro] Allergy Unknown Verified 06/26/24 17:54 gabapentin Allergy Unknown Verified 06/26/24 17:54 hylan G-F 20 [From Synvisc] Allergy edema Verified 06/26/24 17:54 redness burning after knee surgery Iodine and Iodide Containing Allergy Rash/Hives Verified 06/26/24 17:54 Produc Latex, Natural Rubber Allergy Rash/Hives Verified 06/26/24 17:54 levofloxacin [From Levaquin] Allergy Unknown Verified 06/26/24 17:54 lidocaine Allergy Rash/Hives Verified 06/26/24 17:54 lisinopril Allergy Unknown Verified 06/26/24 17:54 meperidine HCl [From Demerol] Allergy Rash/Hives Verified 06/26/24 17:54 morphine Allergy Rash/Hives Verified 06/26/24 17:54 nitrofurantoin Allergy Rash/Hives Verified 06/26/24 17:54 [From Macrobid] tetanus toxoid, adsorbed Allergy Unknown Verified 06/26/24 17:54 tizanidine Allergy Rash/Hives Verified 06/26/24 17:54 aspartame AdvReac Intermediate Diarrhea Verified 06/26/24 17:54 codeine AdvReac Nausea & Verified 06/26/24 17:54 Vomiting doxycycline AdvReac Nausea & Verified 06/26/24 17:54 Vomiting Penicillins AdvReac Nausea & Verified 06/26/24 17:54 Vomiting prednisone AdvReac Hallucinati Verified 06/26/24 17:54 ons mushroom Allergy Diarrhea Uncoded 06/26/24 17:54 narcotics Allergy Rash/Hives Uncoded 06/26/24 17:54 Physical Exam Vitals: Vital Signs Temp Pulse Pulse Resp BP BP Pulse Ox 06/27/24 12:31 97.5 F L 64 16 172/85 96 06/27/24 07:09 97.5 F L 58 L 16 152/70 98 06/27/24 01:52 98.4 F 67 16 168/84 96 06/26/24 20:00 98.2 F 81 16 134/69 99 06/26/24 19:42 71 18 157/66 100 06/26/24 18:19 73 20 167/65 99 06/26/24 16:18 67 20 161/59 98 06/26/24 15:12 98.2 F 72 18 156/76 98 Intake and Output 06/26/24 06/27/24 06/27/24 22:59 06:59 14:59 Other: Voiding Method Toilet Toilet # Voids 3 1 # Bowel Movements 1 Weight 158.757 kg GENERAL DESCRIPTION: Elderly female lying in bed, no distress. No tachypnea or accessory muscle of respiration use. HEENT: Shows Pallor , no scleral icterus. Oral mucous membrane is dry. No pharyngeal erythema or thrush NECK: Trachea central, no thyromegaly. LUNGS: Unlabored breathing. Clear to auscultation anteriorly. No wheeze or crackle. HEART: S1, S2, regular rate and rhythm. No loud murmur ABDOMEN: Soft, no tenderness , guarding or rigidity, no organomegaly EXTREMITIES: No edema of feet. SKIN: No rash, no masses palpable. NEUROLOGICAL: The patient is awake, alert, oriented x3, mood and affect normal. Results CBC & Chem 7: 06/26/24 16:09 06/26/24 16:09 Labs: Abnormal Lab Results - Last 24 Hours (Table) 06/26/24 06/26/24 06/26/24 Range/Units 16:09 16:09 17:04 WBC 13.2 H (3.8-10.6) k/uL Neutrophils # 11.4 H (1.3-7.7) k/uL Lymphocytes # 0.7 L (1.0-4.8) k/uL BUN 22 H (7-17) mg/dL Creatinine 1.10 H (0.52-1.04) mg/dL Glucose 148 H (74-99) mg/dL AST 37 H (14-36) U/L Urine Appearance Cloudy H (Clear) Urine Protein Trace H (Negative) Urine Blood Trace H (Negative) Urine Nitrite Positive H (Negative) Ur Leukocyte Esterase Large H (Negative) Urine WBC 131 H (0-5) /hpf Urine Bacteria Many H (None) /hpf Hyaline Casts 7 H (0-2) /lpf Urine Mucus Occasional H (None) /hpf Assessment and Plan (1) Allergy to multiple antibiotics Current Visit: Yes Status: Acute Code(s): Z88.1 - ALLERGY STATUS TO OTHER ANTIBIOTIC AGENTS SNOMED Code(s): 596988062 (2) Diverticulitis Current Visit: Yes Status: Acute Code(s): K57.92 - DVTRCLI OF INTEST, PART UNSP, W/O PERF OR ABSCESS W/O BLEED SNOMED Code(s): 393198960 (3) UTI (urinary tract infection) Current Visit: Yes Status: Acute Code(s): N39.0 - URINARY TRACT INFECTION, SITE NOT SPECIFIED SNOMED Code(s): 21691849 (4) Leukocytosis Current Visit: No Status: Acute Code(s): D72.829 - ELEVATED WHITE BLOOD CELL COUNT, UNSPECIFIED SNOMED Code(s): 286806123 Plan: 1patient presented hospital with multiple symptoms however the patient also complaining of lower abdominal discomfort, constipation some suprapubic tenderness concerning for symptomatic UTI and a possible component of diverticulitis 2-patient did have a rash to the left lateral thigh that has been there for 3 to 4 days and has not progressed into dermatome clinically doubt shingles 3-patient with multiple antibiotic ALLERGIES that would limit the number of antibiotic safe to use 4-patient to continue with Rocephin and Flagyl provide adequate antibiotic coverage for the UTI as well as diverticulitis We will follow on clinical condition and cultures to further adjust medication if needed Thank you for this consultation we will follow the patient along with you Dictation was produced using [facility] dictation software. please excuse any grammatical, word or spelling errors. Time with Patient: Greater than 30
[2024-06-28] MEDS: ALBUTEROL HFA INHALER INHALATION PRN (07:55)
[2024-06-28 08:37] LABS: HCT 38.3 % (37.2-46.3); HGB 11.6 g/dL (12.0-15.0); MCH 28.9 pg (27.0-32.0); MCHC 30.3 g/dL (32.0-37.0); MCV 95.3 FL (80.0-97.0); Mean Platelet Volume 9.8 FL (9.5-12.2); NRBC Per 100 WBC 0 X 10*3/uL (0.00-0.01); Platelet Count 206 X 10*3/uL (140-440); RBC 4.02 X 10*6/uL (4.10-5.20); RDW 14.6 % (11.5-14.5); WBC 10.63 X 10*3/uL (4.50-10.00)
[2024-06-28 08:38] LABS: Basophils # (A) 0.05 X 10*3/uL (0.00-0.10); Basophils % (A) 0.5 %; Eosinophils # (A) 0.31 X 10*3/uL (0.04-0.35); Eosinophils % (A) 2.9 %; Lymphocytes # (A) 0.51 X 10*3/uL (0.90-5.00); Lymphocytes % (A) 4.8 %; Monocytes # (A) 0.82 X 10*3/uL (0.20-1.00); Monocytes % (A) 7.7 %; Neutrophils # (A) 8.88 X 10*3/uL (1.80-7.70); Neutrophils % (A) 83.5 %
[2024-06-28 09:05] LABS: ALT 10 U/L (8-44); AST 18 U/L (13-35); Albumin 3.5 g/dL (3.8-4.9); Albumin/Globulin Ratio 1.46 Ratio (1.60-3.17); Alkaline Phosphatase 106 U/L (41-126); Blood Urea Nitrogen 14.1 mg/dL (9.0-27.0); Calcium 8.1 mg/dL (8.7-10.3); Carbon Dioxide 24.3 mmol/L (21.6-31.8); Chloride 104 mmol/L (96-109); Globulin 2.4 g/dL (1.6-3.3); Glucose 130 mg/dL (70-110); Potassium 3.7 mmol/L (3.5-5.5); Sodium 139 mmol/L (135-145); Total Bilirubin 0.5 mg/dL (0.3-1.2); Total Protein 5.9 g/dL (6.2-8.2)
[2024-06-28] MEDS ORDERED: CYCLOBENZAPRINE 10 MG TAB PO PRN (10:10)
[2024-06-28] MEDS: HYDROcodone/APAP 5-325MG 1 EACH TAB PO PRN (10:29)
[2024-06-28] MEDS: ONDANSETRON 4 MG/2 ML VIAL IVP PRN (11:25)
--- NOTE | 2024-06-28 14:53 | P.PN ---
Subjective Progress Note Date: 06/28/24 Interval History: This is a 73-year-old female with past medical history significant for atrial fibrillation on Xarelto, history of diverticulitis, fibromyalgia, hypertension, history of bariatric surgery, history of PE, obstructive sleep apnea who presented to ED with a complaint of pain in her legs and abdomen. Patient stated that she has chronic pain in both legs, for the last few days she was having more pain, she also noticed a rash about 2 days ago on the posterior left thigh. Patient was also complaining of left lower quadrant abdominal pain and nausea. Patient was concerned about getting cellulitis. Patient denied any fever but ultimately to have chills. Patient stated that she was getting progressively more weak, was having trouble ambulating, EMS was called and patient was brought to the ER for further evaluation. Patient was afebrile on presentation, heart rate 60,, respiratory rate 16, blood pressure 172/85, saturating 96% on 3 L . WBCs 13.2, hemoglobin 12.4, platelet 235. Sodium 139 potassium 4.1 BUN 22 creatinine 1.10. UA was positive for nitrite, leukocyte esterase, WBCs. CT abdomen showed diverticulosis, fat stranding in the pelvis, limited exam due to streak artifacts. 4patient was seen and examined today. Complains of bilateral lower extremity pain, also complains of left lower quadrant abdominal pain. Patient reported that she uses oxygen at home nightly. Patient esther on Rocephin and Flagyl. Valtrex discontinued as low suspicion of shingles per infectious disease. Blood culture positive for staph epi likely contaminant. Urine culture growing gram-negative bacilli. Remained afebrile, vital stable. WBCs trended down to 10.6, hemoglobin 11.6, platelet 206. BMP unremarkable. Assessment and plan: Acute diverticulitis: History of chronic diverticulitis: Presented with abdominal pain, CT abdomen showed diverticulosis, fat stranding in the pelvis concerning for acute diverticulitis, limited exam due to streak artifacts Started Rocephin and Flagyl Infectious disease consult UTI: UA positive Urine culture--gram-negative bacilli Rocephin Blood culture--staph epi likely contaminant Shingles: Ruled out Discontinued Valtrex Paroxysmal atrial fibrillation: History of PE: Continue home meds Xarelto History of fibromyalgia Obstructive sleep apnea: Generalized weakness: Fall precautions PT/OT consult DVT prophylaxis Anticoagulated with Xarelto Monitor vital signs and labs Labs and medication were reviewed. Continue same treatment. Further recommendations as per clinical course of the patient REVIEW OF SYSTEMS: CONSTITUTIONAL: Complains of weakness. Chills. No fever. HEENT: No recent visual problems or hearing problems. Denied any sore throat. CARDIOVASCULAR: No chest pain, orthopnea, PND, no palpitations, no syncope. PULMONARY: No shortness of breath, no cough, no hemoptysis. GASTROINTESTINAL: No diarrhea, no nausea, no vomiting, complains of abdominal pain. NEUROLOGICAL: No headaches, no weakness, no numbness. HEMATOLOGICAL: Denies any bleeding or petechiae. GENITOURINARY: Denies any burning micturition, frequency, or urgency. MUSCULOSKELETAL/RHEUMATOLOGICAL: Complains of joint aches, muscle aches, rash on left posterior thigh. ENDOCRINE: Denies any polyuria or polydipsia. The rest of the 14-point review of systems is negative. PHYSICAL EXAMINATION: GENERAL: The patient is A&O x3, NAD HEENT: EOMI, Sclerae anicteric, Moist Mucous membranes Neck: Supple, Non tender, No JVD PULMONARY: Equal breath souds B/L, No wheezing, No crackles. CARDIOVASCULAR: S1, S2 present. No murmurs, rubs, or gallops. ABDOMEN: Soft, nontender, nondistended, normoactive bowel sounds. No guarding or rebound tenderness. MUSCULOSKELETAL: No edema, No cyanosis. No clubbing. Normal ROM. Intact peripheral pulses. EXTREMITIES: Nonpitting edema, rash on left posterior thigh. NEUROLOGICAL: CN 2-12 grossly intact. No FND Dictation was produced using [employer] dictation software. please excuse any grammatical, word or spelling errors. Objective - Vital Signs Vital signs: Vital Signs Temp 97.5 F L 06/28/24 13:35 Pulse 77 06/28/24 13:35 Resp 20 06/28/24 13:35 BP 186/85 06/28/24 13:35 Pulse Ox 97 06/28/24 13:35 FiO2 Intake & Output 06/27/24 06/28/24 06/28/24 18:59 06:59 18:59 Intake Total 925 Balance 925 Intake: Intake, IV Titration 925 Amount Sodium Chloride 0.9% 1, 675 000 ml @ 75 mls/hr IV . [id number] [facility] Rx#:[id number] cefTRIAXone 2 gm In 50 Sodium Chloride 0.9% 50 ml @ 100 mls/hr IVPB DAILY [facility] Rx#:[id number] metroNIDAZOLE-NS PMX 500 200 mg In Saline 1 100ml.bag @ 100 mls/hr IVPB Q8H [facility] Rx#:[id number] Other: Voiding Method Toilet Toilet Toilet # Voids 1 3 # Bowel Movements 1 - Labs CBC & Chem 7: 06/28/24 04:07 06/28/24 04:07 Labs: Abnormal Lab Results - Last 24 Hours (Table) 06/28/24 06/28/24 Range/Units 04:07 04:07 WBC 10.63 H (4.50-10.00) X 10*3/uL RBC 4.02 L (4.10-5.20) X 10*6/uL Hgb 11.6 L (12.0-15.0) g/dL MCHC 30.3 L (32.0-37.0) g/dL RDW 14.6 H (11.5-14.5) % Immature Gran # 0.06 H (0.00-0.04) X 10*3/uL Neutrophils # 8.88 H (1.80-7.70) X 10*3/uL Lymphocytes # 0.51 L (0.90-5.00) X 10*3/uL Est GFR (CKD-EPI) 59 L (>=60) Glucose 130 H (70-110) mg/dL Calcium 8.1 L (8.7-10.3) mg/dL Total Protein 5.9 L (6.2-8.2) g/dL Albumin 3.5 L (3.8-4.9) g/dL Albumin/Globulin Ratio 1.46 L (1.60-3.17) Ratio Microbiology - Last 24 Hours (Table) 06/26/24 17:04 Urine Culture - Preliminary Urine,Clean Catch Gram Neg Bacilli 06/26/24 18:20 Blood Culture Gram Stain - Preliminary Blood Blood Culture - Preliminary Molecular ID
[2024-06-28] MEDS: NIFEdipine XL 30 MG TAB.ER.24 PO SCH (16:15)
[2024-06-29 07:13] LABS: Basophils % (A) 0 %; Eosinophils # (A) 0.4 k/uL (0-0.7); Eosinophils % (A) 3 %; HCT 35.9 % (34.0-46.0); HGB 11.2 gm/dL (11.4-16.0); Hypochromasia Slight; Lymphocytes # (A) 0.7 k/uL (1.0-4.8); Lymphocytes % (A) 6 %; MCH 29.2 pg (25.0-35.0); MCHC 31.1 g/dL (31.0-37.0); MCV 93.7 fL (80.0-100.0); Mean Platelet Volume 7.8; Monocytes # (A) 0.7 k/uL (0-1.0); Monocytes % (A) 7 %; Neutrophils # (A) 8.8 k/uL (1.3-7.7); Neutrophils % (A) 81 %; Platelet Count 191 k/uL (150-450); RBC 3.83 m/uL (3.80-5.40); RDW 15.3 % (11.5-15.5); WBC 10.9 k/uL (3.8-10.6)
[2024-06-29] MEDS: hydrALAZINE HCL 20 MG/ML 1 ML VIAL IVP PRN (07:55)
[2024-06-29 09:06] LABS: Calcium 7.9 mg/dL (8.7-10.3); Carbon Dioxide 23.1 mmol/L (21.6-31.8); Chloride 105 mmol/L (96-109); Glucose 144 mg/dL (70-110); Potassium 3.9 mmol/L (3.5-5.5); Sodium 139 mmol/L (135-145)
[2024-06-29] MEDS: NIFEdipine XL 30 MG TAB.ER.24 PO ONE (10:48)
--- NOTE | 2024-06-29 14:15 | P.PN ---
Subjective Progress Note Date: 06/29/24 Interval History: This is a 73-year-old female with past medical history significant for atrial fibrillation on Xarelto, history of diverticulitis, fibromyalgia, hypertension, history of bariatric surgery, history of PE, obstructive sleep apnea who presented to ED with a complaint of pain in her legs and abdomen. Patient stated that she has chronic pain in both legs, for the last few days she was having more pain, she also noticed a rash about 2 days ago on the posterior left thigh. Patient was also complaining of left lower quadrant abdominal pain and nausea. Patient was concerned about getting cellulitis. Patient denied any fever but ultimately to have chills. Patient stated that she was getting progressively more weak, was having trouble ambulating, EMS was called and patient was brought to the ER for further evaluation. Patient was afebrile on presentation, heart rate 60,, respiratory rate 16, blood pressure 172/85, saturating 96% on 3 L . WBCs 13.2, hemoglobin 12.4, platelet 235. Sodium 139 potassium 4.1 BUN 22 creatinine 1.10. UA was positive for nitrite, leukocyte esterase, WBCs. CT abdomen showed diverticulosis, fat stranding in the pelvis, limited exam due to streak artifacts. 06/28/2024atient was seen and examined today. Complains of bilateral lower extremity pain, also complains of left lower quadrant abdominal pain. Patient reported that she uses oxygen at home nightly. Patient esther on Rocephin and Flagyl. Valtrex discontinued as low suspicion of shingles per infectious disease. Blood culture positive for staph epi likely contaminant. Urine culture growing gram-negative bacilli. Remained afebrile, vital stable. WBCs trended down to 10.6, hemoglobin 11.6, platelet 206. BMP unremarkable. 06/29/2024--- patient was seen and examined today. Patient reported worsening left quadrant abdominal pain overnight, now improving. Patient is currently on Rocephin and Flagyl. Infectious disease following. Urine culture growing E. coli, pansensitive. Patient is afebrile, heart rate 84, respiratory rate 20, blood pressure 154/82, saturating 96% on 2 L. WBCs 10.9, hemoglobin 11.2, platelets 191. BMP unremarkable. Blood pressure was still elevated, Procardia increased to 60 mg twice daily. Assessment and plan: Acute diverticulitis: History of chronic diverticulitis: Presented with abdominal pain, CT abdomen showed diverticulosis, fat stranding in the pelvis concerning for acute diverticulitis, limited exam due to streak artifacts Started Rocephin and Flagyl Infectious disease consult UTI: UA positive Urine culture--gram-negative bacilli Rocephin Blood culture--staph epi likely contaminant Shingles: Ruled out Discontinued Valtrex Paroxysmal atrial fibrillation: History of PE: Continue home meds Atenolol Xarelto Hypertension: Blood pressure elevated Started Procardia, increase dose. As needed hydralazine History of fibromyalgia Obstructive sleep apnea: Generalized weakness: Fall precautions PT/OT consult DVT prophylaxis Anticoagulated with Xarelto Monitor vital signs and labs Labs and medication were reviewed. Continue same treatment. Further recommendations as per clinical course of the patient REVIEW OF SYSTEMS: CONSTITUTIONAL: Complains of weakness. Chills. No fever. HEENT: No recent visual problems or hearing problems. Denied any sore throat. CARDIOVASCULAR: No chest pain, orthopnea, PND, no palpitations, no syncope. PULMONARY: No shortness of breath, no cough, no hemoptysis. GASTROINTESTINAL: No diarrhea, no nausea, no vomiting, complains of abdominal pain. NEUROLOGICAL: No headaches, no weakness, no numbness. HEMATOLOGICAL: Denies any bleeding or petechiae. GENITOURINARY: Denies any burning micturition, frequency, or urgency. MUSCULOSKELETAL/RHEUMATOLOGICAL: Complains of joint aches, muscle aches, rash on left posterior thigh. ENDOCRINE: Denies any polyuria or polydipsia. The rest of the 14-point review of systems is negative. PHYSICAL EXAMINATION: GENERAL: The patient is A&O x3, NAD HEENT: EOMI, Sclerae anicteric, Moist Mucous membranes Neck: Supple, Non tender, No JVD PULMONARY: Equal breath souds B/L, No wheezing, No crackles. CARDIOVASCULAR: S1, S2 present. No murmurs, rubs, or gallops. ABDOMEN: Soft, LLQ tender, nondistended, normoactive bowel sounds. No guarding or rebound tenderness. MUSCULOSKELETAL: No edema, No cyanosis. No clubbing. Normal ROM. Intact peripheral pulses. EXTREMITIES: Nonpitting edema, rash on left posterior thigh. NEUROLOGICAL: CN 2-12 grossly intact. No FND Dictation was produced using [employer] dictation software. please excuse any grammatical, word or spelling errors. Objective - Vital Signs Vital signs: Vital Signs Temp 97.6 F 06/29/24 13:17 Pulse 84 06/29/24 13:17 Resp 20 06/29/24 13:17 BP 154/82 06/29/24 13:17 Pulse Ox 96 06/29/24 13:17 FiO2 Intake & Output 06/28/24 06/29/24 06/29/24 18:59 06:59 18:59 Intake Total 1080 Balance 1080 Intake: Oral 1080 Other: Voiding Method Toilet Toilet Toilet # Voids 2 1 # Bowel Movements 1 - Labs CBC & Chem 7: 06/29/24 05:21 06/29/24 05:21 Labs: Abnormal Lab Results - Last 24 Hours (Table) 06/29/24 06/29/24 Range/Units 05:21 05:21 WBC 10.9 H (3.8-10.6) k/uL Hgb 11.2 L (11.4-16.0) gm/dL Neutrophils # 8.8 H (1.3-7.7) k/uL Lymphocytes # 0.7 L (1.0-4.8) k/uL BUN/Creatinine Ratio 10.00 L (12.00-20.00) Ratio Glucose 144 H (70-110) mg/dL Calcium 7.9 L (8.7-10.3) mg/dL Microbiology - Last 24 Hours (Table) 06/26/24 18:20 Blood Culture Gram Stain - Final Blood Blood Culture - Final Coagulase Negative Staph Coagulase Negative Staph#2 Molecular ID 06/26/24 17:04 Urine Culture - Final Urine,Clean Catch Escherichia coli
[2024-06-30 09:04] LABS: Basophils # (A) 0.07 X 10*3/uL (0.00-0.10); Basophils % (A) 0.5 %; Eosinophils # (A) 0.47 X 10*3/uL (0.04-0.35); Eosinophils % (A) 3.3 %; HCT 36.3 % (37.2-46.3); HGB 11.1 g/dL (12.0-15.0); Lymphocytes % (A) 5.6 %; MCH 29.3 pg (27.0-32.0); MCHC 30.6 g/dL (32.0-37.0); MCV 95.8 FL (80.0-97.0); Mean Platelet Volume 9.8 FL (9.5-12.2); Monocytes # (A) 1.16 X 10*3/uL (0.20-1.00); Monocytes % (A) 8.2 %; NRBC Per 100 WBC 0 X 10*3/uL (0.00-0.01); Neutrophils # (A) 11.65 X 10*3/uL (1.80-7.70); Neutrophils % (A) 81.8 %; Platelet Count 212 X 10*3/uL (140-440); RBC 3.79 X 10*6/uL (4.10-5.20); RDW 14.9 % (11.5-14.5); WBC 14.23 X 10*3/uL (4.50-10.00)
[2024-06-30 09:21] LABS: BUN/Creat Ratio 7.75 Ratio (12.00-20.00); Blood Urea Nitrogen 6.2 mg/dL (9.0-27.0); Calcium 8.5 mg/dL (8.7-10.3); Carbon Dioxide 24.8 mmol/L (21.6-31.8); Chloride 103 mmol/L (96-109); Glucose 147 mg/dL (70-110); Potassium 3.9 mmol/L (3.5-5.5); Sodium 138 mmol/L (135-145)
--- NOTE | 2024-06-30 09:32 | P.PN ---
Subjective Progress Note Date: 06/28/24 Principal diagnosis: Reason for follow-up is UTI diverticulitis positive blood culture Patient is a 73-year-old female with multiple comorbidities including hypertension hyperlipidemia fibromyalgia atrial fibrillation PE patient has been brought into the hospital for multiple symptoms including pain to bilateral lower extremity, lower abdominal pain along with suprapubic discomfort but the urine did have a positive UA CT was suspicious for diverticulitis. On today's evaluation that is 06/28/2024, Patient is afebrile this morning patient denies having any chest pain shortness of breath, did have occasional cough currently on 2 L nasal cannula oxygen lower abdominal discomfort slightly decreased no nausea vomiting or diarrhea. Patient white count is down to 10.63, creatinine is 1.0 cultures are pending Objective - Vital Signs Vital signs: Vital Signs Temp 97.4 F L 06/28/24 07:31 Pulse 77 06/28/24 07:31 Resp 19 06/28/24 07:31 BP 177/61 06/28/24 07:31 Pulse Ox 94 L 06/28/24 08:00 FiO2 Intake & Output 06/27/24 06/28/24 06/28/24 18:59 06:59 18:59 Intake Total 925 Balance 925 Intake: Intake, IV Titration 925 Amount Sodium Chloride 0.9% 1, 675 000 ml @ 75 mls/hr IV . [id number] [facility] Rx#:[id number] cefTRIAXone 2 gm In 50 Sodium Chloride 0.9% 50 ml @ 100 mls/hr IVPB DAILY [facility] Rx#:[id number] metroNIDAZOLE-NS PMX 500 200 mg In Saline 1 100ml.bag @ 100 mls/hr IVPB Q8H [facility] Rx#:[id number] Other: Voiding Method Toilet Toilet Toilet # Voids 1 3 # Bowel Movements 1 - Exam GENERAL DESCRIPTION: An elderly female lying in bed in no distress RESPIRATORY SYSTEM: Unlabored breathing , decreased breath sounds at bases HEART: S1 S2 regular rate and rhythm , ABDOMEN: Soft , no tenderness EXTREMITIES: No edema feet - Labs CBC & Chem 7: 06/30/24 06:06 06/30/24 06:06 Labs: Abnormal Lab Results - Last 24 Hours (Table) 06/28/24 06/28/24 Range/Units 04:07 04:07 WBC 10.63 H (4.50-10.00) X 10*3/uL RBC 4.02 L (4.10-5.20) X 10*6/uL Hgb 11.6 L (12.0-15.0) g/dL MCHC 30.3 L (32.0-37.0) g/dL RDW 14.6 H (11.5-14.5) % Immature Gran # 0.06 H (0.00-0.04) X 10*3/uL Neutrophils # 8.88 H (1.80-7.70) X 10*3/uL Lymphocytes # 0.51 L (0.90-5.00) X 10*3/uL Est GFR (CKD-EPI) 59 L (>=60) Glucose 130 H (70-110) mg/dL Calcium 8.1 L (8.7-10.3) mg/dL Total Protein 5.9 L (6.2-8.2) g/dL Albumin 3.5 L (3.8-4.9) g/dL Albumin/Globulin Ratio 1.46 L (1.60-3.17) Ratio Microbiology - Last 24 Hours (Table) 06/26/24 17:04 Urine Culture - Preliminary Urine,Clean Catch Gram Neg Bacilli 06/26/24 18:20 Blood Culture Gram Stain - Preliminary Blood Blood Culture - Preliminary Molecular ID Assessment and Plan (1) Allergy to multiple antibiotics Current Visit: Yes Status: Acute Code(s): Z88.1 - ALLERGY STATUS TO OTHER ANTIBIOTIC AGENTS SNOMED Code(s): 057769220 (2) Diverticulitis Current Visit: Yes Status: Acute Code(s): K57.92 - DVTRCLI OF INTEST, PART UNSP, W/O PERF OR ABSCESS W/O BLEED SNOMED Code(s): 483948221 (3) UTI (urinary tract infection) Current Visit: Yes Status: Acute Code(s): N39.0 - URINARY TRACT INFECTION, SITE NOT SPECIFIED SNOMED Code(s): 29626843 (4) Leukocytosis Current Visit: No Status: Acute Code(s): D72.829 - ELEVATED WHITE BLOOD CELL COUNT, UNSPECIFIED SNOMED Code(s): 729277008 (5) Positive blood culture Current Visit: Yes Status: Acute Code(s): R78.81 - BACTEREMIA SNOMED Code(s): 371688692 Plan: 1patient presented hospital with multiple symptoms however the patient also complaining of lower abdominal discomfort, constipation some suprapubic tenderness concerning for symptomatic UTI and a possible component of di verticulitis 2-patient did have a rash to the left lateral thigh that has been there for 3 to 4 days and has not progressed into dermatome clinically doubt shingles 3-patient with multiple antibiotic ALLERGIES that would limit the number of antibiotic safe to use 4-patient to continue with Rocephin and Flagyl while waiting for the culture to finalize. 5positive blood culture with coagulase-negative staph likely skin contamination no need for vancomycin Dictation was produced using [employer] dictation software. please excuse any grammatical, word or spelling errors. Time with Patient: Less than 30
--- NOTE | 2024-06-30 09:33 | P.PN ---
Subjective Progress Note Date: 06/29/24 Principal diagnosis: Reason for follow-up is UTI diverticulitis positive blood culture Patient is a 73-year-old female with multiple comorbidities including hypertension hyperlipidemia fibromyalgia atrial fibrillation PE patient has been brought into the hospital for multiple symptoms including pain to bilateral lower extremity, lower abdominal pain along with suprapubic discomfort but the urine did have a positive UA CT was suspicious for diverticulitis. On today's evaluation that is 06/29/2024,the patient denies any fever or any chills, patient is breathing comfortably on 2 L current oxygen, the patient denies chest pain shortness of breath and no significant cough, patient lower abdominal pain has decreased in intensity no diarrhea. Patient white count is 10.9, creatinine 0.9 urine is growing E. coli blood culture with coagulase-negative staph Objective - Vital Signs Vital signs: Vital Signs Temp 97.6 F 06/29/24 13:17 Pulse 84 06/29/24 13:17 Resp 20 06/29/24 13:17 BP 154/82 06/29/24 13:17 Pulse Ox 96 06/29/24 13:17 FiO2 Intake & Output 06/28/24 06/29/24 06/29/24 18:59 06:59 18:59 Intake Total 1080 Balance 1080 Intake: Oral 1080 Other: Voiding Method Toilet Toilet Toilet # Voids 2 1 # Bowel Movements 1 - Exam GENERAL DESCRIPTION: An elderly female lying in bed in no distress RESPIRATORY SYSTEM: Unlabored breathing , decreased breath sounds at bases HEART: S1 S2 regular rate and rhythm , ABDOMEN: Soft , no tenderness EXTREMITIES: No edema feet - Labs CBC & Chem 7: 06/30/24 06:06 06/30/24 06:06 Labs: Abnormal Lab Results - Last 24 Hours (Table) 06/29/24 06/29/24 Range/Units 05:21 05:21 WBC 10.9 H (3.8-10.6) k/uL Hgb 11.2 L (11.4-16.0) gm/dL Neutrophils # 8.8 H (1.3-7.7) k/uL Lymphocytes # 0.7 L (1.0-4.8) k/uL BUN/Creatinine Ratio 10.00 L (12.00-20.00) Ratio Glucose 144 H (70-110) mg/dL Calcium 7.9 L (8.7-10.3) mg/dL Microbiology - Last 24 Hours (Table) 06/26/24 18:20 Blood Culture Gram Stain - Final Blood Blood Culture - Final Coagulase Negative Staph Coagulase Negative Staph#2 Molecular ID 06/26/24 17:04 Urine Culture - Final Urine,Clean Catch Escherichia coli Assessment and Plan (1) Allergy to multiple antibiotics Current Visit: Yes Status: Acute Code(s): Z88.1 - ALLERGY STATUS TO OTHER ANTIBIOTIC AGENTS SNOMED Code(s): 113185484 (2) Diverticulitis Current Visit: Yes Status: Acute Code(s): K57.92 - DVTRCLI OF INTEST, PART UNSP, W/O PERF OR ABSCESS W/O BLEED SNOMED Code(s): 718540194 (3) UTI (urinary tract infection) Current Visit: Yes Status: Acute Code(s): N39.0 - URINARY TRACT INFECTION, SITE NOT SPECIFIED SNOMED Code(s): 34884131 (4) Leukocytosis Current Visit: No Status: Acute Code(s): D72.829 - ELEVATED WHITE BLOOD CELL COUNT, UNSPECIFIED SNOMED Code(s): 566772080 Plan: 1patient presented hospital with multiple symptoms however the patient also complaining of lower abdominal discomfort, constipation some suprapubic tenderness concerning for symptomatic UTI and a possible component of diverticulitis 2-patient did have a rash to the left lateral thigh that has been there for 3 to 4 days and has not progressed into dermatome clinically doubt shingles 3-patient with multiple antibiotic ALLERGIES that would limit the number of antibiotic safe to use 4-positive blood culture with coagulase-negative staph likely skin contamination no need for vancomycin 5-patient urine has been finalized with E. coli that is a sensitive pathogen for the patient is covered with Rocephin and Flagyl to continue Dictation was produced using [employer] dictation software. please excuse any grammatical, word or spelling errors. Time with Patient: Less than 30
--- NOTE | 2024-06-30 19:34 | P.PN ---
Subjective This is a 73-year-old female with past medical history significant for atrial fibrillation on Xarelto, history of diverticulitis, fibromyalgia, hypertension, history of bariatric surgery, history of PE, obstructive sleep apnea who presented to ED with a complaint of pain in her legs and abdomen. Patient stated that she has chronic pain in both legs, for the last few days she was having more pain, she also noticed a rash about 2 days ago on the posterior left thigh. Patient was also complaining of left lower quadrant abdominal pain and nausea. Patient was concerned about getting cellulitis. Patient denied any fever but ultimately to have chills. Patient stated that she was getting progressively more weak, was having trouble ambulating, EMS was called and patient was brought to the ER for further evaluation. Patient was afebrile on presentation, heart rate 60,, respiratory rate 16, blood pressure 172/85, saturating 96% on 3 L . WBCs 13.2, hemoglobin 12.4, platelet 235. Sodium 139 potassium 4.1 BUN 22 creatinine 1.10. UA was positive for nitrite, leukocyte esterase, WBCs. CT abdomen showed diverticulosis, fat stranding in the pelvis, limited exam due to streak artifacts. 06/28/2024atient was seen and examined today. Complains of bilateral lower extremity pain, also complains of left lower quadrant abdominal pain. Patient reported that she uses oxygen at home nightly. Patient esther on Rocephin and Flagyl. Valtrex discontinued as low suspicion of shingles per infectious disease. Blood culture positive for staph epi likely contaminant. Urine culture growing gram-negative bacilli. Remained afebrile, vital stable. WBCs trended down to 10.6, hemoglobin 11.6, platelet 206. BMP unremarkable. 06/29/2024--- patient was seen and examined today. Patient reported worsening left quadrant abdominal pain overnight, now improving. Patient is currently on Rocephin and Flagyl. Infectious disease following. Urine culture growing E. coli, pansensitive. Patient is afebrile, heart rate 84, respiratory rate 20, bl ood pressure 154/82, saturating 96% on 2 L. WBCs 10.9, hemoglobin 11.2, platelets 191. BMP unremarkable. Blood pressure was still elevated, Procardia increased to 60 mg twice daily. 06/30 Patient feels nausea but no vomiting Patient with low appetite and she is encouraged to eat He complains from abdominal pain 7-810 in severity about improved currently down to 3/10 She had 1 loose bowel movement yesterday compared to 3-4 bouts 3 days ago. She denies urinary symptoms. No other complaint Patient esther on ceftriaxone and Flagyl. Urine culture is growing sensitive E. coli. Blood cultures positive with coagulase-negative staph most likely contamination Objective - Vital Signs Vital signs: Vital Signs Temp 97.6 F 06/30/24 14:09 Pulse 78 06/30/24 14:09 Resp 16 06/30/24 14:09 BP 125/75 06/30/24 14:09 Pulse Ox 97 06/30/24 14:09 FiO2 Intake & Output 06/29/24 06/30/24 06/30/24 18:59 06:59 18:59 Intake Total 780 Balance 780 Intake: Oral 780 Other: Voiding Method Toilet # Voids 1 1 2 # Bowel Movements 1 - Exam GENERAL: The patient is alert and oriented x3, not in any acute distress. Well developed, well nourished. HEENT: Pupils are round and equally reacting to light. EOMI. No scleral icterus. No conjunctival pallor. Normocephalic, atraumatic. No pharyngeal erythema. No thyromegaly. CARDIOVASCULAR: S1 and S2 present. No murmurs, rubs, or gallops. PULMONARY: Chest is clear to auscultation, no wheezing , no crackles. ABDOMEN: Soft, nontender, nondistended, normoactive bowel sounds. No palpable organomegaly. MUSCULOSKELETAL: No joint swelling or deformity. EXTREMITIES: No cyanosis, clubbing, or pedal edema. NEUROLOGICAL: Gross neurological examination did not reveal any focal deficits. SKIN: No rashes. no petechiae. - Labs CBC & Chem 7: 06/30/24 06:06 06/30/24 06:06 Labs: Abnormal Lab Results - Last 24 Hours (Table) 06/30/24 06/30/24 Range/Units 06:06 06:06 WBC 14.23 H (4.50-10.00) X 10*3/uL RBC 3.79 L (4.10-5.20) X 10*6/uL Hgb 11.1 L (12.0-15.0) g/dL Hct 36.3 L (37.2-46.3) % MCHC 30.6 L (32.0-37.0) g/dL RDW 14.9 H (11.5-14.5) % Immature Gran # 0.08 H (0.00-0.04) X 10*3/uL Neutrophils # 11.65 H (1.80-7.70) X 10*3/uL Lymphocytes # 0.80 L (0.90-5.00) X 10*3/uL Monocytes # 1.16 H (0.20-1.00) X 10*3/uL Eosinophils # 0.47 H (0.04-0.35) X 10*3/uL BUN 6.2 L (9.0-27.0) mg/dL BUN/Creatinine Ratio 7.75 L (12.00-20.00) Ratio Glucose 147 H (70-110) mg/dL Calcium 8.5 L (8.7-10.3) mg/dL Assessment and Plan Assessment: Acute diverticulitis Acute urinary tract infection Positive blood culture with coagulase-negative staph most likely contamination Hypertension History of fibromyalgia Paroxysmal atrial fibrillation on Xarelto History of PE on anticoagulation Obstructive sleep apnea: Plan: Continue with antibiotic as per ID team, currently on ceftriaxone and Flagyl Urine culture growing sensitive E. coli Continue with Xarelto Encourage oral intake Start Reglan scheduled dose Increase Protonix to twice daily If no improvement we will consider surgery team consult there is no GI service coverage in this facility this week Labs and medication were reviewed.. Continue same treatment. Continue with symptomatic treatment. Resume home medication. Monitor labs and vitals. DVT and GI prophylaxis. Further recommendations as per clinical course of the patient DVT prophylaxis: Marquis on Xarelto GI Prophylaxis: Protonix PT/OT: Pending Prognosis is guarded
[2024-06-30] MEDS: PANTOPRAZOLE 40 MG/10 ML VIAL IV SCH (21:56)
[2024-07-01] MEDS: METOCLOPRAMIDE 5 MG TAB PO SCH (08:37)
--- NOTE | 2024-07-01 11:57 | P.PN ---
Subjective This is a 73-year-old female with past medical history significant for atrial fibrillation on Xarelto, history of diverticulitis, fibromyalgia, hypertension, history of bariatric surgery, history of PE, obstructive sleep apnea who presented to ED with a complaint of pain in her legs and abdomen. Patient stated that she has chronic pain in both legs, for the last few days she was having more pain, she also noticed a rash about 2 days ago on the posterior left thigh. Patient was also complaining of left lower quadrant abdominal pain and nausea. Patient was concerned about getting cellulitis. Patient denied any fever but ultimately to have chills. Patient stated that she was getting progressively more weak, was having trouble ambulating, EMS was called and patient was brought to the ER for further evaluation. Patient was afebrile on presentation, heart rate 60,, respiratory rate 16, blood pressure 172/85, saturating 96% on 3 L . WBCs 13.2, hemoglobin 12.4, platelet 235. Sodium 139 potassium 4.1 BUN 22 creatinine 1.10. UA was positive for nitrite, leukocyte esterase, WBCs. CT abdomen showed diverticulosis, fat stranding in the pelvis, limited exam due to streak artifacts. 06/28/2024atient was seen and examined today. Complains of bilateral lower extremity pain, also complains of left lower quadrant abdominal pain. Patient reported that she uses oxygen at home nightly. Patient esther on Rocephin and Flagyl. Valtrex discontinued as low suspicion of shingles per infectious disease. Blood culture positive for staph epi likely contaminant. Urine culture growing gram-negative bacilli. Remained afebrile, vital stable. WBCs trended down to 10.6, hemoglobin 11.6, platelet 206. BMP unremarkable. 06/29/2024--- patient was seen and examined today. Patient reported worsening left quadrant abdominal pain overnight, now improving. Patient is currently on Rocephin and Flagyl. Infectious disease following. Urine culture growing E. coli, pansensitive. Patient is afebrile, heart rate 84, respiratory rate 20, bl ood pressure 154/82, saturating 96% on 2 L. WBCs 10.9, hemoglobin 11.2, platelets 191. BMP unremarkable. Blood pressure was still elevated, Procardia increased to 60 mg twice daily. 06/30 Patient feels nausea but no vomiting Patient with low appetite and she is encouraged to eat He complains from abdominal pain 7-8/10 in severity about improved currently down to 3/10 She had 1 loose bowel movement yesterday compared to 3-4 bouts 3 days ago. She denies urinary symptoms. No other complaint Patient esther on ceftriaxone and Flagyl. Urine culture is growing sensitive E. coli. Blood cultures positive with coagulase-negative staph most likely contamination 07/01/24 Patient has no nausea or vomiting today. Her abdominal pain is improving slowly and gradually. Abdominal pain currently is down to 0/10, no pain Bowel movement still loose, she had 2 loose bowel movements yesterday No urinary symptoms She is complaining from some exertional dyspnea and she has history of asthma. She is already on fluticasone We will check chest x-ray Objective - Vital Signs Vital signs: Vital Signs Temp 97.9 F 07/01/24 07:01 Pulse 80 07/01/24 07:01 Resp 18 07/01/24 07:01 BP 144/79 07/01/24 07:01 Pulse Ox 95 07/01/24 08:14 FiO2 Intake & Output 06/30/24 07/01/24 07/01/24 18:59 06:59 18:59 Other: # Voids 2 3 - Exam GENERAL: The patient is alert and oriented x3, not in any acute distress. Well developed, well nourished. HEENT: Pupils are round and equally reacting to light. EOMI. No scleral icterus. No conjunctival pallor. Normocephalic, atraumatic. No pharyngeal erythema. No thyromegaly. CARDIOVASCULAR: S1 and S2 present. No murmurs, rubs, or gallops. PULMONARY: Chest is clear to auscultation, no wheezing , no crackles. ABDOMEN: Soft, nontender, nondistended, normoactive bowel sounds. No palpable organomegaly. MUSCULOSKELETAL: No joint swelling or deformity. EXTREMITIES: No cyanosis, clubbing, or pedal edema. NEUROLOGICAL: Gross neurological examination did not reveal any focal deficits. SKIN: No rashes. no petechiae. - Labs CBC & Chem 7: 06/30/24 06:06 06/30/24 06:06 Assessment and Plan Assessment: Acute diverticulitis Acute urinary tract infection Positive blood culture with coagulase-negative staph most likely contamination Hypertension History of fibromyalgia Paroxysmal atrial fibrillation on Xarelto History of PE on anticoagulation Obstructive sleep apnea: Plan: Continue with antibiotic as per ID team, currently on ceftriaxone and Flagyl Urine culture growing sensitive E. coli Continue with Xarelto Encourage oral intake Start Reglan scheduled dose Increase Protonix to twice daily If no improvement we will consider surgery team consult there is no GI service coverage in this facility this week Labs and medication were reviewed.. Continue same treatment. Continue with symptomatic treatment. Resume home medication. Monitor labs and vitals. DVT and GI prophylaxis. Further recommendations as per clinical course of the patient DVT prophylaxis: Marquis on Xarelto GI Prophylaxis: Protonix PT/OT: Pending Prognosis is guarded
--- NOTE | 2024-07-01 14:49 | P.PN ---
Subjective Progress Note Date: 06/30/24 Principal diagnosis: Reason for follow-up is UTI diverticulitis positive blood culture Patient is a 73-year-old female with multiple comorbidities including hypertension hyperlipidemia fibromyalgia atrial fibrillation PE patient has been brought into the hospital for multiple symptoms including pain to bilateral lower extremity, lower abdominal pain along with suprapubic discomfort but the urine did have a positive UA CT was suspicious for diverticulitis. On today's evaluation that is 06/30/2024,the patient remains to be afebrile, patient is on 2 L nasal cannula supplemental oxygen and denies any shortness of breath no chest pain or cough.Patient denies having any nausea or vomiting, lower abdominal pain has decreased in intensity did have some diarrhea. Patient white count is up to 14.23, creatinine 0.8 urine is growing E. coli that is sensitive pathogen Objective - Vital Signs Vital signs: Vital Signs Temp 97.6 F 06/30/24 14:09 Pulse 78 06/30/24 14:09 Resp 16 06/30/24 14:09 BP 125/75 06/30/24 14:09 Pulse Ox 97 06/30/24 14:09 FiO2 Intake & Output 06/29/24 06/30/24 06/30/24 18:59 06:59 18:59 Intake Total 780 Balance 780 Intake: Oral 780 Other: Voiding Method Toilet # Voids 1 1 # Bowel Movements 1 - Exam GENERAL DESCRIPTION: An elderly female lying in bed in no distress RESPIRATORY SYSTEM: Unlabored breathing , decreased breath sounds at bases HEART: S1 S2 regular rate and rhythm , ABDOMEN: Soft , no tenderness EXTREMITIES: No edema feet - Labs CBC & Chem 7: 06/30/24 06:06 06/30/24 06:06 Labs: Abnormal Lab Results - Last 24 Hours (Table) 06/30/24 06/30/24 Range/Units 06:06 06:06 WBC 14.23 H (4.50-10.00) X 10*3/uL RBC 3.79 L (4.10-5.20) X 10*6/uL Hgb 11.1 L (12.0-15.0) g/dL Hct 36.3 L (37.2-46.3) % MCHC 30.6 L (32.0-37.0) g/dL RDW 14.9 H (11.5-14.5) % Immature Gran # 0.08 H (0.00-0.04) X 10*3/uL Neutrophils # 11.65 H (1.80-7.70) X 10*3/uL Lymphocytes # 0.80 L (0.90-5.00) X 10*3/uL Monocytes # 1.16 H (0.20-1.00) X 10*3/uL Eosinophils # 0.47 H (0.04-0.35) X 10*3/uL BUN 6.2 L (9.0-27.0) mg/dL BUN/Creatinine Ratio 7.75 L (12.00-20.00) Ratio Glucose 147 H (70-110) mg/dL Calcium 8.5 L (8.7-10.3) mg/dL Assessment and Plan (1) Allergy to multiple antibiotics Current Visit: Yes Status: Acute Code(s): Z88.1 - ALLERGY STATUS TO OTHER ANTIBIOTIC AGENTS SNOMED Code(s): 914762801 (2) Diverticulitis Current Visit: Yes Status: Acute Code(s): K57.92 - DVTRCLI OF INTEST, PART UNSP, W/O PERF OR ABSCESS W/O BLEED SNOMED Code(s): 500035037 (3) UTI (urinary tract infection) Current Visit: Yes Status: Acute Code(s): N39.0 - URINARY TRACT INFECTION, SITE NOT SPECIFIED SNOMED Code(s): 98935751 (4) Leukocytosis Current Visit: No Status: Acute Code(s): D72.829 - ELEVATED WHITE BLOOD CELL COUNT, UNSPECIFIED SNOMED Code(s): 805449082 Plan: 1patient presented hospital with multiple symptoms however the patient also complaining of lower abdominal discomfort, constipation some suprapubic tenderness concerning for symptomatic UTI and a possible component of diverticulitis 2-patient did have a rash to the left lateral thigh that has been there for 3 to 4 days and has not progressed into dermatome clinically doubt shingles 3-patient with multiple antibiotic ALLERGIES that would limit the number of antibiotic safe to use 4-positive blood culture with coagulase-negative staph likely skin contamination no need for vancomycin 5-patient urine has been finalized with E. coli that is a sensitive pathogen 6-patient did have slight worsening of the white count questionably steroid related we will monitor closely continue with Rocephin and Flagyl Dictation was produced using [employer] software. please excuse any grammatical, word or spelling errors.
--- NOTE | 2024-07-01 14:50 | P.PN ---
Subjective Progress Note Date: 07/01/24 Principal diagnosis: Reason for follow-up is UTI diverticulitis positive blood culture Patient is a 73-year-old female with multiple comorbidities including hypertension hyperlipidemia fibromyalgia atrial fibrillation PE patient has been brought into the hospital for multiple symptoms including pain to bilateral lower extremity, lower abdominal pain along with suprapubic discomfort but the urine did have a positive UA CT was suspicious for diverticulitis. On today's evaluation that is 07/01/2024, the patient continues to be afebrile, the patient is on room air and breathing comfortably, the Pt denies having any chest pain or cough, the patient denies having any abdominal pain no vomiting or any diarrhea reported today. No new lab has been obtained today Objective - Vital Signs Vital signs: Vital Signs Temp 98.6 F 07/01/24 12:37 Pulse 84 07/01/24 12:37 Resp 18 07/01/24 12:37 BP 143/76 07/01/24 12:37 Pulse Ox 95 07/01/24 12:37 FiO2 Intake & Output 06/30/24 07/01/24 07/01/24 18:59 06:59 18:59 Other: # Voids 2 3 - Exam GENERAL DESCRIPTION: An elderly female lying in bed in no distress RESPIRATORY SYSTEM: Unlabored breathing , decreased breath sounds at bases HEART: S1 S2 regular rate and rhythm , ABDOMEN: Soft , no tenderness EXTREMITIES: No edema feet - Labs CBC & Chem 7: 06/30/24 06:06 06/30/24 06:06 Assessment and Plan (1) Allergy to multiple antibiotics Current Visit: Yes Status: Acute Code(s): Z88.1 - ALLERGY STATUS TO OTHER ANTIBIOTIC AGENTS SNOMED Code(s): 541231645 (2) Diverticulitis Current Visit: Yes Status: Acute Code(s): K57.92 - DVTRCLI OF INTEST, PART UNSP, W/O PERF OR ABSCESS W/O BLEED SNOMED Code(s): 309427878 (3) UTI (urinary tract infection) Current Visit: Yes Status: Acute Code(s): N39.0 - URINARY TRACT INFECTION, SITE NOT SPECIFIED SNOMED Code(s): 74348354 (4) Leukocytosis Current Visit: No Status: Acute Code(s): D72.829 - ELEVATED WHITE BLOOD CELL COUNT, UNSPECIFIED SNOMED Code(s): 787147990 Plan: 1patient presented hospital with multiple symptoms however the patient also complaining of lower abdominal discomfort, constipation some suprapubic tenderness concerning for symptomatic UTI and a possible component of diverticulitis 2-patient did have a rash to the left lateral thigh that has been there for 3 to 4 days and has not progressed into dermatome clinically doubt shingles 3-patient with multiple antibiotic ALLERGIES that would limit the number of antibiotic safe to use 4-positive blood culture with coagulase-negative staph likely skin contamination no need for vancomycin 5-patient urine has been finalized with E. coli that is a sensitive pathogen 6-patient did have slight worsening of the white count questionably steroid related, no CBC was done today we will repeat a CBC with a.m. lab 7-patient to continue with Rocephin and Flagyl, plan is for oral antibiotics on discharge Dictation was produced using [employer] dictation software. please excuse any grammatical, word or spelling errors. Time with Patient: Less than 30
[2024-07-02 08:47] VITALS: TEMP 97.5
[2024-07-02 11:01] LABS: Basophils # (A) 0.07 X 10*3/uL (0.00-0.10); Basophils % (A) 0.5 %; Eosinophils # (A) 0.33 X 10*3/uL (0.04-0.35); Eosinophils % (A) 2.4 %; HCT 34.2 % (37.2-46.3); HGB 10.6 g/dL (12.0-15.0); Lymphocytes # (A) 1.32 X 10*3/uL (0.90-5.00); Lymphocytes % (A) 9.6 %; MCH 29.1 pg (27.0-32.0); Monocytes # (A) 1.05 X 10*3/uL (0.20-1.00); Monocytes % (A) 7.7 %; NRBC Per 100 WBC 0 X 10*3/uL (0.00-0.01); Neutrophils # (A) 10.87 X 10*3/uL (1.80-7.70); Neutrophils % (A) 79.4 %; Platelet Count 227 X 10*3/uL (140-440); RBC 3.64 X 10*6/uL (4.10-5.20); RDW 14.9 % (11.5-14.5)
[2024-07-02 11:06] LABS: ALT 11 U/L (8-44); AST 22 U/L (13-35); Albumin 3.6 g/dL (3.8-4.9); Albumin/Globulin Ratio 1.44 Ratio (1.60-3.17); Alkaline Phosphatase 108 U/L (41-126); BUN/Creat Ratio 8.44 Ratio (12.00-20.00); Blood Urea Nitrogen 7.6 mg/dL (9.0-27.0); Calcium 9.1 mg/dL (8.7-10.3); Carbon Dioxide 25.2 mmol/L (21.6-31.8); Chloride 101 mmol/L (96-109); Globulin 2.5 g/dL (1.6-3.3); Glucose 126 mg/dL (70-110); Potassium 4.2 mmol/L (3.5-5.5); Sodium 137 mmol/L (135-145); Total Bilirubin 0.4 mg/dL (0.3-1.2); Total Protein 6.1 g/dL (6.2-8.2)
[2024-07-02 14:28] VITALS: BP 145/66; PULSE 61; RESP 20
--- NOTE | 2024-07-02 15:00 | P.PN ---
Subjective Progress Note Date: 07/02/24 Principal diagnosis: Reason for follow-up is UTI diverticulitis positive blood culture Patient is a 73-year-old female with multiple comorbidities including hypertension hyperlipidemia fibromyalgia atrial fibrillation PE patient has been brought into the hospital for multiple symptoms including pain to bilateral lower extremity, lower abdominal pain along with suprapubic discomfort but the urine did have a positive UA CT was suspicious for diverticulitis. On today's evaluation that is 07/02/2024, Patient is afebrile patient is currently on 3 L nasal cannula oxygen and denies having any shortness of breath, the patient denies any chest pain or cough, the patient denies any nausea vomiting did not have any abdominal pain and no diarrhea, patient mention feeling better. Patient white count is down to 13.70, creatinine 0.9 Objective - Vital Signs Vital signs: Vital Signs Temp 97.5 F L 07/02/24 07:42 Pulse 74 07/02/24 07:42 Resp 18 07/02/24 07:42 BP 134/82 07/02/24 07:42 Pulse Ox 96 07/02/24 08:55 FiO2 Intake & Output 07/01/24 07/02/24 07/02/24 18:59 06:59 18:59 Other: # Voids 2 3 - Exam GENERAL DESCRIPTION: An elderly female lying in bed in no distress RESPIRATORY SYSTEM: Unlabored breathing , decreased breath sounds at bases HEART: S1 S2 regular rate and rhythm , ABDOMEN: Soft , no tenderness EXTREMITIES: No edema feet - Labs CBC & Chem 7: 07/02/24 03:36 07/02/24 03:36 Labs: Abnormal Lab Results - Last 24 Hours (Table) 07/02/24 07/02/24 Range/Units 03:36 03:36 WBC 13.70 H (4.50-10.00) X 10*3/uL RBC 3.64 L (4.10-5.20) X 10*6/uL Hgb 10.6 L (12.0-15.0) g/dL Hct 34.2 L (37.2-46.3) % MCHC 31.0 L (32.0-37.0) g/dL RDW 14.9 H (11.5-14.5) % Immature Gran # 0.06 H (0.00-0.04) X 10*3/uL Neutrophils # 10.87 H (1.80-7.70) X 10*3/uL Monocytes # 1.05 H (0.20-1.00) X 10*3/uL BUN 7.6 L (9.0-27.0) mg/dL BUN/Creatinine Ratio 8.44 L (12.00-20.00) Ratio Glucose 126 H (70-110) mg/dL C-Reactive Protein 3.70 H (0.00-0.80) mg/dL Total Protein 6.1 L (6.2-8.2) g/dL Albumin 3.6 L (3.8-4.9) g/dL Albumin/Globulin Ratio 1.44 L (1.60-3.17) Ratio Assessment and Plan (1) Allergy to multiple antibiotics Current Visit: Yes Status: Acute Code(s): Z88.1 - ALLERGY STATUS TO OTHER ANTIBIOTIC AGENTS SNOMED Code(s): 360838322 (2) Diverticulitis Current Visit: Yes Status: Acute Code(s): K57.92 - DVTRCLI OF INTEST, PART UNSP, W/O PERF OR ABSCESS W/O BLEED SNOMED Code(s): 677672425 (3) UTI (urinary tract infection) Current Visit: Yes Status: Acute Code(s): N39.0 - URINARY TRACT INFECTION, SITE NOT SPECIFIED SNOMED Code(s): 01492663 (4) Leukocytosis Current Visit: No Status: Acute Code(s): D72.829 - ELEVATED WHITE BLOOD CELL COUNT, UNSPECIFIED SNOMED Code(s): 962453958 Plan: 1patient presented hospital with multiple symptoms however the patient also complaining of lower abdominal discomfort, constipation some suprapubic tenderness concerning for symptomatic UTI and a possible component of divert iculitis 2-patient did have a rash to the left lateral thigh that has been there for 3 to 4 days and has not progressed into dermatome clinically doubt shingles 3-patient with multiple antibiotic ALLERGIES that would limit the number of antibiotic safe to use 4-positive blood culture with coagulase-negative staph likely skin contamination no need for vancomycin 5-patient urine has been finalized with E. coli that is a sensitive pathogen 6-patient did have slight worsening of the white count questionably steroid related,, the patient white count is trending down on the blood draw today patient is on her Rocephin and Flagyl, she will be able to finish therapy with oral Ceftin and Flagyl x 7 days on discharge discussed with admitting physician Dictation was produced using [employer] dictation software. please excuse any grammatical, word or spelling errors. Time with Patient: Less than 30
--- NOTE | 2024-07-02 22:00 | P.DS ---
Providers Date of admission: 06/28/24 07:20 Attending physician: Shree Lee Consults: 06/27/24 14:17 Consult Physician Routine Consulting Provider: Ale Nicole Consult Reason/Comments: Acute diverticulitis, UTI, shingles. Do you want consulting provider notified?: Yes Primary care physician: Grey Loaiza [facility] Course: Diagnoses: Acute urinary tract infection secondary to sensitive Enterococcus Acute diverticulitis versus reactive gastroenteritis secondary to above Positive blood culture with coagulase-negative staph most likely contamination Chronic hypoxic respiratory failure Hypertension History of fibromyalgia Paroxysmal atrial fibrillation on Xarelto History of PE on anticoagulation Obstructive sleep apnea: Hospital course: This is a 73-year-old female with past medical history significant for atrial fibrillation on Xarelto, history of diverticulitis, fibromyalgia, hypertension, history of bariatric surgery, history of PE, obstructive sleep apnea who presented to ED with a complaint of pain in her legs and abdomen. Patient stated that she has chronic pain in both legs, for the last few days she was having more pain, she also noticed a rash about 2 days ago on the posterior left thigh. Patient was also complaining of left lower quadrant abdominal pain and nausea. CT abdomen showed diverticulosis, fat stranding in the pelvis, limited exam due to streak artifacts. Patient was treated for infection secondary to acute urinary tract infection and diverticulitis/acute gastroenteritis. Infectious disease team are following closely. Patient treated with ceftriaxone and Flagyl. Patient showed interval improvement and her symptoms improved and resolved prior to discharge. No nausea vomiting no abdominal pain and rated 0/10. Patient tolerates diet. Diarrhea improved. No urinary symptoms. And breathing also improved upon discharge. Patient denies any other complaint Patient agrees to go home today Patient has oxygen at home 3 to 4 L especially at night. Patient also has Xarelto at home for her history of paroxysmal atrial fibrillation Patient was cleared for discharge by ID team with recommendation for 7 days of antibiotics of Flagyl and Ceftin Problems and management plan were discussed with the patient and he verbalized understanding and acceptance Patient was found stable and can be discharged home in guarded prognosis however he needs follow-up as an outpatient. Patient was instructed to follow up with PCP Dr. Loaiza within one week and patient agrees Patient instructed to follow-up with his surgeon Dr. Baron/Dr. Booth in 1 to 2 weeks after discharge and she verbalized an next understanding and acceptance Physical exam Gen: patient is a AAOx3, no distress CVS: S1-S2, RRR, no murmur Lungs: B/L CTA, no wheezing Abdomen: soft, no distention, no tenderness, positive bowel sounds Extremity: no leg edema or induration Time spent more than 35 minutes Plan - Discharge Summary Discharge Rx Participant: No New Discharge Prescriptions: New NIFEdipine XL [Procardia XL] 60 mg PO Q12HR #60 tab Acetaminophen Tab [Tylenol] 650 mg PO Q6HR PRN tab PRN Reason: Mild Pain Or Fever > 100.5 cefUROXime axetiL [Ceftin] 500 mg PO BID 7 Days #14 tab metroNIDAZOLE [Flagyl] 500 mg PO BID 7 Days #14 tab Omeprazole [PriLOSEC] 20 mg PO AC-BRKFST 21 Days #21 cap Continue Cetirizine HCl [Zyrtec] 10 mg PO HS Fludrocortisone [Florinef] 0.1 mg PO Q48H Acetaminophen Tab [Tylenol] 325 - 650 mg PO Q4H PRN PRN Reason: Pain atenoloL [Tenormin] 50 mg PO BID Cyanocobalamin (Vitamin B-12) [Vitamin B-12] 2,500 mcg PO W/SUPPER Rivaroxaban [Xarelto] 20 mg PO W/SUPPER tab allopurinoL 100 mg PO DAILY Potassium Chloride ER [K-Dur 20] 20 meq PO DAILY Cholecalciferol [Vitamin D3 (125 Mcg = 5000 Iu)] 125 mcg PO DAILY Furosemide [Lasix] 20 mg PO W/SUPPER Levothyroxine Sodium [Synthroid] 137 mcg PO AC-BRKFST Cyclobenzaprine [Flexeril] 10 mg PO HS PRN PRN Reason: Muscle Spasm Albuterol Sulfate [Ventolin HFA] 1 puff INHALATION RT-Q6H PRN PRN Reason: Shortness Of Breath Calcium/Magnesium/Zinc/Vitamin3 1 tab PO W/SUPPER predniSONE 5 mg PO DAILY Beclomethasone Dipropionate [Qvar 40 mcg Redihaler] 1 puff INHALATION RT-BID Montelukast [Singulair] 10 mg PO W/SUPPER Melatonin 10 mg PO HS predniSONE 2 mg PO DAILY PRN PRN Reason: feeling sick Discontinued Indomethacin [Indocin] 50 mg PO DAILY Discharge Medication List Cetirizine HCl [Zyrtec] 10 mg PO HS 08/09/15 [History] Acetaminophen Tab [Tylenol] 325 - 650 mg PO Q4H PRN 12/01/17 [History] Fludrocortisone [Florinef] 0.1 mg PO Q48H 12/01/17 [History] Cyanocobalamin (Vitamin B-12) [Vitamin B-12] 2,500 mcg PO W/SUPPER 07/14/19 [History] atenoloL [Tenormin] 50 mg PO BID 07/14/19 [History] Rivaroxaban [Xarelto] 20 mg PO W/SUPPER tab 07/15/19 [Rx] Cholecalciferol [Vitamin D3 (125 Mcg = 5000 Iu)] 125 mcg PO DAILY 08/11/22 [History] Furosemide [Lasix] 20 mg PO W/SUPPER 08/11/22 [History] Potassium Chloride ER [K-Dur 20] 20 meq PO DAILY 08/11/22 [History] allopurinoL 100 mg PO DAILY 08/11/22 [History] predniSONE 5 mg PO DAILY 08/11/22 [History] Albuterol Sulfate [Ventolin HFA] 1 puff INHALATION RT-Q6H PRN 06/26/24 [History] Beclomethasone Dipropionate [Qvar 40 mcg Redihaler] 1 puff INHALATION RT-BID 06/26/24 [History] Calcium/Magnesium/Zinc/Vitamin3 1 tab PO W/SUPPER 06/26/24 [History] Cyclobenzaprine [Flexeril] 10 mg PO HS PRN 06/26/24 [History] Levothyroxine Sodium [Synthroid] 137 mcg PO AC-BRKFST 06/26/24 [History] Melatonin 10 mg PO HS 06/26/24 [History] Montelukast [Singulair] 10 mg PO W/SUPPER 06/26/24 [History] predniSONE 2 mg PO DAILY PRN 06/26/24 [History] Acetaminophen Tab [Tylenol] 650 mg PO Q6HR PRN tab 07/02/24 [Rx] NIFEdipine XL [Procardia XL] 60 mg PO Q12HR #60 tab 07/02/24 [Rx] Omeprazole [PriLOSEC] 20 mg PO AC-BRKFST 21 Days #21 cap 09/27/24 [Rx] cefUROXime axetiL [Ceftin] 500 mg PO BID 7 Days #14 tab 07/02/24 [Rx] metroNIDAZOLE [Flagyl] 500 mg PO BID 7 Days #14 tab 07/02/24 [Rx] Follow up Appointment(s)/Referral[facility]s): [facility], [facility] - 1 Week Grey Loaiza DO [Primary Care Provider] - 07/05/24 9:40 am Patient Instructions/Handouts: Cefuroxime (By mouth), Nifedipine (By mouth), Metronidazole (By mouth), Omeprazole (By mouth), Diverticulitis (DC), Urinary Tract Infection in Women (DC), Heart Healthy Diet (DC) Activity/Diet/Wound Care/Special Instructions: Heart healthy diet Activity is restricted till you see your doctor Discharge Disposition: HOME SELF-CARE
== END 2024-07-02 15:20 | disposition home or self-care (01) ==
LOC: EC 15:09 → 5NMEDONC 18:13 → INTOOBSV 06-28 07:20 → OBSVTOIN 06-28 07:20 → UNDODISIN 07-02 15:20
PROVIDERS: ADMIT Hospitalist; ATTEND Hospitalist
CPT/HCPCS: 36415; 74176; 80048; 80053; 81001; 82150; 83605; 83690; 83735; 84100; 85025; 86140; 87040; 87077; 87086; 87186; 93005; 94640; 94760; 96361; 96365; 96366; 96367; 96368; 96375; 96376; 99285

== ENCOUNTER → 2024-07-08 | Outpatient (CLI) | payer MEDICARE ==
--- NOTE | 2024-07-08 23:58 | XR ---
EXAMINATION TYPE: XR lumbosacral spine min 4V DATE OF EXAM: 07/08/2024 5:13 PM CLINICAL INDICATION: Female, 73 years old with history of M54.50 Back pain; [facility] COMPARISON: None TECHNIQUE: XR lumbosacral spine min 4V - Frontal, lateral , bilateral oblique and coned in L5-S1 late ral views of the spine. FINDINGS: No evidence of any acute osseous pathology. No evidence of loss of vertebral body height i s seen. There is normal alignment of the lumbar vertebral bodies. Scattered disc space narrowing. Mul tilevel marginal osteophyte formation throughout the visualized spine. There is facet joint arthropat hy throughout the spine. Scattered at least mild neural foraminal stenosis. Atherosclerosis of the ar terial vasculature. Subcutaneous calcifications in the posterior back. IMPRESSION: 1. No acute fracture. 2. Moderate Mild multilevel disc degeneration. [facility], , 07/08/2024 11:55 PM
== END | disposition home or self-care (01) ==
LOC: RADXRMAIN 16:46
PROVIDERS: ATTEND Family Medicine
DX: M51.26 Other intervertebral disc displacement, lumbar region (principal)
CPT/HCPCS: 72110

== ENCOUNTER 2024-12-24 07:57 | Inpatient (IN) | payer MEDICARE ==
--- NOTE | 2024-12-24 08:16 | ED ---
General Adult HPI - General Stated complaint: Flu-like symptoms,SOB Time Seen by Provider: 12/24/24 08:00 Source: patient, RN notes reviewed Limitations: no limitations - History of Present Illness Initial comments: Patient is a 74-year-old female present to the emergency department with concerns with difficulty breathing. Patient has known history of asthma/COPD. Patient states for the last 4 days she has had cough and congestion. No fevers. Patient does have increased difficulty breathing. Patient is concerned she could have the flu. No calf pain or leg swelling. - Related Data Home Medications Medication Instructions Recorded Confirmed Cetirizine HCl [Zyrtec] 10 mg PO HS 08/09/15 06/26/24 Acetaminophen Tab [Tylenol] 325 - 650 mg PO Q4H PRN 12/01/17 06/26/24 Fludrocortisone [Florinef] 0.1 mg PO Q48H 12/01/17 06/26/24 Cyanocobalamin (Vitamin B-12) 2,500 mcg PO W/SUPPER 07/14/19 06/26/24 [Vitamin B-12] atenoloL [Tenormin] 50 mg PO BID 07/14/19 06/26/24 Cholecalciferol [Vitamin D3 (125 125 mcg PO DAILY 08/11/22 06/26/24 Mcg = 5000 Iu)] Furosemide [Lasix] 20 mg PO W/SUPPER 08/11/22 06/26/24 Potassium Chloride ER [K-Dur 20] 20 meq PO DAILY 08/11/22 06/26/24 allopurinoL 100 mg PO DAILY 08/11/22 06/26/24 predniSONE 5 mg PO DAILY 08/11/22 06/26/24 Albuterol Sulfate [Ventolin HFA] 1 puff INHALATION RT-Q6H PRN 06/26/24 06/26/24 Beclomethasone Dipropionate [Qvar 1 puff INHALATION RT-BID 06/26/24 06/26/24 40 mcg Redihaler] Calcium/Magnesium/Zinc/Vitamin3 1 tab PO W/SUPPER 06/26/24 06/26/24 Cyclobenzaprine [Flexeril] 10 mg PO HS PRN 06/26/24 06/26/24 Levothyroxine Sodium [Synthroid] 137 mcg PO AC-BRKFST 06/26/24 06/26/24 Melatonin 10 mg PO HS 06/26/24 06/26/24 Montelukast [Singulair] 10 mg PO W/SUPPER 06/26/24 06/26/24 predniSONE 2 mg PO DAILY PRN 06/26/24 06/26/24 Previous Rx's Medication Instructions Recorded Rivaroxaban [Xarelto] 20 mg PO W/SUPPER tab 07/15/19 Acetaminophen Tab [Tylenol] 650 mg PO Q6HR PRN tab 07/02/24 NIFEdipine XL [Procardia XL] 60 mg PO Q12HR #60 tab 07/02/24 Omeprazole [PriLOSEC] 20 mg PO AC-BRKFST 21 Days #21 cap 07/02/24 cefuroxime axetiL [Ceftin] 500 mg PO BID 7 Days #14 tab 07/02/24 metroNIDAZOLE [Flagyl] 500 mg PO BID 7 Days #14 tab 07/02/24 Allergies Allergy/AdvReac Type Severity Reaction Status Date / Time Sulfa (Sulfonamide Allergy Severe Anaphylaxis Verified 06/26/24 17:54 Antibiotics) NANCY Inhibitors Allergy Anaphylaxis Verified 06/26/24 17:54 adhesive Allergy Rash/Hives Verified 06/26/24 17:54 albuterol Allergy Rash/Hives Verified 06/26/24 17:54 aspirin [From Soma Compound] Allergy Unknown Verified 06/26/24 17:54 baclofen Allergy Unknown Verified 06/26/24 17:54 carisoprodol Allergy Unknown Verified 12/24/24 08:19 [From Soma Compound] ciprofloxacin [From Cipro] Allergy Unknown Verified 12/24/24 08:19 gabapentin Allergy Unknown Verified 12/24/24 08:19 hylan G-F 20 [From Synvisc] Allergy edema Verified 12/24/24 08:19 redness burning after knee surgery Iodine and Iodide Containing Allergy Rash/Hives Verified 12/24/24 08:19 Produc Latex, Natural Rubber Allergy Rash/Hives Verified 12/24/24 08:19 levofloxacin [From Levaquin] Allergy Unknown Verified 12/24/24 08:19 lidocaine Allergy Rash/Hives Verified 12/24/24 08:19 lisinopril Allergy Unknown Verified 12/24/24 08:19 meperidine HCl [From Demerol] Allergy Rash/Hives Verified 12/24/24 08:19 morphine Allergy Rash/Hives Verified 12/24/24 08:19 nitrofurantoin Allergy Rash/Hives Verified 12/24/24 08:19 [From Macrobid] tetanus toxoid, adsorbed Allergy Unknown Verified 12/24/24 08:19 tizanidine Allergy Rash/Hives Verified 12/24/24 08:19 aspartame AdvReac Intermediate Diarrhea Verified 12/24/24 08:19 codeine AdvReac Nausea & Verified 12/24/24 08:19 Vomiting doxycycline AdvReac Nausea & Verified 12/24/24 08:19 Vomiting Penicillins AdvReac Nausea & Verified 12/24/24 08:19 Vomiting prednisone AdvReac Hallucinati Verified 12/24/24 08:19 ons mushroom Allergy Diarrhea Uncoded 12/24/24 08:19 narcotics Allergy Rash/Hives Uncoded 12/24/24 08:19 Review of Systems ROS Statement: Those systems with pertinent positive or pertinent negative responses have been documented in the HPI. ROS Other: All systems not noted in ROS Statement are negative. Constitutional: Denies: fever Eyes: Denies: eye pain ENT: Reports: congestion. Denies: ear pain Respiratory: Reports: as per HPI, cough, dyspnea Cardiovascular: Denies: chest pain Endocrine: Reports: fatigue Gastrointestinal: Denies: abdominal pain Musculoskeletal: Denies: back pain Past Medical History Past Medical History: Atrial Fibrillation, Atrial Flutter, Asthma, Fibromyalgia, GERD/Reflux, GI Bleed, Hyperlipidemia, Hypertension, Musculoskeletal Disorder, Neurologic Disorder, Osteoarthritis (OA), Pulmonary Embolus (PE), Sleep Apnea/CPAP/BIPAP, Thyroid Disorder, Vascular Disorder Additional Past Medical History / Comment(s): hx as follows: bronchitis, thoracic spondylosis, lupus, rls,migraines, blood clots, hiatal hernia, ibs, gerd, uti had sepsis 2004, kidney stone , stress incont, tmj.PERIPHERAL NEUROPATHY, endometriosis,adenomyosis, mixed connective tissue disorder, hypothyroidism, peptic ulcer disease, osteoarthritis, osteoporosis, GERD, scoliosis, esophagitis, PE, DVT, hypertension. History of Any Multi-Drug Resistant Organisms: MRSA Date of last positivie culture/infection: 02/03/2015 MDRO Source:: Nose Past Surgical History: Adenoidectomy, Bariatric Surgery, Cardiac Ablation, Cholecystectomy, Heart Catheterization, Hysterectomy, Joint Replacement, O rthopedic Surgery, Tonsillectomy, Tubal Ligation Additional Past Surgical History / Comment(s): cardiac ablation, L knee and R hip replacement. Lap band surgery. tummy tuck. CATARACTS,SINUS SX, SKIN , LAPROSCOPY, HEMORRHOIDECTOMY, CARPAL TUNNEL ADELAIDA,PAST STEROID INJ TO NECK, UVULECTOMY, LUMPS REMOVED ADELAIDA BREAST (CELLS PRECANCEROUS),BX RT TEMPORAL ARTERY- NEG), HAD NERVES IN BACK BURNED, BENIGN GROWTH REMOVED FROM BEHIND RT EAR, bilateral arthroscopic knee surgery, right total hiparthroplasty, bilateral arthroscopic hip surgery, bilateral ankle arthroscopic surgery, bilateral shoulder arthroscopic surgery.renal cell carcinoma. 4 lesions on pancreas Past Anesthesia/Blood Transfusion Reactions: Motion Sickness, Postoperative Nausea & Vomiting (PONV) Past Psychological History: No Psychological Hx Reported Smoking Status: Never smoker Past Alcohol Use History: None Reported Past Drug Use History: None Reported - Past Family History Father Family Medical History: Neurologic Disorder, Pneumonia Additional Family Medical History / Comment(s): ALS, FROM PNEUMONIA,lupus Mother Family Medical History: AFIB, Cancer, Chest Pain / Angina, Congestive Heart Failure (CHF), Diabetes Mellitus, Hyperlipidemia, Hypertension, Myocardial Infarction (ND) Additional Family Medical History / Comment(s): OBESITY, COLON CA Brother(s) Family Medical History: Coronary Artery Disease (CAD) Sister(s) Family Medical History: Coronary Artery Disease (CAD), Deep Vein Thrombosis (DVT) Daughter(s) Family Medical History: No Reported History General Exam Limitations: no limitations General appearance: alert, in no apparent distress Head exam: Present: normocephalic Eye exam: Present: normal appearance Neck exam: Present: normal inspection Respiratory exam: Present: wheezes Cardiovascular Exam: Present: tachycardia, irregular rhythm GI/Abdominal exam: Present: soft. Absent: tenderness Extremities exam: Present: normal inspection. Absent: pedal edema, calf tenderness Neurological exam: Present: alert Psychiatric exam: Present: normal affect, normal mood Skin exam: Present: normal color Course Vital Signs 12/24/24 12/24/24 12/24/24 08:20 08:25 08:51 Temperature 98.2 F Pulse Rate 107 H 105 H 110 H Respiratory 32 H 32 H 32 H Rate Blood Pressure 150/130 174/81 179/101 O2 Sat by Pulse 92 L 95 97 Oximetry 12/24/24 12/24/2425 09:04 09:17 09:25 Temperature Pulse Rate 106 H 116 H 108 H Respiratory 30 H Rate Blood Pressure 168/85 O2 Sat by Pulse 98 Oximetry 12/24/24 12/24/24 12/24/24 09:32 09:54 11:00 Temperature Pulse Rate 113 H 116 H Respiratory 32 H 30 H 24 Rate Blood Pressure 166/97 165/99 O2 Sat by Pulse 96 Oximetry EKG Findings - EKG Results: EKG: interpreted by ERMD (Q wave V1 V2. T wave inversion inferior and lateral.), normal axis EKG shows: tachycardia, atrial fibrillation Medical Decision Making - Medical Decision Making Was pt. sent in by a medical professional or institution (, PA, ENGINE ROOM HELPER, urgent care, hospital, or long term...) When possible be specific @ -No Did you speak to anyone other than the patient for history (EMS, parent, family, police, friend...)? What history was obtained from this source @ -No Did you review nursing and triage notes (agree or disagree)? Why? @ -I reviewed and agree with nursing and triage notes Were old charts reviewed (outside hosp., previous admission, EMS record, old EKG, old radiological studies, urgent care reports/EKG's, long term records)? Report findings @ -No old charts were reviewed Differential Diagnosis (chest pain, altered mental status, abdominal pain women, abdominal pain men, vaginal bleeding, weakness, fever, dyspnea, syncope, headache, dizziness, GI bleed, back pain, seizure, CVA, palpatations, mental health, musculoskeletal)? @ -Differential Dyspnea: Coronary syndrome, arrhythmia, tamponade, asthma, COPD, pulmonary embolism, pneumonia, pneumothorax, pulmonary effusion, anaphylaxis, diabetic ketoacidosis, flailed chest, pulmonary contusion, diaphragmatic rupture, anemia, neuromuscular, this is not meant to be an all-inclusive list. EKG interpreted by me (3pts min.). @ -As above X-rays interpreted by me (1pt min.). @ -Chest x-ray shows generalized hazy appearance CT interpreted by me (1pt min.). @ -None done U/S interpreted by me (1pt. min.). @ -None done What testing was considered but not performed or refused? (CT, X-rays, U/S, labs)? Why? @ -None What meds were considered but not given or refused? Why? @ -None Did you discuss the management of the patient with other professionals (pro fessionals i.e. , PA, ENGINE ROOM HELPER, lab, RT, psych nurse, social services analyst, wildlife science professor, teacher, life science technical officer, egg caser)? Give summary @ -Case was discussed with Dr. Kong who will admit covering Dr. Loaiza Was smoking cessation discussed for >3mins.? @ -No Was critical care preformed (if so, how long)? @ -No Were there social determinants of health that impacted care today? How? (Homelessness, low income, unemployed, alcoholism, drug addiction, transportation, low edu. Level, literacy, decrease access to med. care, fci, rehab)? @ -No Was there de-escalation of care discussed even if they declined (Discuss DNR or withdrawal of care, Hospice)? DNR status @ -No What co-morbidities impacted this encounter? (DM, HTN, Smoking, COPD, CAD, Cancer, CVA, ARF, Chemo, Hep., AIDS, mental health diagnosis, sleep apnea, morbid obesity)? @ -History of COPD Was patient admitted / discharged? Hospital course, mention meds given and route, prescriptions, significant lab abnormalities, going to OR and other pertinent info. @ -Patient presents with cough difficulty breathing. Chest x-ray with gener alized hazy appearance and BNP is somewhat elevated however COVID-19 infection positive. Patient will be admitted. Patient reevaluated and updated. Admission orders written. Consults placed. Undiagnosed new problem with uncertain prognosis? @ -No Drug Therapy requiring intensive monitoring for toxicity (Heparin, Nitro, Insulin, Cardizem)? @ -No Were any procedures done? @ -No Diagnosis/symptom? @ -COVID-19, Acute, or Chronic, or Acute on Chronic? @ -Acute Uncomplicated (without systemic symptoms) or Complicated (systemic symptoms)? @ -Complicated with potential for associated CHF exacerbation Side effects of treatment? @ -No Exacerbation, Progression, or Severe Exacerbation? @ -No Poses a threat to life or bodily function? How? (Chest pain, USA, ND, pneumonia, PE, COPD, DKA, ARF, appy, cholecystitis, CVA, Diverticulitis, Homicidal, Suicidal, threat to staff... and all critical care pts) @ -Threat to pulmonary function - Lab Data Result diagrams: 12/24/24 09:36 12/24/24 09:36 Lab Results 12/24/24 12/24/24 12/24/24 Range/Units 09:10 09:36 09:36 WBC 9.0 (3.8-10.6) k/uL RBC 4.48 (3.80-5.40) m/uL Hgb 12.9 (11.4-16.0) gm/dL Hct 41.1 (34.0-46.0) % MCV 91.9 (80.0-100.0) fL MCH 28.8 (25.0-35.0) pg MCHC 31.3 (31.0-37.0) g/dL RDW 14.5 (11.5-15.5) % Plt Count 191 (150-450) k/uL MPV 7.1 Neutrophils % (Manual) 84 % Lymphocytes % (Manual) 11 % Monocytes % (Manual) 5 % Neutrophils # (Manual) 7.56 (1.3-7.7) k/uL Lymphocytes # (Manual) 0.99 L (1.0-4.8) k/uL Monocytes # (Manual) 0.45 (0-1.0) k/uL Nucleated RBCs 0 (0-0) /100 WBC Manual Slide Review Performed Hypochromasia Moderate PT 11.6 (10.0-12.5) sec INR 1.1 (<1.2) APTT 25.4 (22.0-30.0) sec Sodium (137-145) mmol/L Potassium (3.5-5.1) mmol/L Chloride (98-107) mmol/L Carbon Dioxide (22-30) mmol/L Anion Gap mmol/L BUN (7-17) mg/dL Creatinine (0.52-1.04) mg/dL Est GFR (CKD-EPI)AfAm (>60 ml/min/1.73 sqM) Est GFR (CKD-EPI)NonAf (>60 ml/min/1.73 sqM) Glucose (74-99) mg/dL Plasma Lactic Acid Mickey (0.7-2.0) mmol/L Calcium (8.4-10.2) mg/dL Magnesium (1.6-2.3) mg/dL Total Bilirubin (0.2-1.3) mg/dL AST (14-36) U/L ALT (4-34) U/L Alkaline Phosphatase (38-126) U/L NT-Pro-B Natriuret Pep pg/mL Total Protein (6.3-8.2) g/dL Albumin (3.5-5.0) g/dL Influenza Type A (PCR) Not Detected (Not Detectd) Influenza Type B (PCR) Not Detected (Not Detectd) RSV (PCR) Not Detected (Not Detectd) SARS-CoV-2 (PCR) Detected A (Not Detectd) 12/24/24 12/24/24 Range/Units 09:36 09:36 WBC (3.8-10.6) k/uL RBC (3.80-5.40) m/uL Hgb (11.4-16.0) gm/dL Hct (34.0-46.0) % MCV (80.0-100.0) fL MCH (25.0-35.0) pg MCHC (31.0-37.0) g/dL RDW (11.5-15.5) % Plt Count (150-450) k/uL MPV Neutrophils % (Manual) % Lymphocytes % (Manual) % Monocytes % (Manual) % Neutrophils # (Manual) (1.3-7.7) k/uL Lymphocytes # (Manual) (1.0-4.8) k/uL Monocytes # (Manual) (0-1.0) k/uL Nucleated RBCs (0-0) /100 WBC Manual Slide Review Hypochromasia PT (10.0-12.5) sec INR (<1.2) APTT (22.0-30.0) sec Sodium 134 L (137-145) mmol/L Potassium 3.1 L (3.5-5.1) mmol/L Chloride 96 L (98-107) mmol/L Carbon Dioxide 26 (22-30) mmol/L Anion Gap 12 mmol/L BUN 16 (7-17) mg/dL Creatinine 0.79 (0.52-1.04) mg/dL Est GFR (CKD-EPI)AfAm 85 (>60 ml/min/1.73 sqM) Est GFR (CKD-EPI)NonAf 74 (>60 ml/min/1.73 sqM) Glucose 152 H (74-99) mg/dL Plasma Lactic Acid Mickey 1.7 (0.7-2.0) mmol/L Calcium 8.9 (8.4-10.2) mg/dL Magnesium 1.8 (1.6-2.3) mg/dL Total Bilirubin 1.4 H (0.2-1.3) mg/dL AST 37 H (14-36) U/L ALT 20 (4-34) U/L Alkaline Phosphatase 115 (38-126) U/L NT-Pro-B Natriuret Pep 6230 pg/mL Total Protein 7.1 (6.3-8.2) g/dL Albumin 3.9 (3.5-5.0) g/dL Influenza Type A (PCR) (Not Detectd) Influenza Type B (PCR) (Not Detectd) RSV (PCR) (Not Detectd) SARS-CoV-2 (PCR) (Not Detectd) Disposition Clinical Impression: COVID-19 Disposition: ADMITTED IP TO THIS HOSP Is patient prescribed a controlled substance at d/c from ED?: No Referrals: Grey Loaiza DO [Primary Care Provider] - 1-2 days Time of Disposition: 11:47
[2024-12-24] MEDS: methylPREDNISolone SOD SUCCI 125 MG/2 ML VIAL IV STA (08:48)
[2024-12-24] MEDS: IPRATROPIUM 0.5 MG/2.5 ML NEBU INHALATION STA (09:04)
[2024-12-24 09:57] LABS: HCT 41.1 % (34.0-46.0); HGB 12.9 gm/dL (11.4-16.0); Hypochromasia Moderate; MCH 28.8 pg (25.0-35.0); MCHC 31.3 g/dL (31.0-37.0); MCV 91.9 fL (80.0-100.0); Mean Platelet Volume 7.1; Platelet Count 191 k/uL (150-450); RBC 4.48 m/uL (3.80-5.40); RDW 14.5 % (11.5-15.5)
[2024-12-24 09:58] LABS: INR 1.1 (<1.2); Partial Thromboplastin Time 25.4 sec (22.0-30.0); Prothrombin Time 11.6 sec (10.0-12.5)
[2024-12-24 10:00] LABS: Influenza A Not Detected (Not Detectd); Influenza B Not Detected (Not Detectd); RSV Not Detected (Not Detectd)
[2024-12-24 10:01] LABS: ALT 20 U/L (4-34); AST 37 U/L (14-36); African American GFR (CKD) 85 (>60 ml/min/1.73 sqM); Albumin 3.9 g/dL (3.5-5.0); Alkaline Phosphatase 115 U/L (38-126); Anion Gap 12 mmol/L; Blood Urea Nitrogen 16 mg/dL (7-17); Calcium 8.9 mg/dL (8.4-10.2); Carbon Dioxide 26 mmol/L (22-30); Chloride 96 mmol/L (98-107); Glucose 152 mg/dL (74-99); Magnesium 1.8 mg/dL (1.6-2.3); Non-African American GFR(CKD) 74 (>60 ml/min/1.73 sqM); Potassium 3.1 mmol/L (3.5-5.1); Sodium 134 mmol/L (137-145); Total Bilirubin 1.4 mg/dL (0.2-1.3); Total Protein 7.1 g/dL (6.3-8.2)
[2024-12-24 10:09] LABS: NT-Pro-B-Type Natriuretic Pept 6230 pg/mL
--- NOTE | 2024-12-24 10:53 | XR ---
EXAMINATION TYPE: XR chest 2V DATE OF EXAM: 12/24/2024 10:11 AM COMPARISON: Chest radiographs from CLINICAL INDICATION: Female, 74 years old with history of difficulty breathing; [facility] TECHNIQUE: XR chest 2V Frontal and lateral views of the chest. FINDINGS: Lungs/Pleura: Low lung volumes are present. There is no evidence of pleural effusion, focal consolida tion, or pneumothorax. Pulmonary vascularity: Unremarkable. Heart/mediastinum: Cardiomediastinal silhouette is prominent in size. Musculoskeletal: Degenerative changes of the shoulder joints. Other findings: None Lines/Tubes: IMPRESSION: Low lung volumes with a generalized hazy appearance which could represent atelectasis versus pulmonar y edema correlate with serum BNP. [facility], , 12/24/2024 10:51 AM
[2024-12-24 11:10] LABS: Lymphocytes # (M) 0.99 k/uL (1.0-4.8); Monocytes # (M) 0.45 k/uL (0-1.0); Neutrophils # (M) 7.56 k/uL (1.3-7.7); Neutrophils % (M) 84 %; Nucleated Red Blood Cells 0 /100 WBC (0-0); Total Cells Counted 100
[2024-12-24] MEDS ORDERED: NALOXONE 0.4 MG/ML 1 ML VIAL IVP PRN (11:48)
[2024-12-24] MEDS ORDERED: IPRATROPIUM 0.5 MG/2.5 ML NEBU INHALATION PRN (11:49)
[2024-12-24] MEDS: POTASSIUM CHLORIDE ER 20 MEQ TAB.ER PO STA (12:54)
[2024-12-24] MEDS: methylPREDNISolone SOD SUCCI 125 MG/2 ML VIAL IV SCH (12:57)
[2024-12-24] MEDS ORDERED: TIOTROPIUM 2.5 MCG INHALER INHALATION PRN (13:13)
[2024-12-24] MEDS: dexAMETHasone 2 MG TAB PO SCH (16:41)
--- NOTE | 2024-12-24 16:51 | P.CNPUL ---
History of Present Illness Consult date: 12/24/24 Requesting physician: Jase Vasques Reason for consult: dyspnea Chief complaint: Nausea, vomiting, muscle aches History of present illness: This is an obese 74-year-old female patient with a known history of obstructive sleep apnea maintained on home CPAP, home oxygen at 4 L, mild intermittent chr onic bronchial asthma maintained on Qvar, previous bariatric surgery, history of PE, fibromyalgia, diverticulosis, atrial fibrillation who presented here to the emergency room shortness of breath. For 4 days she has been having increasing shortness of breath cough congestion, diarrhea, vomiting, muscle aches. She tested positive for COVID infection. Chest x-ray shows atelectasis and low lung volumes. White count 9.0. Hemoglobin 12.9. Platelets 191. Sodium 134. Potassium 3.1. Bicarb 26. BUN 16. Creatinine 0.79. Glucose 152. proBNP 6230. She is seen today in consultation in the emergency department. Currently sitting up in a stretcher. Awake and alert in no acute distress. Maintaining O2 saturations in the 90s on 2 L/min per nasal cannula. She is afebrile. Hemodynamically stable. Review of Systems REVIEW OF SYSTEMS: CONSTITUTIONAL: Denies any recent significant weight loss or weight gain. EYES: Denies change in vision. EARS, NOSE, MOUTH, THROAT: Positive for headaches, sore throat. CARDIOVASCULAR: Denies chest pain, palpitations or syncopal episodes. RESPIRATORY: Positive for shortness of breath, cough, congestion no hemoptysis. GASTROINTESTINAL: Positive for vomiting and diarrhea. GENITOURINARY: Denies hematuria, denies infections. MUSKULOSKELETAL: Positive for generalized muscle aches. INTEGUMENTARY: Denies rash, denies eczema. NEUROLOGICAL: Denies recent memory loss, no recent seizure activity. PSYCHIATRIC: Denies anxiety, denies depression. HEMATOLOGIC/LYMPHATIC: Denies anemia, denies enlarged lymph nodes. Past Medical History Past Medical History: Atrial Fibrillation, Atrial Flutter, Asthma, Fibromyalgia, GERD/Reflux, GI Bleed, Hyperlipidemia, Hypertension, Musculoskeletal Disorder, Neurologic Disorder, Osteoarthritis (OA), Pulmonary Embolus (PE), Sleep Apnea/CPAP/BIPAP, Thyroid Disorder, Vascular Disorder Additional Past Medical History / Comment(s): hx as follows: bronchitis, thoracic spondylosis, lupus, rls,migraines, blood clots, hiatal hernia, ibs, gerd, uti had sepsis 2004, kidney stone , stress incont, tmj.PERIPHERAL NEUROPATHY, endometriosis,adenomyosis, mixed connective tissue disorder, hypothyroidism, peptic ulcer disease, osteoarthritis, osteoporosis, GERD, scoliosis, esophagitis, PE, DVT, hypertension. History of Any Multi-Drug Resistant Organisms: MRSA Date of last positivie culture/infection: 02/03/2015 MDRO Source:: Nose Past Surgical History: Adenoidectomy, Bariatric Surgery, Cardiac Ablation, Cholecystectomy, Heart Catheterization, Hysterectomy, Joint Replacement, Orthopedic Surgery, Tonsillectomy, Tubal Ligation Additional Past Surgical History / Comment(s): cardiac ablation, L knee and R hip replacement. Lap band surgery. tummy tuck. CATARACTS,SINUS SX, SKIN , LAPROSCOPY, HEMORRHOIDECTOMY, CARPAL TUNNEL ADELAIDA,PAST STEROID INJ TO NECK, UVULECTOMY, LUMPS REMOVED ADELAIDA BREAST (CELLS PRECANCEROUS),BX RT TEMPORAL ARTERY- NEG), HAD NERVES IN BACK BURNED, BENIGN GROWTH REMOVED FROM BEHIND RT EAR, bilateral arthroscopic knee surgery, right total hiparthroplasty, bilateral arthroscopic hip surgery, bilateral ankle arthroscopic surgery, bilateral shoulder arthroscopic surgery.renal cell carcinoma. 4 lesions on pancreas Past Anesthesia/Blood Transfusion Reactions: Motion Sickness, Postoperative Nausea & Vomiting (PONV) Past Psychological History: No Psychological Hx Reported Smoking Status: Never smoker Past Alcohol Use History: None Reported Past Drug Use History: None Reported - Past Family History Father Family Medical History: Neurologic Disorder, Pneumonia Additional Family Medical History / Comment(s): ALS, FROM PNEUMONIA,lupus Mother Family Medical History: AFIB, Cancer, Chest Pain / Angina, Congestive Heart Failure (CHF), Diabetes Mellitus, Hyperlipidemia, Hypertension, Myocardial Infarction ([place]) Additional Family Medical History / Comment(s): OBESITY, COLON CA Brother(s) Family Medical History: Coronary Artery Disease (CAD) Sister(s) Family Medical History: Coronary Artery Disease (CAD), Deep Vein Thrombosis (DVT) Daughter(s) Family Medical History: No Reported History Medications and Allergies Home Medications Medication Instructions Recorded Confirmed Type Cetirizine HCl [Zyrtec] 10 mg PO HS@2200 08/09/15 12/24/24 History Fludrocortisone [Florinef] 0.1 mg PO Q2D@1130 12/01/17 12/24/24 History Cyanocobalamin (Vitamin B-12) 2,500 mcg PO HS@182907/14/19 12/24/24 History [Vitamin B-12] atenoloL [Tenormin] 50 mg PO BID@1130,0 07/14/19 12/24/24 History Cholecalciferol [Vitamin D3 (125 125 mcg PO HS@182908/11/22 12/24/24 History Mcg = 5000 Iu)] Furosemide [Lasix] 20 mg PO HS@182908/11/22 12/24/24 History Potassium Chloride ER [K-Dur 20] 20 meq PO DAILY@112908/11/22 12/24/24 History allopurinoL 100 mg PO DAILY@112908/11/22 12/24/24 History predniSONE 5 mg PO Q2D@112908/11/22 12/24/24 History Beclomethasone Dipropionate [Qvar 1 puff INHALATION RT-BID 06/26/24 12/24/24 History 40 mcg Redihaler] Calcium/Magnesium/Zinc/Vitamin3 3 tab PO HS@182906/26/24 12/24/24 History Levothyroxine Sodium [Synthroid] 137 mcg PO AC-BRKFST 06/26/24 12/24/24 History Melatonin 10 mg PO HS@219906/26/24 12/24/24 History Montelukast [Singulair] 10 mg PO HS@182906/26/24 12/24/24 History predniSONE 1 mg PO Q2D@112906/26/24 12/24/24 History Apixaban [Eliquis] 5 mg PO BID@0,182912/24/24 12/24/24 History Azithromycin [Zithromax Z Pack] See Taper PO DAILY 12/24/24 12/24/24 History Allergies Allergy/AdvReac Type Severity Reaction Status Date / Time Sulfa (Sulfonamide Allergy Severe Anaphylaxis Verified 12/24/24 13:21 Antibiotics) NANCY Inhibitors Allergy Anaphylaxis Verified 12/24/24 13:21 adhesive Allergy Rash/Hives Verified 12/24/24 13:21 albuterol Allergy Rash/Hives Verified 12/24/24 13:21 aspirin [From Soma Compound] Allergy Unknown Verified 12/24/24 13:21 baclofen Allergy Unknown Verified 12/24/24 13:21 carisoprodol Allergy Unknown Verified 12/24/24 13:21 [From Soma Compound] ciprofloxacin [From Cipro] Allergy Unknown Verified 12/24/24 13:21 gabapentin Allergy Unknown Verified 12/24/24 13:21 hylan G-F 20 [From Synvisc] Allergy edema Verified 12/24/24 13:21 redness burning after knee surgery Iodine and Iodide Containing Allergy Rash/Hives Verified 12/24/24 13:21 Produc Latex, Natural Rubber Allergy Rash/Hives Verified 12/24/24 13:21 levofloxacin [From Levaquin] Allergy Unknown Verified 12/24/24 13:21 lidocaine Allergy Rash/Hives Verified 12/24/24 13:21 lisinopril Allergy Unknown Verified 12/24/24 13:21 meperidine HCl [From Demerol] Allergy Rash/Hives Verified 12/24/24 13:21 morphine Allergy Rash/Hives Verified 12/24/24 13:21 nitrofurantoin Allergy Rash/Hives Verified 12/24/24 13:21 [From Macrobid] tetanus toxoid, adsorbed Allergy Unknown Verified 12/24/24 13:21 tizanidine Allergy Rash/Hives Verified 12/24/24 13:21 aspartame AdvReac Intermediate Diarrhea Verified 12/24/24 13:21 codeine AdvReac Nausea & Verified 12/24/24 13:21 Vomiting doxycycline AdvReac Nausea & Verified 12/24/24 13:21 Vomiting Penicillins AdvReac Nausea & Verified 12/24/24 13:21 Vomiting prednisone AdvReac Hallucinati Verified 12/24/24 13:21 ons mushroom Allergy Diarrhea Uncoded 12/24/24 13:21 narcotics Allergy Rash/Hives Uncoded 12/24/24 13:21 Physical Exam Vitals: Vital Signs Temp Pulse Resp BP Pulse Ox 12/24/24 13:00 113 H 24 161/78 95 12/24/24 11:00 116 H 24 165/99 96 12/24/24 10:00 98.9 F 114 H 24 173/92 96 12/24/24 09:54 113 H 30 H 166/97 12/24/24 09:32 32 H 12/24/24 09:25 108 H 30 H 168/85 98 12/24/24 09:17 116 H 12/24/24 09:04 106 H 12/24/24 08:51 110 H 32 H 179/101 97 12/24/24 08:25 105 H 32 H 174/81 95 12/24/24 08:20 98.2 F 107 H 32 H 150/130 92 L Intake and Output 12/24/24 12/24/24 12/24/24 06:59 14:59 22:59 Other: Weight 153.768 kg GENERAL EXAM: Alert, pleasant, morbidly obese 74-year-old female, on 2 L nasal cannula, fairly comfortable in no apparent distress. HEAD: Normocephalic. EYES: Normal reaction of pupils, equal size. NOSE: Clear with pink turbinates. THROAT: No erythema or exudates. NECK: No masses, no JVD. CHEST: No chest wall deformity. LUNGS: Equal air entry with no crackles, wheeze, rhonchi or dullness. CVS: S1 and S2 normal with no audible murmur, regular rhythm. ABDOMEN: No hepatosplenomegaly, normal bowel sounds, no guarding or rigidity. SPINE: No scoliosis or deformity SKIN: No rashes CENTRAL NERVOUS SYSTEM: No focal deficits, tone is normal in all 4 extremities. EXTREMITIES: There is no peripheral edema. No clubbing, no cyanosis. Peripheral pulses are intact. Results - Laboratory Findings CBC and BMP: 12/24/24 09:36 12/24/24 09:36 PT/INR, D-dimer PT 11.6 sec (10.0-12.5) 12/24/24 09:36 INR 1.1 (<1.2) 12/24/24 09:36 Abnormal lab findings: Abnormal Labs 12/24/24 12/24/24 12/24/24 09:10 09:36 09:36 Lymphocytes # (Manual) 0.99 L Sodium 134 L Potassium 3.1 L Chloride 96 L Glucose 152 H Total Bilirubin 1.4 H AST 37 H SARS-CoV-2 (PCR) Detected A - Diagnostic Findings Chest x-ray: image reviewed Assessment and Plan Assessment: Acute COVID 19 infection with nausea, vomiting, diarrhea Acute on chronic hypoxemic respiratory failure secondary to mild asthma exacerbation from COVID infection Mild intermittent chronic bronchial asthma Obstructive sleep apnea maintained on CPAP Morbid obesity/hypoventilation syndrome History of pulmonary embolism anticoagulated with Xarelto Atrial fibrillation with previous ablation plan: Hypertension Hyperlipidemia History of bariatric surgery Plan: The patient was seen and evaluated Chest x-ray, labs and medications reviewed Currently stable on 2 L nasal cannula Initiate Decadron Initiate vitamin C, D and zinc Continue home medications Titrate the FiO2 as tolerated Increase her activity as tolerated We will continue to follow and make further recommendations based on her clinical status I have personally seen and examined the patient, performed the documentation and the assessment and plan as written. Number of minutes spent on the visit: 20 Dictation was produced using [employer] dictation software. Please excuse any grammatical, word or spelling errors. Time with Patient: Greater than 30
[2024-12-24] MEDS: FUROSEMIDE 10 MG/ML 4 ML VIAL IV SCH (16:52)
[2024-12-24] MEDS: MONTELUKAST 10 MG TAB PO SCH (18:09)
[2024-12-24] MEDS: APIXABAN 5 MG TAB PO SCH (18:09)
[2024-12-24] MEDS: CYANOCOBALAMIN 500 MCG TAB PO SCH (18:09)
[2024-12-24] MEDS: CHOLECALCIFEROL 125 MCG (5000 IU) TABLET PO SCH (18:09)
--- NOTE | 2024-12-24 20:17 | HP ---
HISTORY AND PHYSICAL CHIEF COMPLAINT: Flu-like symptoms and shortness of breath. HISTORY OF PRESENT ILLNESS: This is a 74-year-old woman with a past medical history of multiple medical problems including atrial fibrillation, asthma, was not feeling well over the past several days. The patient apparently had 2 episodes of COVID previously. Currently, the patient went to ice show in the theater and spent about 4 hours. The patient had some cough and congestion. COVID-19 is positive. Chest x-ray showed possible pneumonia also. The patient was admitted for further evaluation and treatment. There is no history of any fever, rigors, or chills at this time. PAST MEDICAL HISTORY: Reviewed include atrial flutter, fibrillation, asthma. Rest of the history and rest of the chart are also reviewed. HOME MEDICATIONS: Reviewed include Florinef, dose and rest of medications reviewed. ALLERGIES: Multiple allergies reviewed include sulfa. FAMILY HISTORY: History of pneumonia, ALS. SOCIAL HISTORY: No history of smoking or alcohol. REVIEW OF SYSTEMS: Fourteen-point review of systems is negative except as mentioned earlier. PHYSICAL EXAMINATION: VITAL SIGNS: Pulse is 130 and regular, blood pressure 161/78, respirations 24. HEENT: Conjunctivae normal. NECK: No JVD. CARDIOVASCULAR: S1, S2. RESPIRATORY: Breath sounds diminished at the bases. A few scattered rhonchi. ABDOMEN: Soft, nontender. NERVOUS SYSTEM: Nonfocal. LABORATORY DATA: Reviewed. ASSESSMENT: 1. Acute COVID-19 infection with COVID-19 pneumonia. 2. Acute asthma exacerbation. 3. Rule out congestive heart failure. 4. Mild hypokalemia. 5. History of atrial flutter, fibrillation. 6. Gastroesophageal reflux disease. 7. Hypertension. 8. Hyperlipidemia. 9. History of pulmonary embolism. 10.History of lupus. 11.History of multiple complex medical issues including bariatric surgery. RECOMMENDATIONS AND DISCUSSION: This is a 74-year-old woman, who presented with multiple complex medical issues, we will monitor the patient closely. Recommend bronchodilators, steroids. Recommend Pulmonary, Infectious Disease, and Cardiology consultations. We will continue to monitor. A 2D echo with Doppler will be ordered. If NT-proBNP at that point is elevated, I would recommend cautious diuretics also. See orders for further details. Further recommendations to follow. Dexamethasone has been initiated. MMODL / IJN: [id number] /
[2024-12-24 20:38] LABS: Glucose,Whole Blood 301 mg/dL (70-110)
[2024-12-24] MEDS: FLUTICASONE 44 MCG INHALER INHALATION SCH (20:44)
[2024-12-24] MEDS: LORATADINE 10 MG TAB PO SCH (21:52)
[2024-12-24] MEDS: MELATONIN 5 MG TABLET PO SCH (21:53)
[2024-12-24] MEDS: atenoloL 50 MG TAB PO SCH (21:53)
--- NOTE | 2024-12-24 23:25 | P.CONS ---
History of Present Illness - Reason for Consult Consult date: 12/24/24 COVIDremdesivir Requesting physician: Shree Lee - Chief Complaint Weakness diarrhea and shortness of breath x 4 days - History of Present Illness Patient is a 74-year-old female with a past medical history significant for Atrial Fibrillation, Atrial Flutter, Asthma, Fibromyalgia, GERD/Reflux, GI Bleed, Hyperlipidemia, Hypertension, Musculoskeletal Disorder, Neurologic Disorder, Osteoarthritis (OA), Pulmonary Embolus (PE), Sleep Apnea/CPAP/BIPAP, Thyroid Disorder, Vascular Disorder, presenting to the hospital for evaluation of increasing shortness of breath and weakness that has been getting worse for last 4 days patient mention his symptoms started on Friday with a diarrhea and since then she had multiple episode of loose stools patient denies having any blood or mucus in the stool did have some epigastric discomfort intubating into her nausea and vomiting patient also complaining of some shortness of breath however mentioned that improvement when she was at CPAP at home standing up any sputum did have some runny nose but no other URI symptoms and denies high-grade fever on presentation to the hospital patient was afebrile no fever have recorded subsequently patient was tachycardic but not hypotensive she was noticed to be mildly hypoxic with O2 sats of 92% room air currently 96% on 2 L nasal cannula patient did have white count of 9.0 c reatinine 0.7, Potassium is low at 3.1 bilirubin AST mildly elevated patient did tested positive for COVID-19 influenza RSV negative patient did have a chest x- ray which did show low lung volumes no evidence for pleural effusion focal consolidation no pneumothorax and the concern for possible atelectasis versus pulmonary edema, patient has been admitted to hospital has been seen by pulm and started on dexamethasone infectious was consulted within for possible remdesivir Review of Systems Positive point and negatives has been mentioned in the HPI, complete review of systems was performed and all other systems are negative Past Medical History Past Medical History: Atrial Fibrillation, Atrial Flutter, Asthma, Fibromyalgia, GERD/Reflux, GI Bleed, Hyperlipidemia, Hypertension, Musculoskeletal Disorder, Neurologic Disorder, Osteoarthritis (OA), Pulmonary Embolus (PE), Sleep Apnea/CPAP/BIPAP, Thyroid Disorder, Vascular Disorder Additional Past Medical History / Comment(s): hx as follows: bronchitis, thoracic spondylosis, lupus, rls,migraines, blood clots, hiatal hernia, ibs, gerd, uti had sepsis 2004, kidney stone , stress incont, tmj.PERIPHERAL NEUROPATHY, endometriosis,adenomyosis, mixed connective tissue disorder, hypothyroidism, peptic ulcer disease, osteoarthritis, osteoporosis, GERD, scoliosis, esophagitis, PE, DVT, hypertension. History of Any Multi-Drug Resistant Organisms: MRSA Year Discovered:: 02/03/2015 MDRO Source:: Nose Past Surgical History: Adenoidectomy, Bariatric Surgery, Cardiac Ablation, Cholecystectomy, Heart Catheterization, Hysterectomy, Joint Replacement, O rthopedic Surgery, Tonsillectomy, Tubal Ligation Additional Past Surgical History / Comment(s): cardiac ablation, L knee and R hip replacement. Lap band surgery. tummy tuck. CATARACTS,SINUS SX, SKIN , LAPROSCOPY, HEMORRHOIDECTOMY, CARPAL TUNNEL ADELAIDA,PAST STEROID INJ TO NECK, UVULECTOMY, LUMPS REMOVED ADELAIDA BREAST (CELLS PRECANCEROUS),BX RT TEMPORAL ARTERY- NEG), HAD NERVES IN BACK BURNED, BENIGN GROWTH REMOVED FROM BEHIND RT EAR, bilateral arthroscopic knee surgery, right total hiparthroplasty, bilateral arthroscopic hip surgery, bilateral ankle arthroscopic surgery, bilateral shoulder arthroscopic surgery.renal cell carcinoma. 4 lesions on pancreas Past Anesthesia/Blood Transfusion Reactions: Motion Sickness, Postoperative Nausea & Vomiting (PONV) Past Psychological History: No Psychological Hx Reported Smoking Status: Never smoker Past Alcohol Use History: None Reported Past Drug Use History: None Reported - Past Family History Father Family Medical History: Neurologic Disorder, Pneumonia Additional Family Medical History / Comment(s): ALS, FROM PNEUMONIA,lupus Mother Family Medical History: AFIB, Cancer, Chest Pain / Angina, Congestive Heart Failure (CHF), Diabetes Mellitus, Hyperlipidemia, Hypertension, Myocardial Infarction ([place]) Additional Family Medical History / Comment(s): OBESITY, COLON CA Brother(s) Family Medical History: Coronary Artery Disease (CAD) Sister(s) Family Medical History: Coronary Artery Disease (CAD), Deep Vein Thrombosis (DVT) Daughter(s) Family Medical History: No Reported History Medications and Allergies Home Medications Medication Instructions Recorded Confirmed Type Cetirizine HCl [Zyrtec] 10 mg PO HS@2200 08/09/15 12/24/24 History Fludrocortisone [Florinef] 0.1 mg PO Q2D@1130 12/01/17 12/24/24 History Cyanocobalamin (Vitamin B-12) 2,500 mcg PO HS@182907/14/19 12/24/24 History [Vitamin B-12] atenoloL [Tenormin] 50 mg PO BID@1130,219907/14/19 12/24/24 History Cholecalciferol [Vitamin D3 (125 125 mcg PO HS@182908/11/22 12/24/24 History Mcg = 5000 Iu)] Furosemide [Lasix] 20 mg PO HS@182908/11/22 12/24/24 History Potassium Chloride ER [K-Dur 20] 20 meq PO DAILY@112908/11/22 12/24/24 History allopurinoL 100 mg PO DAILY@112908/11/22 12/24/24 History predniSONE 5 mg PO Q2D@112908/11/22 12/24/24 History Beclomethasone Dipropionate [Qvar 1 puff INHALATION RT-BID 06/26/24 12/24/24 History 40 mcg Redihaler] Calcium/Magnesium/Zinc/Vitamin3 3 tab PO HS@182906/26/24 12/24/24 History Levothyroxine Sodium [Synthroid] 137 mcg PO AC-BRKFST 06/26/24 12/24/24 History Melatonin 10 mg PO HS@219906/26/24 12/24/24 History Montelukast [Singulair] 10 mg PO HS@182906/26/24 12/24/24 History predniSONE 1 mg PO Q2D@112906/26/24 12/24/24 History Apixaban [Eliquis] 5 mg PO BID@0,182912/24/24 12/24/24 History Azithromycin [Zithromax Z Pack] See Taper PO DAILY 12/24/24 12/24/24 History Allergies Allergy/AdvReac Type Severity Reaction Status Date / Time Sulfa (Sulfonamide Allergy Severe Anaphylaxis Verified 12/24/24 13:21 Antibiotics) NANCY Inhibitors Allergy Anaphylaxis Verified 12/24/24 13:21 adhesive Allergy Rash/Hives Verified 12/24/24 13:21 albuterol Allergy Rash/Hives Verified 12/24/24 13:21 aspirin [From Soma Compound] Allergy Unknown Verified 12/24/24 13:21 baclofen Allergy Unknown Verified 12/24/24 13:21 carisoprodol Allergy Unknown Verified 12/24/24 13:21 [From Soma Compound] ciprofloxacin [From Cipro] Allergy Unknown Verified 12/24/24 13:21 gabapentin Allergy Unknown Verified 12/24/24 13:21 hylan G-F 20 [From Synvisc] Allergy edema Verified 12/24/24 13:21 redness burning after knee surgery Iodine and Iodide Containing Allergy Rash/Hives Verified 12/24/24 13:21 Produc Latex, Natural Rubber Allergy Rash/Hives Verified 12/24/24 13:21 levofloxacin [From Levaquin] Allergy Unknown Verified 12/24/24 13:21 lidocaine Allergy Rash/Hives Verified 12/24/24 13:21 lisinopril Allergy Unknown Verified 12/24/24 13:21 meperidine HCl [From Demerol] Allergy Rash/Hives Verified 12/24/24 13:21 morphine Allergy Rash/Hives Verified 12/24/24 13:21 nitrofurantoin Allergy Rash/Hives Verified 12/24/24 13:21 [From Macrobid] tetanus toxoid, adsorbed Allergy Unknown Verified 12/24/24 13:21 tizanidine Allergy Rash/Hives Verified 12/24/24 13:21 aspartame AdvReac Intermediate Diarrhea Verified 12/24/24 13:21 codeine AdvReac Nausea & Verified 12/24/24 13:21 Vomiting doxycycline AdvReac Nausea & Verified 12/24/24 13:21 Vomiting Penicillins AdvReac Nausea & Verified 12/24/24 13:21 Vomiting prednisone AdvReac Hallucinati Verified 12/24/24 13:21 ons mushroom Allergy Diarrhea Uncoded 12/24/24 13:21 narcotics Allergy Rash/Hives Uncoded 12/24/24 13:21 Physical Exam Vitals: Vital Signs Temp Pulse Resp BP Pulse Ox 12/24/24 16:37 96 24 148/72 96 12/24/24 13:00 113 H 24 161/78 95 12/24/24 11:00 116 H 24 165/99 96 12/24/24 10:00 98.9 F 114 H 24 173/92 96 12/24/24 09:54 113 H 30 H 166/97 12/24/24 09:32 32 H 12/24/24 09:25 108 H 30 H 168/85 98 12/24/24 09:17 116 H 12/24/24 09:04 106 H 12/24/24 08:51 110 H 32 H 179/101 97 12/24/24 08:25 105 H 32 H 174/81 95 12/24/24 08:20 98.2 F 107 H 32 H 150/130 92 L Intake and Output 12/24/24 12/24/24 12/24/24 06:59 14:59 22:59 Other: Weight 153.768 kg GENERAL DESCRIPTION: Elderly female lying in bed, no distress. No tachypnea or accessory muscle of respiration use. HEENT: Shows Pallor , no scleral icterus. Oral mucous membrane is dry. NECK: Trachea central, no thyromegaly. LUNGS: Unlabored breathing. Decreased intensity of breath sounds. No wheeze or crackle. HEART: S1, S2, regular rate and rhythm. No loud murmur ABDOMEN: Soft, no tenderness , EXTREMITIES: No edema of feet. SKIN: No rash, no masses palpable. NEUROLOGICAL: The patient is awake, alert, oriented x3, mood and affect normal. Results CBC & Chem 7: 12/25/24 04:19 12/25/24 04:19 Labs: Abnormal Lab Results - Last 24 Hours (Table) 12/24/24 12/24/24 12/24/24 Range/Units 09:10 09:36 09:36 Lymphocytes # (Manual) 0.99 L (1.0-4.8) k/uL Sodium 134 L (137-145) mmol/L Potassium 3.1 L (3.5-5.1) mmol/L Chloride 96 L (98-107) mmol/L Glucose 152 H (74-99) mg/dL Total Bilirubin 1.4 H (0.2-1.3) mg/dL AST 37 H (14-36) U/L SARS-CoV-2 (PCR) Detected A (Not Detectd) Assessment and Plan (1) COVID-19 Current Visit: Yes Status: Acute Code(s): U07.1 - COVID-19 SNOMED Code(s): 386875501 (2) Allergy to multiple antibiotics Current Visit: No Status: Acute Code(s): Z88.1 - ALLERGY STATUS TO OTHER ANTIBIOTIC AGENTS SNOMED Code(s): 150475582 Plan: 1patient presented hospital denies weakness nausea vomiting diarrhea also complaining of shortness of breath in this patient has been tested positive for COVID-19 she is not running any fever chest x-ray did not show any groundglass opacities pathognomonic for COVID-19 pneumonia and no evidence of any secondary bacterial pneumonia 2-patient has been started on dexamethasone zinc Eliquis vitamin C and will see clinical response, if did not respond to initial treatment may consider remdesivir however for now we will hold on adding remdesivir at this point 3droplet isolation We will follow on clinical condition and cultures to further adjust medication if needed Thank you for this consultation we will follow the patient along with you Dictation was produced using [employer] dictation software. please excuse any grammatical, word or spelling errors. Time with Patient: Greater than 30
[2024-12-25] MEDS: PANTOPRAZOLE 40 MG TABLET PO SCH (06:17)
[2024-12-25] MEDS: LEVOTHYROXINE 137 MCG TAB PO SCH (06:17)
[2024-12-25 06:24] LABS: Glucose,Whole Blood 243 mg/dL (70-110)
[2024-12-25] MEDS: ASCORBIC ACID 500 MG TAB PO SCH (08:46)
[2024-12-25] MEDS: ZINC SULFATE 220 MG CAP PO SCH (08:46)
[2024-12-25] MEDS: CHOLECALCIFEROL 125 MCG (5000 IU) TABLET PO SCH (08:46)
[2024-12-25 09:57] LABS: Basophils # (A) 0.01 X 10*3/uL (0.00-0.10); Basophils % (A) 0.1 %; Eosinophils # (A) 0 X 10*3/uL (0.04-0.35); Eosinophils % (A) 0 %; HCT 40.4 % (37.2-46.3); HGB 12.6 g/dL (12.0-15.0); Lymphocytes # (A) 0.38 X 10*3/uL (0.90-5.00); Lymphocytes % (A) 4.8 %; MCH 28.7 pg (27.0-32.0); MCHC 31.2 g/dL (32.0-37.0); Mean Platelet Volume 10.1 FL (9.5-12.2); Monocytes # (A) 0.53 X 10*3/uL (0.20-1.00); Monocytes % (A) 6.7 %; NRBC Per 100 WBC 0 X 10*3/uL (0.00-0.01); Neutrophils # (A) 7.01 X 10*3/uL (1.80-7.70); Platelet Count 230 X 10*3/uL (140-440); RBC 4.39 X 10*6/uL (4.10-5.20); RDW 14.1 % (11.5-14.5); WBC 7.96 X 10*3/uL (4.50-10.00)
[2024-12-25 10:24] LABS: ALT 16 U/L (8-44); AST 29 U/L (13-35); Albumin 3.7 g/dL (3.8-4.9); Albumin/Globulin Ratio 1.23 Ratio (1.60-3.17); Alkaline Phosphatase 104 U/L (41-126); BUN/Creat Ratio 16.73 Ratio (12.00-20.00); Blood Urea Nitrogen 18.4 mg/dL (9.0-27.0); Calcium 8.6 mg/dL (8.7-10.3); Carbon Dioxide 24.9 mmol/L (21.6-31.8); Chloride 96 mmol/L (96-109); Glucose 266 mg/dL (70-110); Sodium 135 mmol/L (135-145); Total Bilirubin 0.6 mg/dL (0.3-1.2); Total Protein 6.7 g/dL (6.2-8.2)
--- NOTE | 2024-12-25 11:26 | P.CRDCN ---
History of Present Illness Consult date: 12/25/24 Consult reason: congestive heart failure History of present illness: This is Zeeshan De La O NP, I'm dictating on behalf of Dr. Walters's H&P and A&P The patient was interviewed and examined. HPI: Patient is a pleasant 74-year-old female with a past medical history including atrial fibrillation, asthma, COPD, fibromyalgia, GERD, hyperlipidemia, hypertension, osteoarthritis, PE, and sleep apnea who presented to the hospital with complaints of difficulty breathing. She reports over the last 4 days she has had cough and congestion. Denies any fever. She is complaining of increased difficulty breathing. EKG demonstrated A-fib with RVR. Patient tested positive for COVID. Chest x-ray suspicious for pulmonary vascular congestion versus atelectasis. Cardiology was consulted for further evaluation of CHF. Patient is found lying comfortable in the bed this morning. She continues to report some mild shortness of breath, but denies lower extremity edema, significant wheezing, or orthopnea. ROS: [No fever, chills, or rigors] [no cough, phlegm, or expectoration] [no nausea, vomiting, or diarrhea] [no hematuria, dysuria] [no musculoskelatal complaints] [no strokes or seizures] [no skin lesions] EXAMINATION: GENERAL: Well-appearing, well-nourished and in no acute distress. NECK: Supple without JVD or thyromegaly. LUNGS: Breath sounds clear to auscultation bilaterally. Respiration equal and unlabored. No wheezes, rales or rhonchi. HEART: Regular rate and rhythm without murmurs, rubs or gallops. S1 and S2 heard. EXTREMITIES: Normal range of motion, no edema. No clubbing or cyanosis. Peripheral pulses intact and strong. REVIEW OF LABS, ECG & MEDICAL DATA: LABS: White count 7.96, hemoglobin 12.6, platelets 230, sodium 135, potassium 4, BUN 18.4, creatinine 1.1, calcium 8.9, magnesium 1.8, BNP 6230 EKG: Atrial fibrillation with rapid ventricular response IMAGING: Chest x-ray dated 12/24/2024 demonstrates low lung volumes with a generalized hazy appearance which could represent atelectasis versus pulmonary edema, correlate with serum BNP. Repeat chest x-ray today is pending radiology read. VITALS: Temp 98.2, pulse 75, respirations 18, blood pressure 152/99, O2 saturation 95% on 3 L IMPRESSION: 1. COVID-19 2. Hypertension 3. Hypoxia 4. Suspicion of CHF on chest x-ray PLAN: Discontinue Florinef. No evidence of congestive heart failure, as x-ray is atelectatic without significant evidence of pulmonary vascular congestion. No further recommendations from a cardiology standpoint. Thank you for the consult and allowing us to participate in the care of this patient. Past Medical History Past Medical History: Atrial Fibrillation, Atrial Flutter, Asthma, Fibromyalgia, GERD/Reflux, GI Bleed, Hyperlipidemia, Hypertension, Musculoskeletal Disorder, Neurologic Disorder, Osteoarthritis (OA), Pulmonary Embolus (PE), Sleep Apnea/CPAP/BIPAP, Thyroid Disorder, Vascular Disorder Additional Past Medical History / Comment(s): hx as follows: bronchitis, thoracic spondylosis, lupus, rls,migraines, blood clots, hiatal hernia, ibs, gerd, uti had sepsis 2004, kidney stone , stress incont, tmj.PERIPHERAL NE UROPATHY, endometriosis,adenomyosis, mixed connective tissue disorder, hypothyroidism, peptic ulcer disease, osteoarthritis, osteoporosis, GERD, scoliosis, esophagitis, PE, DVT, hypertension. History of Any Multi-Drug Resistant Organisms: MRSA Date of last positivie culture/infection: 02/03/2015 MDRO Source:: Nose Past Surgical History: Adenoidectomy, Bariatric Surgery, Cardiac Ablation, Cholecystectomy, Heart Catheterization, Hysterectomy, Joint Replacement, Orthopedic Surgery, Tonsillectomy, Tubal Ligation Additional Past Surgical History / Comment(s): cardiac ablation, L knee and R hip replacement. Lap band surgery. tummy tuck. CATARACTS,SINUS SX, SKIN , LAPROSCOPY, HEMORRHOIDECTOMY, CARPAL TUNNEL ADELAIDA,PAST STEROID INJ TO NECK, UVULECTOMY, LUMPS REMOVED ADELAIDA BREAST (CELLS PRECANCEROUS),BX RT TEMPORAL ARTERY- NEG), HAD NERVES IN BACK BURNED, BENIGN GROWTH REMOVED FROM BEHIND RT EAR, bilateral arthroscopic knee surgery, right total hiparthroplasty, bilateral arthroscopic hip surgery, bilateral ankle arthroscopic surgery, bilateral shoulder arthroscopic surgery.renal cell carcinoma. 4 lesions on pancreas Past Anesthesia/Blood Transfusion Reactions: Motion Sickness, Postoperative Nausea & Vomiting (PONV) Past Psychological History: No Psychological Hx Reported Smoking Status: Never smoker Past Alcohol Use History: None Reported Past Drug Use History: None Reported - Past Family History Father Family Medical History: Neurologic Disorder, Pneumonia Additional Family Medical History / Comment(s): ALS, FROM PNEUMONIA,lupus Mother Family Medical History: AFIB, Cancer, Chest Pain / Angina, Congestive Heart Failure (CHF), Diabetes Mellitus, Hyperlipidemia, Hypertension, Myocardial Infarction ([place]) Additional Family Medical History / Comment(s): OBESITY, COLON CA Brother(s) Family Medical History: Coronary Artery Disease (CAD) Sister(s) Family Medical History: Coronary Artery Disease (CAD), Deep Vein Thrombosis (DVT) Daughter(s) Family Medical History: No Reported History Medications and Allergies Home Medications Medication Instructions Recorded Confirmed Type Cetirizine HCl [Zyrtec] 10 mg PO HS@219908/09/15 12/24/24 History Fludrocortisone [Florinef] 0.1 mg PO Q2D@0 12/01/17 12/24/24 History Cyanocobalamin (Vitamin B-12) 2,500 mcg PO HS@182907/14/19 12/24/24 History [Vitamin B-12] atenoloL [Tenormin] 50 mg PO BID@1130,219907/14/19 12/24/24 History Cholecalciferol [Vitamin D3 (125 125 mcg PO HS@182908/11/22 12/24/24 History Mcg = 5000 Iu)] Furosemide [Lasix] 20 mg PO HS@0 08/11/22 12/24/24 History Potassium Chloride ER [K-Dur 20] 20 meq PO DAILY@112908/11/22 12/24/24 History allopurinoL 100 mg PO DAILY@112908/11/22 12/24/24 History predniSONE 5 mg PO Q2D@1130 08/11/22 12/24/24 History Beclomethasone Dipropionate [Qvar 1 puff INHALATION RT-BID 06/26/24 12/24/24 History 40 mcg Redihaler] Calcium/Magnesium/Zinc/Vitamin3 3 tab PO HS@182906/26/24 12/24/24 History Levothyroxine Sodium [Synthroid] 137 mcg PO AC-BRKFST 06/26/24 12/24/24 History Melatonin 10 mg PO HS@219906/26/2412/24/25 History Montelukast [Singulair] 10 mg PO HS@1830 06/26/24 12/24/24 History predniSONE 1 mg PO Q2D@1130 06/26/24 12/24/24 History Apixaban [Eliquis] 5 mg PO BID@1130,1830 12/24/24 12/24/24 History Azithromycin [Zithromax Z Pack] See Taper PO DAILY 12/24/24 12/24/24 History Allergies Allergy/AdvReac Type Severity Reaction Status Date / Time Sulfa (Sulfonamide Allergy Severe Anaphylaxis Verified 12/24/24 13:21 Antibiotics) NANCY Inhibitors Allergy Anaphylaxis Verified 12/24/24 13:21 adhesive Allergy Rash/Hives Verified 12/24/24 13:21 albuterol Allergy Rash/Hives Verified 12/24/24 13:21 aspirin [From Soma Compound] Allergy Unknown Verified 12/24/24 13:21 baclofen Allergy Unknown Verified 12/24/24 13:21 carisoprodol Allergy Unknown Verified 12/24/24 13:21 [From Soma Compound] ciprofloxacin [From Cipro] Allergy Unknown Verified 12/24/24 13:21 gabapentin Allergy Unknown Verified 12/24/24 13:21 hylan G-F 20 [From Synvisc] Allergy edema Verified 12/24/24 13:21 redness burning after knee surgery Iodine and Iodide Containing Allergy Rash/Hives Verified 12/24/24 13:21 Produc Latex, Natural Rubber Allergy Rash/Hives Verified 12/24/24 13:21 levofloxacin [From Levaquin] Allergy Unknown Verified 12/24/24 13:21 lidocaine Allergy Rash/Hives Verified 12/24/24 13:21 lisinopril Allergy Unknown Verified 12/24/24 13:21 meperidine HCl [From Demerol] Allergy Rash/Hives Verified 12/24/24 13:21 morphine Allergy Rash/Hives Verified 12/24/24 13:21 nitrofurantoin Allergy Rash/Hives Verified 12/24/24 13:21 [From Macrobid] tetanus toxoid, adsorbed Allergy Unknown Verified 12/24/24 13:21 tizanidine Allergy Rash/Hives Verified 12/24/24 13:21 aspartame AdvReac Intermediate Diarrhea Verified 12/24/24 13:21 codeine AdvReac Nausea & Verified 12/24/24 13:21 Vomiting doxycycline AdvReac Nausea & Verified 12/24/24 13:21 Vomiting Penicillins AdvReac Nausea & Verified 12/24/24 13:21 Vomiting prednisone AdvReac Hallucinati Verified 12/24/24 13:21 ons mushroom Allergy Diarrhea Uncoded 12/24/24 13:21 narcotics Allergy Rash/Hives Uncoded 12/24/24 13:21 Physical Exam Vitals: Vital Signs Temp Pulse Pulse Resp BP BP Pulse Ox 12/25/24 07:17 98.2 F 75 18 152/99 95 12/25/24 03:07 150/100 12/24/24 20:00 108 H 18 12/24/24 19:35 97.8 F 108 H 18 89/69 99 12/24/24 16:37 96 24 148/72 96 12/24/24 13:00 113 H 24 161/78 95 Intake and Output 12/24/24 12/25/24 12/25/24 22:59 06:59 14:59 Intake Total 400 Output Total 2600 Balance -2200 Intake: Oral 400 Output: Urine 2600 Other: Voiding Method External Catheter External Catheter # Voids 0 Results 12/25/24 04:19 12/25/24 04:19 CBC 12/25/24 Range/Units 04:19 WBC 7.96 (4.50-10.00) X 10*3/uL RBC 4.39 (4.10-5.20) X 10*6/uL Hgb 12.6 (12.0-15.0) g/dL Hct 40.4 (37.2-46.3) % Plt Count 230 (140-440) X 10*3/uL Comprehensive Metabolic Panel 12/25/24 Range/Units 04:19 Sodium 135 (135-145) mmol/L Potassium 4.0 (3.5-5.5) mmol/L Chloride 96 (96-109) mmol/L Carbon Dioxide 24.9 (21.6-31.8) mmol/L BUN 18.4 (9.0-27.0) mg/dL Creatinine 1.1 (0.6-1.5) mg/dL Glucose 266 H (70-110) mg/dL Current Medications Generic Name Dose Route Start Last Admin Trade Name Freq PRN Reason Stop Dose Admin Allopurinol 100 mg 12/25/24 11:30 Allopurinol 100 Mg Tab PO DAILY@1130 NAVEEN Apixaban 5 mg 12/24/24 18:30 12/24/24 18:09 Apixaban 5 Mg Tab PO 5 mg BID@1130,1830 [facility] Administration Protocol Ascorbic Acid 500 mg 12/25/24 09:00 12/25/24 08:46 Ascorbic Acid 500 Mg Tab PO 500 mg DAILY NAVEEN Administration Atenolol 50 mg 12/24/24 22:00 12/24/24 21:53 Atenolol 50 Mg Tab PO 50 mg BID@1130,2200 [facility] Administration Cholecalciferol 125 mcg 12/25/24 09:00 12/25/24 08:46 Cholecalciferol 125 Mcg (5000 Iu) Tablet PO 125 mcg DAILY NAVEEN Administration Cholecalciferol 125 mcg 12/24/24 18:30 12/24/24 18:09 Cholecalciferol 125 Mcg (5000 Iu) Tablet PO 125 mcg HS@1830 [facility] Administration Cyanocobalamin 2,500 mcg 12/24/24 18:30 12/24/24 18:09 Cyanocobalamin 500 Mcg Tab PO 2,500 mcg HS@1830 [facility] Administration Dexamethasone 6 mg 12/24/24 16:30 12/25/24 08:46 Dexamethasone 2 Mg Tab PO 6 mg DAILY [facility] Administration Fludrocortisone Acetate 0.1 mg 12/26/24 11:30 Fludrocortisone 0.1 Mg Tab PO Q2D@1130 [facility] Fluticasone Propionate 1 puff 12/24/24 20:00 12/25/24 10:03 Fluticasone 44 Mcg Inhaler INHALATION 1 puff RT-BID NAVEEN Administration Furosemide 40 mg 12/24/24 16:39 12/25/24 08:46 Furosemide 10 Mg/Ml 4 Ml Vial IV 40 mg Q12HR [facility] Administration Ceftriaxone Sodium 1 gm/ 50 mls @ 100 mls/hr 12/24/24 16:45 12/25/24 08:46 Sodium Chloride IVPB 100 mls/hr Q24HR [facility] Administration Protocol Levothyroxine Sodium 137 mcg 12/25/24 07:30 12/25/24 06:17 Levothyroxine 137 Mcg Tab PO 137 mcg AC-BRKFST [facility] Administration Loratadine 10 mg 12/24/24 22:00 12/24/24 21:52 Loratadine 10 Mg Tab PO 10 mg HS@2200 [facility] Administration Melatonin 10 mg 12/24/24 22:00 12/24/24 21:53 Melatonin 5 Mg Tablet PO 10 mg HS@2200 [facility] Administration Montelukast Sodium 10 mg 12/24/24 18:30 12/24/24 18:09 Montelukast 10 Mg Tab PO 10 mg HS@1830 [facility] Administration Naloxone HCl 0.2 mg 12/24/24 11:48 Naloxone 0.4 Mg/Ml 1 Ml Vial IVP Q2M PRN Opioid Reversal Pantoprazole Sodium 40 mg 12/25/24 07:30 12/25/24 06:17 Pantoprazole 40 Mg Tablet PO 40 mg AC-BRKFST [facility] Administration Potassium Chloride 20 meq 12/25/24 11:30 Potassium Chloride Er 20 Meq Tab.Er PO DAILY@1130 [facility]AVE[facility] Zinc Sulfate 220 mg 12/25/24 09:00 12/25/24 08:46 Zinc Sulfate 220 Mg Cap PO 220 mg DAILY [facility]AVEEN Administration Intake and Output 12/24/24 12/25/24 12/25/24 22:59 06:59 14:59 Intake Total 400 Output Total 2600 Balance -2200 Intake: Oral 400 Output: Urine 2600 Other: Voiding Method External Catheter External Catheter # Voids 0 12/25/24 04:19 12/25/24 04:19
[2024-12-25 11:39] LABS: Glucose,Whole Blood 235 mg/dL (70-110)
--- NOTE | 2024-12-25 11:48 | XR ---
EXAMINATION TYPE: XR chest 1V portable DATE OF EXAM: 12/25/2024 CLINICAL INDICATION: Female, 74 years old with history of pneumonia, progress study. TECHNIQUE: Single AP portable upright view of the chest is obtained. COMPARISON: Chest x-ray from one day earlier FINDINGS: Persistent low lung volumes and cardiomegaly. No suspicious new focal airspace opacity or pneumothorax seen bilaterally. Osseous structures are intact. IMPRESSION: No suspicious acute pulmonary focal infiltrate. [facility], , 12/25/2024 11:46 AM
--- NOTE | 2024-12-25 12:05 | P.PN ---
Subjective Progress Note Date: 12/25/24 This is an obese 74-year-old female patient with a known history of obstructive sleep apnea maintained on home CPAP, home oxygen at 4 L, mild intermittent chronic bronchial asthma maintained on Qvar, previous bariatric surgery, history of PE, fibromyalgia, diverticulosis, atrial fibrillation who presented here to the emergency room shortness of breath. For 4 days she has been having increasing shortness of breath cough congestion, diarrhea, vomiting, muscle aches. She tested positive for COVID infection. Chest x-ray shows atelectasis and low lung volumes. White count 9.0. Hemoglobin 12.9. Platelets 191. Sodium 134. Potassium 3.1. Bicarb 26. BUN 16. Creatinine 0.79. Glucose 152. proBNP 6230. She is seen today in consultation in the emergency department. Currently sitting up in a stretcher. Awake and alert in no acute distress. Maintaining O2 saturations in the 90s on 2 L/min per nasal cannula. She is afebrile. Hemodynamically stable. The patient is seen today December 25, 2024 in follow-up on the regular medical floor. She is currently resting comfortably in bed. Awake and alert in no acute distress. Maintaining O2 saturations in the 90s on 3 L/min per nasal cannula. Feeling better today. Denies any nausea, vomiting or diarrhea. Chest x-ray shows no acute pulmonary process. White count 7.9. Hemoglobin 12.6. Platelets 230. Sodium 135. Potassium 4.0. Bicarb 25. BUN 18. Creatinine 1.1. Glucose 266. She remains on ceftriaxone. Continued on bronchodilators. Remains on Decadron and vitamin supplements. Remains on IV diuretics. Anticoagulated with Eliquis. Currently in a -2.2 L balance. Objective - Vital Signs Vital signs: Vital Signs Temp 98.2 F 12/25/24 07:17 Pulse 75 12/25/24 07:17 Resp 18 12/25/24 07:17 BP 152/99 12/25/24 07:17 Pulse Ox 95 12/25/24 07:17 FiO2 Intake & Output 12/24/24 12/25/24 12/25/24 18:59 06:59 18:59 Intake Total 400 Output Total 2600 Balance -2200 Weight 153.768 kg Intake: Oral 400 Output: Urine 2600 Other: Voiding Method External Catheter External Catheter # Voids 0 - Exam GENERAL EXAM: Alert, morbidly obese 74-year-old female, on 3 L nasal cannula, comfortable in no apparent distress. HEAD: Normocephalic. EYES: Normal reaction of pupils, equal size. NOSE: Clear with pink turbinates. THROAT: No erythema or exudates. NECK: No masses, no JVD. CHEST: No chest wall deformity. LUNGS: Equal air entry with no crackles, wheeze, rhonchi or dullness. CVS: S1 and S2 normal with no audible murmur, regular rhythm. ABDOMEN: No hepatosplenomegaly, normal bowel sounds, no guarding or rigidity. SPINE: No scoliosis or deformity SKIN: No rashes CENTRAL NERVOUS SYSTEM: No focal deficits, tone is normal in all 4 extremities. EXTREMITIES: There is 1+ peripheral edema. No clubbing, no cyanosis. Peripheral pulses are intact. - Labs CBC & Chem 7: 12/25/24 04:19 12/25/24 04:19 Labs: Abnormal Lab Results - Last 24 Hours (Table) 12/24/24 12/25/24 12/25/24 Range/Units 20:37 04:19 04:19 MCHC 31.2 L (32.0-37.0) g/dL Lymphocytes # 0.38 L (0.90-5.00) X 10*3/uL Eosinophils # 0 L (0.04-0.35) X 10*3/uL Anion Gap 14.10 H (4.00-12.00) mmol/L Est GFR (CKD-EPI) 52 L (>=60) Glucose 266 H (70-110) mg/dL POC Glucose (mg/dL) 301 H (70-110) mg/dL 12/25/24 12/25/24 Range/Units 06:22 11:33 MCHC (32.0-37.0) g/dL Lymphocytes # (0.90-5.00) X 10*3/uL Eosinophils # (0.04-0.35) X 10*3/uL Anion Gap (4.00-12.00) mmol/L Est GFR (CKD-EPI) (>=60) Glucose (70-110) mg/dL POC Glucose (mg/dL) 243 H 235 H (70-110) mg/dL Assessment and Plan Assessment: Acute COVID 19 infection with nausea, vomiting, diarrhea. Improved today Acute on chronic hypoxemic respiratory failure secondary to mild asthma exacerbation from COVID infection, and mild fluid volume overload Mild intermittent chronic bronchial asthma Obstructive sleep apnea maintained on CPAP Morbid obesity/hypoventilation syndrome History of pulmonary embolism anticoagulated with Xarelto Atrial fibrillation with previous ablation plan: Hypertension Hyperlipidemia History of bariatric surgery Plan: The patient was seen and evaluated Chest x-ray, labs and medications reviewed No acute pulmonary process Echocardiogram pending Continued on IV diuretics Remains in a negative balance Currently stable on 3 L nasal cannula Continue Decadron Continue vitamin C, D and zinc Anticoagulated with Eliquis Titrate the FiO2 as tolerated Increase her activity as tolerated We will continue to follow I have personally seen and examined the patient, performed the documentation and the assessment and plan as written. Number of minutes spent on the visit: 10 Dictation was produced using [employer] dictation software. Please excuse any grammatical, word or spelling errors.
[2024-12-25] MEDS: allopurinoL 100 MG TAB PO SCH (12:50)
[2024-12-25] MEDS: POTASSIUM CHLORIDE ER 20 MEQ TAB.ER PO SCH (12:51)
[2024-12-25] MEDS: INSULIN GLARGINE (LANTUS) 100 UNIT/ML SYR SQ SCH (14:52)
--- NOTE | 2024-12-25 15:12 | CA ---
Transthoracic Echo Report Name: Gail Pérez Age: 74 Gender: F : 1950 Exam Date: 12/24/2024 16:59 Exam Location: [facility] Ht (in): 66 Wt (lb): 339 Ordering Physician: Jase Vasques DO Attending/Referring Phys: [employer]ouring Machine Tender Alecia Burton RDCS Procedure CPT: Indications: LORRAINE Cardiac Hx: Technical Quality: Fair Contrast 1: Total Dose (mL): Contrast 2: Total Dose (mL): MEASUREMENTS (Male / Female) Normal Values 2D ECHO LV Diastolic Diameter PLAX 3.6 cm 4.2 - 5.9 / 3.9 - 5.3 cm LV Systolic Diameter PLAX 1.9 cm IVS Diastolic Thickness 1.3 cm 0.6 - 1.0 / 0.6 - 0.9 cm LVPW Diastolic Thickness 1.3 cm 0.6 - 1.0 / 0.6 - 0.9 cm LV Relative Wall Thickness 0.7 RV Internal Dim ED PLAX 4.1 cm LV Diastolic Volume MOD BP 95.1 cm??? 67 - 155 / 56 - 104 cm??? LV Systolic Volume MOD BP 51.0 cm??? 22 - 58 / 19 - 49 cm??? LV Ejection Fraction MOD BP 46.3 % >= 55 % LV Cardiac Index MOD BP 1540.5 cm???/min???m??? LV Diastolic Volume MOD 4C 90.4 cm??? LV Systolic Volume MOD 4C 37.0 cm??? LV Ejection Fraction MOD 4C 59.0 % LV Cardiac Index MOD 4C 1865.9 cm???/min???m??? LV Diastolic Length 4C 6.6 cm LV Systolic Length 4C 5.1 cm LV Diastolic Volume MOD 2C 93.6 cm??? LV Systolic Volume MOD 2C 57.8 cm??? LV Ejection Fraction MOD 2C 38.2 % LV Cardiac Index MOD 2C 1251.2 cm???/min???m??? LV Diastolic Length 2C 7.0 cm LV Systolic Length 2C 6.3 cm LA Volume 158.2 cm??? 18 - 58 / 22 - 52 cm??? LA Volume Index 57.1 cm???/m??? 16 - 28 cm???/m??? M-MODE Aortic Root Diameter MM 2.7 cm LA Systolic Diameter MM 6.6 cm LA Ao Ratio MM 2.4 AV Cusp Separation MM 1.3 cm DOPPLER AV Peak Velocity 152.4 cm/s AV Peak Gradient 9.3 mmHg AV Mean Velocity 96.6 cm/s AV Mean Gradient 4.3 mmHg AV Velocity Time Integral 23.2 cm LVOT Peak Velocity 123.6 cm/s LVOT Peak Gradient 6.1 mmHg LVOT Velocity Time Integral 23.4 cm MV Area PHT 2.7 cm??? Mitral E Point Velocity 118.9 cm/s Mitral A Point Velocity 1.6 cm/s Mitral E to A Ratio 73.4 MV Deceleration Time 285.5 ms MV E' Velocity 4.2 cm/s Mitral E to MV E' Ratio 28.2 TR Peak Velocity 236.5 cm/s TR Peak Gradient 22.4 mmHg FINDINGS Left Ventricle Mildly increased septal wall thickness. Mildly increased posterior wall thickness. Mildly increased left ventricular systolic volume. Mildly decreased left ventricular ejection fraction. Left ventricular ejection fraction is estimated at 50-55 %. Right Ventricle Normal right ventricular size. Right Atrium Mild right atrial dilatation. Left Atrium Severely increased left atrial volume. Moderately increased left atrial area. Mitral Valve Mild mitral annular calcification. Moderate mitral regurgitation. Aortic Valve Trace aortic regurgitation. No aortic stenosis. Thickened aortic valve without stenosis. Tricuspid Valve Structurally normal tricuspid valve. [id number] tricuspid regurgitation. Pulmonic Valve Structurally normal pulmonic valve. Trace pulmonic regurgitation. Pericardium No pericardial effusion. Aorta Normal size aortic root and proximal ascending aorta. CONCLUSIONS Indication: Shortness of breath LVH with preserved systolic function Left atrial enlargement Moderate MR Previewed by: Dr. Myron Walters MD (Electronically Signed) Final Date: 25 December 2024 15:11
--- NOTE | 2024-12-25 15:17 | P.PN ---
Subjective Progress Note Date: 12/25/24 Principal diagnosis: Reason for follow-up is COVID-19, questionable need for remdesivir Patient is a 74-year-old female with a past medical history significant for Atrial Fibrillation, Atrial Flutter, Asthma, Fibromyalgia, GERD/Reflux, GI Bleed, Hyperlipidemia, Hypertension, Musculoskeletal Disorder, Neurologic Disorder, Osteoarthritis (OA), Pulmonary Embolus (PE), Sleep Apnea/CPAP/BIPAP, Thyroid Disorder, Vascular Disorder, presenting to the hospital for evaluation of increasing shortness of breath and weakness along with vomiting and diarrhea has been diagnosed with COVID-19 prompted this consultation. On today's evaluation that is 12/25/2024, patient did not have any fever and denies any chills, patient is breathing comfortably on room air, patient with no chest pain or any worsening cough patient did not have any abdominal pain nausea vomiting and no further diarrhea. Patient white count 7.96, creatinine is 1.1 Objective - Vital Signs Vital signs: Vital Signs Temp 97.7 F 12/25/24 13:49 Pulse 90 12/25/24 13:49 Resp 18 12/25/24 13:49 BP 157/79 12/25/24 13:49 Pulse Ox 96 12/25/24 13:49 FiO2 Intake & Output 12/24/24 12/25/24 12/25/24 18:59 06:59 18:59 Intake Total 400 Output Total 2600 Balance -2200 Weight 153.768 kg Intake: Oral 400 Output: Urine 2600 Other: Voiding Method External Catheter External Catheter # Voids 0 - Exam GENERAL DESCRIPTION: An elderly female lying in bed in no distress RESPIRATORY SYSTEM: Unlabored breathing , decreased breath sounds at bases HEART: S1 S2 regular rate and rhythm , ABDOMEN: Soft , no tenderness EXTREMITIES: No edema feet - Labs CBC & Chem 7: 12/25/24 04:19 12/25/24 04:19 Labs: Abnormal Lab Results - Last 24 Hours (Table) 12/24/24 12/25/24 12/25/24 Range/Units 20:37 04:19 04:19 MCHC 31.2 L (32.0-37.0) g/dL Lymphocytes # 0.38 L (0.90-5.00) X 10*3/uL Eosinophils # 0 L (0.04-0.35) X 10*3/uL Anion Gap 14.10 H (4.00-12.00) mmol/L Est GFR (CKD-EPI) 52 L (>=60) Glucose 266 H (70-110) mg/dL POC Glucose (mg/dL) 301 H (70-110) mg/dL 12/25/24 12/25/24 Range/Units 06:22 11:33 MCHC (32.0-37.0) g/dL Lymphocytes # (0.90-5.00) X 10*3/uL Eosinophils # (0.04-0.35) X 10*3/uL Anion Gap (4.00-12.00) mmol/L Est GFR (CKD-EPI) (>=60) Glucose (70-110) mg/dL POC Glucose (mg/dL) 243 H 235 H (70-110) mg/dL Assessment and Plan (1) COVID-19 Current Visit: Yes Status: Acute Code(s): U07.1 - COVID-19 SNOMED Code(s): 037803733 (2) Allergy to multiple antibiotics Current Visit: No Status: Acute Code(s): Z88.1 - ALLERGY STATUS TO OTHER ANTIBIOTIC AGENTS SNOMED Code(s): 635914884 Plan: 1patient presented hospital denies weakness nausea vomiting diarrhea also complaining of shortness of breath in this patient has been tested positive for COVID-19 she is not running any fever chest x-ray did not show any groundglass opacities pathognomonic for COVID-19 pneumonia and no evidence of any secondary bacterial pneumonia 2-patient seem to have shown clinical improvement as the patient is currently off the oxygen, will continue dexamethasone zinc Eliquis vitamin C and will see clinical response, keeping in mind the patient currently does not need supplemental oxygen will not qualify for remdesivir per [facility] policy 3droplet isolation Dictation was produced using [employer] dictation software. please excuse any grammatical, word or spelling errors. Time with Patient: Less than 30
[2024-12-25] MEDS ORDERED: DEXTROSE 50% SYRINGE 50 ML IVP PRN (16:17)
[2024-12-25 16:34] LABS: Glucose,Whole Blood 246 mg/dL (70-110)
[2024-12-25] MEDS: INSULIN LISPRO (HumaLOG) 100 UNIT/ML 10 mL VL SQ SCH (17:18)
--- NOTE | 2024-12-25 17:36 | PN ---
PROGRESS NOTE DATE OF SERVICE: 12/25/2024 HISTORY OF PRESENT ILLNESS: This is a 74-year-old woman admitted with acute COVID-19 infection pneumonia. She is being closely monitored. No chest pain. No palpitation. PHYSICAL EXAMINATION: VITAL SIGNS: Pulse is 90, blood pressure 157/70, respirations 18. CHEST: Few scattered rhonchi. ABDOMEN: Soft. NERVOUS SYSTEM: Nonfocal. LABORATORY DATA: Reviewed. ASSESSMENT: 1. Acute COVID-19 infection with acute COVID-19 pneumonia. 2. Acute asthma exacerbation. 3. Rule out congestive heart failure. 4. Multiple complex medical issues. RECOMMENDATIONS: I recommend to continue current management with empiric antibiotics. Closely follow with multiple consultants. Possible remdesivir per ID. Steroids has been initiated. Further recommendations to follow. Monitor blood sugars closely. MMODL / IJN: [id number] /
[2024-12-25 18:59] LABS: Appearance,Urine Clear (Clear); Bilirubin,Urine Negative (Negative); Blood,Urine Negative (Negative); Color,Urine Light Yellow; Glucose,Urine (UA) Negative (Negative); Ketones,Urine Negative (Negative); Leukocyte Esterase,Urine Negative (Negative); Nitrite,Urine Negative (Negative); Protein,Urine Negative (Negative); Specific Gravity,Urine 1.009 (1.001-1.035); Urobilinogen,Urine <2.0 mg/dL (<2.0)
[2024-12-25 20:10] LABS: Glucose,Whole Blood 197 mg/dL (70-110)
[2024-12-25] MEDS: ACETAMINOPHEN TAB 325 MG TAB PO PRN (20:52)
[2024-12-26 06:08] LABS: Glucose,Whole Blood 141 mg/dL (70-110)
[2024-12-26 09:28] LABS: Basophils # (A) 0.04 X 10*3/uL (0.00-0.10); Basophils % (A) 0.2 %; Eosinophils # (A) 0 X 10*3/uL (0.04-0.35); Eosinophils % (A) 0 %; HCT 40.8 % (37.2-46.3); HGB 12.7 g/dL (12.0-15.0); Lymphocytes # (A) 0.41 X 10*3/uL (0.90-5.00); MCH 29.1 pg (27.0-32.0); MCHC 31.1 g/dL (32.0-37.0); MCV 93.4 FL (80.0-97.0); Mean Platelet Volume 10.4 FL (9.5-12.2); Monocytes # (A) 1.37 X 10*3/uL (0.20-1.00); Monocytes % (A) 6.7 %; NRBC Per 100 WBC 0 X 10*3/uL (0.00-0.01); Neutrophils # (A) 18.38 X 10*3/uL (1.80-7.70); Neutrophils % (A) 90.6 %; Platelet Count 240 X 10*3/uL (140-440); RBC 4.37 X 10*6/uL (4.10-5.20); RDW 13.8 % (11.5-14.5); WBC 20.31 X 10*3/uL (4.50-10.00)
[2024-12-26 09:41] LABS: BUN/Creat Ratio 19.54 Ratio (12.00-20.00); Blood Urea Nitrogen 25.4 mg/dL (9.0-27.0); Glucose 162 mg/dL (70-110)
[2024-12-26 09:42] LABS: ALT 13 U/L (8-44); AST 25 U/L (13-35); Albumin 3.5 g/dL (3.8-4.9); Albumin/Globulin Ratio 1.21 Ratio (1.60-3.17); Alkaline Phosphatase 94 U/L (41-126); Calcium 8.3 mg/dL (8.7-10.3); Carbon Dioxide 26.1 mmol/L (21.6-31.8); Chloride 94 mmol/L (96-109); Globulin 2.9 g/dL (1.6-3.3); Potassium 4.1 mmol/L (3.5-5.5); Sodium 135 mmol/L (135-145); Total Bilirubin 0.4 mg/dL (0.3-1.2); Total Protein 6.4 g/dL (6.2-8.2)
[2024-12-26 11:29] LABS: Glucose,Whole Blood 172 mg/dL (70-110)
[2024-12-26] MEDS ORDERED: FLUDROCORTISONE 0.1 MG TAB PO SCH (11:30)
--- NOTE | 2024-12-26 12:49 | P.PN ---
Subjective Progress Note Date: 12/26/24 This is an obese 74-year-old female patient with a known history of obstructive sleep apnea maintained on home CPAP, home oxygen at 4 L, mild intermittent chronic bronchial asthma maintained on Qvar, previous bariatric surgery, history of PE, fibromyalgia, diverticulosis, atrial fibrillation who presented here to the emergency room shortness of breath. For 4 days she has been having increasing shortness of breath cough congestion, diarrhea, vomiting, muscle aches. She tested positive for COVID infection. Chest x-ray shows atelectasis and low lung volumes. White count 9.0. Hemoglobin 12.9. Platelets 191. Sodium 134. Potassium 3.1. Bicarb 26. BUN 16. Creatinine 0.79. Glucose 152. proBNP 6230. She is seen today in consultation in the emergency department. Currently sitting up in a stretcher. Awake and alert in no acute distress. Maintaining O2 saturations in the 90s on 2 L/min per nasal cannula. She is afebrile. Hemodynamically stable. The patient is seen today December 25, 2024 in follow-up on the regular medical floor. She is currently resting comfortably in bed. Awake and alert in no acute distress. Maintaining O2 saturations in the 90s on 3 L/min per nasal cannula. Feeling better today. Denies any nausea, vomiting or diarrhea. Chest x-ray shows no acute pulmonary process. White count 7.9. Hemoglobin 12.6. Platelets 230. Sodium 135. Potassium 4.0. Bicarb 25. BUN 18. Creatinine 1.1. Glucose 266. She remains on ceftriaxone. Continued on bronchodilators. Remains on Decadron and vitamin supplements. Remains on IV diuretics. Anticoagulated with Eliquis. Currently in a -2.2 L balance. The patient is seen today December 26, 2024 in follow-up on the regular medical floor. She is sitting up in bed. Awake and alert in no acute distress. Feeling better today compared to yesterday. Maintaining O2 saturations in the 90s on 3 L nasal cannula. Less cough and congestion. White count 20.3. Hemoglobin 12.7. Platelets 240. Sodium 135. Potassium 4.1. Bicarb 26. BUN 25. Creatinine 1.3. Glucose 162. She remains on ceftriaxone. Continued on Decadron. Continued on IV diuretics. Remains in a negative balance. Anticoagulated with Eliquis. Echocardiogram revealed preserved left ventricular systolic function with ejection fraction 50 to 55%. Moderate mitral regurgitation. Objective - Vital Signs Vital signs: Vital Signs Temp 98.4 F 12/26/24 07:24 Pulse 78 12/26/24 09:10 Resp 22 12/26/24 09:10 BP 152/93 12/26/24 07:24 Pulse Ox 98 12/26/24 07:24 FiO2 Intake & Output 12/25/24 12/26/24 12/26/24 18:59 06:59 18:59 Output Total 600 1500 900 Balance -600 -1500 -900 Output: Urine 600 1500 900 Stool 0 0 Other: Voiding Method External Catheter External Catheter External Catheter - Exam GENERAL EXAM: Alert, morbidly obese 74-year-old female, sitting up in bed, on 3 L nasal cannula, comfortable in no apparent distress. HEAD: Normocephalic. EYES: Normal reaction of pupils, equal size. NOSE: Clear with pink turbinates. THROAT: No erythema or exudates. NECK: No masses, no JVD. CHEST: No chest wall deformity. LUNGS: Equal air entry with no crackles, wheeze, rhonchi or dullness. CVS: S1 and S2 normal with no audible murmur, regular rhythm. ABDOMEN: No hepatosplenomegaly, normal bowel sounds, no guarding or rigidity. SPINE: No scoliosis or deformity SKIN: No rashes CENTRAL NERVOUS SYSTEM: No focal deficits, tone is normal in all 4 extremities. EXTREMITIES: There is 1+ peripheral edema. No clubbing, no cyanosis. Peripheral pulses are intact. - Labs CBC & Chem 7: 12/26/24 02:38 12/26/24 02:38 Labs: Abnormal Lab Results - Last 24 Hours (Table) 12/25/24 12/25/24 12/26/24 Range/Units 16:31 20:09 02:38 WBC (4.50-10.00) X 10*3/uL MCHC (32.0-37.0) g/dL Immature Gran # (0.00-0.04) X 10*3/uL Neutrophils # (1.80-7.70) X 10*3/uL Lymphocytes # (0.90-5.00) X 10*3/uL Monocytes # (0.20-1.00) X 10*3/uL Eosinophils # (0.04-0.35) X 10*3/uL Chloride (96-109) mmol/L Anion Gap (4.00-12.00) mmol/L Est GFR (CKD-EPI) (>=60) Glucose (70-110) mg/dL POC Glucose (mg/dL) 246 H 197 H (70-110) mg/dL Hemoglobin A1c 7.0 H (<=6.0) % Calcium (8.7-10.3) mg/dL Albumin (3.8-4.9) g/dL Albumin/Globulin Ratio (1.60-3.17) Ratio 12/26/24 12/26/24 12/26/24 Range/Units 02:38 02:38 06:05 WBC 20.31 H (4.50-10.00) X 10*3/uL MCHC 31.1 L (32.0-37.0) g/dL Immature Gran # 0.11 H (0.00-0.04) X 10*3/uL Neutrophils # 18.38 H (1.80-7.70) X 10*3/uL Lymphocytes # 0.41 L (0.90-5.00) X 10*3/uL Monocytes # 1.37 H (0.20-1.00) X 10*3/uL Eosinophils # 0 L (0.04-0.35) X 10*3/uL Chloride 94 L (96-109) mmol/L Anion Gap 14.90 H (4.00-12.00) mmol/L Est GFR (CKD-EPI) 43 L (>=60) Glucose 162 H (70-110) mg/dL POC Glucose (mg/dL) 141 H (70-110) mg/dL Hemoglobin A1c (<=6.0) % Calcium 8.3 L (8.7-10.3) mg/dL Albumin 3.5 L (3.8-4.9) g/dL Albumin/Globulin Ratio 1.21 L (1.60-3.17) Ratio 12/26/24 Range/Units 11:27 WBC (4.50-10.00) X 10*3/uL MCHC (32.0-37.0) g/dL Immature Gran # (0.00-0.04) X 10*3/uL Neutrophils # (1.80-7.70) X 10*3/uL Lymphocytes # (0.90-5.00) X 10*3/uL Monocytes # (0.20-1.00) X 10*3/uL Eosinophils # (0.04-0.35) X 10*3/uL Chloride (96-109) mmol/L Anion Gap (4.00-12.00) mmol/L Est GFR (CKD-EPI) (>=60) Glucose (70-110) mg/dL POC Glucose (mg/dL) 172 H (70-110) mg/dL Hemoglobin A1c (<=6.0) % Calcium (8.7-10.3) mg/dL Albumin (3.8-4.9) g/dL Albumin/Globulin Ratio (1.60-3.17) Ratio Microbiology - Last 24 Hours (Table) 12/24/24 09:52 Blood Culture - Preliminary Blood Assessment and Plan Assessment: Acute COVID 19 infection with nausea, vomiting, diarrhea. Improving Acute on chronic hypoxemic respiratory failure secondary to mild asthma exacerbation from COVID infection, and mild fluid volume overload Mild intermittent chronic bronchial asthma Obstructive sleep apnea maintained on CPAP Morbid obesity/hypoventilation syndrome History of pulmonary embolism anticoagulated with Xarelto Atrial fibrillation with previous ablation Hypertension Hyperlipidemia History of bariatric surgery Plan: The patient was seen and evaluated Labs and medications reviewed Echocardiogram reviewed Continued on IV diuretics Remains in a negative balance Stable on 3 L nasal cannula Continue Decadron Continue vitamin C, D and zinc Anticoagulated with Eliquis Titrate the FiO2 as tolerated Increase her activity as tolerated We will continue to follow I have personally seen and examined the patient, performed the documentation and the assessment and plan as written. Number of minutes spent on the visit: 10 Dictation was produced using [employer] dictation software. Please excuse any grammatical, word or spelling errors.
--- NOTE | 2024-12-26 16:10 | P.PN ---
Subjective Progress Note Date: 12/26/24 Principal diagnosis: Reason for follow-up is COVID-19, questionable need for remdesivir Patient is a 74-year-old female with a past medical history significant for Atrial Fibrillation, Atrial Flutter, Asthma, Fibromyalgia, GERD/Reflux, GI Bleed, Hyperlipidemia, Hypertension, Musculoskeletal Disorder, Neurologic Disorder, Osteoarthritis (OA), Pulmonary Embolus (PE), Sleep Apnea/CPAP/BIPAP, Thyroid Disorder, Vascular Disorder, presenting to the hospital for evaluation of increasing shortness of breath and weakness along with vomiting and diarrhea has been diagnosed with COVID-19 prompted this consultation. On today's evaluation that is 12/26/2024, Patient is afebrile patient is currently on 3 L current oxygen and denies having any worsening shortness of breath, the patient denies any chest pain or cough, the patient denies any nausea vomiting did not have any abdominal pain and no diarrhea. Patient white count is 20.31 creatinine is 1.3 Objective - Vital Signs Vital signs: Vital Signs Temp 98.9 F 12/26/24 14:27 Pulse 84 12/26/24 14:27 Resp 22 12/26/24 14:27 BP 148/83 12/26/24 14:27 Pulse Ox 97 12/26/24 14:27 FiO2 Intake & Output 12/25/24 12/26/24 12/26/24 18:59 06:59 18:59 Output Total 600 1500 900 Balance -600 -1500 -900 Output: Urine 600 1500 900 Stool 0 0 Other: Voiding Method External Catheter External Catheter External Catheter - Exam GENERAL DESCRIPTION: An elderly female lying in bed in no distress RESPIRATORY SYSTEM: Unlabored breathing , decreased breath sounds at bases HEART: S1 S2 regular rate and rhythm , ABDOMEN: Soft , no tenderness EXTREMITIES: No edema feet - Labs CBC & Chem 7: 12/26/24 02:38 12/26/24 02:38 Labs: Abnormal Lab Results - Last 24 Hours (Table) 12/25/24 12/25/24 12/26/24 Range/Units 16:31 20:09 02:38 WBC (4.50-10.00) X 10*3/uL MCHC (32.0-37.0) g/dL Immature Gran # (0.00-0.04) X 10*3/uL Neutrophils # (1.80-7.70) X 10*3/uL Lymphocytes # (0.90-5.00) X 10*3/uL Monocytes # (0.20-1.00) X 10*3/uL Eosinophils # (0.04-0.35) X 10*3/uL Chloride (96-109) mmol/L Anion Gap (4.00-12.00) mmol/L Est GFR (CKD-EPI) (>=60) Glucose (70-110) mg/dL POC Glucose (mg/dL) 246 H 197 H (70-110) mg/dL Hemoglobin A1c 7.0 H (<=6.0) % Calcium (8.7-10.3) mg/dL Albumin (3.8-4.9) g/dL Albumin/Globulin Ratio (1.60-3.17) Ratio 12/26/24 12/26/24 12/26/24 Range/Units 02:38 02:38 06:05 WBC 20.31 H (4.50-10.00) X 10*3/uL MCHC 31.1 L (32.0-37.0) g/dL Immature Gran # 0.11 H (0.00-0.04) X 10*3/uL Neutrophils # 18.38 H (1.80-7.70) X 10*3/uL Lymphocytes # 0.41 L (0.90-5.00) X 10*3/uL Monocytes # 1.37 H (0.20-1.00) X 10*3/uL Eosinophils # 0 L (0.04-0.35) X 10*3/uL Chloride 94 L (96-109) mmol/L Anion Gap 14.90 H (4.00-12.00) mmol/L Est GFR (CKD-EPI) 43 L (>=60) Glucose 162 H (70-110) mg/dL POC Glucose (mg/dL) 141 H (70-110) mg/dL Hemoglobin A1c (<=6.0) % Calcium 8.3 L (8.7-10.3) mg/dL Albumin 3.5 L (3.8-4.9) g/dL Albumin/Globulin Ratio 1.21 L (1.60-3.17) Ratio 12/26/24 Range/Units 11:27 WBC (4.50-10.00) X 10*3/uL MCHC (32.0-37.0) g/dL Immature Gran # (0.00-0.04) X 10*3/uL Neutrophils # (1.80-7.70) X 10*3/uL Lymphocytes # (0.90-5.00) X 10*3/uL Monocytes # (0.20-1.00) X 10*3/uL Eosinophils # (0.04-0.35) X 10*3/uL Chloride (96-109) mmol/L Anion Gap (4.00-12.00) mmol/L Est GFR (CKD-EPI) (>=60) Glucose (70-110) mg/dL POC Glucose (mg/dL) 172 H (70-110) mg/dL Hemoglobin A1c (<=6.0) % Calcium (8.7-10.3) mg/dL Albumin (3.8-4.9) g/dL Albumin/Globulin Ratio (1.60-3.17) Ratio Microbiology - Last 24 Hours (Table) 12/24/24 09:52 Blood Culture - Preliminary Blood Assessment and Plan (1) COVID-19 Current Visit: Yes Status: Acute Code(s): U07.1 - COVID-19 SNOMED Code(s): 837195937 (2) Allergy to multiple antibiotics Current Visit: No Status: Acute Code(s): Z88.1 - ALLERGY STATUS TO OTHER A NTIBIOTIC AGENTS SNOMED Code(s): 510383749 (3) Leukocytosis Current Visit: No Status: Acute Code(s): D72.829 - ELEVATED WHITE BLOOD CELL COUNT, UNSPECIFIED SNOMED Code(s): 772881310 Plan: 1patient presented hospital denies weakness nausea vomiting diarrhea also complaining of shortness of breath in this patient has been tested positive for COVID-19 she is not running any fever chest x-ray did not show any groundglass opacities pathognomonic for COVID-19 pneumonia and no evidence of any secondary bacterial pneumonia 2-patient is clinically proving will continue dexamethasone zinc Eliquis vitamin C and monitor clinical course closely 3leukocytosis likely steroid related will be monitored closely Dictation was produced using [employer] software. please excuse any grammatical, word or spelling errors. Time with Patient: Less than 30
[2024-12-26 16:57] LABS: Glucose,Whole Blood 205 mg/dL (70-110)
[2024-12-26 20:04] LABS: Glucose,Whole Blood 189 mg/dL (70-110)
--- NOTE | 2024-12-27 00:03 | PN ---
PROGRESS NOTE DATE OF SERVICE: 12/26/2024 SUBJECTIVE: This is a 74-year-old woman, who was admitted with acute COVID-19 infection, pneumonia, is improving significantly. No chest pain. No palpitation. OBJECTIVE: VITAL SIGNS: Pulse is 84, blood pressure 143/80, respirations 20. CHEST: A few scattered rhonchi and crackles. ABDOMEN: Soft. NERVOUS SYSTEM: Nonfocal. LABORATORY DATA: Reviewed. ASSESSMENT: 1. Acute COVID-19 infection with acute COVID-19 pneumonia. 2. Acute asthma exacerbation. 3. Multiple complex medical issues. RECOMMENDATIONS: Recommend to continue current medications, continue symptomatic treatment. Continue with empiric antibiotics. Otherwise, repeat labs. Possible discharge in the next 24 hours. MMODL / IJN: [id number] /
[2024-12-27 03:34] LABS: African American GFR (CKD) 62 (>60 ml/min/1.73 sqM); Anion Gap 9 mmol/L; Blood Urea Nitrogen 27 mg/dL (7-17); C Reactive Protein 5.2 mg/dL (<1.0); Carbon Dioxide 32 mmol/L (22-30); Chloride 88 mmol/L (98-107); Glucose 140 mg/dL (74-99); Non-African American GFR(CKD) 54 (>60 ml/min/1.73 sqM); Potassium 3.8 mmol/L (3.5-5.1); Sodium 129 mmol/L (137-145)
[2024-12-27 06:19] LABS: Glucose,Whole Blood 138 mg/dL (70-110)
[2024-12-27 08:47] LABS: Basophils # (A) 0.02 X 10*3/uL (0.00-0.10); Basophils % (A) 0.2 %; Eosinophils # (A) 0 X 10*3/uL (0.04-0.35); Eosinophils % (A) 0 %; HCT 44.8 % (37.2-46.3); Lymphocytes # (A) 0.82 X 10*3/uL (0.90-5.00); Lymphocytes % (A) 6.9 %; MCH 28.8 pg (27.0-32.0); MCHC 31.3 g/dL (32.0-37.0); MCV 92.2 FL (80.0-97.0); Mean Platelet Volume 9.9 FL (9.5-12.2); Monocytes # (A) 1.47 X 10*3/uL (0.20-1.00); Monocytes % (A) 12.3 %; NRBC Per 100 WBC 0 X 10*3/uL (0.00-0.01); Neutrophils # (A) 9.56 X 10*3/uL (1.80-7.70); Neutrophils % (A) 79.8 %; Platelet Count 183 X 10*3/uL (140-440); RBC 4.86 X 10*6/uL (4.10-5.20); RDW 13.8 % (11.5-14.5); WBC 11.96 X 10*3/uL (4.50-10.00)
[2024-12-27 11:49] LABS: Glucose,Whole Blood 209 mg/dL (70-110)
--- NOTE | 2024-12-27 14:56 | P.PN ---
Subjective Progress Note Date: 12/27/24 This is an obese 74-year-old female patient with a known history of obstructive sleep apnea maintained on home CPAP, home oxygen at 4 L, mild intermittent chronic bronchial asthma maintained on Qvar, previous bariatric surgery, history of PE, fibromyalgia, diverticulosis, atrial fibrillation who presented here to the emergency room shortness of breath. For 4 days she has been having increasing shortness of breath cough congestion, diarrhea, vomiting, muscle aches. She tested positive for COVID infection. Chest x-ray shows atelectasis and low lung volumes. White count 9.0. Hemoglobin 12.9. Platelets 191. Sodium 134. Potassium 3.1. Bicarb 26. BUN 16. Creatinine 0.79. Glucose 152. proBNP 6230. She is seen today in consultation in the emergency department. Currently sitting up in a stretcher. Awake and alert in no acute distress. Maintaining O2 saturations in the 90s on 2 L/min per nasal cannula. She is afebrile. Hemodynamically stable. The patient is seen today December 25, 2024 in follow-up on the regular medical floor. She is currently resting comfortably in bed. Awake and alert in no acute distress. Maintaining O2 saturations in the 90s on 3 L/min per nasal cannula. Feeling better today. Denies any nausea, vomiting or diarrhea. Chest x-ray shows no acute pulmonary process. White count 7.9. Hemoglobin 12.6. Platelets 230. Sodium 135. Potassium 4.0. Bicarb 25. BUN 18. Creatinine 1.1. Glucose 266. She remains on ceftriaxone. Continued on bronchodilators. Remains on Decadron and vitamin supplements. Remains on IV diuretics. Anticoagulated with Eliquis. Currently in a -2.2 L balance. The patient is seen today December 26, 2024 in follow-up on the regular medical floor. She is sitting up in bed. Awake and alert in no acute distress. Feeling better today compared to yesterday. Maintaining O2 saturations in the 90s on 3 L nasal cannula. Less cough and congestion. White count 20.3. Hemoglobin 12.7. Platelets 240. Sodium 135. Potassium 4.1. Bicarb 26. BUN 25. Creatinine 1.3. Glucose 162. She remains on ceftriaxone. Continued on Decadron. Continued on IV diuretics. Remains in a negative balance. Anticoagulated with Eliquis. Echocardiogram revealed preserved left ventricular systolic function with ejection fraction 50 to 55%. Moderate mitral regurgitation. The patient is seen today December 27, 2024 in follow-up on the regular medical floor. She is awake and alert in no acute distress. Resting comfortably in bed. Denies any worsening shortness of breath, cough or congestion. She is maintaining good O2 saturations in the 90s on 3 L/min per nasal cannula. She is receiving normal saline at 20 mL/h. Continued on ceftriaxone. Remains on vitamin supplements. Anticoagulated with Eliquis. Remains on IV diuretics. Continues to diurese well. Currently in a negative balance. White count 11.9. Hemoglobin 14.0. Platelets 183. Sodium 129. Potassium 3.8. Bicarb 32. BUN 27. Creatinine 1.09. Glucose 140. Procalcitonin was negative at 0.09. Objective - Vital Signs Vital signs: Vital Signs Temp 98.4 F 12/27/24 07:18 Pulse 84 12/27/24 07:18 Resp 17 12/27/24 07:18 BP 195/79 12/27/24 07:18 Pulse Ox 98 12/27/24 07:18 FiO2 Intake & Output 12/26/24 12/27/24 12/27/24 18:59 06:59 18:59 Intake Total 540 Output Total 1500 1375 1100 Balance -1500 -835 -1100 Intake: Oral 540 Output: Urine 1500 1375 1100 Stool 0 Other: Voiding Method External Catheter External Catheter External Catheter # Voids 3 - Exam GENERAL EXAM: Alert, morbidly obese 74-year-old female, on 3 L nasal cannula, in no apparent distress. HEAD: Normocephalic. EYES: Normal reaction of pupils, equal size. NOSE: Clear with pink turbinates. THROAT: No erythema or exudates. NECK: No masses, no JVD. CHEST: No chest wall deformity. LUNGS: Equal air entry with no crackles, wheeze, rhonchi or dullness. CVS: S1 and S2 normal with no audible murmur, regular rhythm. ABDOMEN: No hepatosplenomegaly, normal bowel sounds, no guarding or rigidity. SPINE: No scoliosis or deformity SKIN: No rashes CENTRAL NERVOUS SYSTEM: No focal deficits, tone is normal in all 4 extremities. EXTREMITIES: There is 1+ peripheral edema. No clubbing, no cyanosis. Peripheral pulses are intact. - Labs CBC & Chem 7: 12/27/24 05:59 12/27/24 02:39 Labs: Abnormal Lab Results - Last 24 Hours (Table) 12/26/24 12/26/24 12/27/24 Range/Units 16:55 20:03 02:39 WBC (4.50-10.00) X 10*3/uL MCHC (32.0-37.0) g/dL Immature Gran # (0.00-0.04) X 10*3/uL Neutrophils # (1.80-7.70) X 10*3/uL Lymphocytes # (0.90-5.00) X 10*3/uL Monocytes # (0.20-1.00) X 10*3/uL Eosinophils # (0.04-0.35) X 10*3/uL Sodium 129 L (137-145) mmol/L Chloride 88 L (98-107) mmol/L Carbon Dioxide 32 H (22-30) mmol/L BUN 27 H (7-17) mg/dL Glucose 140 H (74-99) mg/dL POC Glucose (mg/dL) 205 H 189 H (70-110) mg/dL Calcium 8.0 L (8.4-10.2) mg/dL C-Reactive Protein 5.2 H (<1.0) mg/dL 12/27/24 12/27/24 12/27/24 Range/Units 05:59 06:18 11:48 WBC 11.96 H (4.50-10.00) X 10*3/uL MCHC 31.3 L (32.0-37.0) g/dL Immature Gran # 0.09 H (0.00-0.04) X 10*3/uL Neutrophils # 9.56 H (1.80-7.70) X 10*3/uL Lymphocytes # 0.82 L (0.90-5.00) X 10*3/uL Monocytes # 1.47 H (0.20-1.00) X 10*3/uL Eosinophils # 0 L (0.04-0.35) X 10*3/uL Sodium (137-145) mmol/L Chloride (98-107) mmol/L Carbon Dioxide (22-30) mmol/L BUN (7-17) mg/dL Glucose (74-99) mg/dL POC Glucose (mg/dL) 138 H 209 H (70-110) mg/dL Calcium (8.4-10.2) mg/dL C-Reactive Protein (<1.0) mg/dL Microbiology - Last 24 Hours (Table) 12/24/24 09:52 Blood Culture - Preliminary Blood Assessment and Plan Assessment: Acute COVID 19 infection with nausea, vomiting, diarrhea. Improving Acute on chronic hypoxemic respiratory failure secondary to mild asthma exacerbation from COVID infection, and mild fluid volume overload Mild intermittent chronic bronchial asthma Obstructive sleep apnea maintained on CPAP Morbid obesity/hypoventilation syndrome History of pulmonary embolism anticoagulated with Xarelto Atrial fibrillation with previous ablation Hypertension Hyperlipidemia History of bariatric surgery Plan: The patient was seen and evaluated Labs and medications reviewed Continued on IV diuretics Remains in a negative balance Stable on 3 L nasal cannula Continue Decadron Continue vitamin C, D and zinc Anticoagulated with Eliquis Increase her activity as tolerated Plan is for sub acute rehab at discharge, possibly [facility] I have personally seen and examined the patient, performed the documentation and the assessment and plan as written. Number of minutes spent on the visit: 10 Dictation was produced using [employer] dictation software. Please excuse any grammatical, word or spelling errors.
[2024-12-27 16:48] LABS: Glucose,Whole Blood 212 mg/dL (70-110)
--- NOTE | 2024-12-27 17:15 | P.PN ---
Subjective Progress Note Date: 12/27/24 Principal diagnosis: Reason for follow-up is COVID-19, questionable need for remdesivir Patient is a 74-year-old female with a past medical history significant for Atrial Fibrillation, Atrial Flutter, Asthma, Fibromyalgia, GERD/Reflux, GI Bleed, Hyperlipidemia, Hypertension, Musculoskeletal Disorder, Neurologic Disorder, Osteoarthritis (OA), Pulmonary Embolus (PE), Sleep Apnea/CPAP/BIPAP, Thyroid Disorder, Vascular Disorder, presenting to the hospital for evaluation of increasing shortness of breath and weakness along with vomiting and diarrhea has been diagnosed with COVID-19 prompted this consultation. On today's evaluation that is 12/27/2024, patient has been afebrile, patient is breathing comfortably and is currently on room air, patient denies having any significant chest pain or any worsening cough, patient denies nausea vomiting or diarrhea and no abdominal pain. Patient white count is 11.96, creatinine 1.02 blood culture has been negative Objective - Vital Signs Vital signs: Vital Signs Temp 98.4 F 12/27/24 07:18 Pulse 84 12/27/24 07:18 Resp 17 12/27/24 07:18 BP 195/79 12/27/24 07:18 Pulse Ox 98 12/27/24 07:18 FiO2 Intake & Output 12/26/24 12/27/24 12/27/24 18:59 06:59 18:59 Intake Total 540 Output Total 1500 1375 1100 Balance -1500 -835 -1100 Intake: Oral 540 Output: Urine 1500 1375 1100 Stool 0 Other: Voiding Method External Catheter External Catheter External Catheter # Voids 3 - Exam GENERAL DESCRIPTION: An elderly female lying in bed in no distress RESPIRATORY SYSTEM: Unlabored breathing , decreased breath sounds at bases HEART: S1 S2 regular rate and rhythm , ABDOMEN: Soft , no tenderness EXTREMITIES: No edema feet - Labs CBC & Chem 7: 12/27/24 05:59 12/27/24 02:39 Labs: Abnormal Lab Results - Last 24 Hours (Table) 12/26/24 12/26/24 12/27/24 Range/Units 16:55 20:03 02:39 WBC (4.50-10.00) X 10*3/uL MCHC (32.0-37.0) g/dL Immature Gran # (0.00-0.04) X 10*3/uL Neutrophils # (1.80-7.70) X 10*3/uL Lymphocytes # (0.90-5.00) X 10*3/uL Monocytes # (0.20-1.00) X 10*3/uL Eosinophils # (0.04-0.35) X 10*3/uL Sodium 129 L (137-145) mmol/L Chloride 88 L (98-107) mmol/L Carbon Dioxide 32 H (22-30) mmol/L BUN 27 H (7-17) mg/dL Glucose 140 H (74-99) mg/dL POC Glucose (mg/dL) 205 H 189 H (70-110) mg/dL Calcium 8.0 L (8.4-10.2) mg/dL C-Reactive Protein 5.2 H (<1.0) mg/dL 12/27/24 12/27/24 12/27/24 Range/Units 05:59 06:18 11:48 WBC 11.96 H (4.50-10.00) X 10*3/uL MCHC 31.3 L (32.0-37.0) g/dL Immature Gran # 0.09 H (0.00-0.04) X 10*3/uL Neutrophils # 9.56 H (1.80-7.70) X 10*3/uL Lymphocytes # 0.82 L (0.90-5.00) X 10*3/uL Monocytes # 1.47 H (0.20-1.00) X 10*3/uL Eosinophils # 0 L (0.04-0.35) X 10*3/uL Sodium (137-145) mmol/L Chloride (98-107) mmol/L Carbon Dioxide (22-30) mmol/L BUN (7-17) mg/dL Glucose (74-99) mg/dL POC Glucose (mg/dL) 138 H 209 H (70-110) mg/dL Calcium (8.4-10.2) mg/dL C-Reactive Protein (<1.0) mg/dL Microbiology - Last 24 Hours (Table) 12/24/24 09:52 Blood Culture - Preliminary Blood Assessment and Plan (1) COVID-19 Current Visit: Yes Status: Acute Code(s): U07.1 - COVID-19 SNOMED Code(s): 201075533 (2) Allergy to multiple antibiotics Current Visit: No Status: Acute Code(s): Z88.1 - ALLERGY STATUS TO OTHER ANTIBIOTIC AGENTS SNOMED Code(s): 779982054 (3) Leukocytosis Current Visit: No Status: Acute Code(s): D72.829 - ELEVATED WHITE BLOOD CELL COUNT, UNSPECIFIED SNOMED Code(s): 963786158 Plan: 1patient presented hospital denies weakness nausea vomiting diarrhea also complaining of shortness of breath in this patient has been tested positive for COVID-19 she is not running any fever chest x-ray did not show any groundglass opacities pathognomonic for COVID-19 pneumonia and no evidence of any secondary bacterial pneumonia 2-patient is clinically improving and will continue dexamethasone zinc Eliquis vitamin C and monitor clinical course closely 3leukocytosis likely steroid related and trending down Dictation was produced using [employer] dictation software. please excuse any grammatical, word or spelling errors. Time with Patient: Less than 30
[2024-12-27 21:10] LABS: Glucose,Whole Blood 199 mg/dL (70-110)
--- NOTE | 2024-12-27 23:54 | P.PN ---
Subjective Progress Note Date: 12/27/24 Principal diagnosis: COVID Infection Ms. Pérez is a 74-year-old female with past medical history of obesity hypoventilation syndrome, chronic hypoxic respiratory failure, history of PE, atrial fibrillation coming in with difficulty in breathing for 4 days. Patient was tested positive for COVID infection and is currently being treated. Today the patient is lying in bed and appears to be resting comfortably. She denies having any worsening of difficulty in breathing or cough. She denies having any fevers chills or rigors. No chest pain or palpitations. No nausea vomiting or abdominal pain. Patient's vital signs are reviewed and she is saturating at 97% on 3 L of oxygen afebrile Labs are reviewed with white count of 11.9 sodium of 129 albumin 3.5 Objective - Vital Signs Vital signs: Vital Signs Temp 97.9 F 12/27/24 13:21 Pulse 73 12/27/24 22:44 Resp 17 12/27/24 13:21 BP 155/99 12/27/24 22:44 Pulse Ox 97 12/27/24 13:21 FiO2 Intake & Output 12/27/24 12/27/24 12/28/24 06:59 18:59 06:59 Intake Total 540 480 Output Total 1375 1800 Balance -835 -1320 Intake: Oral 540 480 Output: Urine 1375 1800 Other: Voiding Method External Catheter External Catheter # Voids 3 - Exam General Impression: Alert and oriented x3, not in acute distress HEENT: pupils equal and reactive to light bilaterally, mucous membranes moist. Cardiovascular: Heart regular rate and rhythm Lungs - Bilateral Breath sounds decreased in all lung [place] Abdomen: abdomen soft, non-tender Neurological: no focal motor or sensory deficits noted Psych: Normal affect and mood - Labs CBC & Chem 7: 12/27/24 05:59 12/27/24 02:39 Labs: Abnormal Lab Results - Last 24 Hours (Table) 12/27/24 12/27/24 12/27/24 Range/Units 02:39 05:59 06:18 WBC 11.96 H (4.50-10.00) X 10*3/uL MCHC 31.3 L (32.0-37.0) g/dL Immature Gran # 0.09 H (0.00-0.04) X 10*3/uL Neutrophils # 9.56 H (1.80-7.70) X 10*3/uL Lymphocytes # 0.82 L (0.90-5.00) X 10*3/uL Monocytes # 1.47 H (0.20-1.00) X 10*3/uL Eosinophils # 0 L (0.04-0.35) X 10*3/uL Sodium 129 L (137-145) mmol/L Chloride 88 L (98-107) mmol/L Carbon Dioxide 32 H (22-30) mmol/L BUN 27 H (7-17) mg/dL Glucose 140 H (74-99) mg/dL POC Glucose (mg/dL) 138 H (70-110) mg/dL Calcium 8.0 L (8.4-10.2) mg/dL C-Reactive Protein 5.2 H (<1.0) mg/dL 12/27/24 12/27/24 12/27/24 Range/Units 11:48 16:47 21:09 WBC (4.50-10.00) X 10*3/uL MCHC (32.0-37.0) g/dL Immature Gran # (0.00-0.04) X 10*3/uL Neutrophils # (1.80-7.70) X 10*3/uL Lymphocytes # (0.90-5.00) X 10*3/uL Monocytes # (0.20-1.00) X 10*3/uL Eosinophils # (0.04-0.35) X 10*3/uL Sodium (137-145) mmol/L Chloride (98-107) mmol/L Carbon Dioxide (22-30) mmol/L BUN (7-17) mg/dL Glucose (74-99) mg/dL POC Glucose (mg/dL) 209 H 212 H 199 H (70-110) mg/dL Calcium (8.4-10.2) mg/dL C-Reactive Protein (<1.0) mg/dL Microbiology - Last 24 Hours (Table) 12/24/24 09:52 Blood Culture - Preliminary Blood Assessment and Plan Assessment: Assessment Acute on chronic hypoxemic respiratory failure secondary to COVID infection Nausea vomiting and diarrhea secondary to acute COVID infection Obesity hypoventilation syndrome on PAP therapy History of PE on anticoagulation Hyponatremia Hypertension Hyperlipidemia Morbid obesity with BMI 54 Mild protein calorie malnutrition PLAN Patient is being continued on IV diuretics along with breathing treatments and steroids. Continue anticoagulation with Eliquis. Continue with PAP therapy. Will continue to monitor BMP. Further recommendations depending on the progress of the patient. Patient is DNR
[2024-12-28 06:12] LABS: Glucose,Whole Blood 159 mg/dL (70-110)
[2024-12-28 08:17] LABS: Basophils # (A) 0.02 X 10*3/uL (0.00-0.10); Basophils % (A) 0.2 %; Eosinophils # (A) 0 X 10*3/uL (0.04-0.35); Eosinophils % (A) 0 %; HCT 43.1 % (37.2-46.3); HGB 13.8 g/dL (12.0-15.0); Lymphocytes % (A) 4.8 %; MCH 28.9 pg (27.0-32.0); MCV 90.2 FL (80.0-97.0); Mean Platelet Volume 10.2 FL (9.5-12.2); Monocytes # (A) 1.19 X 10*3/uL (0.20-1.00); Monocytes % (A) 9.6 %; NRBC Per 100 WBC 0 X 10*3/uL (0.00-0.01); Neutrophils # (A) 10.54 X 10*3/uL (1.80-7.70); Neutrophils % (A) 84.8 %; Platelet Count 237 X 10*3/uL (140-440); RBC 4.78 X 10*6/uL (4.10-5.20); RDW 13.8 % (11.5-14.5); WBC 12.42 X 10*3/uL (4.50-10.00)
[2024-12-28 08:54] LABS: Blood Urea Nitrogen 24.1 mg/dL (9.0-27.0); Chloride 89 mmol/L (96-109); Glucose 174 mg/dL (70-110); Potassium 3.8 mmol/L (3.5-5.5); Sodium 133 mmol/L (135-145)
[2024-12-28 08:55] LABS: Calcium 8.3 mg/dL (8.7-10.3); Carbon Dioxide 31.2 mmol/L (21.6-31.8)
[2024-12-28 12:01] LABS: Glucose,Whole Blood 247 mg/dL (70-110)
--- NOTE | 2024-12-28 14:00 | P.PN ---
Subjective Progress Note Date: 12/28/24 This is an obese 74-year-old female patient with a known history of obstructive sleep apnea maintained on home CPAP, home oxygen at 4 L, mild intermittent chronic bronchial asthma maintained on Qvar, previous bariatric surgery, history of PE, fibromyalgia, diverticulosis, atrial fibrillation who presented here to the emergency room shortness of breath. For 4 days she has been having increasing shortness of breath cough congestion, diarrhea, vomiting, muscle aches. She tested positive for COVID infection. Chest x-ray shows atelectasis and low lung volumes. White count 9.0. Hemoglobin 12.9. Platelets 191. Sodium 134. Potassium 3.1. Bicarb 26. BUN 16. Creatinine 0.79. Glucose 152. proBNP 6230. She is seen today in consultation in the emergency department. Currently sitting up in a stretcher. Awake and alert in no acute distress. Maintaining O2 saturations in the 90s on 2 L/min per nasal cannula. She is afebrile. Hemodynamically stable. The patient is seen today December 25, 2024 in follow-up on the regular medical floor. She is currently resting comfortably in bed. Awake and alert in no acute distress. Maintaining O2 saturations in the 90s on 3 L/min per nasal cannula. Feeling better today. Denies any nausea, vomiting or diarrhea. Chest x-ray shows no acute pulmonary process. White count 7.9. Hemoglobin 12.6. Platelets 230. Sodium 135. Potassium 4.0. Bicarb 25. BUN 18. Creatinine 1.1. Glucose 266. She remains on ceftriaxone. Continued on bronchodilators. Remains on Decadron and vitamin supplements. Remains on IV diuretics. Anticoagulated with Eliquis. Currently in a -2.2 L balance. The patient is seen today December 26, 2024 in follow-up on the regular medical floor. She is sitting up in bed. Awake and alert in no acute distress. Feeling better today compared to yesterday. Maintaining O2 saturations in the 90s on 3 L nasal cannula. Less cough and congestion. White count 20.3. Hemoglobin 12.7. Platelets 240. Sodium 135. Potassium 4.1. Bicarb 26. BUN 25. Creatinine 1.3. Glucose 162. She remains on ceftriaxone. Continued on Decadron. Continued on IV diuretics. Remains in a negative balance. Anticoagulated with Eliquis. Echocardiogram revealed preserved left ventricular systolic function with ejection fraction 50 to 55%. Moderate mitral regurgitation. The patient is seen today December 27, 2024 in follow-up on the regular medical floor. She is awake and alert in no acute distress. Resting comfortably in bed. Denies any worsening shortness of breath, cough or congestion. She is maintaining good O2 saturations in the 90s on 3 L/min per nasal cannula. She is receiving normal saline at 20 mL/h. Continued on ceftriaxone. Remains on vitamin supplements. Anticoagulated with Eliquis. Remains on IV diuretics. Continues to diurese well. Currently in a negative balance. White count 11.9. Hemoglobin 14.0. Platelets 183. Sodium 129. Potassium 3.8. Bicarb 32. BUN 27. Creatinine 1.09. Glucose 140. Procalcitonin was negative at 0.09. The patient is seen today December 28, 2024 in follow-up on the regular medical floor. She is resting comfortably in bed. Awake and alert in no acute distress. Maintaining good O2 saturations in the 90s on 4 L/min per nasal cannula. She has been afebrile. Hemodynamically stable. White count 12.4. Hemoglobin 13.8. Platelets 237. Sodium 133. Potassium 3.8. Bicarb 31. BUN 24. Creatinine 1.0. Glucose 174. She is continued on vitamin supplements. Continued on Decadron. Continued on IV diuretics. Anticoagulated with Eliquis. Blood culture revealed no growth. She has been afebrile. Hemodynamically stable. Currently in a -2.5 L balance. Objective - Vital Signs Vital signs: Vital Signs Temp 97.6 F 12/28/24 07:50 Pulse 73 12/28/24 07:50 Resp 20 12/28/24 07:50 BP 152/86 12/28/24 07:50 Pulse Ox 97 12/28/24 07:50 FiO2 Intake & Output 12/27/24 12/28/24 12/28/24 18:59 06:59 18:59 Intake Total 480 120 Output Total 1800 1250 600 Balance -1320 -1250 -480 Intake: Oral 480 120 Output: Urine 1800 1250 600 Other: Voiding Method External Catheter External Catheter External Catheter # Voids 3 - Exam GENERAL EXAM: Alert, morbidly obese 74-year-old female, sitting up in bed, on 4 L nasal cannula, in no apparent distress. HEAD: Normocephalic. EYES: Normal reaction of pupils, equal size. NOSE: Clear with pink turbinates. THROAT: No erythema or exudates. NECK: No masses, no JVD. CHEST: No chest wall deformity. LUNGS: Equal air entry with few scattered rhonchi. CVS: S1 and S2 normal with no audible murmur, regular rhythm. ABDOMEN: No hepatosplenomegaly, normal bowel sounds, no guarding or rigidity. SPINE: No scoliosis or deformity SKIN: No rashes CENTRAL NERVOUS SYSTEM: No focal deficits, tone is normal in all 4 extremities. EXTREMITIES: There is 1+ peripheral edema. No clubbing, no cyanosis. Peripheral pulses are intact. - Labs CBC & Chem 7: 12/28/24 03:27 12/28/24 03: Labs: Abnormal Lab Results - Last 24 Hours (Table) 12/27/24 12/27/24 12/28/24 Range/Units 16:47 21:09 03:27 WBC 12.42 H (4.50-10.00) X 10*3/uL Immature Gran # 0.07 H (0.00-0.04) X 10*3/uL Neutrophils # 10.54 H (1.80-7.70) X 10*3/uL Lymphocytes # 0.60 L (0.90-5.00) X 10*3/uL Monocytes # 1.19 H (0.20-1.00) X 10*3/uL Eosinophils # 0 L (0.04-0.35) X 10*3/uL Sodium (135-145) mmol/L Chloride (96-109) mmol/L Anion Gap (4.00-12.00) mmol/L Est GFR (CKD-EPI) (>=60) BUN/Creatinine Ratio (12.00-20.00) Ratio Glucose (70-110) mg/dL POC Glucose (mg/dL) 212 H 199 H (70-110) mg/dL Calcium (8.7-10.3) mg/dL 12/28/24 12/28/24 12/28/24 Range/Units 03:27 06:10 11:59 WBC (4.50-10.00) X 10*3/uL Immature Gran # (0.00-0.04) X 10*3/uL Neutrophils # (1.80-7.70) X 10*3/uL Lymphocytes # (0.90-5.00) X 10*3/uL Monocytes # (0.20-1.00) X 10*3/uL Eosinophils # (0.04-0.35) X 10*3/uL Sodium 133 L (135-145) mmol/L Chloride 89 L (96-109) mmol/L Anion Gap 12.80 H (4.00-12.00) mmol/L Est GFR (CKD-EPI) 58 L (>=60) BUN/Creatinine Ratio 24.10 H (12.00-20.00) Ratio Glucose 174 H (70-110) mg/dL POC Glucose (mg/dL) 159 H 247 H (70-110) mg/dL Calcium 8.3 L (8.7-10.3) mg/dL Microbiology - Last 24 Hours (Table) 12/24/24 09:52 Blood Culture - Preliminary Blood Assessment and Plan Assessment: Acute COVID 19 infection with nausea, vomiting, diarrhea. Improving Acute on chronic hypoxemic respiratory failure secondary to mild asthma exacerbation from COVID infection, and mild fluid volume overload Mild intermittent chronic bronchial asthma Obstructive sleep apnea maintained on CPAP Morbid obesity/hypoventilation syndrome History of pulmonary embolism anticoagulated with Xarelto Atrial fibrillation with previous ablation Hypertension Hyperlipidemia History of bariatric surgery Plan: The patient was seen and evaluated Labs and medications reviewed No pulmonary complaints Continued on IV diuretics Remains in a negative balance Stable on 4 L nasal cannula Continue Decadron Continue vitamin C, D and zinc Anticoagulated with Eliquis Plan is for sub acute rehab at discharge, possibly [facility] I have personally seen and examined the patient, performed the documentation and the assessment and plan as written. Number of minutes spent on the visit: 10 Dictation was produced using [employer] dictation software. Please excuse any gr ammatical, word or spelling errors.
--- NOTE | 2024-12-28 15:22 | P.PN ---
Subjective Progress Note Date: 12/28/24 Principal diagnosis: Reason for follow-up is COVID-19, questionable need for remdesivir Patient is a 74-year-old female with a past medical history significant for Atrial Fibrillation, Atrial Flutter, Asthma, Fibromyalgia, GERD/Reflux, GI Bleed, Hyperlipidemia, Hypertension, Musculoskeletal Disorder, Neurologic Disorder, Osteoarthritis (OA), Pulmonary Embolus (PE), Sleep Apnea/CPAP/BIPAP, Thyroid Disorder, Vascular Disorder, presenting to the hospital for evaluation of increasing shortness of breath and weakness along with vomiting and diarrhea has been diagnosed with COVID-19 prompted this consultation. On today's evaluation that is 12/28/2024, Patient is afebrile this morning patient denies having any chest pain mention breathing more comfortably and denies any worsening cough patient is currently on 4 L nasal cannula oxygen patient still complaining of some lower chest pain nausea but no vomiting no abdominal pain or diarrhea. Patient white count is 12.42, creat is 1.0 blood culture has been negative Objective - Vital Signs Vital signs: Vital Signs Temp 97.6 F 12/28/24 07:50 Pulse 73 12/28/24 07:50 Resp 20 12/28/24 07:50 BP 152/86 12/28/24 07:50 Pulse Ox 97 12/28/24 07:50 FiO2 Intake & Output 12/27/24 12/28/24 12/28/24 18:59 06:59 18:59 Intake Total 480 120 Output Total 1800 1250 600 Balance -1320 -1250 -480 Intake: Oral 480 120 Output: Urine 1800 1250 600 Other: Voiding Method External Catheter External Catheter External Catheter # Voids 3 - Exam GENERAL DESCRIPTION: An elderly female lying in bed in no distress RESPIRATORY SYSTEM: Unlabored breathing , decreased breath sounds at bases HEART: S1 S2 regular rate and rhythm , ABDOMEN: Soft , no tenderness EXTREMITIES: No edema feet - Labs CBC & Chem 7: 12/28/24 03:27 12/28/24 03:27 Labs: Abnormal Lab Results - Last 24 Hours (Table) 12/27/24 12/27/24 12/28/24 Range/Units 16:47 21:09 03:27 WBC 12.42 H (4.50-10.00) X 10*3/uL Immature Gran # 0.07 H (0.00-0.04) X 10*3/uL Neutrophils # 10.54 H (1.80-7.70) X 10*3/uL Lymphocytes # 0.60 L (0.90-5.00) X 10*3/uL Monocytes # 1.19 H (0.20-1.00) X 10*3/uL Eosinophils # 0 L (0.04-0.35) X 10*3/uL Sodium (135-145) mmol/L Chloride (96-109) mmol/L Anion Gap (4.00-12.00) mmol/L Est GFR (CKD-EPI) (>=60) BUN/Creatinine Ratio (12.00-20.00) Ratio Glucose (70-110) mg/dL POC Glucose (mg/dL) 212 H 199 H (70-110) mg/dL Calcium (8.7-10.3) mg/dL 12/28/24 12/28/24 12/28/24 Range/Units 03:27 06:10 11:59 WBC (4.50-10.00) X 10*3/uL Immature Gran # (0.00-0.04) X 10*3/uL Neutrophils # (1.80-7.70) X 10*3/uL Lymphocytes # (0.90-5.00) X 10*3/uL Monocytes # (0.20-1.00) X 10*3/uL Eosinophils # (0.04-0.35) X 10*3/uL Sodium 133 L (135-145) mmol/L Chloride 89 L (96-109) mmol/L Anion Gap 12.80 H (4.00-12.00) mmol/L Est GFR (CKD-EPI) 58 L (>=60) BUN/Creatinine Ratio 24.10 H (12.00-20.00) Ratio Glucose 174 H (70-110) mg/dL POC Glucose (mg/dL) 159 H 247 H (70-110) mg/dL Calcium 8.3 L (8.7-10.3) mg/dL Microbiology - Last 24 Hours (Table) 12/24/24 09:52 Blood Culture - Preliminary Blood Assessment and Plan (1) COVID-19 Current Visit: Yes Status: Acute Code(s): U07.1 - COVID-19 SNOMED Code(s): 407208390 (2) Allergy to multiple antibiotics Current Visit: No Status: Acute Code(s): Z88.1 - ALLERGY STATUS TO OTHER ANTIBIOTIC AGENTS SNOMED Code(s): 697774995 (3) Leukocytosis Current Visit: No Status: Acute Code(s): D72.829 - ELEVATED WHITE BLOOD CELL COUNT, UNSPECIFIED SNOMED Code(s): 786887757 Plan: 1patient presented hospital denies weakness nausea vomiting diarrhea also complaining of shortness of breath in this patient has been tested positive for COVID-19 she is not running any fever chest x-ray did not show any groundglass opacities pathognomonic for COVID-19 pneumonia and no evidence of any secondary bacterial pneumonia 2-patient seem to be slowly clinical improvement and continue with the current treatment of dexamethasone zinc Eliquis vitamin C 3leukocytosis likely steroid related and will be monitored closely Dictation was produced using [employer] dictation software. please excuse any grammatical, word or spelling errors. Time with Patient: Less than 30
[2024-12-28 16:42] LABS: Glucose,Whole Blood 260 mg/dL (70-110)
[2024-12-28 20:41] LABS: Glucose,Whole Blood 241 mg/dL (70-110)
[2024-12-29 06:22] LABS: Glucose,Whole Blood 172 mg/dL (70-110)
[2024-12-29 12:13] LABS: Glucose,Whole Blood 231 mg/dL (70-110)
--- NOTE | 2024-12-29 14:11 | P.PN ---
Subjective Progress Note Date: 12/29/24 This is an obese 74-year-old female patient with a known history of obstructive sleep apnea maintained on home CPAP, home oxygen at 4 L, mild intermittent chronic bronchial asthma maintained on Qvar, previous bariatric surgery, history of PE, fibromyalgia, diverticulosis, atrial fibrillation who presented here to the emergency room shortness of breath. For 4 days she has been having increasing shortness of breath cough congestion, diarrhea, vomiting, muscle aches. She tested positive for COVID infection. Chest x-ray shows atelectasis and low lung volumes. White count 9.0. Hemoglobin 12.9. Platelets 191. Sodium 134. Potassium 3.1. Bicarb 26. BUN 16. Creatinine 0.79. Glucose 152. proBNP 6230. She is seen today in consultation in the emergency department. Currently sitting up in a stretcher. Awake and alert in no acute distress. Maintaining O2 saturations in the 90s on 2 L/min per nasal cannula. She is afebrile. Hemodynamically stable. The patient is seen today December 25, 2024 in follow-up on the regular medical floor. She is currently resting comfortably in bed. Awake and alert in no acute distress. Maintaining O2 saturations in the 90s on 3 L/min per nasal cannula. Feeling better today. Denies any nausea, vomiting or diarrhea. Chest x-ray shows no acute pulmonary process. White count 7.9. Hemoglobin 12.6. Platelets 230. Sodium 135. Potassium 4.0. Bicarb 25. BUN 18. Creatinine 1.1. Glucose 266. She remains on ceftriaxone. Continued on bronchodilators. Remains on Decadron and vitamin supplements. Remains on IV diuretics. Anticoagulated with Eliquis. Currently in a -2.2 L balance. The patient is seen today December 26, 2024 in follow-up on the regular medical floor. She is sitting up in bed. Awake and alert in no acute distress. Feeling better today compared to yesterday. Maintaining O2 saturations in the 90s on 3 L nasal cannula. Less cough and congestion. White count 20.3. Hemoglobin 12.7. Platelets 240. Sodium 135. Potassium 4.1. Bicarb 26. BUN 25. Creatinine 1.3. Glucose 162. She remains on ceftriaxone. Continued on Decadron. Continued on IV diuretics. Remains in a negative balance. Anticoagulated with Eliquis. Echocardiogram revealed preserved left ventricular systolic function with ejection fraction 50 to 55%. Moderate mitral regurgitation. The patient is seen today December 27, 2024 in follow-up on the regular medical floor. She is awake and alert in no acute distress. Resting comfortably in bed. Denies any worsening shortness of breath, cough or congestion. She is maintaining good O2 saturations in the 90s on 3 L/min per nasal cannula. She is receiving normal saline at 20 mL/h. Continued on ceftriaxone. Remains on vitamin supplements. Anticoagulated with Eliquis. Remains on IV diuretics. Continues to diurese well. Currently in a negative balance. White count 11.9. Hemoglobin 14.0. Platelets 183. Sodium 129. Potassium 3.8. Bicarb 32. BUN 27. Creatinine 1.09. Glucose 140. Procalcitonin was negative at 0.09. The patient is seen today December 28, 2024 in follow-up on the regular medical floor. She is resting comfortably in bed. Awake and alert in no acute distress. Maintaining good O2 saturations in the 90s on 4 L/min per nasal cannula. She has been afebrile. Hemodynamically stable. White count 12.4. Hemoglobin 13.8. Platelets 237. Sodium 133. Potassium 3.8. Bicarb 31. BUN 24. Creatinine 1.0. Glucose 174. She is continued on vitamin supplements. Continued on Decadron. Continued on IV diuretics. Anticoagulated with Eliquis. Blood culture revealed no growth. She has been afebrile. Hemodynamically stable. Currently in a -2.5 L balance. The patient is seen today December 29, 2024 in follow-up on the regular medical floor. She is awake and alert in no acute distress. Resting comfortably in bed. Denies any worsening shortness of breath, cough or congestion. She is maintaining O2 saturations in the 90s on 4 L/min per nasal cannula. No IV fl uids. She is continued on Flovent and Singulair. Remains on vitamin supplements. Anticoagulated with Eliquis. Glucose 172. Objective - Vital Signs Vital signs: Vital Signs Temp 98.4 F 12/29/24 02:22 Pulse 94 12/29/24 11:10 Resp 18 12/29/24 07:11 BP 170/91 12/29/24 11:10 Pulse Ox 99 12/29/24 09:35 FiO2 Intake & Output 03/25/25 03/26/25 03/26/25 18:59 06:59 18:59 Intake Total 860 Output Total 1425 1450 Balance -565 -1450 Intake: Oral 860 Output: Urine 1425 1450 Other: Voiding Method External Catheter External Catheter External Catheter # Voids 1 # Bowel Movements 0 - Exam GENERAL EXAM: Alert, morbidly obese 74-year-old female, on 4 L nasal cannula, in no apparent distress. HEAD: Normocephalic. EYES: Normal reaction of pupils, equal size. NOSE: Clear with pink turbinates. THROAT: No erythema or exudates. NECK: No masses, no JVD. CHEST: No chest wall deformity. LUNGS: Equal air entry with few scattered rhonchi. CVS: S1 and S2 normal with no audible murmur, regular rhythm. ABDOMEN: No hepatosplenomegaly, normal bowel sounds, no guarding or rigidity. SPINE: No scoliosis or deformity SKIN: No rashes CENTRAL NERVOUS SYSTEM: No focal deficits, tone is normal in all 4 extremities. EXTREMITIES: There is 1+ peripheral edema. No clubbing, no cyanosis. Peripheral pulses are intact. - Labs CBC & Chem 7: 12/28/24 03:27 12/28/24 03:27 Labs: Abnormal Lab Results - Last 24 Hours (Table) 12/28/24 12/28/24 12/29/24 Range/Units 16:40 20:39 06:20 POC Glucose (mg/dL) 260 H 241 H 172 H (70-110) mg/dL 12/29/24 Range/Units 12:08 POC Glucose (mg/dL) 231 H (70-110) mg/dL Assessment and Plan Assessment: Acute COVID 19 infection with nausea, vomiting, diarrhea. Improving Acute on chronic hypoxemic respiratory failure secondary to mild asthma exacerbation from COVID infection, and mild fluid volume overload Mild intermittent chronic bronchial asthma Obstructive sleep apnea maintained on CPAP Morbid obesity/hypoventilation syndrome History of pulmonary embolism anticoagulated with Xarelto Atrial fibrillation with previous ablation Hypertension Hyperlipidemia History of bariatric surgery Plan: The patient was seen and evaluated Labs and medications reviewed Continued on diuretics Stable on 4 L nasal cannula Continue Decadron Continue vitamin C, D and zinc Anticoagulated with Eliquis Patient now declining subacute rehab May need home oxygen Plan is for home at discharge I have personally seen and examined the patient, performed the documentation and the assessment and plan as written. Number of minutes spent on the visit: 10 Dictation was produced using [employer] dictation software. Please excuse any grammatical, word or spelling errors.
[2024-12-29 14:23] VITALS: BP 165/83; PULSE 66; RESP 20; TEMP 98.4
--- NOTE | 2024-12-29 17:28 | P.PN ---
Subjective Progress Note Date: 12/29/24 Principal diagnosis: Reason for follow-up is COVID-19, questionable need for remdesivir Patient is a 74-year-old female with a past medical history significant for Atrial Fibrillation, Atrial Flutter, Asthma, Fibromyalgia, GERD/Reflux, GI Bleed, Hyperlipidemia, Hypertension, Musculoskeletal Disorder, Neurologic Disorder, Osteoarthritis (OA), Pulmonary Embolus (PE), Sleep Apnea/CPAP/BIPAP, Thyroid Disorder, Vascular Disorder, presenting to the hospital for evaluation of increasing shortness of breath and weakness along with vomiting and diarrhea has been diagnosed with COVID-19 prompted this consultation. On today's evaluation that is 12/29/2024,the patient denies any fever or any chills, patient is breathing comfortably slightly comfortably and is currently o n a 3 L nasal oxygen at times the patient is on room air as well patient, some central chest pain did have a cough not bringing up any sputum no abdominal pain or diarrhea. No new lab has been obtained today Objective - Vital Signs Vital signs: Vital Signs Temp 98.4 F 12/29/24 02:22 Pulse 94 12/29/24 11:10 Resp 18 12/29/24 07:11 BP 170/91 12/29/24 11:10 Pulse Ox 99 12/29/24 09:35 FiO2 Intake & Output 12/28/24 12/29/24 12/29/24 18:59 06:59 18:59 Intake Total 860 Output Total 1425 1450 Balance -565 -1450 Intake: Oral 860 Output: Urine 1425 1450 Other: Voiding Method External Catheter External Catheter External Catheter # Voids 1 # Bowel Movements 0 - Exam GENERAL DESCRIPTION: An elderly female lying in bed in no distress RESPIRATORY SYSTEM: Unlabored breathing , decreased breath sounds at bases HEART: S1 S2 regular rate and rhythm , ABDOMEN: Soft , no tenderness EXTREMITIES: No edema feet - Labs CBC & Chem 7: 12/28/24 03:27 12/28/24 03:27 Labs: Abnormal Lab Results - Last 24 Hours (Table) 12/28/24 12/28/24 12/29/24 Range/Units 16:40 20:39 06:20 POC Glucose (mg/dL) 260 H 241 H 172 H (70-110) mg/dL 12/29/24 Range/Units 12:08 POC Glucose (mg/dL) 231 H (70-110) mg/dL Assessment and Plan (1) COVID-19 Status: Acute Code(s): U07.1 - COVID-19 SNOMED Code(s): 247035471 (2) Allergy to multiple antibiotics Status: Acute Code(s): Z88.1 - ALLERGY STATUS TO OTHER ANTIBIOTIC AGENTS SNOMED Code(s): 355883924 (3) Leukocytosis Status: Acute Code(s): D72.829 - ELEVATED WHITE BLOOD CELL COUNT, UNSPECIFIED SNOMED Code(s): 025590667 Plan: 1patient presented hospital denies weakness nausea vomiting diarrhea also complaining of shortness of breath in this patient has been tested positive for COVID-19 she is not running any fever chest x-ray did not show any groundglass opacities pathognomonic for COVID-19 pneumonia and no evidence of any secondary bacterial pneumonia 2-patient is slowly clinical improvement at time has been off oxygen currently being treated with the current treatment of dexamethasone zinc Eliquis vitamin C 3leukocytosis likely steroid related as no evidence of any worsening clinical condition Dictation was produced using [employer] dictation software. please excuse any grammatical, word or spelling errors. Time with Patient: Less than 30
== END 2024-12-29 16:25 | disposition home or self-care (01) | DRG 177 ==
LOC: EC 07:57 → 4SSUR 11:48
PROVIDERS: ADMIT Internal Medicine; ATTEND Internal Medicine
DX: U07.1 COVID-19 (principal); J12.82 Pneumonia due to coronavirus disease 2019; J96.21 Acute and chronic respiratory failure with hypoxia; Z11.52 Encounter for screening for COVID-19; E44.1 Mild protein-calorie malnutrition; Z66 Do not resuscitate; I48.91 Unspecified atrial fibrillation; G25.81 Restless legs syndrome; E66.2 Morbid (severe) obesity with alveolar hypoventilation; J45.21 Mild intermittent asthma with (acute) exacerbation; I11.0 Hypertensive heart disease with heart failure; E03.9 Hypothyroidism, unspecified; I08.1 Rheumatic disorders of both mitral and tricuspid valves; Z68.43 Body mass index [BMI] 50.0-59.9, adult; J44.0 Chronic obstructive pulmonary disease with (acute) lower respiratory infection; J44.1 Chronic obstructive pulmonary disease with (acute) exacerbation; E87.1 Hypo-osmolality and hyponatremia; J98.11 Atelectasis; I50.9 Heart failure, unspecified; Z79.890 Hormone replacement therapy; K58.9 Irritable bowel syndrome, unspecified; M81.0 Age-related osteoporosis without current pathological fracture; M79.7 Fibromyalgia; K21.9 Gastro-esophageal reflux disease without esophagitis; E78.5 Hyperlipidemia, unspecified; Z98.84 Bariatric surgery status; E87.6 Hypokalemia; M41.9 Scoliosis, unspecified; Z79.01 Long term (current) use of anticoagulants; Z79.899 Other long term (current) drug therapy; Z82.49 Family history of ischemic heart disease and other diseases of the circulatory system; Z85.528 Personal history of other malignant neoplasm of kidney; Z86.711 Personal history of pulmonary embolism; Z87.442 Personal history of urinary calculi; Z87.11 Personal history of peptic ulcer disease; Z88.1 Allergy status to other antibiotic agents; Z90.710 Acquired absence of both cervix and uterus; Z96.641 Presence of right artificial hip joint; Z98.51 Tubal ligation status; Z98.42 Cataract extraction status, left eye; Z98.41 Cataract extraction status, right eye; Z88.2 Allergy status to sulfonamides; Z88.8 Allergy status to other drugs, medicaments and biological substances; M47.894 Other spondylosis, thoracic region; Z86.14 Personal history of Methicillin resistant Staphylococcus aureus infection; Z88.6 Allergy status to analgesic agent; Z88.0 Allergy status to penicillin; Z88.5 Allergy status to narcotic agent; Z91.040 Latex allergy status; Z91.018 Allergy to other foods
CPT/HCPCS: 36415; 71045; 71046; 80048; 80053; 81003; 83036; 83605; 83735; 83880; 84145; 85025; 85379; 85610; 85730; 86140; 87040; 87636; 93005; 93306; 94640; 94760; 96374; 96375; 96376; 99285

== ENCOUNTER → 2025-04-12 | Outpatient (CLI) | payer MEDICARE ==
[2025-04-12 15:46] LABS: ALT 9 U/L (8-44); AST 17 U/L (13-35); Albumin 3.7 g/dL (3.8-4.9); Albumin/Globulin Ratio 1.32 Ratio (1.60-3.17); Alkaline Phosphatase 90 U/L (41-126); Anion Gap 11.90 mmol/L (4.00-12.00); BUN/Creat Ratio 15.33 Ratio (12.00-20.00); Blood Urea Nitrogen 13.8 mg/dL (9.0-27.0); Calcium 9.7 mg/dL (8.7-10.3); Carbon Dioxide 30.1 mmol/L (21.6-31.8); Chloride 99 mmol/L (96-109); Globulin 2.8 g/dL (1.6-3.3); Glucose 125 mg/dL (70-110); Potassium 3.9 mmol/L (3.5-5.5); Sodium 141 mmol/L (135-145); T4, Free (Free Thyroxine) 2.01 ng/dL (0.80-1.80); Total Protein 6.5 g/dL (6.2-8.2)
== END | disposition home or self-care (01) ==
LOC: LABWHC1 08:40
PROVIDERS: ATTEND Internal Medicine
DX: E06.3 Autoimmune thyroiditis (principal); R73.03 Prediabetes; M81.0 Age-related osteoporosis without current pathological fracture
CPT/HCPCS: 36415; 80053; 83036; 84439; 84443; 84681